=== PATIENT | female | born 1940 | race Caucasian/White ===

== ENCOUNTER → 2016-11-03 | Outpatient (CLI) | payer MEDICARE, OTHER ==
[~2016-11-03] VITALS: Ht 162.6 cm; Wt 98.4 kg
[~2016-11-03] MED LIST: CATHETER FLUSH 10 ML SYR IV PRN; LEVO500T69 PO; REGADENOSON 0.4 MG/5 ML SYR (LEXISCAN) IV ONE; SCR1T PO
[2016-11-03 13:20] VITALS: BP 216/90
--- NOTE | 2016-11-04 14:46 | STRESS TEST ---
DATE OF SERVICE: 11/03/2016 RESTING AND POST REGADENOSON TECHNETIUM 99M TETROFOSMIN SPECT CT IMAGING ORDERING PHYSICIAN: Lilly Rollins APRN PRIMARY PHYSICIAN: Dr. Casas. OTHER PHYSICIAN: Dr. Souza. CLINICAL DIAGNOSES: Coronary artery disease, shortness of breath, hypertension. Baseline images were carried out after injection of 10.03 mCi of technetium-99m tetrofosmin for this was followed by 0.4 mg of regadenoson and 29.8 mCi technetium-99m tetrofosmin for stress imaging. The electrocardiogram showed sinus rhythm with incomplete right bundle branch block and nonspecific ST and T-wave abnormality. The electrocardiogram did not change significantly with the regadenoson infusion. Review of images at rest and following stress does not indicate any significant perfusion defects consistent with significant myocardial ischemia or infarction. Gated images show normal global left ventricular systolic function and normal regional wall motion. Left ventricular ejection fraction is calculated to be 84%. Left ventricular end diastolic volume is 25 mL. CONCLUSIONS: 1. No evidence of significant myocardial ischemia or infarction on this study. 2. Normal regional wall motion. 3. Normal global left ventricular systolic function with a calculated ejection fraction of 84%. Job ID: [id number] DocumentID: [id number] Dictated Date: 11/04/2016 12:55:27 Computer Information Systems Instructor Date: 11/04/2016 14:32:36 Dictated By: ARMAND SOUZA MD, MA, FACP, FACC,
== END ==
LOC: CARD 11:44
PROVIDERS: ATTEND Nurse Practitioner Family
DX: I25.10 Atherosclerotic heart disease of native coronary artery without angina pectoris (principal); R06.09 Other forms of dyspnea; I10 Essential (primary) hypertension; R53.81 Other malaise
CPT/HCPCS: 78452; 93017

== ENCOUNTER → 2016-12-16 | Outpatient (CLI) | payer MEDICARE, OTHER ==
[~2016-12-16] MED LIST changes: -CATHETER FLUSH 10 ML SYR IV PRN; -REGADENOSON 0.4 MG/5 ML SYR (LEXISCAN) IV ONE
== END ==
LOC: CARD 12:50
PROVIDERS: ATTEND Nurse Practitioner Family
DX: I25.10 Atherosclerotic heart disease of native coronary artery without angina pectoris (principal); I10 Essential (primary) hypertension; R06.09 Other forms of dyspnea; R53.81 Other malaise
CPT/HCPCS: 93306

== ENCOUNTER 2017-12-13 05:51 | Outpatient (CLI) | payer MEDICARE, OTHER ==
[~2017-12-13] VITALS: Ht 162.6 cm; Wt 93.9 kg
[2017-12-13] MEDS ORDERED: LYSI500T3 PO (14:07)
[2017-12-13] MEDS ORDERED: OMEP40CA36 PO (14:07)
[2017-12-13] MEDS ORDERED: ASPI-808 PO (14:07)
[2017-12-13] MEDS ORDERED: FENO145T37 PO (14:07)
[2017-12-13] MEDS ORDERED: CLOP75TA69 PO (14:07)
[2017-12-13] MEDS ORDERED: LEVO50TA6 PO (14:07)
[2017-12-13] MEDS ORDERED: RED600CA2 PO (14:07)
[2017-12-13] MEDS ORDERED: AMLO10TA2 PO (14:07)
[2017-12-13] MEDS ORDERED: FURO80TA83 PO (14:07)
[2017-12-13] MEDS ORDERED: METO-352 PO (14:07)
[2017-12-13] MEDS ORDERED: POTA-51 PO (14:07)
== END 2017-12-13 14:13 | disposition home or self-care (01) ==
LOC: PREOP 05:51
PROVIDERS: ATTEND Surgery
DX: Z01.818 Encounter for other preprocedural examination (principal)

== ENCOUNTER 2017-12-20 09:19 | Day surgery (SDC) | payer MEDICARE, OTHER ==
[~2017-12-20] VITALS: Ht 162.6 cm; Wt 93.9 kg
[~2017-12-20 09:19] MED LIST changes: +AMLO10TA2 PO; +ASPI-808 PO; +CLOP75TA69 PO; +FENO145T37 PO; +FURO80TA83 PO; +LEVO50TA6 PO; +LYSI500T3 PO; +METO-352 PO; +OMEP40CA36 PO; +POTA-51 PO; +RED600CA2 PO
[2017-12-20] MEDS ORDERED: NS IV 500 ML 500 ML IV PRN (09:22)
[2017-12-20] MEDS ORDERED: NS IV 500 ML 500 ML ONE (09:23)
[2017-12-20 09:30] VITALS: BP 190/80
[2017-12-20] MEDS ORDERED: HURRICAINE EXT TUBE (BENZOCAINE) XX PRN (09:30)
[2017-12-20] MEDS ORDERED: MIDAZOLAM 2 MG/2 ML (VERSED) VIAL ONE ×3 (09:42→09:43)
[2017-12-20] MEDS ORDERED: HURRICAINE EXT TUBE (BENZOCAINE) ONE (09:43)
[2017-12-20] MEDS ORDERED: fentaNYL INJECTION 100 MCG/2 ML AMP ONE (09:43)
[2017-12-20] MEDS: fentaNYL INJECTION 100 MCG/2 ML AMP IVP PRN ×2 (09:55→10:10)
--- NOTE | 2017-12-20 09:55 | Conscious Sedation/ASA ---
Conscious Sedation Pre-Proced Time Reviewed: 09:55 ASA Class: 2 Airway Mallampati Classification: (sh[place] ira appropriate class) I. II. III, IV Lungs Heart ASA score ASA 1: a normal healthy patient ASA 2: a patient with a mild systemic disease (mid diabetes, controlled hypertension, obesity ASA 3: a patient with a severe systemic disease that limits activity (angina , COPD, prior Myocardial infarction) ASA 4: a patient with an incapacitating disease that is a constant threat to life (CHF, renal failure) ASA 5: a moribund patient not expected to survive 24 hrs. (ruptured aneurysm) ASA 6: a declared brain patient whose organs are being harvested. For emergent operations, add the letter E after the classification Grade 1 Sedation Plan: Discussed options with patient/fam Note The patient is an appropriate candidate to undergo the planned procedure, sedation, and anesthesia. The patient immediately re-assessed prior to indication. BALDEV AGUIRRE MD Dec 20, 2017 9:55 am
--- NOTE | 2017-12-20 09:55 | History & Physicial ---
History of Present Illness History of Present Illness Reason for visit/HPI to undergo an upper endoscopy with concomitant colonoscopy, to investigate iron deficiency anemia. She reports symptoms of gastroesophageal reflux as well. Date of Admission 12/20/17 Date Seen by Provider: Dec 20, 2017 Time Seen by Provider: 09:53 I consulted on this patient on 12/20/17 09:53 Attending Physician Baldev Aguirre MD Admitting Physician Frankie Casas DO Consult Allergies and Home Medications Allergies Coded Allergies: Sulfa (Sulfonamide Antibiotics) (Verified Allergy, Unknown, 12/13/17) penicillin G (Verified Allergy, Unknown, 12/13/17) Home Medications Amlodipine Besylate 10 Mg Tablet, 10 MG PO DAILY, (Reported) Aspirin 325 Mg Tablet, 325 MG PO DAILY, (Reported) Clopidogrel Bisulfate 75 Mg Tablet, 75 MG PO DAILY, (Reported) Fenofibrate Nanocrystallized 145 Mg Tablet, 145 MG PO DAILY, (Reported) Furosemide 80 Mg Tablet, 80 MG PO DAILY, (Reported) Levothyroxine Sodium 50 Mcg Tablet, 50 MCG PO DAILY, (Reported) Lysine 500 Mg Tablet, 500 MG PO DAILY, (Reported) Metoprolol Succinate 50 Mg Tab.er.24h, 50 MG PO DAILY, (Reported) Omeprazole 40 Mg Capsule.dr, 40 MG PO DAILY, (Reported) Potassium Chloride 20 Meq Tablet.er, 20 MEQ PO DAILY, (Reported) Red Yeast Rice 600 Mg Capsule, 600 MG PO DAILY, (Reported) Patient Home Medication List Home Medication List Reviewed: Yes Past Avaprnv-Vvktlo-Wqtajl Hx Patient Social History Marrital Status: Employed/Student: retired Alcohol Use: Denies Use Recreational Drug Use: No Smoking Status: Former Smoker Former Smoker, Quit: Dec 13, 1993 Recent Foreign Travel: No Contact w/other who traveled: No Recent Hopitalizations: No Recent Infectious Disease Expo: No Immunizations Up To Date Date of Pneumonia Vaccine: Mar 08, 2017 Date of Influenza Vaccine: Mar 08, 2017 Seasonal Allergies Seasonal Allergies: Yes (MILD) Surgeries Yes CABG, Gallbladder, Hysterectomy, Tonsillectomy Cardiovascular Yes Coronary Artery Disease, High Cholesterol, Hypertension Reproductive System : Yes Hx Reproductive Disorders: No Sexually Transmitted Disease: No 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 Genitourinary Neurogenic Bladder Gastrointestinal Yes Gastroesophageal Reflux, Chronic Constipation, Chronic Diarrhea Musculoskeletal Yes Arthritis HEENT Loss of Vision: Bilateral Hearing Impairment: Denies Blood Transfusions Adverse Reaction to a Blood Tr: No Constitutional: no symptoms reported EENTM: no symptoms reported Respiratory: no symptoms reported Cardiovascular: no symptoms reported Gastrointestinal: no symptoms reported Genitourinary: no symptoms reported Musculoskeletal: no symptoms reported Skin: no symptoms reported Psychiatric/Neurological: No Symptoms Reported Physical Exam Vital Signs Vital Signs - First Documented 12/20/17 09:30 Temp 98.0 Pulse 64 Resp 18 B/P (MAP) 190/80 (116) Pulse Ox 92 Capillary Refill : Height, Weight, BMI Height: 5'4.00" Weight: 207lbs. 0.0oz. 93.875548zm; 35.5 BMI Method:Stated General Appearance: No Apparent Distress Neck: Normal Inspection Respiratory: Lungs Clear Cardiovascular: Regular Rate, Rhythm Gastrointestinal: Non Tender, Soft Rectal: Deferred Neurologic/Psychiatric: Alert, Oriented x3 Skin: Warm/Dry Assessment/Plan Assessment and Plan lady with iron deficiency anemia and symptoms of reflux disease. 4 upper endoscopy with colonoscopy. Admission Diagnosis Admission Status: Other (Outpt Proc) BALDEV AGUIRRE MD Dec 20, 2017 9:55 am
[2017-12-20] MEDS: MIDAZOLAM 2 MG/2 ML (VERSED) VIAL IVP PRN ×3 (09:57→10:20)
--- NOTE | 2017-12-20 10:42 | Endo Procedure Record ---
Endo Procedure Report Date of Procedure Last Colonoscopy: Yes (1981) Dec 20, 2017 Surgeon (s) BALDEV AGUIRRE MD Post Procedure/Op Diagnosis EGD: Uncomplicated hiatal hernia Colonoscopy: Diffuse diverticulosis 2 mm polyp at the distal transverse colon Procedure Performed EGD Colonoscopy to cecum Hot biopsy polypectomy Description of Procedure Anesthesia Type: Conscious Sedation Specimen(s) collected/removed Transverse colon polyp Description of the Procedure Indication for the procedures: This lady came in for an upper endoscopy with concomitant colonoscopy, to evaluate iron deficiency anemia. In addition, she reported symptoms of gastroesophageal reflux as well. Informed consent was obtained after reviewing the procedures in detail. Description of procedures: EGD: She was placed in left lateral decubitus position and vital signs were monitored. Conscious sedation was achieved using Versed and fentanyl. The flexible gastroscope was introduced down the esophagus, past the stomach, into the proximal duodenum. Findings: Esophagus: An uncomplicated hiatal hernia. Stomach and duodenum were normal. She tolerated the procedure well and was turned around in preparation for colonoscopy. Impression: Iron deficiency anemia. No gastric ulcers. Colonoscopy/polypectomy: Digital rectal examination was unremarkable. The colonoscope was then introduced in the rectum and advanced with difficulty to the cecum. I have recorded bowel preparation was rather suboptimal. Diverticulosis and redundancy of the sigmoid colon made examination rather tedious. The scope was then withdrawn slowly and the mucosa examined in a systematic fashion. Findings: 1. Diffuse diverticulosis 2. 2 mm polyp at the distal transverse colon that was excised with hot biopsy forceps She tolerated the procedures well and was taken back to the nursing area in a stable condition. Impression: Iron deficiency anemia. Transverse colon polyp excised. Copy Copies To 1: SHARATH COLON XAVIER M MD Dec 20, 2017 10:42 am
--- NOTE | 2017-12-20 10:44 | Discharge Inst-Simple/Standard ---
Discharge Inst-Standard Discharge Medications New, Converted or Re-Newed RX: Other Patient Instructions/Follow Up Plan of Care/Instructions/FU: Withhold aspirin and Plavix for 48 more hours, in view of polypectomy Activity as Tolerated: Yes Discharge Diet: No Restrictions BALDEV AGUIRRE MD Dec 20, 2017 10:43 am
[2017-12-20 10:55] VITALS: BP 198/86
[2017-12-20 11:25] VITALS: BP 166/81
[2017-12-20 12:27] VITALS: BP 166/81
== END 2017-12-20 12:25 | disposition home or self-care (01) ==
LOC: ENDO 09:19
PROVIDERS: ATTEND Surgery
DX: D12.3 Benign neoplasm of transverse colon (principal); D50.9 Iron deficiency anemia, unspecified; K57.30 Diverticulosis of large intestine without perforation or abscess without bleeding; K44.9 Diaphragmatic hernia without obstruction or gangrene; K21.9 Gastro-esophageal reflux disease without esophagitis; Z88.2 Allergy status to sulfonamides; Z88.1 Allergy status to other antibiotic agents; Z87.891 Personal history of nicotine dependence; Z95.1 Presence of aortocoronary bypass graft; I25.10 Atherosclerotic heart disease of native coronary artery without angina pectoris; E78.00 Pure hypercholesterolemia, unspecified; I10 Essential (primary) hypertension; N31.9 Neuromuscular dysfunction of bladder, unspecified; K59.09 Other constipation; K52.9 Noninfective gastroenteritis and colitis, unspecified

== ENCOUNTER 2018-05-20 22:42 | Inpatient (IN) | payer MEDICARE, OTHER ==
[~2018-05-20] VITALS: Ht 162.6 cm; Wt 96.8 kg
[~2018-05-20 22:42] MED LIST changes: -AMLO10TA2 PO; +AMLO10TA6 PO
[2018-05-20] MEDS ORDERED: fentaNYL INJECTION 100 MCG/2 ML AMP ONE (22:54)
--- NOTE | 2018-05-20 22:54 | ED Fall/Injury ---
General Stated Complaint: FALL/R KNEE PAIN Source: patient, family, EMS Exam Limitations: no limitations History of Present Illness Date Seen by Provider: May 20, 2018 Time Seen by Provider: 22:39 Initial Comments The patient presents to ER by EMS with chief complaint that she was getting up to go to bed and went to let her dog out to go the bathroom but had already urinated on the floor and she slipped in the urine falling backwards onto her back. She is not really having any pain in her back at this time however her right knee and right ankle are hurting. She says she did strike her head and the back but she did not lose consciousness have any nausea vomiting. She denies loss of continence herself. She is on Plavix. She remembers the entire event. 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 Allergies and Home Medications Allergies Coded Allergies: Sulfa (Sulfonamide Antibiotics) (Verified Allergy, Unknown, 12/13/17) penicillin G (Verified Allergy, Unknown, 12/13/17) Home Medications Amlodipine Besylate 10 Mg Tablet, 10 MG PO DAILY, (Reported) Fenofibrate Nanocrystallized 145 Mg Tablet, 145 MG PO DAILY, (Reported) Furosemide 80 Mg Tablet, 80 MG PO DAILY, (Reported) Levothyroxine Sodium 50 Mcg Tablet, 50 MCG PO DAILY, (Reported) Lysine 500 Mg Tablet, 500 MG PO DAILY, (Reported) Metoprolol Succinate 50 Mg Tab.er.24h, 50 MG PO DAILY, (Reported) Omeprazole 40 Mg Capsule.dr, 40 MG PO DAILY, (Reported) Potassium Chloride 20 Meq Tablet.er, 20 MEQ PO DAILY, (Reported) Red Yeast Rice 600 Mg Capsule, 600 MG PO DAILY, (Reported) Patient Home Medication List Home Medication List Reviewed: Yes Review of Systems Review of Systems Constitutional: No chills, No fever, No malaise Eyes: Denies Blindness, Denies Blurred Vision Ears, Nose, Mouth, Throat: denies ear pain, denies ear discharge Respiratory: No cough, No short of breath Cardiovascular: No chest pain, No edema Gastrointestinal: No abdominal pain, No nausea Genitourinary: No discharge, No dysuria Musculoskeletal: see HPI Past Fltatyj-Snyvqp-Uduoih Hx Patient Social History Alcohol Use: Denies Use Recreational Drug Use: No Smoking Status: Never a Smoker Former Smoker, Quit: Dec 13, 1993 Recent Foreign Travel: No Contact w/Someone Who Travel: No Recent Hopitalizations: No Immunizations Up To Date Date of Pneumonia Vaccine: Mar 08, 2017 Date of Influenza Vaccine: Mar 08, 2017 Seasonal Allergies Seasonal Allergies: Yes (MILD) Past Medical History Surgeries: Yes CABG, Gallbladder, Hysterectomy, Tonsillectomy Cardiac: Yes Coronary Artery Disease, High Cholesterol, Hypertension 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 0.0oz. 93.320634ur; 35.5 BMI Method:Stated General Appearance: WD/WN, no apparent distress HEENT: PERRL/EOMI, normal ENT inspection, TMs normal, pharynx normal, other ( negative for raccoon eyes or Chowdhury sign. Atraumatic head without hematoma.) Neck: non-tender, full range of motion, supple, normal inspection Cardiovascular: normal peripheral pulses, regular rate, rhythm, no edema, no murmur Respiratory: chest non-tender, lungs clear, normal breath sounds, no respiratory distress, no accessory muscle use Peripheral Pulses: 2+ Dorsalis Pedis (R), 2+ Left Dors-Pedis (L), 2+ Radial Pulses (R), 2+ Radial Pulses (L) Gastrointestinal: non tender, soft Pelvic: normal external exam Extremities: normal inspection, no calf tenderness, normal capillary refill, swelling (right ankle mild nonpitting), other (right knee tender over the distal femur and right hip nontender except on movement. 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, no motor/sensory deficits, alert, normal mood/affect, oriented x 3 Skin: normal color, warm/dry Progress/Results/Core Measures Results/Orders Lab Results Laboratory Tests Test 05/20/18 22:30 05/20/18 23:50 Range/Units White Blood Count 5.4 4.3-11.0 10^3/uL Red Blood Count 4.02 L 4.35-5.85 10^6/uL Hemoglobin 10.9 L 11.5-16.0 G/DL Hematocrit 34 L 35-52 % Mean Corpuscular Volume 85 80-99 FL Mean Corpuscular Hemoglobin 27 25-34 PG Mean Corpuscular Hemoglobin Concent 32 32-36 G/DL Red Cell Distribution Width 12.9 10.0-14.5 % Platelet Count 240 130-400 10^3/uL Mean Platelet Volume 10.3 7.4-10.4 FL Neutrophils (%) (Auto) 51 42-75 % Lymphocytes (%) (Auto) 35 12-44 % Monocytes (%) (Auto) 12 0-12 % Eosinophils (%) (Auto) 0 0-10 % Basophils (%) (Auto) 1 0-10 % Neutrophils # (Auto) 2.8 1.8-7.8 X 10^3 Lymphocytes # (Auto) 1.9 1.0-4.0 X 10^3 Monocytes # (Auto) 0.7 0.0-1.0 X 10^3 Eosinophils # (Auto) 0.0 0.0-0.3 10^3/uL Basophils # (Auto) 0.1 0.0-0.1 10^3/uL Prothrombin Time 12.7 12.2-14.7 SEC INR Comment 1.0 0.8-1.4 Activated Partial Thromboplast Time 26 24-35 SEC Sodium Level 141 135-145 MMOL/L Potassium Level 3.2 L 3.6-5.0 MMOL/L Chloride Level 108 H 98-107 MMOL/L Carbon Dioxide Level 18 L 21-32 MMOL/L Anion Gap 15 H 5-14 MMOL/L Blood Urea Nitrogen 17 7-18 MG/DL Creatinine 1.20 0.60-1.30 MG/DL Estimat Glomerular Filtration Rate 44 BUN/Creatinine Ratio 14 Glucose Level 175 H 70-105 MG/DL Calcium Level 10.4 H 8.5-10.1 MG/DL Corrected Calcium 10.2 H 8.5-10.1 MG/DL Total Bilirubin 0.3 0.1-1.0 MG/DL Aspartate Amino Transf (AST/SGOT) 34 5-34 U/L Alanine Aminotransferase (ALT/SGPT) 29 0-55 U/L Alkaline Phosphatase 82 40-136 U/L Total Protein 7.4 6.4-8.2 GM/DL Albumin 4.3 3.2-4.5 GM/DL Urine Color YELLOW Urine Clarity CLEAR Urine pH 5 5-9 Urine Specific [place] 1.015 L 1.016-1.022 Urine Protein NEGATIVE NEGATIVE Urine Glucose (UA) NEGATIVE NEGATIVE Urine Ketones NEGATIVE NEGATIVE Urine Nitrite NEGATIVE NEGATIVE Urine Bilirubin NEGATIVE NEGATIVE Urine Urobilinogen NORMAL NORMAL MG/DL Urine Leukocyte Esterase NEGATIVE NEGATIVE Urine RBC (Auto) NEGATIVE NEGATIVE Urine RBC NONE /HPF Urine WBC NONE /HPF Urine Squamous Epithelial Cells RARE /HPF Urine Crystals NONE /LPF Urine Bacteria NEGATIVE /HPF Urine Casts NONE /LPF Urine Mucus SMALL H /LPF Urine Culture Indicated NO My Orders Orders - CAMELIA AMATO Knee, Right, 3 Views (05/20/18 22:48) Ankle, Right, 3 Views (05/20/18 22:48) Hip, Right, 2 Views (05/20/18 22:48) Ct Head/Cervical Spine Wo (05/20/18 22:48) Fentanyl Injection (Sublimaze Injection (05/20/18 23:00) Fentanyl Injection (Sublimaze Injection (05/20/18 22:54) Femur, Right, 2 Views (05/20/18 23:12) Chest 1 View, Ap/Pa Only (05/20/18 23:25) Fentanyl Injection (Sublimaze Injection (05/21/18 00:00) Cbc With Automated Diff (05/20/18 23:55) Comprehensive Metabolic Panel (05/20/18 23:55) Ua Culture If Indicated (05/20/18 23:55) Protime With Inr (05/20/18 23:55) Partial Thromboplastin Time (05/20/18 23:55) Ct Extremity Lower Right Wo (05/21/18 00:31) Ct Extremity Lower Right Wo (05/21/18 00:47) Medications Given in ED Current Medications Medications Dose Ordered Sig/Bety Route Start Time Stop Time Status Last Admin Dose Admin Fentanyl Citrate 50 mcg ONCE ONCE IVP 05/20/18 23:00 05/20/18 23:02 DC 05/20/18 22:57 50 MCG Fentanyl Citrate 75 mcg ONCE ONCE IVP 05/21/18 00:00 05/21/18 00:01 DC 05/21/18 00:19 75 MCG Vital Signs/I&O 05/20/18 22:43 Temp 97.8 Pulse 84 Resp 16 B/P (MAP) 192/85 (120) Pulse Ox 93 O2 Delivery Room Air Progress Progress Note : Time: 22:52 Progress Note She has declined pain medicine at this time. We'll get x-rays of her right hip, right knee and right ankle. CT of the head and neck without contrast. Initial ECG Impression: Sinus Bradycardia Diagnostic Imaging Diagonstic Imaging: Xray Plain Films/CT/US/NM/MRI: ankle (r) Comments Distal right fibula has an oblique, closed, minimally displaced, non-angulated fracture. Reviewed: Reviewed by Nh Diagonstic Imaging: Xray Plain Films/CT/US/NM/MRI: knee (r) Comments Oblique/longitudinal fracture noted in the distal femur with minimal comminution not involving the joint space, closed and minimally displaced. Reviewed: Reviewed by Me Diagonstic Imaging: Xray Plain Films/CT/US/NM/MRI: hip (r), other (right femur) Comments Right hip prostheses in good position with wires holding in place and evidence of old fracture at the distal end of the femur prostheses. No acute fracture or dislocation noted. Thin, osteoporotic bone noted. Distal half of the femur shaft has a minimally displaced comminuted longitudinal /oblique fracture that is closed. Reviewed: Reviewed by Nh Diagonstic Imaging: CT (noncontrast) Plain Films/CT/US/NM/MRI: c-spine, head Comments No evidence of intracardiac calvarial fracture, hemorrhage, midline shift, tumor or mass effect. C-spine without fracture or subluxation. Moderate to severe chronic degenerative changes noted. Reviewed: Reviewed by Nh Diagonstic Imaging: Xray Plain Films/CT/US/NM/MRI: chest (1v) Comments Elevated right hemidiaphragm but no infiltrate, or acute pulmonary process noted. Reviewed: Reviewed by Me Consults : Consulting Physician: DIDIER YOUNGBLOOD DO Consults Notes Discussed the case with Dr. Youngblood and then sent the images electronically and he reviewed the CTs of the distal femur fracture and distal fibular fracture. At this time he just wants the patient in a knee immobilizer and a boot. He would like to have the patient admitted to medicine and do surgery on Wednesday. Departure Communication (Admissions) Time/Spoke to Admitting Phy: 01:45 Discussed case lab imaging findings with Dr. Calle and she would like cardiology consult in the morning. Time/Spoke to Consulting Phy: 01:50 Discussed plan again with Dr. Youngblood and he would like to go ahead and admit the patient under medicine and plan to do surgery Wednesday. Impression Primary Impression: Fall Qualified Codes: W19.XXXA - Unspecified fall, initial encounter Additional Impressions: Femur fracture, right Qualified Codes: S72.334A - Nondisplaced oblique fracture of shaft of right femur, initial encounter for closed fracture Fibula fracture Qualified Codes: S89.301A - Unspecified physeal fracture of lower end of right fibula, initial encounter for closed fracture Disposition: 01 HOME, SELF-CARE Condition: Stable Admissions Decision to Admit Reason: Admit from ER (General) Decision to Admit/Date: May 21, 2018 Time/Decision to Admit Time: 01:51 Departure-Patient Inst. Referrals: SHARATH COLON DO (PCP/Family) Primary Care Physician DIDIER YOUNGBLOOD DO Copy Copies To 1: SHARATH COLON TITUS J May 20, 2018 22:54
[2018-05-20] MEDS ORDERED: fentaNYL INJECTION 100 MCG/2 ML AMP IVP ONE (23:00)
[2018-05-21] LABS: BASOPHILS # (AUTO) 0.1 10^3/uL (0.0-0.1); BASOPHILS % (AUTO) 1 % (0-10); EOSINOPHILS % (AUTO) 0 % (0-10); HEMATOCRIT 34 % (35-52); HEMOGLOBIN 10.9 G/DL (11.5-16.0); LYMPHOCYTES # (AUTO) 1.9 X 10^3 (1.0-4.0); LYMPHOCYTES % (AUTO) 35 % (12-44); MEAN CORPUSCULAR HEMOGLOBIN 27 PG (25-34); MEAN CORPUSCULAR HGB CONC 32 G/DL (32-36); MEAN CORPUSCULAR VOLUME 85 FL (80-99); MEAN PLATELET VOLUME 10.3 FL (7.4-10.4); MONOCYTES # (AUTO) 0.7 X 10^3 (0.0-1.0); MONOCYTES % (AUTO) 12 % (0-12); NEUTROPHILS # (AUTO) 2.8 X 10^3 (1.8-7.8); NEUTROPHILS % (AUTO) 51 % (42-75); PLATELET COUNT 240 10^3/uL (130-400); RED BLOOD COUNT 4.02 10^6/uL (4.35-5.85); RED CELL DISTRIBUTION WIDTH 12.9 % (10.0-14.5); WHITE BLOOD COUNT 5.4 10^3/uL (4.3-11.0)
[2018-05-21] MEDS ORDERED: fentaNYL INJECTION 100 MCG/2 ML AMP IVP ONE
[2018-05-21 00:02] LABS: BILIRUBIN,URINE NEGATIVE (NEGATIVE); CLARITY,URINE CLEAR; COLOR,URINE YELLOW; GLUCOSE, URINE (UA) NEGATIVE (NEGATIVE); KETONES,URINE NEGATIVE (NEGATIVE); LEUKOCYTE ESTERASE ,URINE NEGATIVE (NEGATIVE); NITRITE,URINE NEGATIVE (NEGATIVE); PH,URINE 5 (5-9); PROTEIN,URINE NEGATIVE (NEGATIVE); UROBILINOGEN,URINE NORMAL (NORMAL)
[2018-05-21 00:13] LABS: BACTERIA,URINE NEGATIVE /HPF; SQUAMOUS EPITHELIAL CELL,UR RARE /HPF
[2018-05-21 00:14] LABS: ALBUMIN 4.3 GM/DL (3.2-4.5); BILIRUBIN,TOTAL 0.3 MG/DL (0.1-1.0); CALCIUM 10.4 MG/DL (8.5-10.1); CREATININE SERUM 1.2 MG/DL (0.60-1.30); POTASSIUM 3.2 MMOL/L (3.6-5.0); TOTAL PROTEIN 7.4 GM/DL (6.4-8.2)
[2018-05-21 00:15] LABS: PROTHROMBIN TIME PATIENT 12.7 SEC (12.2-14.7)
--- OUTSIDE RECORDS SUMMARY | 2018-05-21 01:59 | XMS REPORT | Continuity of Care Document ---
Author Author [facility] Organization [facility] Address Unknown Phone Unavailable Allergies Active Description Code Type Severity Reaction Onset Reported/Identified Relationship to Patient Clinical Status Yes penicillin G [id number] Drug Allergy Unknown N/A 12/13/2017 Yes Sulfa (Sulfonamide Antibiotics) [id number] Drug Allergy Unknown N/A 2017 Medications There is no data. Problems Date Dx Coded Attending Type Code Diagnosis Diagnosed By 07/18/2013 BEST ENRIQUEZ, GEMMA Wilson Ot 535.50 UNSP GASTRITIS GASTRODUODENITIS W/O ME 07/18/2013 GEMMA JEWELL MD Ot 599.0 URIN TRACT INFECTION NOS 07/18/2013 GEMMA JEWELL MD Ot 786.50 CHEST PAIN NOS 07/18/2013 BEST ENRIQUEZ, GEMMA Wilson Ot 787.01 NAUSEA WITH VOMITING 10/16/2014 Ot V76.12 10/16/2014 Ot V76.12 10/16/2014 SHARATH COLON DO Ot V76.12 10/16/2014 SHARATH COLON DO Ot V76.12 10/16/2014 GOLDIE VILLAFANA NETEZZA ARCHITECT Ot 272.4 10/16/2014 GOLDIE VILLAFANA L NETEZZA ARCHITECT Ot 401.9 10/16/2014 BAIMATTHEW CASTELLONHER L NETEZZA ARCHITECT Ot 414.00 10/16/2014 BAIRAVINDER GOLDIE L NETEZZA ARCHITECT Ot 443.9 10/16/2014 BAIRAVINDER GOLDIE L NETEZZA ARCHITECT Ot 272.4 10/16/2014 BAIRAVINDER GOLDIE L NETEZZA ARCHITECT Ot 401.9 10/16/2014 MATTHEW VILLAFANAHER L NETEZZA ARCHITECT Ot 414.00 10/16/2014 GOLDIE VILLAFANA L NETEZZA ARCHITECT Ot 443.9 10/30/2014 Ot V76.12 10/30/2014 Ot V76.12 10/30/2014 SHARATH COLON DO Ot V76.12 10/30/2014 GELSHARATH COURTNEY DO Ot V76.12 10/30/2014 BAIMA, OGLDIE L NETEZZA ARCHITECT Ot 272.4 10/30/2014 BAIMA, GOLDIE L NETEZZA ARCHITECT Ot 401.9 10/30/2014 BAIMA, GOLDIE L NETEZZA ARCHITECT Ot 414.00 10/30/2014 BAIMA, GOLDIE L NETEZZA ARCHITECT Ot 443.9 10/30/2014 BAIMA, GOLDIE L NETEZZA ARCHITECT Ot 272.4 10/30/2014 BAIMA, GOLDIE L NETEZZA ARCHITECT Ot 401.9 10/30/2014 BAIMA, GOLDIE L NETEZZA ARCHITECT Ot 414.00 10/30/2014 BAIMA, GOLDIE L NETEZZA ARCHITECT Ot 443.9 10/30/2014 PEPE, BHUPENDRA M NETEZZA ARCHITECT Ot 272.2 10/30/2014 PEPE, BHUPENDRA M NETEZZA ARCHITECT Ot 401.9 10/30/2014 PEPE, BHUPENDRA M NETEZZA ARCHITECT Ot 433.10 10/30/2014 PEPE, BHUPENDRA M NETEZZA ARCHITECT Ot 440.1 10/30/2014 PEPE, BHUPENDRA M NETEZZA ARCHITECT Ot 593.2 11/15/2014 PEPE, BHUPENDRA M NETEZZA ARCHITECT Ot 272.2 11/15/2014 PEPE, BHUPENDRA M NETEZZA ARCHITECT Ot 401.9 11/15/2014 PEPE, BHUPENDRA M NETEZZA ARCHITECT Ot 433.10 11/15/2014 PEPE, BHUPENDRA M NETEZZA ARCHITECT Ot 440.1 11/15/2014 PEPE, BHUPENDRA M NETEZZA ARCHITECT Ot 593.2 11/19/2014 AJITH DO, ROSE H Ot 753.10 11/19/2014 AJITH DO, ROSE H Ot V81.5 12/06/2014 AJITH DO, ROSE H Ot 753.10 12/06/2014 AJITH DO, ROSE H Ot V81.5 02/12/2015 SHARATH COLON DO Ot V76.12 11/15/2015 UGO JEAN DO Ot R09.02 HYPOXEMIA 11/15/2015 UGO JEAN DO Ot E66.9 OBESITY, UNSPECIFIED 11/15/2015 UGO JEAN DO Ot I25.10 ATHSCL HEART DISEASE OF [place] CORONARY 11/15/2015 UGO JEAN DO Ot R09.02 HYPOXEMIA 11/21/2015 UGO JEAN DO Ot E66.9 OBESITY, UNSPECIFIED 11/21/2015 UGO JEAN DO Ot I25.10 ATHSCL HEART DISEASE OF [place] CORONARY 11/21/2015 UGO JEAN DO Ot R09.02 HYPOXEMIA 12/04/2015 UGO JEAN DO Ot E66.9 OBESITY, UNSPECIFIED 12/04/2015 UGO JEAN DO Ot I25.10 ATHSCL HEART DISEASE OF [place] CORONARY 12/04/2015 UGO JEAN DO Ot R09.02 HYPOXEMIA 12/12/2015 UGO JEAN DO Ot E66.9 OBESITY, UNSPECIFIED 12/12/2015 UGO JEAN DO Ot I25.10 ATHSCL HEART DISEASE OF [place] CORONARY 12/12/2015 UGO JEAN DO Ot R09.02 HYPOXEMIA 11/04/2016 MERTMA, GOLDIE L NETEZZA ARCHITECT Ot I10 ESSENTIAL (PRIMARY) HYPERTENSION 11/04/2016 BAIMA GOLDIE L NETEZZA ARCHITECT Ot I25.10 ATHSCL HEART DISEASE OF [place] CORONARY 11/04/2016 BAIMA GOLDIE L NETEZZA ARCHITECT Ot R06.09 OTHER FORMS OF DYSPNEA 11/04/2016 BAIMA, GOLDIE L NETEZZA ARCHITECT Ot R53.81 OTHER MALAISE 11/26/2016 BAIMA, GOLDIE L NETEZZA ARCHITECT Ot I10 ESSENTIAL (PRIMARY) HYPERTENSION 11/26/2016 BAIMA, GOLDIE L NETEZZA ARCHITECT Ot I25.10 ATHSCL HEART DISEASE OF [place] CORONARY 11/26/2016 BAIMA GOLDIE L NETEZZA ARCHITECT Ot R06.09 OTHER FORMS OF DYSPNEA 11/26/2016 BAIMA, GOLDIE L NETEZZA ARCHITECT Ot R53.81 OTHER MALAISE 12/16/2016 Ot V76.12 OTH SCREEN MAMMO-MALIGN NEOPLASM OF [place] 12/16/2016 GELLENDER DOSHARATH Ot V76.12 OTH SCREEN MAMMO-MALIGN NEOPLASM OF [place] 12/16/2016 GELLENDER DOSHARATH Ot V76.12 OTH SCREEN MAMMO-MALIGN NEOPLASM OF [place] 12/16/2016 BAIMA GOLDIE L NETEZZA ARCHITECT Ot 272.4 HYPERLIPIDEMIA NEC/NOS 12/16/2016 BAIMA, GOLDIE L NETEZZA ARCHITECT Ot 401.9 HYPERTENSION NOS 12/16/2016 BAIMA, GOLDIE L NETEZZA ARCHITECT Ot 414.00 CORON ATHEROSCLER NOS TYPE VESSEL, NATIV 12/16/2016 BAIMA, GOLDIE L NETEZZA ARCHITECT Ot 443.9 PERIPH VASCULAR DIS NOS 12/16/2016 BAIMA, GOLDIE L NETEZZA ARCHITECT Ot 272.4 HYPERLIPIDEMIA NEC/NOS 12/16/2016 BAIMA, GOLDIE L NETEZZA ARCHITECT Ot 401.9 HYPERTENSION NOS 12/16/2016 BAIMA, GOLDIE L NETEZZA ARCHITECT Ot 414.00 CORON ATHEROSCLER NOS TYPE VESSEL, NATIV 12/16/2016 BAIMA, GOLDIE L NETEZZA ARCHITECT Ot 443.9 PERIPH VASCULAR DIS NOS 12/16/2016 BHUPENDRA PEPE NETEZZA ARCHITECT Ot 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 12/16/2016 BHUPENDRA PEPE NETEZZA ARCHITECT Ot 401.9 HYPERTENSION NOS 12/16/2016 BHUPENDRA PEPE NETEZZA ARCHITECT Ot 433.10 CAROTID ARTERY OCCLUSION W O CEREBRAL IN 12/16/2016 BHUPENDRA PEPE NETEZZA ARCHITECT Ot 440.1 RENAL ARTERY ATHEROSCLER 12/16/2016 BHUPENDRA PEPE NETEZZA ARCHITECT Ot 593.2 CYST OF KIDNEY, ACQUIRED 12/16/2016 ROSE CANSECO DO Ot 753.10 CYSTIC KIDNEY DISEASE, UNSPECIFIED 12/16/2016 ROSE CANSECO DO Ot V81.5 SCREEN FOR NEPHROPATHY 12/16/2016 SHARATH COLON DO Ot V76.12 OTH SCREEN MAMMO-MALIGN NEOPLASM OF [place] 12/16/2016 UGO JEAN DO Ot E66.9 OBESITY, UNSPECIFIED 12/16/2016 UGO JEAN DO Ot I25.10 ATHSCL HEART DISEASE OF [place] CORONARY 12/16/2016 UGO JEAN DO Ot R09.02 HYPOXEMIA 12/16/2016 UGO JEAN DO Ot E66.9 OBESITY, UNSPECIFIED 12/16/2016 UGO JEAN DO Ot I25.10 ATHSCL HEART DISEASE OF [place] CORONARY 12/16/2016 UGO JEAN DO Ot R09.02 HYPOXEMIA 12/16/2016 GOLDIE VILLAFANA NETEZZA ARCHITECT Ot I10 ESSENTIAL (PRIMARY) HYPERTENSION 12/16/2016 BAIMA, GOLDIE L NETEZZA ARCHITECT Ot I25.10 ATHSCL HEART DISEASE OF [place] CORONARY 12/16/2016 BAIMA, GOLDIE L NETEZZA ARCHITECT Ot R06.09 OTHER FORMS OF DYSPNEA 12/16/2016 BAIMA, GOLDIE L NETEZZA ARCHITECT Ot R53.81 OTHER MALAISE 12/17/2016 BAIMA, GOLDIE L NETEZZA ARCHITECT Ot I10 ESSENTIAL (PRIMARY) HYPERTENSION 12/17/2016 BAIMA, GOLDIE L NETEZZA ARCHITECT Ot I25.10 ATHSCL HEART DISEASE OF [place] CORONARY 12/17/2016 BAIMA, GOLDIE L NETEZZA ARCHITECT Ot R06.09 OTHER FORMS OF DYSPNEA 12/17/2016 BAIMA, GOLDIE L NETEZZA ARCHITECT Ot R53.81 OTHER MALAISE 12/22/2016 BAIMA, GOLDIE L NETEZZA ARCHITECT Ot I10 ESSENTIAL (PRIMARY) HYPERTENSION 12/22/2016 BAIMA, GOLDIE L NETEZZA ARCHITECT Ot I25.10 ATHSCL HEART DISEASE OF [place] CORONARY 12/22/2016 BAIMA, GOLDIE L NETEZZA ARCHITECT Ot R06.09 OTHER FORMS OF DYSPNEA 12/22/2016 BAIMA, GOLDIE L NETEZZA ARCHITECT Ot R53.81 OTHER MALAISE 01/15/2017 BAIMA, GOLDIE L NETEZZA ARCHITECT Ot I10 ESSENTIAL (PRIMARY) HYPERTENSION 01/15/2017 BAIMA, GOLDIE L NETEZZA ARCHITECT Ot I25.10 ATHSCL HEART DISEASE OF [place] CORONARY 01/15/2017 BAIMA, GOLDIE L NETEZZA ARCHITECT Ot R06.09 OTHER FORMS OF DYSPNEA 01/15/2017 BAIMA, GOLDIE L NETEZZA ARCHITECT Ot R53.81 OTHER MALAISE 12/13/2017 TIMOTHY ENRIQUEZ, BALDEV Barker Ot Z01.818 ENCOUNTER FOR OTHER PREPROCEDURAL EXAMIN 12/14/2017 TIMOTHY ENRIQUEZ, BALDEV Barker Ot Z01.818 ENCOUNTER FOR OTHER PREPROCEDURAL EXAMIN 12/19/2017 TIMOTHY ENRIQUEZ, BALDEV Barker Ot Z01.818 ENCOUNTER FOR OTHER PREPROCEDURAL EXAMIN 12/20/2017 GELCLINTDER DOSHARATH Ot V76.12 OTH SCREEN MAMMO-MALIGN NEOPLASM OF [place] 12/20/2017 GELLENDER DOSHARATH Ot V76.12 OTH SCREEN MAMMO-MALIGN NEOPLASM OF [place] 12/20/2017 BAIMA, GOLDIE L NETEZZA ARCHITECT Ot 272.4 HYPERLIPIDEMIA NEC/NOS 12/20/2017 BAIMA, GOLDIE L NETEZZA ARCHITECT Ot 401.9 HYPERTENSION NOS 12/20/2017 BAIMA, GOLDIE L NETEZZA ARCHITECT Ot 414.00 CORON ATHEROSCLER NOS TYPE VESSEL, NATIV 12/20/2017 BAIMA, GOLDIE L NETEZZA ARCHITECT Ot 443.9 PERIPH VASCULAR DIS NOS 12/20/2017 BAIMA, GOLDIE L NETEZZA ARCHITECT Ot 272.4 HYPERLIPIDEMIA NEC/NOS 12/20/2017 BAIMA, GOLDIE L NETEZZA ARCHITECT Ot 401.9 HYPERTENSION NOS 12/20/2017 BAIMA, GOLDIE L NETEZZA ARCHITECT Ot 414.00 CORON ATHEROSCLER NOS TYPE VESSEL, NATIV 12/20/2017 BAIMA, GOLDIE L NETEZZA ARCHITECT Ot 443.9 PERIPH VASCULAR DIS NOS 12/20/2017 BHUPENDRA PEPE NETEZZA ARCHITECT Ot 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 12/20/2017 BHUPENDRA PEPE NETEZZA ARCHITECT Ot 401.9 HYPERTENSION NOS 12/20/2017 BHUPENDRA PEPE NETEZZA ARCHITECT Ot 433.10 CAROTID ARTERY OCCLUSION W O CEREBRAL IN 12/20/2017 BHUPENDRA PEPE NETEZZA ARCHITECT Ot 440.1 RENAL ARTERY ATHEROSCLER 12/20/2017 BHUPENDRA PEPE NETEZZA ARCHITECT Ot 593.2 CYST OF KIDNEY, ACQUIRED 12/20/2017 ROSE CANSECO DO Ot 753.10 CYSTIC KIDNEY DISEASE, UNSPECIFIED 12/20/2017 ROSE CANSECO DO Ot V81.5 SCREEN FOR NEPHROPATHY 12/20/2017 SHARATH COLON DO Ot V76.12 OTH SCREEN MAMMO-MALIGN NEOPLASM OF [place] 12/20/2017 UGO JEAN DO Ot E66.9 OBESITY, UNSPECIFIED 12/20/2017 UGO JEAN DO Ot I25.10 ATHSCL HEART DISEASE OF [place] CORONARY 12/20/2017 UGO JEAN DO Ot R09.02 HYPOXEMIA 12/20/2017 UGO JEAN DO Ot E66.9 OBESITY, UNSPECIFIED 12/20/2017 UGO JEAN DO Ot I25.10 ATHSCL HEART DISEASE OF [place] CORONARY 12/20/2017 UGO JEAN DO Ot R09.02 HYPOXEMIA 12/20/2017 GOLDIE VILLAFANA NETEZZA ARCHITECT Ot I10 ESSENTIAL (PRIMARY) HYPERTENSION 12/20/2017 GOLDIE VILLAFANA L NETEZZA ARCHITECT Ot I25.10 ATHSCL HEART DISEASE OF [place] CORONARY 12/20/2017 GOLDIE VILLAFANA NETEZZA ARCHITECT Ot R06.09 OTHER FORMS OF DYSPNEA 12/20/2017 BAIMATTHEW CASTELLONHER L NETEZZA ARCHITECT Ot R53.81 OTHER MALAISE 12/20/2017 MERTMAMATTHEWGOLDIE L NETEZZA ARCHITECT Ot I10 ESSENTIAL (PRIMARY) HYPERTENSION 12/20/2017 BAIMA, GOLDIE L NETEZZA ARCHITECT Ot I25.10 ATHSCL HEART DISEASE OF [place] CORONARY 12/20/2017 BAIGOLDIE CASTELLON L NETEZZA ARCHITECT Ot R06.09 OTHER FORMS OF DYSPNEA 12/20/2017 GOLDIE VILLAFANA L NETEZZA ARCHITECT Ot R53.81 OTHER MALAISE 12/20/2017 TIMOTHY ENRIQUEZ, BALDEV Barker Ot D12.3 BENIGN NEOPLASM OF [place] COLON 12/20/2017 BALDEV AGUIRRE MD Ot D50.9 IRON DEFICIENCY ANEMIA, UNSPECIFIED 12/20/2017 BALDEV AGUIRRE MD Ot E78.00 PURE HYPERCHOLESTEROLEMIA, UNSPECIFIED 12/20/2017 BALDEV AGUIRRE MD Ot I10 ESSENTIAL (PRIMARY) HYPERTENSION 12/20/2017 BALDEV AGUIRRE MD Ot I25.10 ATHSCL HEART DISEASE OF [place] CORONARY 12/20/2017 BALDEV AGUIRRE MD Ot K21.9 GASTRO-ESOPHAGEAL REFLUX DISEASE WITHOUT 12/20/2017 BALDEV AGUIRRE MD Ot K44.9 DIAPHRAGMATIC HERNIA WITHOUT OBSTRUCTION 12/20/2017 BALDEV AGUIRRE MD Ot K52.9 NONINFECTIVE GASTROENTERITIS AND COLITIS 12/20/2017 BALDEV AGUIRRE MD Ot K57.30 DVRTCLOS OF LG INT W/O PERFORATION OR AB 12/20/2017 BALDEV AGUIRRE MD Ot K59.09 OTHER CONSTIPATION 12/20/2017 BALDEV AGUIRRE MD Ot N31.9 NEUROMUSCULAR DYSFUNCTION OF [place], UN 12/20/2017 BALDEV AGUIRRE MD Ot Z87.891 PERSONAL HISTORY OF NICOTINE DEPENDENCE 12/20/2017 BALDEV AGUIRRE MD Ot Z88.1 ALLERGY STATUS TO OTHER ANTIBIOTIC AGENT 12/20/2017 BALDEV AGURIRE MD Ot Z88.2 ALLERGY STATUS TO SULFONAMIDES STATUS 12/20/2017 BALDEV AGUIRRE MD Ot Z95.1 PRESENCE OF AORTOCORONARY BYPASS GRAFT Procedures There is no data. Results There is no data. Encounters ACCT No. Visit Date/Time Discharge Status Pt. Type Provider Facility Loc./Unit Complaint [id number] 12/20/2017 09:19:00 12/20/2017 12:25:00 DIS Outpatient BALDEV AGUIRRE MD [facility] ENDO IRON DEF ANEMIA/ GERD [id number] 12/13/2017 05:51:00 12/13/2017 14:13:00 DIS Outpatient BALDEV AGUIRRE MD [facility] PREOP COLONOSCOPY/EGD [id number] 12/16/2016 12:50:00 12/16/2016 23:59:59 CLS Outpatient GOLDIE VILLAFANAP [facility] CARD CAD I25.10 [id number] 11/03/2016 11:44:00 11/03/2016 23:59:59 CLS Outpatient GOLDIE VILLAFANAP [facility] CARD I25.10 CAD [id number] 11/20/2015 15:53:00 11/20/2015 23:59:59 CLS Outpatient UGO JEAN DO [facility] RT HYPOXEMIA,CAD,OBESITY [id number] 11/14/2015 11:03:00 11/14/2015 23:59:59 CLS Outpatient UGO JEAN DO [facility] RAD HYPOXEMIA,CAD,OBESITY [id number] 01/21/2015 14:35:00 01/21/2015 23:59:59 CLS Outpatient SHARATH COLON DO [facility] RAD SCREENING [id number] 10/30/2014 12:14:00 10/30/2014 23:59:59 CLS Outpatient ROSE CANSECO DO [facility] RAD RENAL CYST [id number] 10/16/2014 10:51:00 10/16/2014 23:59:59 CLS Outpatient BHUPENDRA PEPE [facility] RAD KIDNEY CYSTS [id number] 03/05/2014 11:30:00 03/05/2014 23:59:59 CLS Outpatient GOLDIE VILLAFANAP [facility] CARD CAD,HLP,PAD,HTN [id number] 02/07/2014 09:05:00 02/07/2014 23:59:59 CLS Outpatient GOLDIE VILLAFANA [facility] CARD CAD,HLP,PAD,HTN [id number] 12/14/2013 10:49:00 12/14/2013 23:59:59 CLS Outpatient SHARATH COLON DO [facility] RAD ROUTINE [id number] 07/18/2013 11:23:00 07/18/2013 14:15:00 DIS Emergency BEST ENRIQUEZ, GEMMA Wilson [facility] ER CHEST PAIN [id number] 09/27/2012 11:29:00 09/27/2012 23:59:59 CLS Outpatient SHARATH COLON DO [facility] RAD SCREENING [id number] 07/30/2011 10:03:00 Document Registration [id number] 04/22/2010 10:46:00 Document Registration [id number] 01/21/2015 23:41:19 ACT Document Registration
[2018-05-21 02:20] VITALS: BP 168/71
--- NOTE | 2018-05-21 02:20 | NUR ---
JESSICA OVIEDO admitted to room 423-1, with an admitting diagnosis of Tibia and Femur Fx, on 05/21/18 from ED via stretcher, accompanied by ED staff.JESSICA OVIEDO introduced to surroundings, call light, bed controls, phone, TV, temperature control, lights, meal times, smoking policy, visitor policy, side rail policy, bathrooms and showers. Patient Rights given to patient in the handbook. JESSICA OVIEDO verbalizes understanding that [facility] is not responsible for the loss or damage to any personal effects or valuables that are kept in the patients possession during their hospitalization. JESSICA OVIEDO verbalizes understanding of Interdisciplinary Patient Education. Patient and/or family were informed about the Rapid Response Team and its purpose.
[2018-05-21] MEDS ORDERED: POTASSIUM CHLORIDE INJ 40 MEQ in 1/2 NS IV SOLUTION 1,000 ML IV SCH (02:45)
[2018-05-21] MEDS: 1/2 NS W/KCL 20 MEQ/L 1,000 ML IV SCH ×3 (03:21→20:46)
[2018-05-21] MEDS: fentaNYL INJECTION 100 MCG/2 ML AMP IV PRN ×6 (03:22→22:15)
[2018-05-21 04:19] VITALS: BP 184/79
[2018-05-21 05:59] LABS: BASOPHILS % (AUTO) 0 % (0-10); EOSINOPHILS % (AUTO) 0 % (0-10); HEMATOCRIT 29 % (35-52); HEMOGLOBIN 9.5 G/DL (11.5-16.0); LYMPHOCYTES # (AUTO) 1.4 X 10^3 (1.0-4.0); LYMPHOCYTES % (AUTO) 16 % (12-44); MEAN CORPUSCULAR HEMOGLOBIN 27 PG (25-34); MEAN CORPUSCULAR HGB CONC 32 G/DL (32-36); MEAN CORPUSCULAR VOLUME 85 FL (80-99); MEAN PLATELET VOLUME 9.8 FL (7.4-10.4); MONOCYTES % (AUTO) 12 % (0-12); NEUTROPHILS # (AUTO) 6.4 X 10^3 (1.8-7.8); NEUTROPHILS % (AUTO) 72 % (42-75); PLATELET COUNT 213 10^3/uL (130-400); RED BLOOD COUNT 3.47 10^6/uL (4.35-5.85); RED CELL DISTRIBUTION WIDTH 13.1 % (10.0-14.5)
[2018-05-21 06:19] LABS: ALBUMIN 3.8 GM/DL (3.2-4.5); BILIRUBIN,TOTAL 0.3 MG/DL (0.1-1.0); CALCIUM 10.2 MG/DL (8.5-10.1); CREATININE SERUM 1.02 MG/DL (0.60-1.30); POTASSIUM 3.6 MMOL/L (3.6-5.0); TOTAL PROTEIN 6.5 GM/DL (6.4-8.2)
[2018-05-21] MEDS: LEVOTHYROXINE 50 MCG (LEVOTHROID) TAB PO SCH ×2 (06:25→06:33)
[2018-05-21] MEDS: FUROSEMIDE 40 MG/4 ML INJ (LASIX) IV SCH (06:25)
--- NOTE | 2018-05-21 07:18 | Diagnostic Imaging Report ---
PROCEDURE: CT right lower extremity without contrast. TECHNIQUE: Axially acquired CT was obtained through the right lower extremity without intravenous contrast. Coronal and sagittal reformations were also performed. INDICATION: Ankle pain after fall. COMPARISON: Ankle radiograph performed earlier same day. FINDINGS: There is an acute simple oblique fracture of the distal fibula at the most inferior aspect located at the tibiotalar joint. Fracture has approximately 2 mm of diastases but no angulation or other displacement. No avulsion fracture of the medial malleolus. No posterior malleolar fracture. No fracture within the hindfoot. Diffuse osseous demineralization is present. No osteochondral lesion of talar dome. Normal variant ossicles within the distal posterior tibialis at the level of the navicular. Soft tissue swelling and/or edema about the lateral ankle. IMPRESSION: 1. Acute transsyndesmotic fracture of the distal fibula is not displaced or angulated. 2. No fracture of the medial malleolus or posterior malleolus. 3. Findings are in agreement with the preliminary report. Dictated by: Dictated on workstation # [id number]
--- NOTE | 2018-05-21 07:23 | Diagnostic Imaging Report ---
PROCEDURE: CT right lower extremity without contrast. TECHNIQUE: Axially acquired CT was obtained through the right lower extremity without intravenous contrast. Coronal and sagittal reformations were also performed. INDICATION: Thigh pain after fall. COMPARISON: Femur radiographs performed earlier same day. FINDINGS: There is acute segmental fracture in the distal femoral diaphysis extending in a sagittal orientation through the anterior and posterior cortices. Its most inferior extension extends to level of the anterior cortex of the medial femoral condyle. There is no extension of the fracture into the articular surface of the medial femoral condyle. The proximal aspect of the fracture involves the medial cortex of the femoral shaft. The fracture is predominantly hairline in nature with the diastases of no more than 2 mm. No angulation of the fracture fragment. Approximately 2 mm of cortical step-off is present at the midshaft. No knee joint effusion or lipohemarthrosis. IMPRESSION: Acute segmental fracture of the distal femoral diaphysis and metaphysis. No intra-articular extension into the knee and no significant displacement. Dictated by: Dictated on workstation # [id number]
[2018-05-21 08:00] VITALS: BP 167/73
--- NOTE | 2018-05-21 08:01 | Diagnostic Imaging Report ---
Indication: Right leg pain after fall. Comparison: Right knee radiographs performed concurrently. Technique: AP and lateral views of right femur were obtained. Findings: There is an acute, minimally displaced segmental fracture involving the medial aspect of the distal femoral diaphysis. The fracture extends to level of the medial femoral condyle but has no intraarticular extension on this exam. Right total hip arthroplasty is noted. No proximal femoral fractures appreciated. Impression: Acute segmental fracture of the distal femoral diaphysis is minimally displaced and has no intra-articular extension into the knee. Dictated by: Dictated on workstation # [id number]
--- NOTE | 2018-05-21 08:02 | Diagnostic Imaging Report ---
Indication: Right hip pain status post fall. Comparison: Right femur radiographs performed concurrently. Technique: AP and frog-leg lateral views of the right hip. Findings: Right total hip arthroplasty has components in good alignment. No acute periprosthetic fracture. No geographic osteolysis. No features of prosthesis loosening. Cerclage wires in place. Impression: No acute periprosthetic fracture of right total hip arthroplasty. Dictated by: Dictated on workstation # [id number]
--- NOTE | 2018-05-21 08:25 | Diagnostic Imaging Report ---
INDICATION: Right ankle pain status post fall. COMPARISON: None available. TECHNIQUE: 3 views of the right ankle were obtained. FINDINGS: Acute simple fracture of the distal fibula has minimal displacement and has its inferior margin located at the level of the tibiotalar joint. No osteochondral lesion talar dome. No fracture of the medial or posterior malleoli. Joint spaces are preserved. Mild soft tissue swelling. IMPRESSION: Acute transsyndesmotic fracture of the distal fibula. Dictated by: Dictated on workstation # [id number]
--- NOTE | 2018-05-21 08:25 | Diagnostic Imaging Report ---
INDICATION: Right knee pain after fall. COMPARISON: Right femur radiographs performed concurrently. TECHNIQUE: 3 views of right knee were obtained. FINDINGS: The distal femoral diaphyseal fracture extends to level of the medial femoral condyle. No intra-articular extension of fracture into the knee. Chondrocalcinosis is present. No fracture of the proximal tibia or fibula. No knee joint effusion or lipohemarthrosis. IMPRESSION: No intra-articular extension of the distal femoral diaphyseal fracture. Dictated by: Dictated on workstation # [id number]
--- NOTE | 2018-05-21 08:27 | Diagnostic Imaging Report ---
INDICATION: Preoperative screening. COMPARISON: 07/18/2013. FINDINGS: Stable asymmetric elevation of the right hemidiaphragm. Visualized lungs are clear. Posterior lower lobes are poorly evaluated by portable radiography. No pleural effusion or pneumothorax. Stable enlargement of the cardiac silhouette status post CABG. IMPRESSION: No acute process by portable radiography. Dictated by: Dictated on workstation # [id number]
--- NOTE | 2018-05-21 08:32 | Diagnostic Imaging Report ---
PROCEDURE: CT head and CT cervical spine without contrast. TECHNIQUE: Multiple contiguous axial images were obtained through the brain and cervical spine without the use of intravenous contrast. Sagittal and coronal reformations through the cervical spine were then performed. INDICATION: Trauma, fall. COMPARISON: None available. FINDINGS: CT head: No hyperdense hemorrhage or space-occupying mass. No hydrocephalus or midline shift. No features of acute territorial infarct. Old lacunar infarcts are present within the bilateral basal ganglia. Periventricular white matter hypoattenuation is most compatible with chronic microvascular ischemic disease. Basilar cisterns remain patent. No acute skull fracture. Mastoid air cells are clear. Paranasal sinuses are clear. CT cervical spine: Degenerative straightening of cervical spine is present. No traumatic subluxation. No acute fracture. Multilevel degenerative disc disease is greatest at C5-C6 and C6-C7. No high-grade spinal stenosis. Varying degrees of neuroforaminal narrowing are present secondary to facet and uncovertebral joint hypertrophy. The lung apices are clear. No cervical lymphadenopathy. Normal thyroid. IMPRESSION: 1. No acute intracranial hemorrhage or skull fracture. 2. No acute fracture or traumatic malalignment in the cervical spine. Dictated by: Dictated on workstation # [id number]
[2018-05-21] MEDS: meTOproloL SUCCINATE 50 MG (TOPROL XL) TAB PO SCH (10:21)
[2018-05-21] MEDS: amLODIPine 10 MG (NORVASC) TAB PO SCH (10:21)
--- NOTE | 2018-05-21 10:47 | Consultation-Cardiology ---
HPI-Cardiology Cardiology Consultation Date of Consultation 05/21/18 Date of Admission Time Seen by Provider: 10:41 Indication: coronary artery disease HPI 78-year-old lady with history of coronary artery disease, hypertension, sustained a fall resulting in injury to her hip. She came in to the hospital, denied any chest pain, denied any shortness of breath. No syncope or near syncopal episodes. No claudications. Home Medications & Allergies Allergies: Coded Allergies: Sulfa (Sulfonamide Antibiotics) (Verified Allergy, Unknown, 12/13/17) penicillin G (Verified Allergy, Unknown, 12/13/17) Home Medication List Reviewed: Yes BVI-Czxdfc-Wqipcx Hx Patient Social History Alcohol Use: Denies Use Recreational Drug Use: No Smoking Status: Never a Smoker Recent Foreign Travel: No Recent Infectious Disease Expo: No Recent Hopitalizations: No Physical Abuse Screen: No Sexual Abuse: No Immunizations Up To Date Date of Pneumonia Vaccine: May 21, 2016 Date of Influenza Vaccine: Mar 08, 2018 Past Medical History past medical history as described below Family Medical History Family Medical Hx noncontributory to her current condition Review of Systems Constitutional: see HPI, malaise, weakness EENTM: see HPI, no symptoms reported Respiratory: see HPI; No cough; dyspnea on exertion; No hemoptysis, No orthopnea, No phlegm, No short of breath, No stridor, No wheezing, No other Cardiovascular: see HPI; No chest pain; edema; No Hx of Intervention, No palpitations, No syncope, No vascular heart diseas, No other Gastrointestinal: no symptoms reported, see HPI Genitourinary: no symptoms reported, see HPI Musculoskeletal: see HPI, joint pain, other (femur fracture) Skin: see HPI Psychiatric/Neurological: No Symptoms Reported, See HPI Reviewed Test Results Reviewed Test Results Lab Laboratory Tests Test 05/20/18 22:30 05/20/18 23:50 05/21/18 05:26 Range/Units White Blood Count 5.4 9.0 4.3-11.0 10^3/uL Red Blood Count 4.02 L 3.47 L 4.35-5.85 10^6/uL Hemoglobin 10.9 L 9.5 L 11.5-16.0 G/DL Hematocrit 34 L 29 L 35-52 % Mean Corpuscular Volume 85 85 80-99 FL Mean Corpuscular Hemoglobin 27 27 25-34 PG Mean Corpuscular Hemoglobin Concent 32 32 32-36 G/DL Red Cell Distribution Width 12.9 13.1 10.0-14.5 % Platelet Count 240 213 130-400 10^3/uL Mean Platelet Volume 10.3 9.8 7.4-10.4 FL Neutrophils (%) (Auto) 51 72 42-75 % Lymphocytes (%) (Auto) 35 16 12-44 % Monocytes (%) (Auto) 12 12 0-12 % Eosinophils (%) (Auto) 0 0 0-10 % Basophils (%) (Auto) 1 0 0-10 % Neutrophils # (Auto) 2.8 6.4 1.8-7.8 X 10^3 Lymphocytes # (Auto) 1.9 1.4 1.0-4.0 X 10^3 Monocytes # (Auto) 0.7 1.0 0.0-1.0 X 10^3 Eosinophils # (Auto) 0.0 0.0 0.0-0.3 10^3/uL Basophils # (Auto) 0.1 0.0 0.0-0.1 10^3/uL Prothrombin Time 12.7 12.2-14.7 SEC INR Comment 1.0 0.8-1.4 Activated Partial Thromboplast Time 26 24-35 SEC Sodium Level 141 142 135-145 MMOL/L Potassium Level 3.2 L 3.6 3.6-5.0 MMOL/L Chloride Level 108 H 110 H 98-107 MMOL/L Carbon Dioxide Level 18 L 19 L 21-32 MMOL/L Anion Gap 15 H 13 5-14 MMOL/L Blood Urea Nitrogen 17 18 7-18 MG/DL Creatinine 1.20 1.02 0.60-1.30 MG/DL Estimat Glomerular Filtration Rate 44 53 BUN/Creatinine Ratio 14 18 Glucose Level 175 H 102 70-105 MG/DL Calcium Level 10.4 H 10.2 H 8.5-10.1 MG/DL Corrected Calcium 10.2 H 10.4 H 8.5-10.1 MG/DL Total Bilirubin 0.3 0.3 0.1-1.0 MG/DL Aspartate Amino Transf (AST/SGOT) 34 28 5-34 U/L Alanine Aminotransferase (ALT/SGPT) 29 24 0-55 U/L Alkaline Phosphatase 82 73 40-136 U/L Total Protein 7.4 6.5 6.4-8.2 GM/DL Albumin 4.3 3.8 3.2-4.5 GM/DL Urine Color YELLOW Urine Clarity CLEAR Urine pH 5 5-9 Urine Specific [place] 1.015 L 1.016-1.022 Urine Protein NEGATIVE NEGATIVE Urine Glucose (UA) NEGATIVE NEGATIVE Urine Ketones NEGATIVE NEGATIVE Urine Nitrite NEGATIVE NEGATIVE Urine Bilirubin NEGATIVE NEGATIVE Urine Urobilinogen NORMAL NORMAL MG/DL Urine Leukocyte Esterase NEGATIVE NEGATIVE Urine RBC (Auto) NEGATIVE NEGATIVE Urine RBC NONE /HPF Urine WBC NONE /HPF Urine Squamous Epithelial Cells RARE /HPF Urine Crystals NONE /LPF Urine Bacteria NEGATIVE /HPF Urine Casts NONE /LPF Urine Mucus SMALL H /LPF Urine Culture Indicated NO Physical Exam Vital Signs Vital Signs - First Documented 05/20/18 22:43 Temp 97.8 Pulse 84 Resp 16 B/P (MAP) 192/85 (120) Pulse Ox 93 O2 Delivery Room Air Capillary Refill : Less Than 3 SecondsLess Than 3 Seconds Height, Weight, BMI Height: 5'4.00" Weight: 213lbs. 6.2oz. 96.635540vd; 36.8 BMI Method:Stated General Appearance: No Apparent Distress, WD/WN Eyes: Bilateral Eye Normal Inspection, Bilateral Eye PERRL, Bilateral Eye EOMI HEENT: PERRL/EOMI, TMs Normal, Normal ENT Inspection, Pharynx Normal Neck: Full Range of Motion, Normal Inspection, Non Tender, Supple, Carotid Bruit Respiratory: Chest Non Tender, Lungs Clear, Normal Breath Sounds, No Accessory Muscle Use, No Respiratory Distress Cardiovascular: Regular Rate, Rhythm, No Edema, No Gallop, No JVD, No Murmur, Normal Peripheral Pulses Gastrointestinal: Normal Bowel Sounds, No Organomegaly, No Pulsatile Mass, Non Tender, Soft Back: Normal Inspection, No CVA Tenderness, No Vertebral Tenderness Extremity: Normal Capillary Refill, Normal Inspection, Normal Range of Motion, Non Tender, No Calf Tenderness, No Pedal Edema, Other (right femur fracture) Neurologic/Psychiatric: Alert, Oriented x3, Normal Mood/Affect Skin: Normal Color, Warm/Dry Lymphatic: No Adenopathy A/P-Cardiology Admission Diagnosis Femur fracture Coronary artery disease Hypertension Hyperlipidemia Assessment/Plan status post fall and femur fracture, managed by primary care physician, also were consulted. Coronary artery disease, history of bypass surgery using JALLOH to LAD in January 2005, had a stress test in October 2016 showing no ischemia or infarction with ejection fraction 84 percent, echocardiogram in January 2014 reporting as normal LV function with mild MR. Continue to monitor Hyperlipidemia, intolerant to statin with muscle ache and generalized weakness History of intermittent liver enzyme elevation of undetermined etiology. This is currently well controlled. H/o hypoxemia, likely related to hypoventilation syndrome and/or pulmonary disease History of peripheral arterial disease and a small abdominal aortic aneurysm, being followed at Dr Patterson's office Carotid arterial disease being followed at Dr Patterson's office Rheumatoid arthritis. History of laparoscopic cholecystectomy. Hypertension with hypertensive cardiovascular disease. restart home medication monitor blood pressure Hypothyroidism being treated with thyroid replacement therapy. Degenerative joint disease. Elevated body mass index of 36 Bilateral leg swelling likely related to venous insufficiency and/or amlodipine therapy, stable and unchanged. 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 Intolerant to niacin therapy CKD stage 2 Impaired fasting glucose Preoperative chronic evaluation, patient is considered at low to intermediate risk for perioperative cardiac vascular complications, decision regarding the surgery, risks versus benefit is deferred to the surgeon, may hold aspirin and Plavix. Patient has been on it as an outpatient Clinical Quality Measures DVT/VTE Risk/Contraindication: Risk Factor Score Per Nursin RFS Level Per Nursing on Admit: 4+=Very High DARIN VELARDE MD May 21, 2018 10:47
[2018-05-21] MEDS ORDERED: OMG1KC PO (11:10)
--- NOTE | 2018-05-21 11:11 | NUR ---
SPOKE TO PATIENT SHE STATED SHE HAD A LIST BUT LEFT IT AT HOME. WENT OVER MEDICATION LIST AND SHE STATED WHAT SHE TOOK AND HOW SHE TOOK THEM. MEDICATION ORDERED MAIL ORDER.
[2018-05-21 12:00] VITALS: BP 169/77
--- NOTE | 2018-05-21 12:09 | History & Physical-Hospitalist ---
History of Present Illness HPI/Chief Complaint CC: Right distal femur and distal fibula fracture sustained in fall HPI: This is a 78-year-old white female clinic patient of Dr. Casas was a history of a bypass maintained on Plavix for CAD who presents after a fall via ambulance when she was taking her dog out to the bathroom and slipped on urine on the floor and sustained a right distal fibula and right distal femur fracture in need of surgery tomorrow. Dr. Marquez's been consulted for CAD history and risk stratification. Patient will likely be able to eat a meal today and nothing by mouth after midnight in preparation for surgery. Pain is controlled with IV pain medication. Source: patient, RN/MD Exam Limitations: no limitations Date Seen 05/21/18 Time Seen by a Provider: 11:15 Attending Physician Shae Giordano DO PCP Frankie Casas DO Referring Physician DIDIER MARQUEZ DO Date of Admission May 21, 2018 at 01:55 Home Medications & Allergies Home Medications Reviewed patient Home Medication Reconciliation performed by pharmacy medication reconciliations emissions repair technician and/or nursing. Patients Allergies have been reviewed. Allergies Allergies Coded Allergies Sulfa (Sulfonamide Antibiotics) (Verified Allergy, Unknown, 12/13/17) penicillin G (Verified Allergy, Unknown, 12/13/17) Past Vseoxws-Dwpwrq-Rokrtp Hx Past Med/Social Hx: Reviewed Nursing Past Med/Soc Hx, Reviewed and Corrections made Patient Social History Marrital Status: single Employed/Student: retired Alcohol Use: Denies Use Recreational Drug Use: No Smoking Status: Never a Smoker Former Smoker, Quit: Dec 13, 1993 Physical Abuse Screen: No Sexual Abuse: No Recent Foreign Travel: No Contact w/other who traveled: No Recent Hopitalizations: No Recent Infectious Disease Expo: No Immunizations Up To Date Date of Pneumonia Vaccine: May 21, 2016 Date of Influenza Vaccine: Mar 08, 2018 Seasonal Allergies Seasonal Allergies: Yes (MILD) Past Medical History Surgeries: CABG, Gallbladder, Hysterectomy, Tonsillectomy Cardiac: Coronary Artery Disease, High Cholesterol, Hypertension : No Reproductive: No Sexually Transmitted Disease: No HIV/AIDS: No Hysterectomy, Menopausal Genitourinary: Neurogenic Bladder Gastrointestinal: Gastroesophageal Reflux, Chronic Constipation, Chronic Diarrhea Musculoskeletal: Arthritis, Rheumatoid Arthritis Loss of Vision: Bilateral Hearing Impairment: Denies History of Blood Disorders: Yes (IRON DEF ANEMIA) Adverse Reaction to Blood Dobson: No Review of Systems Constitutional: see HPI EENTM: no symptoms reported Respiratory: no symptoms reported Cardiovascular: no symptoms reported Gastrointestinal: no symptoms reported Genitourinary: no symptoms reported Musculoskeletal: joint pain Skin: no symptoms reported Psychiatric/Neurological: No Symptoms Reported All Other Systems Reviewed Negative Unless Noted: Yes Physical Exam Physical Exam Vital Signs Vital Signs - First Documented 05/20/18 22:43 Temp 97.8 Pulse 84 Resp 16 B/P (MAP) 192/85 (120) Pulse Ox 93 O2 Delivery Room Air Capillary Refill : Less Than 3 SecondsLess Than 3 Seconds Height, Weight, BMI Height: 5'4.00" Weight: 213lbs. 6.2oz. 96.022283sq; 36.8 BMI Method:Stated General Appearance: No Apparent Distress, WD/WN, Chronically ill, Obese Eyes: Bilateral Eye Normal Inspection, Bilateral Eye PERRL HEENT: PERRL/EOMI, Normal ENT Inspection, Pharynx Normal Neck: Full Range of Motion, Normal Inspection, Non Tender, Supple, Carotid Bruit Respiratory: Chest Non Tender, Lungs Clear, Normal Breath Sounds, No Accessory Muscle Use, No Respiratory Distress Cardiovascular: Regular Rate, Rhythm, No Edema, No Gallop, No JVD, No Murmur, Normal Peripheral Pulses Gastrointestinal: Normal Bowel Sounds, No Organomegaly, No Pulsatile Mass, Non Tender, Soft Back: Normal Inspection, No CVA Tenderness, No Vertebral Tenderness Extremity: Normal Capillary Refill, Normal Inspection, Normal Range of Motion ( except right leg), Non Tender, No Calf Tenderness, No Pedal Edema Neurologic/Psychiatric: Alert, Oriented x3, No Motor/Sensory Deficits, Normal Mood/Affect Skin: Normal Color, Warm/Dry Lymphatic: No Adenopathy Results Results/Procedures Labs Laboratory Tests 05/20/18 22:30 05/21/18 05:26 Patient resulted labs reviewed. Assessment/Plan Admission Diagnosis Assessment: Acute right fibula and right distal femur fracture in need of surgery tomorrow CAD previous bypass Hypertension Chronic lower extremity edema Anemia Plan: Home meds Hold antiplatelet and anticoagulation but I did not see any on her list Appreciate cardiology risk stratification Admission Status: Inpatient Order (span 2 midnights) Reason for Inpatient Admission: Right leg fractures will require surgical consultation and evaluation for 3 days likely rehabilitation Diagnosis/Problems Diagnosis/Problems (1) Fibula fracture Status: Acute Qualifiers: Encounter type: initial encounter Fibula location: distal physis (incl. [place]) Fracture alignment: nondisplaced Laterality: right Qualified Codes: S89.301A - Unspecified physeal fracture of lower end of right fibula, initial encounter for closed fracture (2) Femur fracture, right Status: Acute Qualifiers: Encounter type: initial encounter Femur location: shaft Fracture type: closed Fracture morphology: oblique Fracture alignment: nondisplaced Qualified Codes: S72.334A - Nondisplaced oblique fracture of shaft of right femur, initial encounter for closed fracture (3) CAD (coronary artery disease) Status: Chronic Qualifiers: Coronary Disease-Associated Artery/Lesion type: [place] artery [place] vs. transplanted heart: [place] heart Associated angina: without angina Qualified Codes: I25.10 - Atherosclerotic heart disease of [place] coronary artery without angina pectoris (4) Hx of CABG Status: Chronic (5) Hypertension Status: Chronic Qualifiers: Hypertension type: essential hypertension Qualified Codes: I10 - Essential (primary) hypertension (6) Obesity Status: Chronic Qualifiers: Obesity type: due to excess calories Obesity classification: adult class 2 (BMI 35 - 39.9) Serious obesity comorbidity presence: with serious comorbidity (7) Arthritis, rheumatoid Status: Chronic Qualifiers: Rheumatoid arthritis location: unspecified site Rheumatoid factor presence : unspecified presence Qualified Codes: M06.9 - Rheumatoid arthritis, unspecified (8) Anemia Status: Chronic Qualifiers: Anemia type: unspecified type Qualified Codes: D64.9 - Anemia, unspecified (9) GERD (gastroesophageal reflux disease) Status: Chronic Qualifiers: Esophagitis presence: without esophagitis Qualified Codes: K21.9 - Gastro- esophageal reflux disease without esophagitis (10) Fall Status: Acute Qualifiers: Encounter type: initial encounter Qualified Codes: W19.XXXA - Unspecified fall, initial encounter Clinical Quality Measures DVT/VTE Risk/Contraindication: Risk Factor Score Per Nursin RFS Level Per Nursing on Admit: 4+=Very High SHAE GIORDANO DO May 21, 2018 12:09
[2018-05-21] MEDS ORDERED: diphenhydrAMINE 25 MG TAB (BENADRYL) PO PRN (14:00)
[2018-05-21] MEDS ORDERED: CALCIUM CARBONATE 500 MG (TUMS) TAB.CHEW PO PRN (14:00)
[2018-05-21] MEDS ORDERED: ONDANSETRON 4 MG/2 ML (SDV) Z0FRAN IVP PRN (14:00)
[2018-05-21] MEDS: DOCUSATE SODIUM 100 MG (COLACE) CAP PO SCH ×2 (14:03→20:47)
[2018-05-21] MEDS: LACTULOSE SYRUP 10GM/15ML (ENULOSE) 30ML UDC PO SCH ×2 (14:04→20:48)
[2018-05-21] MEDS: POLYETHYLENE GLYCOL 17 GM (MIRALAX) PACK PO SCH ×2 (14:04→20:48)
[2018-05-21] MEDS: HYDROcodone/APAP 5 MG/325 MG (LORTAB) TAB PO PRN ×2 (14:56→20:45)
[2018-05-21 16:40] VITALS: BP 149/65
[2018-05-21 20:50] VITALS: BP 174/74
[2018-05-21] MEDS: ACETAMINOPHEN 325 MG TABLET PO PRN (22:44)
[2018-05-22] VITALS (8 sets, daily range): BP systolic 131–196; BP diastolic 62–79
[2018-05-22] MEDS: fentaNYL INJECTION 100 MCG/2 ML AMP IV PRN ×5 (02:47→22:52)
[2018-05-22] MEDS: KETOROLAC 15 MG/ML VIAL IVP PRN (04:08)
[2018-05-22] MEDS ORDERED: cloNIDine 0.1 MG (CATAPRES) TAB PO ONE (04:30)
[2018-05-22] MEDS: amLODIPine 10 MG (NORVASC) TAB PO SCH (04:40)
[2018-05-22] MEDS: 1/2 NS W/KCL 20 MEQ/L 1,000 ML IV SCH (04:41)
[2018-05-22 05:14] LABS: BASOPHILS # (AUTO) 0.1 10^3/uL (0.0-0.1); BASOPHILS % (AUTO) 1 % (0-10); EOSINOPHILS # (AUTO) 0.1 10^3/uL (0.0-0.3); EOSINOPHILS % (AUTO) 1 % (0-10); HEMATOCRIT 30 % (35-52); HEMOGLOBIN 9.5 G/DL (11.5-16.0); LYMPHOCYTES # (AUTO) 1.8 X 10^3 (1.0-4.0); LYMPHOCYTES % (AUTO) 26 % (12-44); MEAN CORPUSCULAR HEMOGLOBIN 27 PG (25-34); MEAN CORPUSCULAR HGB CONC 31 G/DL (32-36); MEAN CORPUSCULAR VOLUME 85 FL (80-99); MEAN PLATELET VOLUME 10.4 FL (7.4-10.4); MONOCYTES # (AUTO) 0.9 X 10^3 (0.0-1.0); MONOCYTES % (AUTO) 14 % (0-12); NEUTROPHILS % (AUTO) 59 % (42-75); PLATELET COUNT 205 10^3/uL (130-400); RED BLOOD COUNT 3.55 10^6/uL (4.35-5.85); RED CELL DISTRIBUTION WIDTH 13.1 % (10.0-14.5); WHITE BLOOD COUNT 6.8 10^3/uL (4.3-11.0)
[2018-05-22 05:34] LABS: ALBUMIN 3.6 GM/DL (3.2-4.5); BILIRUBIN,TOTAL 0.4 MG/DL (0.1-1.0); CALCIUM 9.9 MG/DL (8.5-10.1); CREATININE SERUM 1.01 MG/DL (0.60-1.30); TOTAL PROTEIN 6.1 GM/DL (6.4-8.2)
[2018-05-22] MEDS: FUROSEMIDE 40 MG/4 ML INJ (LASIX) IV SCH (06:57)
[2018-05-22] MEDS: LEVOTHYROXINE 50 MCG (LEVOTHROID) TAB PO SCH (06:57)
[2018-05-22] MEDS: meTOproloL SUCCINATE 50 MG (TOPROL XL) TAB PO SCH (08:28)
[2018-05-22] MEDS ORDERED: LEVOTHYROXINE 50 MCG (LEVOTHROID) TAB PO SCH (09:00)
[2018-05-22] MEDS ORDERED: NON-FORMULARY MEDICATION 1 EA EA (Amlodipine Besylate 10 MG) PO SCH (09:00)
[2018-05-22] MEDS ORDERED: VANCOMYCIN INJECTION 1,000 MG in NS (IVPB) 250 ML IV ONE (09:00)
[2018-05-22] MEDS ORDERED: NON-FORMULARY MEDICATION 1 EA EA (Metoprolol Succinate (Toprol Xl) 50 MG) PO SCH (09:00)
[2018-05-22] MEDS ORDERED: fentaNYL INJECTION 100 MCG/2 ML AMP ONE ×2 (09:44→11:53)
[2018-05-22] MEDS ORDERED: ROCURONIUM 10 MG/ML 5 ML SYRINGE IV ONE (09:44)
[2018-05-22] MEDS ORDERED: SUCCINYLCHOLINE INJ 100 MG/5 ML SYR ONE (09:44)
[2018-05-22] MEDS ORDERED: proPOfol 200 MG/20 ML (DIPRIVAN) VIAL IV ONE (09:44)
[2018-05-22] MEDS ORDERED: ONDANSETRON 4 MG/2 ML (SDV) Z0FRAN ONE (09:44)
[2018-05-22] MEDS ORDERED: LIDOCAINE PF 2% 5 ML (XYLOCAINE) VIAL ONE (09:44)
[2018-05-22] MEDS ORDERED: LACTATED RINGERS 0 ML IV ONE (09:44)
[2018-05-22] MEDS ORDERED: MIDAZOLAM 2 MG/2 ML (VERSED) VIAL ONE (09:45)
[2018-05-22] MEDS ORDERED: GENTAMICIN 40 MG/ML 2 ML INJ SDV ONE (10:09)
[2018-05-22] MEDS: LACTATED RINGERS 1,000 ML IV PRN ×2 (10:10→11:10)
[2018-05-22] MEDS ORDERED: DEXAMETHASONE 10 MG/ML (DECADRON) 1 ML VIAL ONE (10:16)
--- NOTE | 2018-05-22 10:27 | Consultation ---
History of Present Illness History of Present Illness Patient Consulted On(sofie/time) 05/22/18 10:23 Date Seen by Provider: May 22, 2018 Time Seen by Provider: 10:23 Reason for Visit: coronary artery disease History of Present Illness 78 yr old WF s/p fall two days ago. unable to WB and XR and CT show nondisplaced right femur fracture. she understands risks/benefits and need for surgery. also understands the added risk of her refusal for blood products (AYAH) should the need arise. Allergies and Home Medications Allergies Coded Allergies: Sulfa (Sulfonamide Antibiotics) (Verified Allergy, Unknown, 12/13/17) penicillin G (Verified Allergy, Unknown, 12/13/17) Home Medications Amlodipine Besylate 10 Mg Tablet, 10 MG PO DAILY, (Reported) Fenofibrate Nanocrystallized 145 Mg Tablet, 145 MG PO DAILY, (Reported) Furosemide 80 Mg Tablet, 80 MG PO DAILY, (Reported) Levothyroxine Sodium 50 Mcg Tablet, 50 MCG PO DAILY, (Reported) Lysine 500 Mg Tablet, 500 MG PO DAILY, (Reported) Metoprolol Succinate 50 Mg Tab.er.24h, 50 MG PO DAILY, (Reported) [place] 3 Polyunsat Fatty Acids 1,000 Mg Cap, 1,000 MG PO BID, (Reported) Omeprazole 40 Mg Capsule.dr, 40 MG PO DAILY, (Reported) Potassium Chloride 20 Meq Tablet.er, 20 MEQ PO DAILY, (Reported) Patient Home Medication List Home Medication List Reviewed: Yes Past Viqvzgf-Wvkhoj-Mgmhzo Hx Past Med/Social Hx: Reviewed Nursing Past Med/Soc Hx, Reviewed and Corrections made Patient Social History Alcohol Use: Denies Use Recreational Drug Use: No Smoking Status: Never a Smoker Former Smoker, Quit: Dec 13, 1993 Recent Foreign Travel: No Contact w/Someone Who Travel: No Recent Infectious Disease Expo: No Recent Hopitalizations: No Immunizations Up To Date Date of Pneumonia Vaccine: May 21, 2016 Date of Influenza Vaccine: Mar 08, 2018 Seasonal Allergies Seasonal Allergies: Yes (MILD) Past Medical History Surgeries: Yes (CABG) CABG, Gallbladder, Hysterectomy, Tonsillectomy Respiratory: No Cardiac: Yes Coronary Artery Disease, High Cholesterol, Hypertension Neurological: No : No Reproductive Disorders: No 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 History: Hysterectomy, Menopausal Sexually Transmitted Disease: No HIV/AIDS: No Genitourinary: Yes Neurogenic Bladder Gastrointestinal: Yes Gastroesophageal Reflux, Chronic Constipation, Chronic Diarrhea Musculoskeletal: Yes Arthritis, Rheumatoid Arthritis Endocrine: Yes HEENT: No Loss of Vision: Bilateral Hearing Impairment: Denies Cancer: No Psychosocial: No Integumentary: No Blood Disorders: Yes (IRON DEF ANEMIA) Adverse Reaction/Blood Tranf: No Review of Systems-General Constitutional: no symptoms reported Musculoskeletal: other Physical Exam-General Problems Physical Exam Vital Signs Vital Signs - First Documented 05/20/18 05/21/18 22:43 20:43 Temp 97.8 Pulse 84 Resp 16 B/P (MAP) 192/85 (120) Pulse Ox 93 O2 Delivery Room Air O2 Flow Rate 2.00 Capillary Refill : Less Than 3 SecondsLess Than 3 Seconds General Appearance: no apparent distress Extremities: other (painful palpation over distal fibula and distal femur, 2/4 DP, PT bilatrally, SILT all dermatomes) Assessment/Plan Assessment/Plan Admission Diagnosis/Plan ASSESSMENT: \ nondisplaced R femur fracture, extraarticular PLAN: ORIF today protected WB in boot, RLE s/p repair may resume blood thinners per medicine after surgery Clinical Quality Measures DVT/VTE Risk/Contraindication: Risk Factor Score Per Nursin RFS Level Per Nursing on Admit: 4+=Very High DIDIER MARQUEZ DO May 22, 2018 10:27
[2018-05-22] MEDS ORDERED: SEVOFLURANE (ULTANE) 15 ML INHAL SOLN ONE ×3 (12:06→12:34)
[2018-05-22] MEDS ORDERED: NEOSTIGMINE 1 MG/ML 5 ML SYRINGE ONE (12:33)
[2018-05-22] MEDS ORDERED: GLYCOPYRROLATE 0.2 MG/ML (ROBINUL) 2 ML VIAL ONE (12:33)
[2018-05-22] MEDS ORDERED: morphine INJ 10 MG/ML 1ML (SYR OR VIAL) ONE (12:34)
--- NOTE | 2018-05-22 12:43 | Diagnostic Imaging Report ---
EXAMINATION: Right femur, fluoroscopic images. COMPARISON: May 20, 2018. HISTORY: 78-year-old female, open reduction and internal fixation of femur fracture. FINDINGS: 84.4 seconds of fluoroscopic time was utilized for assistance with procedure. There is sideplate and screw fixation hardware spanning the previously noted distal femoral fracture. There does appear to be improved fracture alignment. There is limited bone and trabecular detail on fluoroscopic imaging. IMPRESSION: 1. Fluoroscopy for assistance with open reduction and internal fixation of previously noted distal right femur fracture. Dictated by: Dictated on workstation # [id number]
[2018-05-22] MEDS ORDERED: MEPERIDINE (DEMEROL) INJ 50 MG/ML IVP ONE (13:15)
[2018-05-22] MEDS ORDERED: morphine INJ 10 MG/ML 1ML (SYR OR VIAL) IVP ONE (13:15)
[2018-05-22] MEDS ORDERED: ONDANSETRON 4 MG/2 ML (SDV) Z0FRAN IVP PRN (13:15)
[2018-05-22] MEDS ORDERED: PROMETHAZINE INJ 25 MG/ML (PHENERGAN) AMP IVP ONE (13:15)
[2018-05-22] MEDS: DOCUSATE SODIUM 100 MG (COLACE) CAP PO SCH ×2 (16:39→21:05)
[2018-05-22] MEDS: POLYETHYLENE GLYCOL 17 GM (MIRALAX) PACK PO SCH ×2 (16:40→21:05)
[2018-05-22] MEDS: PANTOPRAZOLE 40 MG (PROTONIX) TAB PO SCH (16:40)
[2018-05-22] MEDS: LACTULOSE SYRUP 10GM/15ML (ENULOSE) 30ML UDC PO SCH ×2 (16:40→21:05)
[2018-05-22] MEDS: LYSINE 500 MG PO SCH (17:44)
[2018-05-22] MEDS: NS IV 1000 ML 1,000 ML IV SCH ×2 (17:45→20:55)
--- NOTE | 2018-05-22 19:11 | Diagnostic Imaging Report ---
INDICATION: Fracture, post fixation. TECHNIQUE: AP and lateral views right femur, 6:31 p.m.. CORRELATION STUDY: 05/20/2018. FINDINGS: Since prior imaging, there has been placement of a long lateral cortical plate and multiple screws transfixing the comminuted obliquely oriented femoral shaft fracture. Alignment is improved and near-anatomic post fixation. Additional right hip prosthesis with bipolar hardware and cerclage wire remains in place. Multiple skin richie along the lateral skin. Soft tissue edema and gas collections. IMPRESSION: Interval internal fixation placed transfixing the comminuted femoral shaft fracture. Dictated by: Dictated on workstation # [id number]
[2018-05-22] MEDS ORDERED: DOCUSATE SODIUM 100 MG (COLACE) CAP PO SCH (21:00)
[2018-05-23] VITALS (7 sets, daily range): BP systolic 145–169; BP diastolic 67–85
[2018-05-23] MEDS: fentaNYL INJECTION 100 MCG/2 ML AMP IV PRN ×3 (01:07→08:56)
[2018-05-23] MEDS: morphine INJ 4 MG/ML 1 ML (VIAL/SYRINGE) IV PRN ×2 (02:06→05:33)
[2018-05-23] MEDS: NS IV 1000 ML 1,000 ML IV SCH ×2 (02:07→08:56)
[2018-05-23] MEDS: HYDROcodone/APAP 5 MG/325 MG (LORTAB) TAB PO PRN ×5 (02:38→23:16)
[2018-05-23 04:55] LABS: RED BLOOD COUNT 2.52 10^6/uL (4.35-5.85); RED CELL DISTRIBUTION WIDTH 12.8 % (10.0-14.5); WHITE BLOOD COUNT 8.8 10^3/uL (4.3-11.0)
[2018-05-23 05:16] LABS: ALBUMIN 3.2 GM/DL (3.2-4.5); BILIRUBIN,TOTAL 0.3 MG/DL (0.1-1.0); CALCIUM 9.8 MG/DL (8.5-10.1); CREATININE SERUM 0.99 MG/DL (0.60-1.30); POTASSIUM 4.7 MMOL/L (3.6-5.0); TOTAL PROTEIN 5.5 GM/DL (6.4-8.2)
[2018-05-23] MEDS: FUROSEMIDE 40 MG/4 ML INJ (LASIX) IV SCH (06:05)
[2018-05-23] MEDS: LEVOTHYROXINE 50 MCG (LEVOTHROID) TAB PO SCH (06:05)
[2018-05-23] MEDS ORDERED: ENOXAPARIN 40 MG/0.4 ML (LOVENOX) SYR SC SCH (08:00)
--- NOTE | 2018-05-23 08:02 | Progress Note (SOAP) ---
Subjective Time Seen by a Provider: 08:00 Subjective/Events-last exam Fibula and femur fracture. Patient had surgery. Hemoglobin 7 today. Patient's Jain. Patient does not accept blood products. CAD. Hypertension. Hyperlipidemia. Anemia Objective Exam Vital Signs Date Time Temp Pulse Resp B/P (MAP) Pulse Ox O2 Delivery O2 Flow Rate FiO2 05/23/18 04:01 99.1 95 18 145/70 (95) 96 Nasal Cannula 2.00 05/23/18 00:02 98.9 79 20 160/71 (100) 94 Nasal Cannula 2.00 05/22/18 20:20 99.2 74 24 171/72 (105) 96 Nasal Cannula 2.00 05/22/18 20:00 Nasal Cannula 3.00 05/22/18 16:20 97.9 65 24 169/71 (103) 93 Nasal Cannula 2.00 05/22/18 14:28 Nasal Cannula 2.00 05/22/18 14:15 96.8 54 20 175/70 (105) 92 Nasal Cannula 2.00 I & O 05/23/18 07:00 Intake Total 3050 ml Output Total 1060 ml Balance 1990 ml Capillary Refill : Less Than 3 SecondsLess Than 3 Seconds General Appearance: No Apparent Distress, WD/WN HEENT: Normal ENT Inspection Neck: Full Range of Motion, Normal Inspection Respiratory: No Accessory Muscle Use, No Respiratory Distress Cardiovascular: Regular Rate, Rhythm Gastrointestinal: non tender, soft Results Lab Laboratory Tests 05/23/18 04:20 Laboratory Tests 05/23/18 04:20: White Blood Count 8.8, Red Blood Count 2.52L, Hemoglobin 7.0L, Hematocrit 22L, Mean Corpuscular Volume 86, Mean Corpuscular Hemoglobin 28, Mean Corpuscular Hemoglobin Concent 32, Red Cell Distribution Width 12.8, Platelet Count 201, Mean Platelet Volume 10.0, Sodium Level 137, Potassium Level 4.7, Chloride Level 109H, Carbon Dioxide Level 18L, Anion Gap 10, Blood Urea Nitrogen 14, Creatinine 0.99, Estimat Glomerular Filtration Rate 55, BUN/Creatinine Ratio 14 , Glucose Level 124H, Calcium Level 9.8, Corrected Calcium 10.4H, Total Bilirubin 0.3, Aspartate Amino Transf (AST/SGOT) 19, Alanine Aminotransferase ( ALT/SGPT) 15, Alkaline Phosphatase 63, Total Protein 5.5L, Albumin 3.2 Assessment/Plan Assessment/Plan Assess & Plan/Chief Complaint Fractured fibula and femur. Anemia. Patient Jehovah witness. CAD. Hypertension. Anemia. Hyperlipidemia Clinical Quality Measures DVT/VTE Risk/Contraindication: Risk Factor Score Per Nursin RFS Level Per Nursing on Admit: 4+=Very High SHARATH COLON DO May 23, 2018 08:02
[2018-05-23] MEDS ORDERED: HYDROCORTISONE 100 MG/2 ML (Solu-CORTEF) VIAL IV PRN (08:15)
[2018-05-23] MEDS ORDERED: diphenhydrAMINE 50 MG/ML INJ (BENADRYL) IV PRN (08:15)
[2018-05-23] MEDS ORDERED: IRON DEXTRAN INJECTION 25 MG in NS (IVPB) 5.75 ML IV ONE (08:15)
[2018-05-23] MEDS ORDERED: IRON DEXTRAN INJECTION 1,000 MG in NS (IVPB) 250 ML IV ONE (08:15)
[2018-05-23] MEDS ORDERED: RT-ALBUTEROL SULF 2.5 MG/3 ML PRE-MIX VIAL IH PRN (08:15)
[2018-05-23] MEDS ORDERED: EPINEPHrine INJECTION 1 MG/ML AMP IM PRN (08:15)
[2018-05-23] MEDS: 1/2 NS W/KCL 20 MEQ/L 1,000 ML IV SCH ×2 (08:34→15:41)
[2018-05-23] MEDS: DOCUSATE SODIUM 100 MG (COLACE) CAP PO SCH ×2 (08:47→19:45)
[2018-05-23] MEDS: amLODIPine 10 MG (NORVASC) TAB PO SCH (08:47)
[2018-05-23] MEDS: POLYETHYLENE GLYCOL 17 GM (MIRALAX) PACK PO SCH ×2 (08:47→19:45)
[2018-05-23] MEDS: LACTULOSE SYRUP 10GM/15ML (ENULOSE) 30ML UDC PO SCH ×2 (08:47→19:45)
[2018-05-23] MEDS: PANTOPRAZOLE 40 MG (PROTONIX) TAB PO SCH (08:47)
[2018-05-23] MEDS: meTOproloL SUCCINATE 50 MG (TOPROL XL) TAB PO SCH (08:47)
[2018-05-23] MEDS: LYSINE 500 MG PO SCH (08:50)
--- NOTE | 2018-05-23 09:22 | OPERATIVE REPORT ---
DATE OF SERVICE: 05/22/2018 SURGEON: Didier Youngblood DO. JEWELRY MODEL MAKER: ADELA Conte. This is a medically necessary procedure. Assistance was necessary for retraction of vital neurovascular structures. Without an obstetric assistant, the procedure would not be possible. PREOPERATIVE DIAGNOSIS: Right femoral shaft fracture. POSTOPERATIVE DIAGNOSIS: Right femoral shaft fracture. PROCEDURE PERFORMED: Open reduction and internal fixation of right femur. COMPLICATIONS: None. SPECIMEN SENT: None. DRAINS PLACED: None. ANESTHESIA: General endotracheal tube anesthesia. ESTIMATED BLOOD LOSS: Minimal. HISTORY OF PRESENT ILLNESS: The patient is a very pleasant 78-year-old female, who tripped and fell on her dog. She was unable to bear weight and presented to the [facility] where x-rays demonstrated a nondisplaced right femoral shaft fracture as well as a nondisplaced right lateral malleolus fracture. Treatment options were discussed with the patient. It was determined that she needed to have stabilization of her femur so that she could weightbear and get mobilized. She understood the risks and benefits. DESCRIPTION OF PROCEDURE: The patient was identified by name on wrist band in the preoperative holding area. Her operative site was signed and consent was signed. SCDs were placed. Antibiotics were started. She was taken to the operating room theater and placed under general endotracheal tube anesthesia and then transferred to the flattop operating room table. She was secured to the table. She was prepped and draped in the usual sterile fashion. A formal timeout was conducted. At this point, an incision was made along the long axis of the femur. Sharp dissection took place down to bone where I subperiosteally dissected the fracture site. I then sized and chose the appropriate length locked periarticular variable angle Synthes plate. I then affixed this to the surface of the femur and compressed it utilizing a clamp. I reduced the fracture fragment to the plate. I placed three locking cortical screws through the plate and into the femur, which reduced the plate nicely onto the femur. At this point, I drilled and placed all of the locking screw options from proximal to distal. Final AP and lateral x-ray demonstrated anatomic alignment of the femur with hardware in good position. At this point, I final tightened all screws, irrigated the wound and I closed the wound utilizing 0 Vicryl followed by 2-0 Vicryl followed by richie for skin. We applied dressings, took the patient in the supine position to the PACU where she awoke without incident. She tolerated the procedure well. The plan at this time is to have the patient on partial weightbearing right lower extremity. I will have her in a hard boot for her ankle fracture, which is nondisplaced. I will place her on Lovenox for DVT prophylaxis for three weeks to prevent blood clots as well as I will have her resume her Plavix per her lead based paint technician's recommendation. I will see the patient back in 2 weeks. Job ID: [id number] DocumentID: [id number] Dictated Date: 05/23/2018 07:15:56 Media Planner / Buyer Date: 05/23/2018 09:21:22 Dictated By: DIDIER YOUNGBLOOD DO
--- NOTE | 2018-05-23 09:27 | Cardiology Progress Note ---
Subjective Date Seen by Provider: May 23, 2018 Time Seen by Provider: 09:25 Subjective/Events-last exam patient is sitting in a chair, feeling better today. Still having some pain. Review of Systems General: No Chills, No Night Sweats, No Fatigue, No Malaise, No Appetite, No Other HEENT: No Head Aches, No Visual Changes, No Eye Pain, No Ear Pain, No Dysphasia , No Sinus Congestion, No Post Nasal Drip, No Sore Throat, No Other Pulmonary: No Dyspnea, No Cough, No Pleuritic Chest Pain, No Other Cardiovascular: No: Chest Pain, Palpitations, Orthopnea, Paroxysmal Noc. Dyspnea, Edema, Lt Headedness, Other Objective-Cardiology Exam Last Set of Vital Signs Vital Signs 05/23/18 04:01 Temp 99.1 Pulse 95 Resp 18 B/P (MAP) 145/70 (95) Pulse Ox 96 O2 Delivery Nasal Cannula O2 Flow Rate 2.00 Capillary Refill : Less Than 3 SecondsLess Than 3 Seconds I&O Intake and Output 05/23/18 00:00 Intake Total 2850 ml Output Total 1035 ml Balance 1815 ml Intake Oral 200 ml IV Total 2650 ml Output Urine Total 1035 ml General: Alert, Oriented X3, Cooperative HEENT: Atraumatic, PERRLA Neck: Supple, No JVD, No Thyromegaly Lungs: Clear to Auscultation, Normal Air Movement Heart: Regular Rate, Normal S1, Normal S2, No Murmurs Abdomen: Normal Bowel Sounds, Soft, No Tenderness, No Hepatosplenomegaly, No Masses Extremities: No Clubbing, No Cyanosis, No Edema, Normal Pulses, No Tenderness/ Swelling Skin: No Rashes, No Breakdown, No Significant Lesion Neuro: Normal Gait, Normal Speech, Strength at 5/5 X4 Ext, Normal Tone, Sensation Intact Psych/Mental Status: Mental Status NL, Mood NL Results Lab Laboratory Tests 05/23/18 04:20 A/P-Cardiology Admission Diagnosis Femur fracture Coronary artery disease Hypertension Hyperlipidemia Assessment/Plan Status post fall and femur fracture, surgery was done yesterday and she is recovering well. Anemia, worse today postoperatively. Patient is Jehovah witness. Managed by primary care physician Constipation. Maintained on stool softener. Coronary artery disease, history of bypass surgery using JALLOH to LAD in January 2005, had a stress test in October 2016 showing no ischemia or infarction with ejection fraction 84 percent, echocardiogram in January 2014 reporting as normal LV function with mild MR. Continue to monitor Hyperlipidemia, intolerant to statin with muscle ache and generalized weakness History of intermittent liver enzyme elevation of undetermined etiology. followed and managed by primary care physician H/o hypoxemia, likely related to hypoventilation syndrome and/or pulmonary disease, continue to monitor History of peripheral arterial disease and a small abdominal aortic aneurysm, being followed at Dr Patterson's office Carotid arterial disease being followed at Dr Patterson's office Rheumatoid arthritis. History of laparoscopic cholecystectomy. Hypertension with hypertensive cardiovascular disease. restart home medication monitor blood pressure Hypothyroidism being treated with thyroid replacement therapy. Degenerative joint disease. Elevated body mass index of 36 Bilateral leg swelling likely related to venous insufficiency and/or amlodipine therapy, stable and unchanged. 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 Intolerant to niacin therapy CKD stage 2, continue to monitor renal function Clinical Quality Measures DVT/VTE Risk/Contraindication: Risk Factor Score Per Nursin RFS Level Per Nursing on Admit: 4+=Very High DARIN VELARDE MD May 23, 2018 09:27
--- NOTE | 2018-05-23 09:44 | Physical Therapy Evaluation ---
PT Evaluation-General Medical Diagnosis Admission Date May 21, 2018 at 01:55 Medical Diagnosis: right femur/fibular fracture Onset Date: May 21, 2018 Therapy Diagnosis Therapy Diagnosis: generalized weakness/debility Height/Weight Height (Feet): 5 Height (Inches): 4.00 Weight (Pounds): 213 Weight (Ounces): 6.2 Precautions Precautions/Isolations: Fall Prevention, Standard Precautions Weight Bear Status Right Lower Extremity: Right Partial Weight Bearing Left Lower Extremity: Left Full Weight Bearing Patient unable to maintain PWB right LE due to weakness/pain/obesity Referral Physician: Lacey Reason for Referral: Evaluation/Treatment Medical History Pertinent Medical History: CAD, GERD, HTN, Rheumatoid Arthritis Additional Medical History bilateral THR Current History slipped in dog urine landing on right side Reviewed History: Yes Social History Home: Single Level Current Living Status: Alone Prior/Core FIM Prior Level of Function Therapy Code Descriptions/Definitions Functional [place] Measure: 0=Not Assessed/NA 4=Minimal Assistance 1=Total Assistance 5=Supervision or Setup 2=Maximal Assistance 6=Modified [place] 3=Moderate Assistance 7=Complete [place] Therapy Quality Codes: 6 Independent with activity with or without an assistive device 5 Patient requires set up or clean up by helper. Patient completes activity by themselves 4 Supervision or touching assist (CGA). [place] provide cues , steadying assist 3 The helper provides less than half the effort to complete the activity 2 The helper provides more than half the effort to complete the activity 1 Dependent. The helper does all the effort to complete an activity 7 Patient refused to complete or attempt activity 9 The patient did not perform the activity before the current illness or injury 88 Not attempted due to Medical conditions or safety concerns Functional Abilities and Goals: Independent: Patient completed the activities by him/herself, with or without an assistive device, with no assistance from a helper. Needed Some Help: Patient needed partial assistance from another person to complete activities. Dependent: A helper completed the activities for the patient. Unknown: Not Applicable: Bed Mobility: 6 Transfers (B,C,W/C) (FIM): 6 Gait: 6 Indoor Mobility (Ambulation): Independent Stairs: Needed Some Help Prior Devices Use: Walker PT Evaluation-Current Subjective Patient reluctantly agrees to PT. Rates right LE pain 10/10 with meds issued. Pain Numeric Pain Scale: 10-Worst Possible Pain Location: Right Location Body Site: Thigh Pain Description: Acute Objective Patient Orientation: Normal For Age Problem Solving: Poor Attachments: Oxygen, Tovar Catheter, IV ROM/Strength ROM Lower Extremities right limited due to pain/left LE WFL Strength Lower Extremities right LE 2/5 grossly/left LE 3+/5 grossly Integumentary/Posture Integumentary refer to nursing notes Bowel Incontinence: No Bladder Incontinence: Tovar Cath Posture WFL Neuromuscular (Tone, Coordination, Reflexes) grossly intact Sensory Vision: Wears Glasses Hearing: Functional Sensation Right Lower Extremit: Intact Sensation Left Lower Extremity: Intact Transfers Therapy Code Descriptions/Definitions Functional [place] Measure: 0=Not Assessed/NA 4=Minimal Assistance 1=Total Assistance 5=Supervision or Setup 2=Maximal Assistance 6=Modified [place] 3=Moderate Assistance 7=Complete [place] Transfers (B, C, W/C) (FIM): 1 Scootin Rollin Supine to/from Sit: 1 Sit to/from Stand: 1 bed t/f WC(FIM only if WC use): 1 dependent assist with all mobility/unable to maintain PWB right LE due to morbid obesity and weakness Gait Mode of Locomotion: Walk Anticipated Mode of Locomotion: Both Balance Sitting Static: Fair Sitting Dynamic: Fair Standing Dynamic: Poor Assessment/Needs 78 y.o. female, will benefit from skilled PT to address functional strength and mobility to improve current LOF. From a PT standpoint, patient will require extended care facility due to PWB Right LE, morbid obesity and patient inability to maintain status. Rehab Potential: Fair PT Rolling Mill Operator Helper Goals Rolling Mill Operator Helper Goals PT Fpc Goals Time Frame: Jun 01, 2018 Transfers (B,C,W/C) (FIM): 4 Gait (FIM): 1 Gait distance (FIM): 1=up to 49 ft Distance: 5' Gait Level of Assist: 3 PT Plan Problem List Problem List: Activity Tolerance, Functional Strength, Safety, Balance, Gait, Transfer, Bed Mobility Treatment/Plan Treatment Plan: Continue Plan of Care Treatment Plan: Bed Mobility, Education, Functional Activity Demarcus, Functional Strength, Gait, Safety, Therapeutic Exercise, Transfers Treatment Duration: Jun 01, 2018 Frequency: 11 times per week Estimated Hrs Per Day: .5 hour per day Patient and/or Family Agrees t: Yes Safety Risks/Education Patient Education: Reviewed Precautions, Safety Issues Teaching Recipient: Patient Teaching Methods: Demonstration, Discussion Response to Teaching: Verbalize Understanding, Reinforcement Needed Discharge Recommendations Therapy D/C Recommendations: Long Term Placement, Jail (TCU/NH) Time/GCodes Time In: 830 Time Out: 850 Total Billed Treatment Time: 20 [facility] FLOWER PT May 23, 2018 09:44
[2018-05-23] MEDS: KETOROLAC 15 MG/ML VIAL IVP PRN (13:47)
--- NOTE | 2018-05-23 13:50 | Anesthesia-General Post-Op ---
General Patient Condition Mental Status/LOC: Same as Preop Cardiovascular: Satisfactory Nausea/Vomiting: Absent Respiratory: Satisfactory Pain: Controlled Complications: Absent Post Op Complications Complications None Follow Up Care/Instructions Patient Instructions None needed. Anesthesia/Patient Condition Patient Condition Patient is doing well, no complaints, stable vital signs, no apparent adverse anesthesia problems. No complications reported per nursing. MERNA NEAL CRNA May 23, 2018 13:50
--- NOTE | 2018-05-23 14:06 | Physical Therapy Daily Note ---
PT Daily Note-Current Subjective Patient agrees to exercises in bed only due to pain. Pain medication issued IV and oral. Pain Numeric Pain Scale: 10-Worst Possible Pain Location: Right Location Body Site: Thigh Pain Description: Acute Mental Status Patient Orientation: Normal For Age Attachments: Oxygen, Tovar Catheter, IV Transfers Therapy Code Descriptions/Definitions Functional [place] Measure: 0=Not Assessed/NA 4=Minimal Assistance 1=Total Assistance 5=Supervision or Setup 2=Maximal Assistance 6=Modified [place] 3=Moderate Assistance 7=Complete [place] Therapy Quality Codes: 6 Independent with activity with or without an assistive device 5 Patient requires set up or clean up by helper. Patient completes activity by themselves 4 Supervision or touching assist (CGA). [place] provide cues , steadying assist 3 The helper provides less than half the effort to complete the activity 2 The helper provides more than half the effort to complete the activity 1 Dependent. The helper does all the effort to complete an activity 7 Patient refused to complete or attempt activity 9 The patient did not perform the activity before the current illness or injury 88 Not attempted due to Medical conditions or safety concerns Weight Bearing Right Lower Extremity: Right Partial Weight Bearing Left Lower Extremity: Left Full Weight Bearing Patient unable to maintain PWB right LE due to weakness/pain/obesity Exercises Supine Ex: Quad Set, Heel Slides, Straight leg raise, Hip abd/add Supine Reps: 10 (2 sets (AAROM right LE; left LE AROM)) Assessment Patient tolerates minimal activity due to pain and weakness. PT to increase activity as tolerated by patient. PT Research Center Director Goals Longterm Goals PT Research Center Director Goals Time Frame: Jun 01, 2018 Transfers (B,C,W/C) (FIM): 4 Gait (FIM): 1 Gait distance (FIM): 1=up to 49 ft Distance: 5' Gait Level of Assist: 3 PT Plan Treatment/Plan Treatment Plan: Continue Plan of Care Treatment Plan: Bed Mobility, Education, Functional Activity Demarcus, Functional Strength, Gait, Safety, Therapeutic Exercise, Transfers Treatment Duration: Jun 01, 2018 Frequency: 11 times per week Estimated Hrs Per Day: .5 hour per day Patient and/or Family Agrees t: Yes Time/GCodes Time In: 1345 Time Out: 1355 Total Billed Treatment Time: 10 Total Billed Treatment 1 visit EX 10 min RASHID FLOWER PT May 23, 2018 14:06
--- NOTE | 2018-05-23 15:03 | Occupational Therapy Eval ---
OT Evaluation-General/PLF Medical Diagnosis Admission Date May 21, 2018 at 01:55 Medical Diagnosis: right femur/fibular fracture Onset Date: May 21, 2018 Therapy Diagnosis Therapy Diagnosis: decr self care, decr funct mob, weakness, decr act jacy Height/Weight Height (Feet): 5 Height (Inches): 4.00 Weight (Pounds): 213 Weight (Ounces): 6.2 Precautions Precautions/Isolations: Fall Prevention, Standard Precautions Safety Interventions: None Weight Bear Status Weight Bearing Restriction: Partial Weight Bearing Location Restriction: R LE Boot for weight bearing Referral Physician: Lacey Medical History Pertinent Medical History: Arthritis, CABG, CAD, GERD, HTN, Rheumatoid Arthritis Additional Medical History Bilateral total hip replacements. Neurogenic ulcer. Chronic constipation, chronic diarrhea. Chronic LE edema. Current History Got up to let dog out and slipped on urine. R distal femur fx, repaired on 05-22, R ankle fx with boot for protected BB Reviewed History: Yes Social History Home: Single Level Current Living Status: Alone Pt reported front steps are steep. Does not need to go to basement ADL-Prior Level of Function Therapy Code Descriptions/Definitions Functional [place] Measure: 0=Not Assessed/NA 4=Minimal Assistance 1=Total Assistance 5=Supervision or Setup 2=Maximal Assistance 6=Modified [place] 3=Moderate Assistance 7=Complete [place] Therapy Quality Codes: 6 Independent with activity with or without an assistive device 5 Patient requires set up or clean up by helper. Patient completes activity by themselves 4 Supervision or touching assist (CGA). [place] provide cues , steadying assist 3 The helper provides less than half the effort to complete the activity 2 The helper provides more than half the effort to complete the activity 1 Dependent. The helper does all the effort to complete an activity 7 Patient refused to complete or attempt activity 9 The patient did not perform the activity before the current illness or injury 88 Not attempted due to Medical conditions or safety concerns Functional Abilities and Goals: Independent: Patient completed the activities by him/herself, with or without an assistive device, with no assistance from a helper. Needed Some Help: Patient needed partial assistance from another person to complete activities. Dependent: A helper completed the activities for the patient. Unknown: Not Applicable: ADL PLOF Comments Pt reported that she was previously able to manage her basic self care needs. She did a little cooking and cleaning and did her own laundry. She still drives but it is difficult to get in/out of house due to steep steps. She reported no difficulties managing her medications or bills. 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 Her daughter lives with her but is not there all the time Self Care: Independent Functional Cognition: Independent DME/Equipment: Shower, Tall Toilet OT Current Status Subjective Pt seen in room, up in bed, agreeable to OT. Pain rated 8/10 in R leg. Appearance Alert, cooperative Mental Status/Objective Patient Orientation: Person, Place, Time, Situation Attachments: Central Line, IV, Telemetry Current Glasses/Contacts: Yes Hand Dominance: Right Upper Extremity ROM Grossly WFL bilat Upper Extremity Strength Grossly 4/5 bilat ADL-Treatment ADL-Current Pt was unable to maintain her weightbearing status with PT earlier today and was dependant with transfers. Therapy Code Descriptions/Definitions Functional [place] Measure: 0=Not Assessed/NA 4=Minimal Assistance 1=Total Assistance 5=Supervision or Setup 2=Maximal Assistance 6=Modified [place] 3=Moderate Assistance 7=Complete [place] Therapy Quality Codes: 6 Independent with activity with or without an assistive device 5 Patient requires set up or clean up by helper. Patient completes activity by themselves 4 Supervision or touching assist (CGA). [place] provide cues , steadying assist 3 The helper provides less than half the effort to complete the activity 2 The helper provides more than half the effort to complete the activity 1 Dependent. The helper does all the effort to complete an activity 7 Patient refused to complete or attempt activity 9 The patient did not perform the activity before the current illness or injury 88 Not attempted due to Medical conditions or safety concerns Education OT Patient Education: Purpose of tx/functional activities, Rehab process Teaching Recipient: Patient, Family Teaching Methods: Discussion Response to Teaching: Verbalize Understanding OT Prison Goals Prison Goals Time Frame: Jun 06, 2018 Eating (FIM): 6 Grooming(FIM): 5 Bathing(FIM): 5 Upper Body Dressing(FIM): 5 Lower Body Dressing(FIM): 5 Toileting(FIM): 5 Toilet/Commode Transfer(FIM): 5 Shower Transfer(FIM): 5 Additional Goals: 1-Demonstrate ADL Tasks, 2-Verbalize Understanding, 3- ImproveStrength/[place]arc[place] 1=Demonstrate adherence to instructed precautions during ADL tasks. 2=Patient will verbalize/demonstrate understanding of assistive devices/ modifications for ADL. 3=Patient will improve strength/tolerance for activity to enable patient to perform ADL's. OT Education/Plan Problem List/Assessment Assessment: Decreased Activ Tolerance, Decreased UE Strength, Dependent Transfers, Impaired Funct Balance, Impaired Self-Care Skills Pt would benefit from skilled OT to increase her independence in basic self care to allow her to safely return home Discharge Recommendations Plan/Recommendations: Continue POC Treatment Plan/Plan of Care Treatment,Training & Education: Yes Patient would benefit from OT for education, treatment and training to promote independence in ADL's, mobility, safety and/or upper extremity function for ADL' s. Plan of Care: ADL Retraining, Functional Mobility, UE Funct Exercise/Act, UE Neuromus Re-Ed/Coord Treatment Duration: Jun 06, 2018 Frequency: 5 times per week Estimated Hrs Per Day: .25 hour per day Agreement: Yes Rehab Potential: Fair Time/GCodes Start Time: 14:32 Stop Time: 14:47 Total Time Billed (hr/min): 15 Billed Treatment Time visit, 15 minutes evaluation moderate intensity DEWEY BRUCE OT May 23, 2018 15:03
[2018-05-24] MEDS: ALPRAZolam 0.25 MG (XANAX) TAB PO PRN (00:06)
[2018-05-24] MEDS: KETOROLAC 15 MG/ML VIAL IVP PRN ×2 (00:07→13:48)
[2018-05-24] MEDS: cloNIDine 0.1 MG (CATAPRES) TAB PO PRN (00:45)
[2018-05-24 00:46] VITALS: BP 177/71
[2018-05-24] MEDS: 1/2 NS W/KCL 20 MEQ/L 1,000 ML IV SCH (02:51)
[2018-05-24 04:00] VITALS: BP 128/71
[2018-05-24] MEDS: NS IV 1000 ML 1,000 ML IV SCH (04:09)
[2018-05-24] MEDS: LEVOTHYROXINE 50 MCG (LEVOTHROID) TAB PO SCH (06:02)
[2018-05-24] MEDS: FUROSEMIDE 40 MG/4 ML INJ (LASIX) IV SCH (06:02)
[2018-05-24 06:04] LABS: MEAN PLATELET VOLUME 10.3 FL (7.4-10.4); RED BLOOD COUNT 2.11 10^6/uL (4.35-5.85); RED CELL DISTRIBUTION WIDTH 12.9 % (10.0-14.5); WHITE BLOOD COUNT 6.1 10^3/uL (4.3-11.0)
[2018-05-24 06:28] LABS: HEMOGLOBIN 5.7 G/DL (11.5-16.0)
[2018-05-24 08:00] VITALS: BP 128/73
--- NOTE | 2018-05-24 08:59 | Physical Therapy Daily Note ---
PT Daily Note-Current Subjective Patient agrees to PT. Pain Numeric Pain Scale: 8 Location: Right Location Body Site: Thigh Pain Description: Acute Mental Status Patient Orientation: Normal For Age Attachments: Oxygen, Tovar Catheter, IV Transfers Therapy Code Descriptions/Definitions Functional [place] Measure: 0=Not Assessed/NA 4=Minimal Assistance 1=Total Assistance 5=Supervision or Setup 2=Maximal Assistance 6=Modified [place] 3=Moderate Assistance 7=Complete [place] Therapy Quality Codes: 6 Independent with activity with or without an assistive device 5 Patient requires set up or clean up by helper. Patient completes activity by themselves 4 Supervision or touching assist (CGA). [place] provide cues , steadying assist 3 The helper provides less than half the effort to complete the activity 2 The helper provides more than half the effort to complete the activity 1 Dependent. The helper does all the effort to complete an activity 7 Patient refused to complete or attempt activity 9 The patient did not perform the activity before the current illness or injury 88 Not attempted due to Medical conditions or safety concerns Transfers (B, C, W/C) (FIM): 2 Scootin Rollin Supine to/from Sit: 2 Sit to/from Stand: 2 Bed to/from Chair: 2 Patient requires maximum assist with all mobility due to right LE pain and patient inability to maintain PWB right LE with sit to stand and SPT. Weight Bearing Right Lower Extremity: Right Partial Weight Bearing Left Lower Extremity: Left Full Weight Bearing Patient unable to maintain PWB right LE due to weakness/pain/obesity Exercises Supine Ex: Ankle pumps, Heel Slides, Straight leg raise, Hip abd/add Supine Reps: 15 (AAROM right LE/AROM left LE) Seated Therapy Exercises: Long arc quads, Hip flexion Seated Reps: 15 (AAROM right LE/AROM left LE) Assessment Patient continues to tolerate minimal therapy intervention and is not able to demonstrate the ability to maintain PWB right LE. From a PT standpoint, patient will benefit from extended care facility to ensure proper healing of right femur fracture repair. PT Fpc Goals Fpc Goals PT Search Engine Optimization Consultant Goals Time Frame: Jun 01, 2018 Transfers (B,C,W/C) (FIM): 4 Gait (FIM): 1 Gait distance (FIM): 1=up to 49 ft Distance: 5' Gait Level of Assist: 3 PT Plan Treatment/Plan Treatment Plan: Continue Plan of Care Treatment Plan: Bed Mobility, Education, Functional Activity Demarcus, Functional Strength, Gait, Safety, Therapeutic Exercise, Transfers Treatment Duration: Jun 01, 2018 Frequency: 11 times per week Estimated Hrs Per Day: .5 hour per day Patient and/or Family Agrees t: Yes Time/GCodes Time In: 825 Time Out: 837 Total Billed Treatment Time: 12 Total Billed Treatment 1 visit FA 12 min RASHID FLOWER PT May 24, 2018 08:59
--- NOTE | 2018-05-24 09:41 | Cardiology Progress Note ---
Subjective Date Seen by Provider: May 24, 2018 Time Seen by Provider: 09:38 Subjective/Events-last exam patient is sitting in a chair, pale, complaining of fatigue and loss of energy. No chest pain Review of Systems General: No Chills, No Night Sweats; Fatigue, Malaise; No Appetite, No Other HEENT: No Head Aches, No Visual Changes, No Eye Pain, No Ear Pain, No Dysphasia , No Sinus Congestion, No Post Nasal Drip, No Sore Throat, No Other Pulmonary: No Dyspnea, No Cough, No Pleuritic Chest Pain, No Other Cardiovascular: No: Chest Pain, Palpitations, Orthopnea, Paroxysmal Noc. Dyspnea, Edema, Lt Headedness, Other Objective-Cardiology Exam Last Set of Vital Signs Vital Signs 05/24/18 05/24/18 08:00 08:43 Temp 98.1 Pulse 67 Resp 20 B/P (MAP) 128/73 (91) Pulse Ox 95 O2 Delivery Nasal Cannula O2 Flow Rate 3.00 Capillary Refill : Less Than 3 SecondsLess Than 3 Seconds I&O Intake and Output 05/24/18 00:00 Intake Total 3726.25 ml Output Total 2725 ml Balance 1001.25 ml Intake Oral 1450 ml IV Total 2276.25 ml Output Urine Total 2725 ml # Bowel Movements 2 General: Alert, Oriented X3, Cooperative HEENT: Atraumatic Neck: No Thyromegaly Skin: No Rashes, No Breakdown, No Significant Lesion Neuro: Normal Speech, Normal Tone, Sensation Intact Psych/Mental Status: Mental Status NL, Mood NL Results Lab Laboratory Tests 05/24/18 05:22 A/P-Cardiology Admission Diagnosis Femur fracture Coronary artery disease Hypertension Hyperlipidemia Assessment/Plan Status post fall and femur fracture, status post surgical repair. Followed by orthopedic surgeon Anemia, severe, significant drop in H&H, patient is Mu-ism and refusing transfusion, managed by primary care physician, I recommend hematology consultation Constipation. Maintained on stool softener. Coronary artery disease, history of bypass surgery using JALLOH to LAD in January 2005, had a stress test in October 2016 showing no ischemia or infarction with ejection fraction 84 percent, echocardiogram in January 2014 reporting as normal LV function with mild MR. Continue to monitor Hyperlipidemia, intolerant to statin with muscle ache and generalized weakness History of intermittent liver enzyme elevation of undetermined etiology. followed and managed by primary care physician H/o hypoxemia, likely related to hypoventilation syndrome and/or pulmonary disease, continue to monitor History of peripheral arterial disease and a small abdominal aortic aneurysm, being followed at Dr Patterson's office Carotid arterial disease being followed at Dr Patterson's office Rheumatoid arthritis. History of laparoscopic cholecystectomy. Hypertension with hypertensive cardiovascular disease. restart home medication monitor blood pressure Hypothyroidism being treated with thyroid replacement therapy. Degenerative joint disease. Elevated body mass index of 36 Bilateral leg swelling likely related to venous insufficiency and/or amlodipine therapy, stable and unchanged. 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 Intolerant to niacin therapy CKD stage 2, continue to monitor renal function Clinical Quality Measures DVT/VTE Risk/Contraindication: Risk Factor Score Per Nursin RFS Level Per Nursing on Admit: 4+=Very High DARIN VELARDE MD May 24, 2018 09:41
[2018-05-24] MEDS: amLODIPine 10 MG (NORVASC) TAB PO SCH (10:20)
[2018-05-24] MEDS: meTOproloL SUCCINATE 50 MG (TOPROL XL) TAB PO SCH (10:20)
[2018-05-24] MEDS: PANTOPRAZOLE 40 MG (PROTONIX) TAB PO SCH (10:20)
[2018-05-24] MEDS: DOCUSATE SODIUM 100 MG (COLACE) CAP PO SCH ×2 (10:20→20:37)
[2018-05-24] MEDS: morphine INJ 4 MG/ML 1 ML (VIAL/SYRINGE) IV PRN (10:21)
[2018-05-24] MEDS: POLYETHYLENE GLYCOL 17 GM (MIRALAX) PACK PO SCH ×2 (10:21→20:38)
[2018-05-24] MEDS: LACTULOSE SYRUP 10GM/15ML (ENULOSE) 30ML UDC PO SCH ×2 (10:21→20:37)
--- NOTE | 2018-05-24 11:50 | Physical Therapy Daily Note ---
PT Daily Note-Current Subjective Patient agrees to PT. Pain Numeric Pain Scale: 8 Location: Right Location Body Site: Thigh Pain Description: Acute Mental Status Patient Orientation: Normal For Age Attachments: Oxygen, Tovar Catheter, IV Transfers Therapy Code Descriptions/Definitions Functional [place] Measure: 0=Not Assessed/NA 4=Minimal Assistance 1=Total Assistance 5=Supervision or Setup 2=Maximal Assistance 6=Modified [place] 3=Moderate Assistance 7=Complete [place] Therapy Quality Codes: 6 Independent with activity with or without an assistive device 5 Patient requires set up or clean up by helper. Patient completes activity by themselves 4 Supervision or touching assist (CGA). [place] provide cues , steadying assist 3 The helper provides less than half the effort to complete the activity 2 The helper provides more than half the effort to complete the activity 1 Dependent. The helper does all the effort to complete an activity 7 Patient refused to complete or attempt activity 9 The patient did not perform the activity before the current illness or injury 88 Not attempted due to Medical conditions or safety concerns Transfers (B, C, W/C) (FIM): 1 Scootin Rollin Supine to/from Sit: 2 Sit to/from Stand: 2 Bed to/from Chair: 1 Patient continues to have difficulty with utilizing left LE to assist with PWB right LE with sit to stand and SPT bed to recliner. Weight Bearing Right Lower Extremity: Right Partial Weight Bearing Left Lower Extremity: Left Full Weight Bearing Patient unable to maintain PWB right LE due to weakness/pain/obesity Exercises Supine Ex: Ankle pumps (left LE), Quad Set, Heel Slides, Straight leg raise, Hip abd/add Supine Reps: 15 (AAROM right LE/AROM left LE) Assessment Patient is up in recliner with needs met. Continues to tolerate minimal activity and voiced she desires to transfer to [facility] for continued care. PT will notify SW. PT [facility] Goals Teacher [employer] Goals PT [facility] Goals Time Frame: Jun 01, 2018 Transfers (B,C,W/C) (FIM): 4 Gait (FIM): 1 Gait distance (FIM): 1=up to 49 ft Distance: 5' Gait Level of Assist: 3 PT Plan Treatment/Plan Treatment Plan: Continue Plan of Care Treatment Plan: Bed Mobility, Education, Functional Activity Demarcus, Functional Strength, Gait, Safety, Therapeutic Exercise, Transfers Treatment Duration: Jun 01, 2018 Frequency: 11 times per week Estimated Hrs Per Day: .5 hour per day Patient and/or Family Agrees t: Yes Time/GCodes Time In: 1130 Time Out: 1143 Total Billed Treatment Time: 13 Total Billed Treatment 1 visit FA 13 min RASHID FLOWER PT May 24, 2018 11:50
[2018-05-24 12:00] VITALS: BP 103/56
--- NOTE | 2018-05-24 12:30 | Occupational Ther Daily Note ---
OT Current Status-Daily Note Subjective Pt sitting on BSC, requesting to return to bed. Mental Status/Objective Therapy Code Descriptions/Definitions Functional [place] Measure: 0=Not Assessed/NA 4=Minimal Assistance 1=Total Assistance 5=Supervision or Setup 2=Maximal Assistance 6=Modified [place] 3=Moderate Assistance 7=Complete [place] ADL-Treatment Pt states her daughter assisted with toileting hygiene and she is ready to transfer. Transfer BSC to EOB with assist x2 for safety. Pt has minimal participation in transfer and requires cues for safety. Attempted to have pt scoot toward HOB while seated, but pt states she can't and then just lays down. Pt required assist to bring bilateral LE onto the bed. Total assist to scoot to HOB as pt does not attempt to assist with task. Pt positioned in bed for comfort. Resting in bed with needs met and daughter present after session. Toilet/Commode Transfer (FIM): 1 OT Short Term Goals Short Term Goals 1=Demonstrate adherence to instructed precautions during ADL tasks. 2=Patient will verbalize/demonstrate understanding of assistive devices/ modifications for ADL. 3=Patient will improve strength/tolerance for activity to enable patient to perform ADL's. OT Chemical Plant Operator Goals Group Home Goals Time Frame: Jun 06, 2018 Eating (FIM): 6 Grooming(FIM): 5 Bathing(FIM): 5 Upper Body Dressing(FIM): 5 Lower Body Dressing(FIM): 5 Toileting(FIM): 5 Toilet/Commode Transfer(FIM): 5 Shower Transfer(FIM): 5 Additional Goals: 1-Demonstrate ADL Tasks, 2-Verbalize Understanding, 3- ImproveStrength/[place] 1=Demonstrate adherence to instructed precautions during ADL tasks. 2=Patient will verbalize/demonstrate understanding of assistive devices/ modifications for ADL. 3=Patient will improve strength/tolerance for activity to enable patient to perform ADL's. OT Education/Plan Problem List/Assessment Pt would benefit from skilled OT to increase her independence in basic self care to allow her to safely return home Discharge Recommendations Plan/Recommendations: Continue POC Treatment Plan/Plan of Care Patient would benefit from OT for education, treatment and training to promote independence in ADL's, mobility, safety and/or upper extremity function for ADL' s. Plan of Care: ADL Retraining, Functional Mobility, UE Funct Exercise/Act, UE Neuromus Re-Ed/Coord Treatment Duration: Jun 06, 2018 Frequency: 5 times per week Estimated Hrs Per Day: .25 hour per day Agreement: Yes Rehab Potential: Fair Time/GCodes Start Time: 10:07 Stop Time: 10:17 Total Time Billed (hr/min): 10 Billed Treatment Time 1 visit, ADL(10minutes) VICTORINO BAILEY OT May 24, 2018 12:30
--- NOTE | 2018-05-24 12:31 | Progress Note-Hospitalist ---
Subjective HPI/CC On Admission Date Seen by Provider: May 24, 2018 Time Seen by Provider: 10:30 CC: Right distal femur and distal fibula fracture sustained in fall HPI: This is a 78-year-old white female clinic patient of Dr. Casas was a history of a bypass maintained on Plavix for CAD who presents after a fall via ambulance when she was taking her dog out to the bathroom and slipped on urine on the floor and sustained a right distal fibula and right distal femur fracture in need of surgery tomorrow. Dr. Marquez's been consulted for CAD history and risk stratification. Patient will likely be able to eat a meal today and nothing by mouth after midnight in preparation for surgery. Pain is controlled with IV pain medication. Subjective/Events-last exam Patient pretty weak with hemoglobin at 5.7 Is a Nondenominational and refuses blood products We'll Hep-Lock IV fluids since it appears that she might get volume overloaded Pain is not well controlled so will discontinue hydrocodone and start Percocet Bowel movement 2 today Oxygen maintained Will order nebulizer treatments Received iron infusion yesterday Review of Systems General: Fatigue Pulmonary: Dyspnea Musculoskeletal: leg pain Objective Exam Vital Signs Vital Signs Date Time Temp Pulse Resp B/P (MAP) Pulse Ox O2 Delivery O2 Flow Rate FiO2 05/24/18 12:00 96.1 84 18 103/56 (72) 91 Nasal Cannula 4.00 Capillary Refill : Less Than 3 SecondsLess Than 3 Seconds General Appearance: No Apparent Distress, WD/WN, Chronically ill, Obese, Other (pale) Respiratory: Chest Non Tender, Lungs Clear, Normal Breath Sounds, No Accessory Muscle Use, No Respiratory Distress Cardiovascular: Regular Rate, Rhythm, No Edema, No Gallop, No JVD, No Murmur, Normal Peripheral Pulses Neurologic/Psychiatric: Alert, Oriented x3, No Motor/Sensory Deficits, Normal Mood/Affect Results/Procedures Lab Laboratory Tests 05/24/18 05:22 Patient resulted labs reviewed. Assessment/Plan Assessment and Plan Assess & Plan/Chief Complaint Assessment: Acute right fibula and right distal femur fracture s/p uncomplicated repair per Dr Youngblood POD # 2 Acute blood loss anemia severe JW refuses blood transfusions CAD previous bypass Hypertension Chronic lower extremity edema Dyspnea at risk for overload will HLIVF Plan: Hep-locked IV fluid to prevent overload Await iron infusion to help replenish hemoglobin Patient very pale and dyspneic due to severe anemia Nondenominational will refuse blood products DC hydrocodone and begin Percocet for adequate pain control Add nebulizer treatments Diagnosis/Problems Diagnosis/Problems (1) Fibula fracture Status: Resolved Qualifiers: Encounter type: initial encounter Fibula location: distal physis (incl. Salter-Vaughn) Fracture alignment: nondisplaced Laterality: right Qualified Codes: S89.301A - Unspecified physeal fracture of lower end of right fibula, initial encounter for closed fracture Resolution Date/Time: 05/24/18 @ 13:14 (2) Femur fracture, right Status: Resolved Qualifiers: Encounter type: initial encounter Femur location: shaft Fracture type: closed Fracture morphology: oblique Fracture alignment: nondisplaced Qualified Codes: S72.334A - Nondisplaced oblique fracture of shaft of right femur, initial encounter for closed fracture Resolution Date/Time: 05/24/18 @ 13:14 (3) CAD (coronary artery disease) Status: Chronic Qualifiers: Coronary Disease-Associated Artery/Lesion type: [place] artery [place] vs. transplanted heart: mc[place]ath heart Associated angina: without angina Qualified Codes: I25.10 - Atherosclerotic heart disease of mc[place]ath coronary artery without angina pectoris (4) Hx of CABG Status: Chronic (5) Hypertension Status: Chronic Qualifiers: Hypertension type: essential hypertension Qualified Codes: I10 - Essential (primary) hypertension (6) Obesity Status: Chronic Qualifiers: Obesity type: due to excess calories Obesity classification: adult class 2 (BMI 35 - 39.9) Serious obesity comorbidity presence: with serious comorbidity (7) Arthritis, rheumatoid Status: Chronic Qualifiers: Rheumatoid arthritis location: unspecified site Rheumatoid factor presence : unspecified presence Qualified Codes: M06.9 - Rheumatoid arthritis, unspecified (8) Anemia Status: Acute Qualifiers: Anemia type: other cause Other causes of anemia: acute posthemorrhagic Qualified Codes: D62 - Acute posthemorrhagic anemia (9) GERD (gastroesophageal reflux disease) Status: Chronic Qualifiers: Esophagitis presence: without esophagitis Qualified Codes: K21.9 - Gastro- esophageal reflux disease without esophagitis (10) Fall Status: Acute Qualifiers: Encounter type: initial encounter Qualified Codes: W19.XXXA - Unspecified fall, initial encounter (11) Refusal of blood transfusions as patient is Nondenominational Status: Chronic (12) Dyspnea Status: Acute Qualifiers: Dyspnea type: dyspnea on exertion Qualified Codes: R06.09 - Other forms of dyspnea Clinical Quality Measures DVT/VTE Risk/Contraindication: Risk Factor Score Per Nursin RFS Level Per Nursing on Admit: 4+=Very High BRIAN GIORDANO DO May 24, 2018 12:31
[2018-05-24] MEDS: oxyCODONE/APAP 5/325MG (PERCOCET 5) TABLET PO PRN (13:48)
[2018-05-24] MEDS: RT-ALBUTEROL SULF 2.5 MG/3 ML PRE-MIX VIAL INH SCH ×2 (15:00→19:50)
[2018-05-24 15:37] VITALS: BP 133/65
[2018-05-24 19:28] VITALS: BP 126/69
[2018-05-25] VITALS (20 sets, daily range): BP systolic 111–168; BP diastolic 47–71
[2018-05-25] MEDS: oxyCODONE/APAP 5/325MG (PERCOCET 5) TABLET PO PRN ×3 (00:16→18:40)
[2018-05-25] MEDS: KETOROLAC 15 MG/ML VIAL IVP PRN (00:46)
[2018-05-25] MEDS: RT-ALBUTEROL SULF 2.5 MG/3 ML PRE-MIX VIAL INH SCH ×4 (02:25→20:06)
[2018-05-25] MEDS: FUROSEMIDE 40 MG/4 ML INJ (LASIX) IV SCH (06:07)
[2018-05-25] MEDS: LEVOTHYROXINE 50 MCG (LEVOTHROID) TAB PO SCH (06:07)
--- NOTE | 2018-05-25 08:15 | Progress Note (SOAP) ---
Subjective Time Seen by a Provider: 08:07 Subjective/Events-last exam Patient is a Zoroastrian. Patient more anemic. Spoke to patient again about receiving blood. Patient refuses. . Patient feeling good this morning. Patient resting comfortably. Blood tests not done yet this morning Objective Exam Vital Signs Date Time Temp Pulse Resp B/P (MAP) Pulse Ox O2 Delivery O2 Flow Rate FiO2 05/25/18 07:59 98.6 83 20 133/63 (86) 93 Nasal Cannula 4.00 05/25/18 02:26 91 Nasal Cannula 4.00 05/25/18 01:20 99.8 87 14 128/71 (90) 99 Nasal Cannula 4.00 05/25/18 00:01 97.4 88 18 117/70 (86) 99 Nasal Cannula 2.00 05/24/18 20:00 Nasal Cannula 4.00 05/24/18 19:50 93 Nasal Cannula 3.00 05/24/18 19:28 97.3 80 14 126/69 (88) 99 Nasal Cannula 2.00 05/24/18 15:37 97.7 73 16 133/65 (87) 93 Nasal Cannula 2.00 05/24/18 15:00 93 Nasal Cannula 4.00 05/24/18 12:00 96.1 84 18 103/56 (72) 91 Nasal Cannula 4.00 05/24/18 08:43 Nasal Cannula 3.00 I & O 05/25/18 07:00 Intake Total 1950 ml Output Total 1900 ml Balance 50 ml Capillary Refill : Less Than 3 SecondsLess Than 3 Seconds General Appearance: No Apparent Distress, WD/WN HEENT: Normal ENT Inspection Neck: Full Range of Motion, Normal Inspection Respiratory: Lungs Clear, No Accessory Muscle Use, No Respiratory Distress Cardiovascular: Regular Rate, Rhythm Gastrointestinal: non tender Results Lab Microbiology 05/22/18 MRSA Screen - Final, Complete Assessment/Plan Assessment/Plan Assess & Plan/Chief Complaint Fractured fibula and femur. Anemia. Patient Jehovah witness. CAD. Hypertension. Anemia. Hyperlipidemia. . 05/25/18. Fractured fibula and femur. Anemia worse yesterday. Patient Jehovah witness. Patient refuses blood test again. CAD. Hypertension. Hyperlipidemia. Heparin stopped Clinical Quality Measures DVT/VTE Risk/Contraindication: Risk Factor Score Per Nursin RFS Level Per Nursing on Admit: 4+=Very High GELLENDER,SHARATH A DO May 25, 2018 08:15
[2018-05-25 08:53] LABS: BASOPHILS # (AUTO) 0.1 10^3/uL (0.0-0.1); BASOPHILS % (AUTO) 1 % (0-10); EOSINOPHILS % (AUTO) 1 % (0-10); LYMPHOCYTES # (AUTO) 1.3 X 10^3 (1.0-4.0); LYMPHOCYTES % (AUTO) 22 % (12-44); MEAN CORPUSCULAR HEMOGLOBIN 27 PG (25-34); MEAN CORPUSCULAR HGB CONC 31 G/DL (32-36); MEAN CORPUSCULAR VOLUME 89 FL (80-99); MONOCYTES # (AUTO) 0.8 X 10^3 (0.0-1.0); MONOCYTES % (AUTO) 13 % (0-12); NEUTROPHILS # (AUTO) 3.8 X 10^3 (1.8-7.8); NEUTROPHILS % (AUTO) 64 % (42-75); PLATELET COUNT 207 10^3/uL (130-400); RED BLOOD COUNT 2.25 10^6/uL (4.35-5.85); RED CELL DISTRIBUTION WIDTH 13.5 % (10.0-14.5); WHITE BLOOD COUNT 5.9 10^3/uL (4.3-11.0)
[2018-05-25 08:55] LABS: HEMATOCRIT 20 % (35-52); HEMOGLOBIN 6.1 G/DL (11.5-16.0)
[2018-05-25] MEDS: PANTOPRAZOLE 40 MG (PROTONIX) TAB PO SCH (09:00)
[2018-05-25] MEDS: meTOproloL SUCCINATE 50 MG (TOPROL XL) TAB PO SCH (09:00)
[2018-05-25] MEDS: amLODIPine 10 MG (NORVASC) TAB PO SCH (09:00)
[2018-05-25] MEDS: POLYETHYLENE GLYCOL 17 GM (MIRALAX) PACK PO SCH ×2 (09:01→21:00)
[2018-05-25] MEDS: LACTULOSE SYRUP 10GM/15ML (ENULOSE) 30ML UDC PO SCH ×2 (09:01→21:00)
[2018-05-25] MEDS: DOCUSATE SODIUM 100 MG (COLACE) CAP PO SCH ×2 (09:01→21:00)
[2018-05-25 09:21] LABS: ALBUMIN 3.3 GM/DL (3.2-4.5); BILIRUBIN,TOTAL 0.4 MG/DL (0.1-1.0); CALCIUM 10.6 MG/DL (8.5-10.1); CREATININE SERUM 0.97 MG/DL (0.60-1.30); POTASSIUM 3.8 MMOL/L (3.6-5.0)
[2018-05-25] MEDS: ONDANSETRON 4 MG/2 ML (SDV) Z0FRAN IV PRN (09:48)
--- NOTE | 2018-05-25 09:54 | NUR ---
NOTE THAT PT VERBALIZED INDIGESTION TO NA WHEN THIS RN WENT IN ROOM CARDIAC STAFF IN ROOM --C/O MIDsternal pain
--- NOTE | 2018-05-25 09:54 | Cardiology Progress Note ---
Subjective Date Seen by Provider: May 25, 2018 Time Seen by Provider: 09:48 Subjective/Events-last exam Patient is in bed, complaining of chest pain, onset around 10pm last night. Rates pain 8/10. Also complaining of right leg pain. Objective-Cardiology Exam Last Set of Vital Signs Vital Signs 05/25/18 05/25/18 07:59 08:35 Temp 98.6 Pulse 83 Resp 20 B/P (MAP) 133/63 (86) Pulse Ox 93 O2 Delivery Nasal Cannula O2 Flow Rate 4.00 Capillary Refill : Less Than 3 SecondsLess Than 3 Seconds I&O Intake and Output 05/25/18 00:00 Intake Total 2850 ml Output Total 1825 ml Balance 1025 ml Intake Oral 1850 ml IV Total 1000 ml Output Urine Total 1825 ml # Bowel Movements 1 General: Alert, Oriented X3, Cooperative HEENT: Atraumatic Neck: No Thyromegaly Lungs: Clear to Auscultation Heart: Regular Rate, Normal S1, Normal S2 Abdomen: Normal Bowel Sounds, Soft, No Tenderness Extremities: Other (right leg pain) Skin: No Rashes, No Breakdown, No Significant Lesion Neuro: Normal Speech, Normal Tone, Sensation Intact Psych/Mental Status: Mental Status NL, Mood NL Results Lab Laboratory Tests 05/25/18 08:31 A/P-Cardiology Admission Diagnosis Femur fracture Coronary artery disease Hypertension Hyperlipidemia Assessment/Plan Status post fall and femur fracture, status post surgical repair. Followed by orthopedic surgeon Anemia, severe, significant drop in H&H, patient is Amish and refusing transfusion, managed by primary care physician, I recommend hematology consultation Chest pain, I will evaluate stat EKG. Constipation. Maintained on stool softener. Coronary artery disease, history of bypass surgery using JALLOH to LAD in January 2005, had a stress test in October 2016 showing no ischemia or infarction with ejection fraction 84 percent, echocardiogram in January 2014 reporting as normal LV function with mild MR. Continue to monitor Hyperlipidemia, intolerant to statin with muscle ache and generalized weakness History of intermittent liver enzyme elevation of undetermined etiology. followed and managed by primary care physician H/o hypoxemia, likely related to hypoventilation syndrome and/or pulmonary disease, continue to monitor History of peripheral arterial disease and a small abdominal aortic aneurysm, being followed at Dr Patterson's office Carotid arterial disease being followed at Dr Patterson's office Rheumatoid arthritis. History of laparoscopic cholecystectomy. Hypertension with hypertensive cardiovascular disease. restart home medication monitor blood pressure Hypothyroidism being treated with thyroid replacement therapy. Degenerative joint disease. Elevated body mass index of 36 Bilateral leg swelling likely related to venous insufficiency and/or amlodipine therapy, stable and unchanged. 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 Intolerant to niacin therapy CKD stage 2, continue to monitor renal function Clinical Quality Measures DVT/VTE Risk/Contraindication: Risk Factor Score Per Nursin RFS Level Per Nursing on Admit: 4+=Very High FAVIOLA WALKER May 25, 2018 09:54
[2018-05-25] MEDS ORDERED: NITROGLYCERIN 0.4 MG SL TABS BTL 25'S SL ONE (10:00)
--- NOTE | 2018-05-25 10:08 | NUR ---
NOTE THAT DR VELARDE ON FLOOR STAT EKG AND VOICED HE WOULD PUT IN ORDER FOR NITRO TAB -- THIS RN CALLED PHARMACY AND NITRO TAB BOTTLE WAS TUBED TO THE FLOOR GOT 1ST BY THIS RN AT 1006 -- DR VELARDE WAS IN ROOM AND REQUESTED THAT THIS TOOLROOM HELPER PT UP TO ICU -- AT 1008 DR VELARDE GAVE 2ND NITRL TAB -- PT TO GO TO ICU RM 6 -- PT TAKEN UP TO ICU BED 6 --
--- NOTE | 2018-05-25 10:26 | Physical Therapy Progress Note ---
Therapy Progress Note Patient transferred to ICU. PT will await new orders due to decrease in medical status. ALECIA HAMILTON PT May 25, 2018 10:26
--- NOTE | 2018-05-25 10:29 | Occ Therapy Progress Note ---
Therapy Progress Note 1028 Pt transferred to ICU. Will await new OT orders due to change in medical status to higher level of care. DEWEY BRUCE OT May 25, 2018 10:29
[2018-05-25] MEDS ORDERED: NITROGLYCERIN 0.4 MG SL TABS BTL 25'S SL PRN (10:30)
--- NOTE | 2018-05-25 10:39 | NUR ---
REPORT WAS GIVEN TO LABOR DELIVERY SPECIALIST -- AND WHEN THIS RN RETURNED TO FLOOR PT'S DAUGHTER WAS CALLED AND ADVISED AND DR VELARDE WAS ON HIS WAY UP TO ICU6
--- NOTE | 2018-05-25 10:40 | NUR ---
DR COLON CALLED AND ADVISED OF THE TRANSFER --
--- NOTE | 2018-05-25 10:43 | Cardiology Progress Note ---
Subjective Date Seen by Provider: May 25, 2018 Time Seen by Provider: 10:40 Subjective/Events-last exam patient started to have severe chest pain, described it as dull in nature in the retrosternal area all over her chest. Having mild abdominal pain. Pale and uncomfortable, no dyspnea. Having leg pain. Review of Systems General: No Chills, No Night Sweats; Fatigue, Malaise; No Appetite, No Other HEENT: No Head Aches, No Visual Changes, No Eye Pain, No Ear Pain, No Dysphasia , No Sinus Congestion, No Post Nasal Drip, No Sore Throat, No Other Pulmonary: Dyspnea; No Cough, No Pleuritic Chest Pain, No Other Cardiovascular: Chest Pain; No: Palpitations, Orthopnea, Paroxysmal Noc. Dyspnea, Edema, Lt Headedness, Other Gastrointestinal: Abdominal Pain Focused Exam Respiratory: No Chest Non Tender, No Lungs Clear, No Normal Breath Sounds, No No Accessory Muscle Use, No No Respiratory Distress, No Accessory Muscle Use, No Crackles, No Decreased Breath Sounds, No Expiration, No Inspiration, No Pleural Rub, No Rales, No Respiratory Distress, No Rhonci, No Stridor, No Wheezing, No Other Cardiovascular: Regular Rate, Rhythm, No Edema, No Gallop, No JVD Capillary Refill: Less Than 3 Seconds Skin: warm/dry, pallor Objective-Cardiology Exam Last Set of Vital Signs Vital Signs 05/25/18 05/25/18 05/25/18 07:59 08:35 09:50 Temp 98.6 Pulse 83 Resp 20 B/P (MAP) 168/71 (103) Pulse Ox 93 O2 Delivery Nasal Cannula O2 Flow Rate 4.00 Capillary Refill : Less Than 3 SecondsLess Than 3 Seconds I&O Intake and Output 05/25/18 00:00 Intake Total 2850 ml Output Total 1825 ml Balance 1025 ml Intake Oral 1850 ml IV Total 1000 ml Output Urine Total 1825 ml # Bowel Movements 1 General: Alert, Oriented X3, Cooperative HEENT: Atraumatic Neck: Supple, No JVD, No Thyromegaly Lungs: Clear to Auscultation Heart: Regular Rate, Normal S1, Normal S2 Abdomen: Normal Bowel Sounds, Soft, Other (epigastric tenderness) Extremities: No Clubbing, Other (pale conjunctiva) Skin: No Rashes, No Breakdown, No Significant Lesion Neuro: Normal Speech, Normal Tone, Sensation Intact Psych/Mental Status: Mental Status NL, Mood NL Results Lab Laboratory Tests 05/25/18 08:31 A/P-Cardiology Admission Diagnosis Femur fracture Coronary artery disease Hypertension Hyperlipidemia Assessment/Plan Acute chest pain, unstable angina, ST depression in the anterolateral leads. Given sublingual nitroglycerin with some relief, patient is severely anemic, cannot tolerate a cardiac catheterization or aggressive anticoagulation at this time. I will start her on aspirin and monitor, discussed with Dr. Pisano, we'll require intervention for her anemia. Status post fall and femur fracture, status post surgical repair. Followed by orthopedic surgeon Anemia, severe, significant drop in H&H, patient is Latter-day and refusing transfusion, I consulted Dr. Pisano due to the severe anemia and active chest pain Mild abdominal pain. Continue to monitor, managed by primary care physician Constipation. Maintained on stool softener. Coronary artery disease, history of bypass surgery using JALLOH to LAD in January 2005, had a stress test in October 2016 showing no ischemia or infarction with ejection fraction 84 percent, echocardiogram in January 2014 reporting as normal LV function with mild MR. Continue to monitor Hyperlipidemia, intolerant to statin with muscle ache and generalized weakness History of intermittent liver enzyme elevation of undetermined etiology. followed and managed by primary care physician H/o hypoxemia, likely related to hypoventilation syndrome and/or pulmonary disease, continue to monitor History of peripheral arterial disease and a small abdominal aortic aneurysm, being followed at Dr Patterson's office Carotid arterial disease being followed at Dr Patterson's office Rheumatoid arthritis. History of laparoscopic cholecystectomy. Hypertension with hypertensive cardiovascular disease. restart home medication monitor blood pressure Hypothyroidism being treated with thyroid replacement therapy. Degenerative joint disease. Elevated body mass index of 36 Bilateral leg swelling likely related to venous insufficiency and/or amlodipine therapy, stable and unchanged. 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 Intolerant to niacin therapy CKD stage 2, continue to monitor renal function Clinical Quality Measures DVT/VTE Risk/Contraindication: Risk Factor Score Per Nursin RFS Level Per Nursing on Admit: 4+=Very High DARIN VELARDE MD May 25, 2018 10:43
[2018-05-25] MEDS ORDERED: ASPIRIN E.C. 325 MG (ECOTRIN) TABLET PO ONE (10:45)
[2018-05-25 10:53] LABS: MYOGLOBIN SERUM 191.5 NG/ML (10.0-92.0)
[2018-05-25] MEDS ORDERED: FOLIC ACID IV NR (10:54)
[2018-05-25] MEDS ORDERED: NS IV NR (10:54)
[2018-05-25] MEDS ORDERED: ARANESP SQ NR (10:55)
[2018-05-25] MEDS ORDERED: DARBEPOETIN 60 MCG/ML SQ NR (10:55)
[2018-05-25] MEDS ORDERED: DARBEPOETIN 40 MCG/ML (ARANESP) 1 ML VIAL SC NR (11:15)
--- NOTE | 2018-05-25 12:34 | NUR ---
Initial visit: pt is Religion and a member of [employer] in [place]. States her daughters are in contact with [employer] on her behalf, and provide strong emotional support. Offered compassionate and calming presence.
--- NOTE | 2018-05-25 13:07 | Consultation ---
History of Present Illness History of Present Illness Patient Consulted On(sofie/time) 05/25/18 13:02 Date Seen by Provider: May 25, 2018 Time Seen by Provider: 11:00 Reason for Visit: coronary artery disease, acute anemia History of Present Illness Ms. Boudreaux is a 78 yo female Tenriism with CAD s/p CABG, hypothyroidism who was admitted to the hospital on 05/21/18 with fractures of her right femur and fibula after a fall. On 05/22, she underwent open reduction and internal fixation of her right femoral shaft. Since the procedure, her hgb dropped rapidly from 9.5 on the day admission to 5.7 on 05/24/18. She was given iron dextran 1g IV on 05/23/18. Last night, around midnight, patient began to experience intermittent central chest pressure, each episode lasting 10-15 minutes to hours. The pain was severe enough to wake her from sleep several times throughout the night. This morning around 10:00, patient had acute worsening chest pain and was found to have ST segment changes on EKG. She was transferred to the ICU. Sublingual nitroglycerin helps with the pain significantly. Allergies and Home Medications Allergies Coded Allergies: Sulfa (Sulfonamide Antibiotics) (Verified Allergy, Unknown, 12/13/17) penicillin G (Verified Allergy, Unknown, 12/13/17) Home Medications Amlodipine Besylate 10 Mg Tablet, 10 MG PO DAILY, (Reported) Fenofibrate Nanocrystallized 145 Mg Tablet, 145 MG PO DAILY, (Reported) Furosemide 80 Mg Tablet, 80 MG PO DAILY, (Reported) Levothyroxine Sodium 50 Mcg Tablet, 50 MCG PO DAILY, (Reported) Lysine 500 Mg Tablet, 500 MG PO DAILY, (Reported) Metoprolol Succinate 50 Mg Tab.er.24h, 50 MG PO DAILY, (Reported) [place] 3 Polyunsat Fatty Acids 1,000 Mg Cap, 1,000 MG PO BID, (Reported) Omeprazole 40 Mg Capsule.dr, 40 MG PO DAILY, (Reported) Potassium Chloride 20 Meq Tablet.er, 20 MEQ PO DAILY, (Reported) Patient Home Medication List Home Medication List Reviewed: Yes Past Rwlccuh-Qrqiey-Wnymzr Hx Past Med/Social Hx: Reviewed Nursing Past Med/Soc Hx, Reviewed and Corrections made Patient Social History Alcohol Use: Denies Use Recreational Drug Use: No Smoking Status: Never a Smoker Former Smoker, Quit: Dec 13, 1993 Recent Foreign Travel: No Contact w/Someone Who Travel: No Recent Infectious Disease Expo: No Recent Hopitalizations: No Immunizations Up To Date Date of Pneumonia Vaccine: May 21, 2016 Date of Influenza Vaccine: Mar 08, 2018 Seasonal Allergies Seasonal Allergies: Yes (MILD) Past Medical History Surgeries: Yes (CABG) CABG, Gallbladder, Hysterectomy, Tonsillectomy Respiratory: No Cardiac: Yes Coronary Artery Disease, High Cholesterol, Hypertension Neurological: No : No 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, 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 Sexually Transmitted Disease: No HIV/AIDS: No Genitourinary: Yes Neurogenic Bladder Gastrointestinal: Yes Gastroesophageal Reflux, Chronic Constipation, Chronic Diarrhea Musculoskeletal: Yes Arthritis, Rheumatoid Arthritis Endocrine: Yes HEENT: No Loss of Vision: Bilateral Hearing Impairment: Denies Cancer: No Psychosocial: No Integumentary: No Blood Disorders: Yes (IRON DEF ANEMIA) Adverse Reaction/Blood Tranf: No Review of Systems-General Constitutional: weakness EENTM: no symptoms reported Respiratory: short of breath Cardiovascular: chest pain Gastrointestinal: no symptoms reported Genitourinary: no symptoms reported Musculoskeletal: joint pain (right knee and ankle), muscle pain Skin: no symptoms reported Psychiatric/Neurological: No Symptoms Reported Physical Exam-General Problems Physical Exam Vital Signs Vital Signs - First Documented 05/20/18 05/21/18 22:43 20:43 Temp 97.8 Pulse 84 Resp 16 B/P (MAP) 192/85 (120) Pulse Ox 93 O2 Delivery Room Air O2 Flow Rate 2.00 Capillary Refill : Less Than 3 SecondsLess Than 3 Seconds General Appearance: WD/WN, mild distress Eyes: Bilateral Eye Normal Inspection, Bilateral Eye EOMI HEENT: PERRL/EOMI, normal ENT inspection, pharynx normal Neck: non-tender, full range of motion, normal inspection Respiratory: chest non-tender, normal breath sounds, no respiratory distress, no accessory muscle use, decreased breath sounds Cardiovascular: regular rate, rhythm, no edema, no murmur Gastrointestinal: normal bowel sounds, non tender, soft Extremities: No normal range of motion, No non-tender, No normal inspection; pedal edema, other (right posterolateral thigh with surgical wound and dressings , limited right hip and knee movement) 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 She suffered from post surgical blood loss anemia and is now presenting like ACS. Since she is a Tenriism, she cannot receive blood products. We do not have any artificial blood products available that will increase oxygen delivery to her tissues, so our best compromise is optimization of nutritional needs and bone marrow stimulating agents. None of these agents will act sufficiently fast enough in an emergent setting, however. - Primary acute recommendation is cessation of bleeding, preferentially through surgery. Hgb appears to have stabilized this morning, however, so we will monitor. If there is continued evidence of bleeding, use of pro-hemostatic agents is going to be high risk given her potential ACS. We would have an extensive conversation with the patient prior to use. Consider recombinant factor VIIa in acute bleed situations in which surgery is not feasible. - I agree with use of iron dextran 1g x1, and we will give additional iron sucrose as well. - Give high dose folic acid 10mg and vitamin B12 1000mcg - Give darbepoetin paramjit 0.75mcg/kg. Optimal dosing not established. Thank you for allowing me to participate in the care of Ms. Boudreaux. Clinical Quality Measures DVT/VTE Risk/Contraindication: Risk Factor Score Per Nursin RFS Level Per Nursing on Admit: 4+=Very High BELÉN RUFFIN MD May 25, 2018 13:07
[2018-05-25] MEDS ORDERED: CYANOCOBALAMIN INJ 1000 MCG/ML IM NR (16:45)
[2018-05-25] MEDS: ALPRAZolam 0.25 MG (XANAX) TAB PO PRN (23:40)
[2018-05-26] VITALS (17 sets, daily range): BP systolic 110–165; BP diastolic 50–72
[2018-05-26] MEDS: oxyCODONE/APAP 5/325MG (PERCOCET 5) TABLET PO PRN ×4 (00:24→21:58)
[2018-05-26] MEDS: RT-ALBUTEROL SULF 2.5 MG/3 ML PRE-MIX VIAL INH SCH ×4 (01:43→20:38)
[2018-05-26 04:29] LABS: MEAN PLATELET VOLUME 10.6 FL (7.4-10.4); RED BLOOD COUNT 2.08 10^6/uL (4.35-5.85); WHITE BLOOD COUNT 5.7 10^3/uL (4.3-11.0)
[2018-05-26 04:32] LABS: HEMOGLOBIN 5.7 G/DL (11.5-16.0)
[2018-05-26 04:38] LABS: MAGNESIUM 2.1 MG/DL (1.8-2.4)
[2018-05-26 04:48] LABS: ALANINE AMINOTRANSFERASE 13 U/L (0-55); ALKALINE PHOSPHATASE 68 U/L (40-136); BILIRUBIN,TOTAL 0.4 MG/DL (0.1-1.0); BUN/CREATININE RATIO 14; CALCIUM 10.6 MG/DL (8.5-10.1); CARBON DIOXIDE 24 MMOL/L (21-32); CHLORIDE 108 MMOL/L (98-107); CREATININE SERUM 0.93 MG/DL (0.60-1.30); GFR ESTIMATED 59; GLUCOSE 107 MG/DL (70-105); POTASSIUM 3.7 MMOL/L (3.6-5.0); SODIUM 141 MMOL/L (135-145); TOTAL PROTEIN 5.5 GM/DL (6.4-8.2)
[2018-05-26] MEDS: FUROSEMIDE 40 MG/4 ML INJ (LASIX) IV SCH (06:06)
[2018-05-26] MEDS: LEVOTHYROXINE 50 MCG (LEVOTHROID) TAB PO SCH (06:06)
--- NOTE | 2018-05-26 06:30 | Progress Note (SOAP) ---
Subjective Time Seen by a Provider: 06:28 Subjective/Events-last exam Patient feeling better today. Patient having no chest pain. Patient's hemoglobin 5.7 and hematocrit 19 stabilizing. Patient voices no complaints Objective Exam Vital Signs Date Time Temp Pulse Resp B/P (MAP) Pulse Ox O2 Delivery O2 Flow Rate FiO2 05/26/18 06:00 82 13 156/70 (98) 94 Nasal Cannula 5.00 05/26/18 05:00 68 13 146/61 (89) 98 Nasal Cannula 5.00 05/26/18 04:00 69 13 144/56 (85) 94 Nasal Cannula 5.00 05/26/18 04:00 97.9 05/26/18 04:00 97 Nasal Cannula 4.00 05/26/18 03:00 73 20 144/51 (82) 92 Nasal Cannula 5.00 05/26/18 02:00 72 14 130/50 (76) 94 Nasal Cannula 5.00 05/26/18 01:44 95 Nasal Cannula 4.00 05/26/18 01:00 74 05/26/18 01:00 74 16 136/54 (81) 91 Nasal Cannula 5.00 05/26/18 00:00 98.3 05/26/18 00:00 97 Nasal Cannula 4.00 05/26/18 00:00 81 14 146/61 (89) 92 Nasal Cannula 5.00 05/25/18 23:00 77 16 137/63 (87) 94 Nasal Cannula 5.00 05/25/18 22:00 77 14 126/50 (75) 93 Nasal Cannula 5.00 05/25/18 21:00 82 18 127/54 (78) 91 Nasal Cannula 5.00 05/25/18 20:06 96 Nasal Cannula 4.00 05/25/18 20:00 98.0 86 16 143/50 (81) 94 Nasal Cannula 5.00 05/25/18 20:00 97 Nasal Cannula 4.00 05/25/18 19:00 85 21 138/57 (84) 94 Nasal Cannula 5.00 05/25/18 19:00 85 05/25/18 18:00 87 14 144/55 (84) 94 Nasal Cannula 4.00 05/25/18 17:00 84 22 134/50 (78) 91 Nasal Cannula 4.00 05/25/18 16:00 89 19 147/52 (83) 91 Nasal Cannula 4.00 05/25/18 15:25 96 Nasal Cannula 4.00 05/25/18 15:00 76 19 127/53 (77) 92 Nasal Cannula 4.00 05/25/18 14:00 73 16 111/47 (68) 92 Nasal Cannula 4.00 05/25/18 13:00 75 05/25/18 13:00 75 18 111/47 (68) 92 Nasal Cannula 4.00 05/25/18 12:00 84 10 133/53 (79) 95 Nasal Cannula 4.00 05/25/18 11:30 94 21 129/57 (81) 95 Nasal Cannula 4.00 05/25/18 11:15 89 17 118/47 (70) 94 Nasal Cannula 4.00 05/25/18 11:00 85 14 127/53 (77) 93 Nasal Cannula 4.00 05/25/18 10:45 97 13 91 Nasal Cannula 4.00 05/25/18 10:30 98 17 141/60 (87) 93 Nasal Cannula 4.00 05/25/18 10:29 100 05/25/18 09:50 168/71 (103) 93 05/25/18 08:35 93 Nasal Cannula 4.00 05/25/18 08:00 Nasal Cannula 4.00 05/25/18 07:59 98.6 83 20 133/63 (86) 93 Nasal Cannula 4.00 I & O 05/26/18 07:00 Intake Total 150 ml Output Total 2275 ml Balance -2125 ml Capillary Refill : Less Than 3 SecondsLess Than 3 Seconds General Appearance: No Apparent Distress, WD/WN HEENT: Normal ENT Inspection Neck: Normal Inspection Respiratory: Lungs Clear, No Accessory Muscle Use, No Respiratory Distress Cardiovascular: Regular Rate, Rhythm Gastrointestinal: non tender, soft Results Lab Laboratory Tests 05/25/18 08:31 05/26/18 03:40 Laboratory Tests 05/25/18 08:31: White Blood Count 5.9, Red Blood Count 2.25L, Hemoglobin 6.1*L, Hematocrit 20*L , Mean Corpuscular Volume 89, Mean Corpuscular Hemoglobin 27, Mean Corpuscular Hemoglobin Concent 31L, Red Cell Distribution Width 13.5, Platelet Count 207, Mean Platelet Volume 10.0, Neutrophils (%) (Auto) 64, Lymphocytes (%) (Auto) 22 , Monocytes (%) (Auto) 13H, Eosinophils (%) (Auto) 1, Basophils (%) (Auto) 1, Neutrophils # (Auto) 3.8, Lymphocytes # (Auto) 1.3, Monocytes # (Auto) 0.8, Eosinophils # (Auto) 0.0, Basophils # (Auto) 0.1, Sodium Level 141, Potassium Level 3.8, Chloride Level 108H, Carbon Dioxide Level 23, Anion Gap 10, Blood Urea Nitrogen 12, Creatinine 0.97, Estimat Glomerular Filtration Rate 56, BUN/ Creatinine Ratio 12, Glucose Level 104, Calcium Level 10.6H, Corrected Calcium 11.2H, Total Bilirubin 0.4, Aspartate Amino Transf (AST/SGOT) 24, Alanine Aminotransferase (ALT/SGPT) 14, Alkaline Phosphatase 64, Myoglobin 191.5H, Troponin I < 0.028, Total Protein 6.0L, Albumin 3.3 05/26/18 03:40: White Blood Count 5.7, Red Blood Count 2.08L, Hemoglobin 5.7*L, Hematocrit 19*L , Mean Corpuscular Volume 91, Mean Corpuscular Hemoglobin 27, Mean Corpuscular Hemoglobin Concent 30L, Red Cell Distribution Width 14.0, Platelet Count 201, Mean Platelet Volume 10.6H, Sodium Level 141, Potassium Level 3.7, Chloride Level 108H, Carbon Dioxide Level 24, Anion Gap 9, Blood Urea Nitrogen 13, Creatinine 0.93, Estimat Glomerular Filtration Rate 59, BUN/Creatinine Ratio 14 , Glucose Level 107H, Calcium Level 10.6H, Corrected Calcium 11.4H, Total Bilirubin 0.4, Aspartate Amino Transf (AST/SGOT) 23, Alanine Aminotransferase ( ALT/SGPT) 13, Alkaline Phosphatase 68, Troponin I < 0.028, Total Protein 5.5L, Albumin 3.0L, Phosphorus Level 3.0, Magnesium Level 2.1 Microbiology 05/22/18 MRSA Screen - Final, Complete Assessment/Plan Assessment/Plan Assess & Plan/Chief Complaint Fractured fibula and femur. Anemia. Patient Jehovah witness. CAD. Hypertension. Anemia. Hyperlipidemia. . 05/25/18. Fractured fibula and femur. Anemia worse yesterday. Patient Jehovah witness. Patient refuses blood test again. CAD. Hypertension. Hyperlipidemia. Heparin stopped. . 05/26/18. Fractured fibula and femur. Anemia stabilized. Hemoglobin 5.7 hematocrit 19. No chest pain today. Hypertension. Hyperlipidemia Clinical Quality Measures DVT/VTE Risk/Contraindication: Risk Factor Score Per Nursin RFS Level Per Nursing on Admit: 4+=Very High SHARATH COLON DO May 26, 2018 06:30
--- NOTE | 2018-05-26 06:33 | Pulmonary Consultation ---
History of Present Illness History of Present Illness Date of Consultation 05/26/18 06:28 Date of Admission Reason for Visit: coronary artery disease, acute anemia Allergies and Home Medications Allergies Coded Allergies: Sulfa (Sulfonamide Antibiotics) (Verified Allergy, Unknown, 12/13/17) penicillin G (Verified Allergy, Unknown, 12/13/17) Home Medications Amlodipine Besylate 10 Mg Tablet, 10 MG PO DAILY, (Reported) Fenofibrate Nanocrystallized 145 Mg Tablet, 145 MG PO DAILY, (Reported) Furosemide 80 Mg Tablet, 80 MG PO DAILY, (Reported) Levothyroxine Sodium 50 Mcg Tablet, 50 MCG PO DAILY, (Reported) Lysine 500 Mg Tablet, 500 MG PO DAILY, (Reported) Metoprolol Succinate 50 Mg Tab.er.24h, 50 MG PO DAILY, (Reported) [place] 3 Polyunsat Fatty Acids 1,000 Mg Cap, 1,000 MG PO BID, (Reported) Omeprazole 40 Mg Capsule.dr, 40 MG PO DAILY, (Reported) Potassium Chloride 20 Meq Tablet.er, 20 MEQ PO DAILY, (Reported) Past Pizloss-Lbnifs-Jrxyzo Hx Past Med/Social Hx: Reviewed Nursing Past Med/Soc Hx, Reviewed and Corrections made Patient Social History Alcohol Use: Denies Use Recreational Drug Use: No Smoking Status: Never a Smoker Former Smoker, Quit: Dec 13, 1993 Recent Foreign Travel: No Contact w/Someone Who Travel: No Recent Infectious Disease Expo: No Recent Hopitalizations: No Immunizations Up To Date Date of Pneumonia Vaccine: May 21, 2016 Date of Influenza Vaccine: Mar 08, 2018 Seasonal Allergies Seasonal Allergies: Yes (MILD) Past Medical History Surgeries: Yes (CABG) CABG, Gallbladder, Hysterectomy, Tonsillectomy Respiratory: No Cardiac: Yes Coronary Artery Disease, High Cholesterol, Hypertension Neurological: No : No 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 6.2oz. 96.775230ig; 36.8 BMI Method:Stated Exam Exam Vital Signs Date Time Temp Pulse Resp B/P (MAP) Pulse Ox O2 Delivery O2 Flow Rate FiO2 05/26/18 06:00 82 13 156/70 (98) 94 Nasal Cannula 5.00 05/26/18 05:00 68 13 146/61 (89) 98 Nasal Cannula 5.00 05/26/18 04:00 69 13 144/56 (85) 94 Nasal Cannula 5.00 05/26/18 04:00 97.9 05/26/18 04:00 97 Nasal Cannula 4.00 05/26/18 03:00 73 20 144/51 (82) 92 Nasal Cannula 5.00 05/26/18 02:00 72 14 130/50 (76) 94 Nasal Cannula 5.00 05/26/18 01:44 95 Nasal Cannula 4.00 05/26/18 01:00 74 05/26/18 01:00 74 16 136/54 (81) 91 Nasal Cannula 5.00 05/26/18 00:00 98.3 05/26/18 00:00 97 Nasal Cannula 4.00 05/26/18 00:00 81 14 146/61 (89) 92 Nasal Cannula 5.00 05/25/18 23:00 77 16 137/63 (87) 94 Nasal Cannula 5.00 05/25/18 22:00 77 14 126/50 (75) 93 Nasal Cannula 5.00 05/25/18 21:00 82 18 127/54 (78) 91 Nasal Cannula 5.00 05/25/18 20:06 96 Nasal Cannula 4.00 05/25/18 20:00 98.0 86 16 143/50 (81) 94 Nasal Cannula 5.00 05/25/18 20:00 97 Nasal Cannula 4.00 05/25/18 19:00 85 21 138/57 (84) 94 Nasal Cannula 5.00 05/25/18 19:00 85 05/25/18 18:00 87 14 144/55 (84) 94 Nasal Cannula 4.00 05/25/18 17:00 84 22 134/50 (78) 91 Nasal Cannula 4.00 05/25/18 16:00 89 19 147/52 (83) 91 Nasal Cannula 4.00 05/25/18 15:25 96 Nasal Cannula 4.00 05/25/18 15:00 76 19 127/53 (77) 92 Nasal Cannula 4.00 05/25/18 14:00 73 16 111/47 (68) 92 Nasal Cannula 4.00 05/25/18 13:00 75 05/25/18 13:00 75 18 111/47 (68) 92 Nasal Cannula 4.00 05/25/18 12:00 84 10 133/53 (79) 95 Nasal Cannula 4.00 05/25/18 11:30 94 21 129/57 (81) 95 Nasal Cannula 4.00 05/25/18 11:15 89 17 118/47 (70) 94 Nasal Cannula 4.00 05/25/18 11:00 85 14 127/53 (77) 93 Nasal Cannula 4.00 05/25/18 10:45 97 13 91 Nasal Cannula 4.00 05/25/18 10:30 98 17 141/60 (87) 93 Nasal Cannula 4.00 05/25/18 10:29 100 05/25/18 09:50 168/71 (103) 93 05/25/18 08:35 93 Nasal Cannula 4.00 05/25/18 08:00 Nasal Cannula 4.00 05/25/18 07:59 98.6 83 20 133/63 (86) 93 Nasal Cannula 4.00 I & O 05/26/18 07:00 Intake Total 150 ml Output Total 2275 ml Balance -2125 ml Height & Weight Height: 5'4.00" Weight: 213lbs. 6.2oz. 96.969876gd; 36.8 BMI Method:Stated General Appearance: No Apparent Distress, WD/WN HEENT: Normal ENT Inspection Neck: Full Range of Motion, Normal Inspection Respiratory: No Chest Non Tender, No Lungs Clear, No Normal Breath Sounds, No No Accessory Muscle Use, No No Respiratory Distress, No Accessory Muscle Use, No Crackles, No Decreased Breath Sounds, No Expiration, No Inspiration, No Pleural Rub, No Rales, No Respiratory Distress, No Rhonci, No Stridor, No Wheezing, No Other Cardiovascular: Regular Rate, Rhythm, No Edema, No Gallop, No JVD Capillary Refill: Less Than 3 Seconds Peripheral Pulses: 2+ Dorsalis Pedis (R), 2+ Left Dors-Pedis (L), 2+ Radial Pulses (R), 2+ Radial Pulses (L) Gastrointestinal: normal bowel sounds, non tender, soft Extremity: Normal Capillary Refill, Normal Inspection, Normal Range of Motion ( except right leg), Non Tender, No Calf Tenderness, No Pedal Edema Neurologic/Psychiatric: Alert, Oriented x3, No Motor/Sensory Deficits, Normal Mood/Affect Skin: Normal Color, Warm/Dry Lymphatic: No Adenopathy Results Lab Laboratory Tests 05/25/18 08:31 05/26/18 03:40 Assessment/Plan Assessment/Plan S/p fall with Femur fracture s/p surgical repair Unstable angina with St depression in anterolateral leads -Cardiology following -SL PRN severe anemia - not currently hypotensive -Hematology following -Cheondoism and refusing transfusion -Aranesp, folate, and iron supplementation CKD II CAD with hx of CABG PAD HTN UGO JEAN DO May 26, 2018 06:33
[2018-05-26] MEDS: PANTOPRAZOLE 40 MG (PROTONIX) TAB PO SCH (08:19)
[2018-05-26] MEDS: ASPIRIN E.C. 81 MG (ECOTRIN) TAB PO SCH (08:19)
[2018-05-26] MEDS: amLODIPine 10 MG (NORVASC) TAB PO SCH (08:19)
[2018-05-26] MEDS: LACTULOSE SYRUP 10GM/15ML (ENULOSE) 30ML UDC PO SCH ×2 (08:19→19:26)
[2018-05-26] MEDS: meTOproloL SUCCINATE 50 MG (TOPROL XL) TAB PO SCH (08:19)
--- NOTE | 2018-05-26 09:29 | Physical Therapy Progress Note ---
Therapy Progress Note Currently no orders to continue with therapy with patient transferring to ICU. Staff is aware. RASHID FLOWER PT May 26, 2018 09:29
[2018-05-26] MEDS: DOCUSATE SODIUM 100 MG (COLACE) CAP PO SCH ×2 (10:13→19:26)
[2018-05-26] MEDS: POLYETHYLENE GLYCOL 17 GM (MIRALAX) PACK PO SCH ×2 (10:13→19:26)
[2018-05-26] MEDS: ACETAMINOPHEN 325 MG TABLET PO PRN (10:59)
--- NOTE | 2018-05-26 12:51 | Cardiology Progress Note ---
Subjective Date Seen by Provider: May 26, 2018 Time Seen by Provider: 07:30 Subjective/Events-last exam patient was seen at bedside, laying down comfortably, denied any active chest pain. EKG returned to baseline. Review of Systems General: No Chills, No Night Sweats; Fatigue, Malaise; No Appetite, No Other HEENT: No Head Aches, No Visual Changes, No Eye Pain, No Ear Pain, No Dysphasia , No Sinus Congestion, No Post Nasal Drip, No Sore Throat, No Other Pulmonary: No Dyspnea, No Cough, No Pleuritic Chest Pain, No Other Cardiovascular: No: Chest Pain, Palpitations, Orthopnea, Paroxysmal Noc. Dyspnea, Edema, Lt Headedness, Other Objective-Cardiology Exam Last Set of Vital Signs Vital Signs 05/26/18 05/26/18 09:00 12:00 Pulse 78 Resp 18 B/P (MAP) 128/58 (81) Pulse Ox 92 O2 Delivery Nasal Cannula O2 Flow Rate 5.00 Capillary Refill : Less Than 3 SecondsLess Than 3 Seconds I&O Intake and Output 05/26/18 00:00 Intake Total 250 ml Output Total 2275 ml Balance -2025 ml Intake Oral 200 ml IV Total 50 ml Output Urine Total 2275 ml General: Alert, Oriented X3, Cooperative HEENT: Atraumatic Neck: Supple, No JVD, No Thyromegaly Lungs: Clear to Auscultation Heart: Regular Rate, Normal S1, Normal S2 Abdomen: Normal Bowel Sounds, Soft, Other (epigastric tenderness) Extremities: No Clubbing, Other (pale conjunctiva) Skin: No Rashes, No Breakdown, No Significant Lesion Neuro: Normal Speech, Normal Tone, Sensation Intact Psych/Mental Status: Mental Status NL, Mood NL Results Lab Laboratory Tests 05/26/18 03:40 A/P-Cardiology Admission Diagnosis Femur fracture Coronary artery disease Hypertension Hyperlipidemia Assessment/Plan Acute chest pain, unstable angina with dynamic ST changes, had ST depression during chest pain, improved today, cardiac enzymes are still negative, probably she had worsening of her symptoms due to the severe anemia. Responded to sublingual nitroglycerin. Continue to monitor closely. Status post fall and femur fracture, status post surgical repair. Followed by orthopedic surgeon Anemia, severe, significant drop in H&H, patient is Catholic and refusing transfusion, appreciate Dr. Pisano's recommendation. Continue to monitor H&H Mild abdominal pain. Continue to monitor, managed by primary care physician Constipation. Maintained on stool softener. Coronary artery disease, history of bypass surgery using JALLOH to LAD in January 2005, had a stress test in October 2016 showing no ischemia or infarction with ejection fraction 84 percent, echocardiogram in January 2014 reporting as normal LV function with mild MR. Continue to monitor Hyperlipidemia, intolerant to statin with muscle ache and generalized weakness History of intermittent liver enzyme elevation of undetermined etiology. followed and managed by primary care physician H/o hypoxemia, likely related to hypoventilation syndrome and/or pulmonary disease, continue to monitor History of peripheral arterial disease and a small abdominal aortic aneurysm, being followed at Dr Patterson's office Carotid arterial disease being followed at Dr Patterson's office Rheumatoid arthritis. History of laparoscopic cholecystectomy. Hypertension with hypertensive cardiovascular disease. restart home medication monitor blood pressure Hypothyroidism being treated with thyroid replacement therapy. Degenerative joint disease. Elevated body mass index of 36 Bilateral leg swelling likely related to venous insufficiency and/or amlodipine therapy, stable and unchanged. 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 Intolerant to niacin therapy CKD stage 2, continue to monitor renal function Clinical Quality Measures DVT/VTE Risk/Contraindication: Risk Factor Score Per Nursin RFS Level Per Nursing on Admit: 4+=Very High DARIN VELARDE MD May 26, 2018 12:50
--- NOTE | 2018-05-26 14:00 | NUR ---
REPORT TAKEN AT THIS TIME FROM MARJAN MELO FROM ICU, THIS RN WILL ASSUME CARE OF THIS PATIENT WHEN SHE ARRIVES BACK TO THIS FLOOR .
--- NOTE | 2018-05-26 14:34 | Oncology Progress Note ---
Subjective Date Seen by a Provider: May 26, 2018 Time Seen by a Provider: 14:27 Subjective/Events-last exam Patient seen this afternoon while eating lunch. She has been doing better since yesterday. Her pain in her right leg is better controlled, and she has not had recurrence of chest pain since yesterday morning. Denies shortness of breath or pre-syncopal symptoms. Data Review Labs Laboratory Tests 05/26/18 03:40 Laboratory Tests 05/24/18 05:22: Red Blood Count 2.11L, Hemoglobin 5.7*L, Hematocrit 19*L, Mean Corpuscular Hemoglobin Concent 31L 05/25/18 08:31: Red Blood Count 2.25L, Hemoglobin 6.1*L, Hematocrit 20*L, Mean Corpuscular Hemoglobin Concent 31L, Monocytes (%) (Auto) 13H, Chloride Level 108H, Calcium Level 10.6H, Corrected Calcium 11.2H, Myoglobin 191.5H, Total Protein 6.0L 05/26/18 03:40: Red Blood Count 2.08L, Hemoglobin 5.7*L, Hematocrit 19*L, Mean Corpuscular Hemoglobin Concent 30L, Chloride Level 108H, Calcium Level 10.6H, Corrected Calcium 11.4H, Total Protein 5.5L, Mean Platelet Volume 10.6H, Glucose Level 107H, Albumin 3.0L Physical Exam Vital Signs Vital Signs - First Documented 05/20/18 05/21/18 22:43 20:43 Temp 97.8 Pulse 84 Resp 16 B/P (MAP) 192/85 (120) Pulse Ox 93 O2 Delivery Room Air O2 Flow Rate 2.00 Capillary Refill : Less Than 3 SecondsLess Than 3 Seconds Height, Weight, BMI Height: 5'4.00" Weight: 213lbs. 6.2oz. 96.819065wp; 36.8 BMI Method:Stated General Appearance: No Apparent Distress, WD/WN Eyes: Bilateral Eye Normal Inspection HEENT: Normal ENT Inspection Neck: Full Range of Motion Respiratory: Chest Non Tender, Lungs Clear, Normal Breath Sounds, No Accessory Muscle Use, No Respiratory Distress Cardiovascular: Regular Rate, Rhythm, No Murmur Gastrointestinal: Normal Bowel Sounds, Non Tender, Soft Extremity: Normal Inspection; No Normal Range of Motion Neurologic/Psychiatric: Alert, Oriented x3, No Motor/Sensory Deficits, Normal Mood/Affect Skin: Warm/Dry, Pallor Impression & Plan Impression & Plan 78 yo female with severe CAD s/p CABG was admitted for right femur and fibula fracture and underwent ORIF of the distal femur on 05/23/18. She suffered from post surgical blood loss anemia and developed unstable angina. Since she is a Jehovah's witness, she cannot receive blood products. We do not have any artificial blood products available that will increase oxygen delivery to her tissues, so our best compromise is optimization of nutritional needs and bone marrow stimulating agents. None of these agents will act sufficiently fast enough in an emergent setting, however. - Bleeding appears to have spontaneously tamponaded. If there is evidence of rebleeding, recommend surgical exploration and cautery/suturing of hemorrhage source. Use of pro-hemostatic agents is going to be high risk given her potential ACS. We would have to have an extensive conversation with the patient prior to use. Consider recombinant factor VIIa in acute bleed situations in which surgery is not feasible. - Given iron dextran 1g x1 on 05/23/18. Giving iron sucrose 200mg QOD. - Given high dose folic acid 10mg and vitamin B12 1000mcg on 05/25/18. Will start on daily replacement. - Given darbepoetin paramjit 0.75mcg/kg yesterday (05/25/18). Optimal dosing not established but review of literature has generally shown daily or QOD schedule of high dose ESAs in the setting of acute anemia associated with hypovolemia and hypotension. In our situation, however, with the patient in danger of ACS, thrombosis is also a concern. We will have to weigh the benefits of RBC stimulation vs the increased risk of thrombosis with ESAs. Consider giving another dose of darbepoetin paramjit tomorrow. Clinical Quality Measures DVT/VTE Risk/Contraindication: Risk Factor Score Per Nursin RFS Level Per Nursing on Admit: 4+=Very High BELÉN RUFFIN MD May 26, 2018 14:34
[2018-05-27] VITALS (7 sets, daily range): BP systolic 144–172; BP diastolic 62–72
[2018-05-27] MEDS: RT-ALBUTEROL SULF 2.5 MG/3 ML PRE-MIX VIAL INH SCH ×4 (02:55→21:47)
[2018-05-27] MEDS: cloNIDine 0.1 MG (CATAPRES) TAB PO PRN (04:06)
[2018-05-27] MEDS: FUROSEMIDE 40 MG/4 ML INJ (LASIX) IV SCH (05:51)
[2018-05-27] MEDS: LEVOTHYROXINE 50 MCG (LEVOTHROID) TAB PO SCH (05:51)
[2018-05-27 06:03] LABS: BASOPHILS # (AUTO) 0.1 10^3/uL (0.0-0.1); BASOPHILS % (AUTO) 1 % (0-10); EOSINOPHILS # (AUTO) 0.1 10^3/uL (0.0-0.3); EOSINOPHILS % (AUTO) 1 % (0-10); HEMATOCRIT 21 % (35-52); LYMPHOCYTES # (AUTO) 1.4 X 10^3 (1.0-4.0); LYMPHOCYTES % (AUTO) 20 % (12-44); MEAN CORPUSCULAR HEMOGLOBIN 28 PG (25-34); MEAN CORPUSCULAR HGB CONC 30 G/DL (32-36); MEAN CORPUSCULAR VOLUME 93 FL (80-99); MEAN PLATELET VOLUME 10.2 FL (7.4-10.4); MONOCYTES # (AUTO) 0.9 X 10^3 (0.0-1.0); MONOCYTES % (AUTO) 12 % (0-12); NEUTROPHILS # (AUTO) 4.6 X 10^3 (1.8-7.8); NEUTROPHILS % (AUTO) 66 % (42-75); PLATELET COUNT 224 10^3/uL (130-400); RED BLOOD COUNT 2.27 10^6/uL (4.35-5.85); RED CELL DISTRIBUTION WIDTH 15.4 % (10.0-14.5); WHITE BLOOD COUNT 7.1 10^3/uL (4.3-11.0)
[2018-05-27 06:08] LABS: HEMOGLOBIN 6.4 G/DL (11.5-16.0)
[2018-05-27 06:38] LABS: CALCIUM 11.1 MG/DL (8.5-10.1); PHOSPHORUS 3.3 MG/DL (2.3-4.7)
--- NOTE | 2018-05-27 08:01 | Pulmonary Progress Note ---
Subjective Time Seen by a Provider: 08:00 Subjective/Events-last exam SOB is stable. No pulmonary complications noted. Sepsis Event Evaluation Height, Weight, BMI Height: 5'4.00" Weight: 213lbs. 6.2oz. 96.009620tt; 36.8 BMI Method:Stated Exam Exam Vital Signs Date Time Temp Pulse Resp B/P (MAP) Pulse Ox O2 Delivery O2 Flow Rate FiO2 05/27/18 03:50 97.9 79 20 172/72 (105) 91 Nasal Cannula 5.00 05/27/18 02:56 90 Nasal Cannula 4.00 05/27/18 01:00 74 05/27/18 00:00 99.4 87 20 169/70 (103) 94 Nasal Cannula 5.00 05/26/18 20:38 88 Nasal Cannula 3.00 05/26/18 20:00 98.2 82 18 155/70 (98) 91 Nasal Cannula 5.00 05/26/18 19:23 Nasal Cannula 3.00 05/26/18 19:00 77 05/26/18 16:00 97.6 81 20 165/72 (103) 94 Nasal Cannula 5.00 05/26/18 14:26 93 Nasal Cannula 3.00 05/26/18 14:00 76 8 144/58 (86) 94 Nasal Cannula 5.00 05/26/18 13:00 75 05/26/18 13:00 76 16 136/55 (82) 91 Nasal Cannula 5.00 05/26/18 12:00 78 18 128/58 (81) Nasal Cannula 5.00 05/26/18 11:00 75 12 110/58 (75) Nasal Cannula 5.00 05/26/18 10:00 78 12 130/68 (88) Nasal Cannula 5.00 05/26/18 09:00 86 10 155/69 (97) 92 Nasal Cannula 5.00 05/26/18 08:04 96 Nasal Cannula 4.00 I & O 05/27/18 07:00 Intake Total 990 ml Output Total 2450 ml Balance -1460 ml Height & Weight Height: 5'4.00" Weight: 213lbs. 6.2oz. 96.028380dc; 36.8 BMI Method:Stated General Appearance: No Apparent Distress, WD/WN HEENT: Normal ENT Inspection Neck: Full Range of Motion Respiratory: Chest Non Tender, Lungs Clear, Normal Breath Sounds, No Accessory Muscle Use, No Respiratory Distress Cardiovascular: Regular Rate, Rhythm, No Murmur Capillary Refill: Less Than 3 Seconds Peripheral Pulses: 2+ Dorsalis Pedis (R), 2+ Left Dors-Pedis (L), 2+ Radial Pulses (R), 2+ Radial Pulses (L) Gastrointestinal: normal bowel sounds, non tender, soft Extremity: Normal Inspection; No Normal Range of Motion Neurologic/Psychiatric: Alert, Oriented x3, No Motor/Sensory Deficits, Normal Mood/Affect Skin: Warm/Dry, Pallor Lymphatic: No Adenopathy Results Lab Laboratory Tests 05/25/18 08:31 05/26/18 03:40 05/27/18 05:35 Assessment/Plan Assessment/Plan S/p fall with Femur fracture s/p surgical repair Unstable angina with St depression in anterolateral leads -Cardiology following -SL PRN severe anemia - not currently hypotensive -Hematology following -Confucianist and refusing transfusion -Aranesp, folate, and iron supplementation Atelectasis with Hypoxia -Monitor -IS -Increase activity CKD II CAD with hx of CABG PAD HTN UGO JEAN DO May 27, 2018 08:00
--- NOTE | 2018-05-27 08:15 | Progress Note (SOAP) ---
Subjective Time Seen by a Provider: 08:13 Subjective/Events-last exam Patient feeling better and doing better today. Hemoglobin and hematocrit improved now 6.4 and 21. Patient is Jehovah witness. Patient has no chest pain. Patient breathing good. Objective Exam Vital Signs Date Time Temp Pulse Resp B/P (MAP) Pulse Ox O2 Delivery O2 Flow Rate FiO2 05/27/18 03:50 97.9 79 20 172/72 (105) 91 Nasal Cannula 5.00 05/27/18 02:56 90 Nasal Cannula 4.00 05/27/18 01:00 74 05/27/18 00:00 99.4 87 20 169/70 (103) 94 Nasal Cannula 5.00 05/26/18 20:38 88 Nasal Cannula 3.00 05/26/18 20:00 98.2 82 18 155/70 (98) 91 Nasal Cannula 5.00 05/26/18 19:23 Nasal Cannula 3.00 05/26/18 19:00 77 05/26/18 16:00 97.6 81 20 165/72 (103) 94 Nasal Cannula 5.00 05/26/18 14:26 93 Nasal Cannula 3.00 05/26/18 14:00 76 8 144/58 (86) 94 Nasal Cannula 5.00 05/26/18 13:00 75 05/26/18 13:00 76 16 136/55 (82) 91 Nasal Cannula 5.00 05/26/18 12:00 78 18 128/58 (81) Nasal Cannula 5.00 05/26/18 11:00 75 12 110/58 (75) Nasal Cannula 5.00 05/26/18 10:00 78 12 130/68 (88) Nasal Cannula 5.00 05/26/18 09:00 86 10 155/69 (97) 92 Nasal Cannula 5.00 I & O 05/27/18 07:00 Intake Total 990 ml Output Total 2450 ml Balance -1460 ml Capillary Refill : Less Than 3 SecondsLess Than 3 Seconds General Appearance: No Apparent Distress, WD/WN HEENT: Normal ENT Inspection Neck: Full Range of Motion, Normal Inspection Respiratory: Lungs Clear, Normal Breath Sounds, No Accessory Muscle Use, No Respiratory Distress Cardiovascular: Regular Rate, Rhythm, No Murmur Gastrointestinal: non tender, soft Results Lab Laboratory Tests 05/27/18 05:35 Laboratory Tests 05/27/18 05:35: White Blood Count 7.1, Red Blood Count 2.27L, Hemoglobin 6.4*L, Hematocrit 21L, Mean Corpuscular Volume 93, Mean Corpuscular Hemoglobin 28, Mean Corpuscular Hemoglobin Concent 30L, Red Cell Distribution Width 15.4H, Platelet Count 224, Mean Platelet Volume 10.2, Neutrophils (%) (Auto) 66, Lymphocytes (%) (Auto) 20 , Monocytes (%) (Auto) 12, Eosinophils (%) (Auto) 1, Basophils (%) (Auto) 1, Neutrophils # (Auto) 4.6, Lymphocytes # (Auto) 1.4, Monocytes # (Auto) 0.9, Eosinophils # (Auto) 0.1, Basophils # (Auto) 0.1, Sodium Level 140, Potassium Level 4.0, Chloride Level 106, Carbon Dioxide Level 24, Anion Gap 10, Blood Urea Nitrogen 18, Creatinine 1.00, Estimat Glomerular Filtration Rate 54, BUN/ Creatinine Ratio 18, Glucose Level 116H, Calcium Level 11.1H, Phosphorus Level 3.3, Magnesium Level 2.0 Microbiology 05/22/18 MRSA Screen - Final, Complete Assessment/Plan Assessment/Plan Assess & Plan/Chief Complaint Fractured fibula and femur. Anemia. Patient Jehovah witness. CAD. Hypertension. Anemia. Hyperlipidemia. . 05/25/18. Fractured fibula and femur. Anemia worse yesterday. Patient Jehovah witness. Patient refuses blood test again. CAD. Hypertension. Hyperlipidemia. Heparin stopped. . 05/26/18. Fractured fibula and femur. Anemia stabilized. Hemoglobin 5.7 hematocrit 19. No chest pain today. Hypertension. Hyperlipidemia. . 05/27/18. Fractured fibula and femur. Anemia improving slightly. No chest pain today. Patient feeling better. Hypertension. Hyperlipidemia. Clinical Quality Measures DVT/VTE Risk/Contraindication: Risk Factor Score Per Nursin RFS Level Per Nursing on Admit: 4+=Very High SHARATH COLON DO May 27, 2018 08:15
[2018-05-27] MEDS: POLYETHYLENE GLYCOL 17 GM (MIRALAX) PACK PO SCH ×2 (08:20→20:51)
[2018-05-27] MEDS: IRON SUCROSE 200 MG/10 ML (VENOFER) VIAL IV SCH (08:20)
[2018-05-27] MEDS: LACTULOSE SYRUP 10GM/15ML (ENULOSE) 30ML UDC PO SCH ×2 (08:20→21:37)
[2018-05-27] MEDS: ASPIRIN E.C. 81 MG (ECOTRIN) TAB PO SCH (08:21)
[2018-05-27] MEDS: amLODIPine 10 MG (NORVASC) TAB PO SCH (08:21)
[2018-05-27] MEDS: FOLIC ACID 1 MG TAB PO SCH (08:21)
[2018-05-27] MEDS: meTOproloL SUCCINATE 50 MG (TOPROL XL) TAB PO SCH (08:21)
[2018-05-27] MEDS: CYANOCOBALAMIN 1,000 MCG (VITAMIN B-12) TABLET PO SCH (08:21)
[2018-05-27] MEDS: PANTOPRAZOLE 40 MG (PROTONIX) TAB PO SCH (08:21)
[2018-05-27] MEDS: DOCUSATE SODIUM 100 MG (COLACE) CAP PO SCH ×2 (08:22→20:50)
--- NOTE | 2018-05-27 08:39 | Diagnostic Imaging Report ---
EXAMINATION: Portable erect AP chest obtained at 402h. INDICATION: Chest pain The heart size is within normal limits and stable when compared to 05/20/2018. The sternotomy wires seen on the prior study are also again visualized and no different. The elevated right hemidiaphragm seen previously is also again evident and no different. The lungs are generally clear. There is still a thin band of increased density in the left apex. The mediastinum is not widened. The osseous structures are intact. IMPRESSION: Stable chest. There has been no adverse change since the prior exam. Dictated by: Dictated on workstation # [id number]
[2018-05-27] MEDS: ONDANSETRON 4 MG/2 ML (SDV) Z0FRAN IV PRN (09:15)
[2018-05-27] MEDS: oxyCODONE/APAP 5/325MG (PERCOCET 5) TABLET PO PRN ×3 (09:15→21:37)
--- NOTE | 2018-05-27 11:22 | Physical Therapy Evaluation ---
PT Evaluation-General Medical Diagnosis Admission Date May 21, 2018 at 01:55 Medical Diagnosis: right femur/fibular fracture Onset Date: May 21, 2018 Therapy Diagnosis Therapy Diagnosis: impaired mobility, strength, endurance Height/Weight Height (Feet): 5 Height (Inches): 4.00 Weight (Pounds): 213 Weight (Ounces): 6.2 Precautions Precautions/Isolations: Fall Prevention, Standard Precautions Weight Bear Status Right Lower Extremity: Right Partial Weight Bearing Left Lower Extremity: Left Full Weight Bearing Referral Physician: Lacey Reason for Referral: Evaluation/Treatment Medical History Pertinent Medical History: Arthritis, CABG, CAD, GERD, HTN, Rheumatoid Arthritis Reviewed History: Yes Social History Home: Single Level Current Living Status: Children Entry Into Home: Stairs With Railing PT Steps Into Home: 3 Patient states she lives with her daughter but she will not be assisting her much at home. Prior/Core FIM Prior Level of Function Therapy Code Descriptions/Definitions Functional [place] Measure: 0=Not Assessed/NA 4=Minimal Assistance 1=Total Assistance 5=Supervision or Setup 2=Maximal Assistance 6=Modified [place] 3=Moderate Assistance 7=Complete [place] Therapy Quality Codes: 6 Independent with activity with or without an assistive device 5 Patient requires set up or clean up by helper. Patient completes activity by themselves 4 Supervision or touching assist (CGA). [place] provide cues , steadying assist 3 The helper provides less than half the effort to complete the activity 2 The helper provides more than half the effort to complete the activity 1 Dependent. The helper does all the effort to complete an activity 7 Patient refused to complete or attempt activity 9 The patient did not perform the activity before the current illness or injury 88 Not attempted due to Medical conditions or safety concerns Functional Abilities and Goals: Independent: Patient completed the activities by him/herself, with or without an assistive device, with no assistance from a helper. Needed Some Help: Patient needed partial assistance from another person to complete activities. Dependent: A helper completed the activities for the patient. Unknown: Not Applicable: Bed Mobility: 7 Transfers (B,C,W/C) (FIM): 7 Gait: 7 Stairs: 7 Indoor Mobility (Ambulation): Independent Stairs: Needed Some Help Prior Devices Use: Walker Patient states she did not use an assistive device previously. PT Evaluation-Current Subjective Patient in bed pre tx, agrees to PT, has pain of 4/10 in right knee. Patient has an ambulation boot on the right foot. Pt/Family Goals to be independent at home Objective Patient Orientation: Person, Place, Situation Attachments: Oxygen 4L of O2 nasal canula ROM/Strength ROM Lower Extremities WNL on left side, right not tested Strength Lower Extremities right LE not tested, LLE 3+/5 gross Integumentary/Posture Bowel Incontinence: No Bladder Incontinence: Tovar Cath Neuromuscular (Tone, Coordination, Reflexes) NT Sensory Vision: Wears Glasses Hearing: Functional Hand Dominance: Right Sensation Right Lower Extremit: Intact Sensation Left Lower Extremity: Intact Transfers Therapy Code Descriptions/Definitions Functional [place] Measure: 0=Not Assessed/NA 4=Minimal Assistance 1=Total Assistance 5=Supervision or Setup 2=Maximal Assistance 6=Modified [place] 3=Moderate Assistance 7=Complete [place] Transfers (B, C, W/C) (FIM): 2 Scootin Rollin Supine to/from Sit: 3 Sit to/from Stand: 2 bed t/f WC(FIM only if WC use): 2 Patient needs mod assist for supine <-> sit, max assist for sit to stand and stand pivot transfer. She does bear too much weight on her right leg. She is not able to use a rolling walker to perform the transfer at this time. Balance Sitting Static: Good Sitting Dynamic: Good Standing Static: Poor Standing Dynamic: Poor Treatment Patient in recliner post tx, OT to continue working with patient for eval and grooming Assessment/Needs Patient has impaired mobility, strength, endurance. She has trouble maintaining her weight bearing status. Rehab Potential: Fair PT Short Term Goals Short Term Goals Time Frame: Jun 03, 2018 Transfers (B,C,W/C) (FIM): 4 Gait (FIM): 1 Gait Distance Comment: 10' Gait Level of Assist: 4 Gait Assistive Device: FWW PT Alf Goals Alf Goals PT French Drawer Goals Time Frame: Jun 01, 2018 Transfers (B,C,W/C) (FIM): 4 Gait (FIM): 1 Gait distance (FIM): 1=up to 49 ft Distance: 5' Gait Level of Assist: 3 PT Plan Problem List Problem List: Activity Tolerance, Functional Strength, Safety, Balance, Gait, Transfer, Bed Mobility, ROM Treatment/Plan Treatment Plan: Continue Plan of Care Treatment Plan: Bed Mobility, Concurrent Therapy, Education, Functional Activity [place], Functional Strength, Gait, Safety, Therapeutic Exercise, Transfers Treatment Duration: Jun 03, 2018 Frequency: 11 times per week Estimated Hrs Per Day: .25 hour per day (15-30') Patient and/or Family Agrees t: Yes Safety Risks/Education Patient Education: Transfer Techniques, Reviewed Precautions, Correct Positioning, Safety Issues Teaching Recipient: Patient Teaching Methods: Demonstration, Discussion Response to Teaching: Reinforcement Needed Discharge Recommendations Plan Patient will perform bed mobility and transfer training, balance and endurance training, functional strengthening, stair training, gait training, and education , to improve functional mobility and independence at home. Therapy D/C Recommendations: Home w/ Family Support, Mcfp (TCU/NH) Time/GCodes Time In: 1055 Time Out: 1110 Total Billed Treatment Time: 15 Total Billed Treatment 1 visit EV 15' ALECIA HAMILTON PT May 27, 2018 11:22
--- NOTE | 2018-05-27 13:00 | Occupational Therapy Eval ---
OT Evaluation-General/PLF Medical Diagnosis Admission Date May 21, 2018 at 01:55 Medical Diagnosis: right femur/fibular fracture Onset Date: May 21, 2018 Therapy Diagnosis Therapy Diagnosis: impaired self care skills Height/Weight Height (Feet): 5 Height (Inches): 4.00 Weight (Pounds): 213 Weight (Ounces): 6.2 Precautions Precautions/Isolations: Fall Prevention, Standard Precautions Safety Interventions: Bed Exit Alarm Weight Bear Status Weight Bearing Restriction: Partial Weight Bearing Location Restriction: R LE Referral Physician: Lacey Medical History Pertinent Medical History: Arthritis, CABG, CAD, GERD, HTN, Rheumatoid Arthritis Social History Home: Single Level Current Living Status: Children Entry Into Home: Stairs With Railing Steps Into Home: 3 ADL-Prior Level of Function Therapy Code Descriptions/Definitions Functional [place] Measure: 0=Not Assessed/NA 4=Minimal Assistance 1=Total Assistance 5=Supervision or Setup 2=Maximal Assistance 6=Modified [place] 3=Moderate Assistance 7=Complete [place] Therapy Quality Codes: 6 Independent with activity with or without an assistive device 5 Patient requires set up or clean up by helper. Patient completes activity by themselves 4 Supervision or touching assist (CGA). [place] provide cues , steadying assist 3 The helper provides less than half the effort to complete the activity 2 The helper provides more than half the effort to complete the activity 1 Dependent. The helper does all the effort to complete an activity 7 Patient refused to complete or attempt activity 9 The patient did not perform the activity before the current illness or injury 88 Not attempted due to Medical conditions or safety concerns Functional Abilities and Goals: Independent: Patient completed the activities by him/herself, with or without an assistive device, with no assistance from a helper. Needed Some Help: Patient needed partial assistance from another person to complete activities. Dependent: A helper completed the activities for the patient. Unknown: Not Applicable: ADL PLOF Comments Pt reports being independent prior to hospitalization Self Care: Independent Functional Cognition: Independent DME/Equipment: Shower, Tall Toilet OT Current Status Subjective Pt agreeable to therapy reports 4/10 pain in right LE Mental Status/Objective Patient Orientation: Person, Place Attachments: Tovar Catheter, Oxygen Current Glasses/Contacts: Yes Hand Dominance: Right Upper Extremity ROM grossly WFL Upper Extremity Coordination intact ADL-Treatment ADL-Current Pt transferred to chair with assist from PT, max assist. Pt participated in ADLs while seated in chair. Pt combed hair, washed face, and brushed teeth with set up and increased time. Pt requires assist to reposition in chair for comfort. Pt sitting in chair with needs met after session. Therapy Code Descriptions/Definitions Functional [place] Measure: 0=Not Assessed/NA 4=Minimal Assistance 1=Total Assistance 5=Supervision or Setup 2=Maximal Assistance 6=Modified [place] 3=Moderate Assistance 7=Complete [place] Therapy Quality Codes: 6 Independent with activity with or without an assistive device 5 Patient requires set up or clean up by helper. Patient completes activity by themselves 4 Supervision or touching assist (CGA). [place] provide cues , steadying assist 3 The helper provides less than half the effort to complete the activity 2 The helper provides more than half the effort to complete the activity 1 Dependent. The helper does all the effort to complete an activity 7 Patient refused to complete or attempt activity 9 The patient did not perform the activity before the current illness or injury 88 Not attempted due to Medical conditions or safety concerns Eating (FIM): 5 (Pt reports feeding self after set up.) Grooming (FIM): 5 Lower Body Dressing (FIM): 1 Education OT Patient Education: Rehab process Teaching Recipient: Patient Teaching Methods: Discussion Response to Teaching: Verbalize Understanding OT Short Term Goals Short Term Goals Transfers (B,C,W/C) (FIM): 4 1=Demonstrate adherence to instructed precautions during ADL tasks. 2=Patient will verbalize/demonstrate understanding of assistive devices/ modifications for ADL. 3=Patient will improve strength/tolerance for activity to enable patient to perform ADL's. OT Mcc Goals Mcc Goals Time Frame: Jun 10, 2018 Grooming(FIM): 6 Upper Body Dressing(FIM): 5 Lower Body Dressing(FIM): 4 Toileting(FIM): 5 Toilet/Commode Transfer(FIM): 4 Additional Goals: 1-Demonstrate ADL Tasks, 2-Verbalize Understanding, 3- ImproveStrength/Demarcus 1=Demonstrate adherence to instructed precautions during ADL tasks. 2=Patient will verbalize/demonstrate understanding of assistive devices/ modifications for ADL. 3=Patient will improve strength/tolerance for activity to enable patient to perform ADL's. OT Education/Plan Problem List/Assessment Assessment: Decreased Activ Tolerance, Decreased UE Strength, Dependent Transfers, Impaired Self-Care Skills Pt to benefit from skilled OT intervention for ADL training, transfers, strengthening, and home safety education to increase independence and allow safe discharge plan. Discharge Recommendations Plan/Recommendations: Continue POC Treatment Plan/Plan of Care Treatment,Training & Education: Yes Patient would benefit from OT for education, treatment and training to promote independence in ADL's, mobility, safety and/or upper extremity function for ADL' s. Plan of Care: ADL Retraining, Functional Mobility, UE Funct Exercise/Act, UE Neuromus Re-Ed/Coord Treatment Duration: Jun 06, 2018 Frequency: 5 times per week Estimated Hrs Per Day: .25 hour per day Agreement: Yes Rehab Potential: Fair Time/GCodes Start Time: 11:10 Stop Time: 11:23 Total Time Billed (hr/min): 13 Billed Treatment Time 1 visit, TOSHIA(13minutes) VICTORINO BAILEY OT May 27, 2018 13:00
--- NOTE | 2018-05-27 13:30 | Cardiology Progress Note ---
Subjective Date Seen by Provider: May 27, 2018 Time Seen by Provider: 13:28 Subjective/Events-last exam patient is sitting in a chair, feeling better. No new complaint. No chest pain Review of Systems General: No Chills, No Night Sweats, No Fatigue, No Malaise, No Appetite, No Other HEENT: No Head Aches, No Visual Changes, No Eye Pain, No Ear Pain, No Dysphasia , No Sinus Congestion, No Post Nasal Drip, No Sore Throat, No Other Pulmonary: No Dyspnea, No Cough, No Pleuritic Chest Pain, No Other Cardiovascular: No: Chest Pain, Palpitations, Orthopnea, Paroxysmal Noc. Dyspnea, Edema, Lt Headedness, Other Objective-Cardiology Exam Last Set of Vital Signs Vital Signs 05/27/18 11:26 Temp 98.0 Pulse 80 Resp 20 B/P (MAP) 160/62 (94) Pulse Ox 92 O2 Delivery Nasal Cannula O2 Flow Rate 5.00 Capillary Refill : Less Than 3 SecondsLess Than 3 Seconds I&O Intake and Output 05/27/18 00:00 Intake Total 600 ml Output Total 2350 ml Balance -1750 ml Intake Oral 600 ml Output Urine Total 2350 ml General: Alert, Oriented X3, Cooperative HEENT: Atraumatic Neck: Supple, No JVD, No Thyromegaly Lungs: Clear to Auscultation Heart: Regular Rate, Normal S1, Normal S2 Abdomen: Normal Bowel Sounds, Soft, Other (epigastric tenderness) Extremities: No Clubbing, Other (pale conjunctiva) Skin: No Rashes, No Breakdown, No Significant Lesion Neuro: Normal Speech, Normal Tone, Sensation Intact Psych/Mental Status: Mental Status NL, Mood NL Results Lab Laboratory Tests 05/27/18 05:35 A/P-Cardiology Admission Diagnosis Femur fracture Coronary artery disease Hypertension Hyperlipidemia Assessment/Plan Chest pain, unstable angina with dynamic ST changes, had ST depression during chest pain, better at this time, no chest pain, EKG is back to baseline. Continue to monitor Status post fall and femur fracture, status post surgical repair. Followed by orthopedic surgeon Anemia, severe, significant drop in H&H, patient is Taoism and refusing transfusion, appreciate Dr. Pisano's recommendation. Continue to monitor H&H Mild abdominal pain. Continue to monitor, managed by primary care physician Constipation. Maintained on stool softener. Coronary artery disease, history of bypass surgery using JALLOH to LAD in January 2005, had a stress test in October 2016 showing no ischemia or infarction with ejection fraction 84 percent, echocardiogram in January 2014 reporting as normal LV function with mild MR. Continue to monitor Hyperlipidemia, intolerant to statin with muscle ache and generalized weakness History of intermittent liver enzyme elevation of undetermined etiology. followed and managed by primary care physician H/o hypoxemia, likely related to hypoventilation syndrome and/or pulmonary disease, continue to monitor History of peripheral arterial disease and a small abdominal aortic aneurysm, being followed at Dr Patterson's office Carotid arterial disease being followed at Dr Patterson's office Rheumatoid arthritis. History of laparoscopic cholecystectomy. Hypertension with hypertensive cardiovascular disease. restart home medication monitor blood pressure Hypothyroidism being treated with thyroid replacement therapy. Degenerative joint disease. Elevated body mass index of 36 Bilateral leg swelling likely related to venous insufficiency and/or amlodipine therapy, stable and unchanged. 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 Intolerant to niacin therapy CKD stage 2, continue to monitor renal function Clinical Quality Measures DVT/VTE Risk/Contraindication: Risk Factor Score Per Nursin RFS Level Per Nursing on Admit: 4+=Very High DARIN VELARDE MD May 27, 2018 13:29
--- NOTE | 2018-05-27 13:43 | Physical Therapy Daily Note ---
PT Daily Note-Current Subjective Pt. up in chair, states she is ready to go back to bed. States she has used a FWW before after having a THR. Pain Location: No Pain Reported Mental Status Patient Orientation: Normal For Age Attachments: Tovar Catheter Transfers Therapy Code Descriptions/Definitions Functional [place] Measure: 0=Not Assessed/NA 4=Minimal Assistance 1=Total Assistance 5=Supervision or Setup 2=Maximal Assistance 6=Modified [place] 3=Moderate Assistance 7=Complete [place] Therapy Quality Codes: 6 Independent with activity with or without an assistive device 5 Patient requires set up or clean up by helper. Patient completes activity by themselves 4 Supervision or touching assist (CGA). [place] provide cues , steadying assist 3 The helper provides less than half the effort to complete the activity 2 The helper provides more than half the effort to complete the activity 1 Dependent. The helper does all the effort to complete an activity 7 Patient refused to complete or attempt activity 9 The patient did not perform the activity before the current illness or injury 88 Not attempted due to Medical conditions or safety concerns Transfers (B, C, W/C) (FIM): 3 Scootin Supine to/from Sit: 3 Sit to/from Stand: 4 Bed to/from Chair: 3 sit to stand from recliner min to CGA pushing from arms of chair. Pt. was educated in use of FWW and weight bearing onto FWW to relieve pressure on RLE. Pt. TRFd scooting on LLE and weight bearing on FWW with good control following instruction well. sit to supine required mod assist for RLE in to bed. Weight Bearing Right Lower Extremity: Right Partial Weight Bearing Left Lower Extremity: Left Full Weight Bearing Patient unable to maintain PWB right LE due to weakness/pain/obesity Gait Training Distance (FIM): 1=up to 49 ft (6-7 side scoot steps) Gait Level of Assist: 4 Gait Persons Needed: 1 Gait Assistive Device: FWW side scoot steps with main weight bearing on LLE, PWBing RLE Exercises Supine Ex: Quad Set, Rolling, Glut sets, Heel Slides, Hip abd/add Supine Reps: 8 Assessment Current Status: Good Progress gaining strength and mobility as hgb increases. PT Short Term Goals Short Term Goals Time Frame: Jun 03, 2018 Transfers (B,C,W/C) (FIM): 4 Gait (FIM): 1 Gait Distance Comment: 10' Gait Level of Assist: 4 Gait Assistive Device: FWW PT Microsoft Access Developer Goals Assisted Goals PT Microsoft Access Developer Goals Time Frame: Jun 01, 2018 Transfers (B,C,W/C) (FIM): 4 Gait (FIM): 1 Gait distance (FIM): 1=up to 49 ft Distance: 5' Gait Level of Assist: 3 PT Plan Treatment/Plan Treatment Plan: Continue Plan of Care Treatment Plan: Bed Mobility, Concurrent Therapy, Education, Functional Activity Demarcus, Functional Strength, Gait, Safety, Therapeutic Exercise, Transfers Treatment Duration: Jun 03, 2018 Frequency: 11 times per week Estimated Hrs Per Day: .25 hour per day (15-30') Patient and/or Family Agrees t: Yes Safety Risks/Education Patient Education: Gait Training, Transfer Techniques Teaching Recipient: Patient Teaching Methods: Demonstration, Discussion Response to Teaching: Return Demonstration, Reinforcement Needed instructed and demonstrated use of FWW to take weight off affected LE and utilize FWW for SPT chair to bed Time/GCodes Time In: 1310 Time Out: 1330 Total Billed Treatment Time: 20 Total Billed Treatment 1,FA20m G Codes Necessary: ALFONSO Lorenz SHARED SERVICES AND OUTSOURCING MANAGER May 27, 2018 13:43
--- NOTE | 2018-05-27 16:48 | Oncology Progress Note ---
Subjective Date Seen by a Provider: May 27, 2018 Time Seen by a Provider: 16:43 Subjective/Events-last exam Met patient this afternoon after being mobilized in bed by nursing staff. She has increased pain in her right leg. She denies any recurrence of chest pain, shortness of breath or palpitations. Data Review Labs Laboratory Tests 05/27/18 05:35 Laboratory Tests 05/25/18 08:31: Red Blood Count 2.25L, Hemoglobin 6.1*L, Hematocrit 20*L, Mean Corpuscular Hemoglobin Concent 31L, Monocytes (%) (Auto) 13H, Chloride Level 108H, Calcium Level 10.6H, Corrected Calcium 11.2H, Myoglobin 191.5H, Total Protein 6.0L 05/26/18 03:40: Red Blood Count 2.08L, Hemoglobin 5.7*L, Hematocrit 19*L, Mean Corpuscular Hemoglobin Concent 30L, Chloride Level 108H, Calcium Level 10.6H, Corrected Calcium 11.4H, Total Protein 5.5L, Mean Platelet Volume 10.6H, Glucose Level 107H, Albumin 3.0L 05/27/18 05:35: Red Blood Count 2.27L, Hemoglobin 6.4*L, Hematocrit 21L, Mean Corpuscular Hemoglobin Concent 30L, Calcium Level 11.1H, Glucose Level 116H, Red Cell Distribution Width 15.4H Physical Exam Vital Signs Vital Signs - First Documented 05/21/18 05/21/18 02:02 20:43 Temp 98.0 Pulse 76 Resp 16 B/P (MAP) 164/79 (107) Pulse Ox 95 O2 Delivery Room Air O2 Flow Rate 2.00 Capillary Refill : Less Than 3 SecondsLess Than 3 Seconds Height, Weight, BMI Height: 5'4.00" Weight: 213lbs. 6.2oz. 96.019163ov; 36.8 BMI Method:Stated General Appearance: No Apparent Distress, WD/WN Eyes: Bilateral Eye Normal Inspection HEENT: PERRL/EOMI, Normal ENT Inspection Neck: Normal Inspection, Non Tender Respiratory: Chest Non Tender, Lungs Clear, Normal Breath Sounds, No Accessory Muscle Use Cardiovascular: Regular Rate, Rhythm, No Murmur Gastrointestinal: Normal Bowel Sounds, Non Tender, Soft Neurologic/Psychiatric: Alert, Oriented x3, No Motor/Sensory Deficits, Normal Mood/Affect Skin: Normal Color, Warm/Dry Impression & Plan Impression & Plan 78 yo female with severe CAD s/p CABG was admitted for right femur and fibula fracture and underwent ORIF of the distal femur on 05/23/18. She suffered from post surgical blood loss anemia and developed unstable angina. Since she is a Syn[employer], she cannot receive blood products. We do not have any artificial blood products available that will increase oxygen delivery to her tissues, so our best compromise is optimization of nutritional needs and bone marrow stimulating agents. None of these agents will act sufficiently fast enough in an emergent setting, however. - Hgb is stable to improved. If there is evidence of rebleeding, recommend surgical exploration and cautery/suturing of hemorrhage source. Use of pro- hemostatic agents is going to be high risk given her potential ACS. We would have to have an extensive conversation with the patient prior to use. Consider recombinant factor VIIa in acute bleed situations in which surgery is not feasible. - Given iron dextran 1g x1 on 05/23/18. Giving iron sucrose 200mg QOD. To be stopped after 4-5 doses. - Given high dose folic acid 10mg and vitamin B12 1000mcg on 05/25/18. On daily PO replacement and should be continued until seen by primary care after discharge. - Given darbepoetin paramjit 0.75mcg/kg on 05/25/18. Optimal dosing not established but review of literature has generally shown daily or QOD schedule of high dose ESAs in the setting of acute anemia associated with hypovolemia and hypotension. In our situation, however, with the patient in danger of ACS, thrombosis is also a concern. We will have to weigh the benefits of RBC stimulation vs the increased risk of thrombosis with ESAs. - Since patient appears to be improving, we will not treat with darbepoetin today. I would continue to give darbepoetin on a weekly basis until the hgb 9- 10 recommended by cardiology for cardiac catheterization, which will eventually need to be done after sufficient healing from patient's fracture surgery. Clinical Quality Measures DVT/VTE Risk/Contraindication: Risk Factor Score Per Nursin RFS Level Per Nursing on Admit: 4+=Very High BELÉN RUFFIN MD May 27, 2018 16:47
[2018-05-28] MEDS: oxyCODONE/APAP 5/325MG (PERCOCET 5) TABLET PO PRN ×4 (01:41→22:18)
[2018-05-28] MEDS: RT-ALBUTEROL SULF 2.5 MG/3 ML PRE-MIX VIAL INH SCH ×4 (03:30→20:36)
[2018-05-28 04:00] VITALS: BP 158/73
[2018-05-28 05:32] LABS: BASOPHILS # (AUTO) 0.1 10^3/uL (0.0-0.1); BASOPHILS % (AUTO) 1 % (0-10); EOSINOPHILS # (AUTO) 0.1 10^3/uL (0.0-0.3); EOSINOPHILS % (AUTO) 1 % (0-10); HEMATOCRIT 22 % (35-52); LYMPHOCYTES # (AUTO) 1.6 X 10^3 (1.0-4.0); LYMPHOCYTES % (AUTO) 20 % (12-44); MEAN CORPUSCULAR HEMOGLOBIN 29 PG (25-34); MEAN CORPUSCULAR HGB CONC 30 G/DL (32-36); MEAN CORPUSCULAR VOLUME 94 FL (80-99); MEAN PLATELET VOLUME 10.1 FL (7.4-10.4); MONOCYTES # (AUTO) 0.8 X 10^3 (0.0-1.0); MONOCYTES % (AUTO) 10 % (0-12); NEUTROPHILS # (AUTO) 5.5 X 10^3 (1.8-7.8); NEUTROPHILS % (AUTO) 68 % (42-75); PLATELET COUNT 241 10^3/uL (130-400); RED BLOOD COUNT 2.34 10^6/uL (4.35-5.85); RED CELL DISTRIBUTION WIDTH 17.7 % (10.0-14.5)
[2018-05-28 05:38] LABS: HEMOGLOBIN 6.7 G/DL (11.5-16.0)
[2018-05-28 05:52] LABS: CREATININE SERUM 1.25 MG/DL (0.60-1.30); PHOSPHORUS 2.9 MG/DL (2.3-4.7); POTASSIUM 3.5 MMOL/L (3.6-5.0)
[2018-05-28] MEDS: FUROSEMIDE 40 MG/4 ML INJ (LASIX) IV SCH (06:05)
[2018-05-28] MEDS: LEVOTHYROXINE 50 MCG (LEVOTHROID) TAB PO SCH (06:06)
[2018-05-28 08:30] VITALS: BP 140/61
[2018-05-28] MEDS: DOCUSATE SODIUM 100 MG (COLACE) CAP PO SCH ×2 (09:21→22:23)
[2018-05-28] MEDS: CYANOCOBALAMIN 1,000 MCG (VITAMIN B-12) TABLET PO SCH (09:21)
[2018-05-28] MEDS: amLODIPine 10 MG (NORVASC) TAB PO SCH (09:21)
[2018-05-28] MEDS: meTOproloL SUCCINATE 50 MG (TOPROL XL) TAB PO SCH (09:21)
[2018-05-28] MEDS: FOLIC ACID 1 MG TAB PO SCH (09:21)
[2018-05-28] MEDS: ASPIRIN E.C. 81 MG (ECOTRIN) TAB PO SCH (09:21)
[2018-05-28] MEDS: LACTULOSE SYRUP 10GM/15ML (ENULOSE) 30ML UDC PO SCH ×2 (09:21→22:23)
[2018-05-28] MEDS: PANTOPRAZOLE 40 MG (PROTONIX) TAB PO SCH (09:21)
[2018-05-28] MEDS: POLYETHYLENE GLYCOL 17 GM (MIRALAX) PACK PO SCH ×2 (09:22→22:23)
[2018-05-28] MEDS: fentaNYL INJECTION 100 MCG/2 ML AMP IV PRN (09:23)
--- NOTE | 2018-05-28 09:27 | NUR ---
prior to a.m medications b/p was 140/61 pulse was 81
--- NOTE | 2018-05-28 09:38 | Physical Therapy Daily Note ---
PT Daily Note-Current Subjective Agreeable to PT. Reports her daughter lives with her but she "doesn't do much" . Reports she has steps to get into her home, describing them as "big steps." Unsure if she would be able to get a ramp built. Reports she doesn't think her daughter would give her much assist at home. Mental Status Patient Orientation: Person, Place, Time, Situation Transfers Therapy Code Descriptions/Definitions Functional [place] Measure: 0=Not Assessed/NA 4=Minimal Assistance 1=Total Assistance 5=Supervision or Setup 2=Maximal Assistance 6=Modified [place] 3=Moderate Assistance 7=Complete [place] Therapy Quality Codes: 6 Independent with activity with or without an assistive device 5 Patient requires set up or clean up by helper. Patient completes activity by themselves 4 Supervision or touching assist (CGA). [place] provide cues , steadying assist 3 The helper provides less than half the effort to complete the activity 2 The helper provides more than half the effort to complete the activity 1 Dependent. The helper does all the effort to complete an activity 7 Patient refused to complete or attempt activity 9 The patient did not perform the activity before the current illness or injury 88 Not attempted due to Medical conditions or safety concerns Weight Bearing Right Lower Extremity: Right Partial Weight Bearing Left Lower Extremity: Left Full Weight Bearing Patient unable to maintain PWB right LE due to weakness/pain/obesity Treatments Pt up in chair when PT entered. Sit to stand x 2 reps with min assist to come to a stand. Pt stood a few minutes each rep and worked on deep breathing, upright posture. Also worked on pressing through her arms to unweight her LE for gait. In standing, pt with too much WB through her right LE, able to unweight with verbal and tactile cues with frequent reminders to remain PWB. Pt up in chair post treatment with needs met and legs elevated. Assessment Unable to maintain PWB to attempt gait. Nursing reports pt does well with a SPT with FWW to get up to the chair. PT Short Term Goals Short Term Goals Time Frame: Jun 03, 2018 Transfers (B,C,W/C) (FIM): 4 Gait (FIM): 1 Gait Distance Comment: 10' Gait Level of Assist: 4 Gait Assistive Device: FWW PT Claims Administrator Goals Usp Goals PT Claims Administrator Goals Time Frame: Jun 01, 2018 Transfers (B,C,W/C) (FIM): 4 Gait (FIM): 1 Gait distance (FIM): 1=up to 49 ft Distance: 5' Gait Level of Assist: 3 PT Plan Problem List Problem List: Activity Tolerance, Functional Strength, Safety, Balance, Gait, Transfer, Bed Mobility Treatment/Plan Treatment Plan: Continue Plan of Care Treatment Plan: Bed Mobility, Concurrent Therapy, Education, Functional Activity Demarcus, Functional Strength, Gait, Safety, Therapeutic Exercise, Transfers Treatment Duration: Jun 03, 2018 Frequency: 11 times per week Estimated Hrs Per Day: .25 hour per day (15-30') Patient and/or Family Agrees t: Yes Safety Risks/Education Patient Education: Transfer Techniques, Safety Issues Teaching Recipient: Patient Teaching Methods: Demonstration, Discussion Response to Teaching: Reinforcement Needed Discharge Recommendations Therapy D/C Recommendations: Other, See Comments (Pt may need skilled placement due to PWB restrictions and difficulty maintaining) Time/GCodes Time In: 905 Time Out: 930 Total Billed Treatment Time: 25 Total Billed Treatment visit FA 25 KARIS ACOSTA PT May 28, 2018 09:38
--- NOTE | 2018-05-28 10:52 | Cardiology Progress Note ---
Subjective Date Seen by Provider: May 28, 2018 Time Seen by Provider: 10:51 Subjective/Events-last exam patient is sitting in a chair, feeling better. No new complaint Review of Systems General: No Chills, No Night Sweats, No Fatigue, No Malaise, No Appetite, No Other HEENT: No Head Aches, No Visual Changes, No Eye Pain, No Ear Pain, No Dysphasia , No Sinus Congestion, No Post Nasal Drip, No Sore Throat, No Other Pulmonary: No Dyspnea, No Cough, No Pleuritic Chest Pain, No Other Cardiovascular: No: Chest Pain, Palpitations, Orthopnea, Paroxysmal Noc. Dyspnea, Edema, Lt Headedness, Other Objective-Cardiology Exam Last Set of Vital Signs Vital Signs 05/28/18 05/28/18 08:30 08:47 Temp 97.0 Pulse 81 Resp 18 B/P (MAP) 140/61 (87) Pulse Ox 90 O2 Delivery Nasal Cannula O2 Flow Rate 3.00 Capillary Refill : Less Than 3 SecondsLess Than 3 Seconds I&O Intake and Output 05/28/18 00:00 Intake Total 1805 ml Output Total 1300 ml Balance 505 ml Intake Oral 1805 ml Output Urine Total 1300 ml # Voids 1 # Bowel Movements 2 General: Alert, Oriented X3, Cooperative HEENT: Atraumatic Neck: Supple, No JVD, No Thyromegaly Lungs: Clear to Auscultation Heart: Regular Rate, Normal S1, Normal S2 Abdomen: Normal Bowel Sounds, Soft, Other (epigastric tenderness) Extremities: No Clubbing, Other (pale conjunctiva) Skin: No Rashes, No Breakdown, No Significant Lesion Neuro: Normal Speech, Normal Tone, Sensation Intact Psych/Mental Status: Mental Status NL, Mood NL Results Lab Laboratory Tests 05/28/18 05:01 05/28/18 05:02 A/P-Cardiology Admission Diagnosis Femur fracture Coronary artery disease Hypertension Hyperlipidemia Assessment/Plan Chest pain, unstable angina with dynamic ST changes, had ST depression during chest pain, resolved and EKG returned to baseline. Continue to monitor at this time Status post fall and femur fracture, status post surgical repair. Followed by orthopedic surgeon Anemia, severe, significant drop in H&H, patient is Tenriism and refusing transfusion, appreciate Dr. Pisano's recommendation. Continue to monitor H&H Mild abdominal pain. Continue to monitor, managed by primary care physician Constipation. Maintained on stool softener. Coronary artery disease, history of bypass surgery using JALLOH to LAD in January 2005, had a stress test in October 2016 showing no ischemia or infarction with ejection fraction 84 percent, echocardiogram in January 2014 reporting as normal LV function with mild MR. Continue to monitor Hyperlipidemia, intolerant to statin with muscle ache and generalized weakness History of intermittent liver enzyme elevation of undetermined etiology. followed and managed by primary care physician H/o hypoxemia, likely related to hypoventilation syndrome and/or pulmonary disease, continue to monitor History of peripheral arterial disease and a small abdominal aortic aneurysm, being followed at Dr Patterson's office Carotid arterial disease being followed at Dr Patterson's office Rheumatoid arthritis. History of laparoscopic cholecystectomy. Hypertension with hypertensive cardiovascular disease. restart home medication monitor blood pressure Hypothyroidism being treated with thyroid replacement therapy. Degenerative joint disease. Elevated body mass index of 36 Bilateral leg swelling likely related to venous insufficiency and/or amlodipine therapy, stable and unchanged. 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 Intolerant to niacin therapy CKD stage 2, continue to monitor renal function Clinical Quality Measures DVT/VTE Risk/Contraindication: Risk Factor Score Per Nursin RFS Level Per Nursing on Admit: 4+=Very High Other: see interventions DARIN VELARDE MD May 28, 2018 10:52
--- NOTE | 2018-05-28 11:39 | Progress Note-Hospitalist ---
Subjective HPI/CC On Admission Date Seen by Provider: May 28, 2018 Time Seen by Provider: 11:00 CC: Right distal femur and distal fibula fracture sustained in fall HPI: This is a 78-year-old white female clinic patient of Dr. Casas was a history of a bypass maintained on Plavix for CAD who presents after a fall via ambulance when she was taking her dog out to the bathroom and slipped on urine on the floor and sustained a right distal fibula and right distal femur fracture in need of surgery tomorrow. Dr. Marquez's been consulted for CAD history and risk stratification. Patient will likely be able to eat a meal today and nothing by mouth after midnight in preparation for surgery. Pain is controlled with IV pain medication. Subjective/Events-last exam Patient doing better but limited due to severe pain Still requiring IV pain medication Hemoglobin is increasing a bit but Scientology and cannot transfuse Bowels are moving Likely will need placement in a nursing facility or IRF so placed referral Review of Systems General: Fatigue Pulmonary: Dyspnea Musculoskeletal: leg pain Objective Exam Vital Signs Vital Signs Date Time Temp Pulse Resp B/P (MAP) Pulse Ox O2 Delivery O2 Flow Rate FiO2 05/28/18 08:47 90 Nasal Cannula 3.00 05/28/18 08:30 97.0 81 18 140/61 (87) Capillary Refill : Less Than 3 SecondsLess Than 3 Seconds General Appearance: No Apparent Distress, WD/WN, Chronically ill, Obese, Other (pale) Respiratory: Chest Non Tender, Lungs Clear, Normal Breath Sounds, No Accessory Muscle Use, No Respiratory Distress Cardiovascular: Regular Rate, Rhythm, No Edema, No Gallop, No JVD, No Murmur, Normal Peripheral Pulses Neurologic/Psychiatric: Alert, Oriented x3, No Motor/Sensory Deficits, Normal Mood/Affect Results/Procedures Lab Laboratory Tests 05/28/18 05:01 05/28/18 05:02 Patient resulted labs reviewed. Assessment/Plan Assessment and Plan Assess & Plan/Chief Complaint Assessment: Acute right fibula and right distal femur fracture s/p uncomplicated repair per Dr Youngblood Acute blood loss anemia severe JW refuses blood transfusions CAD previous bypass Hypertension Chronic lower extremity edema Dyspnea at risk for overload Plan: Patient very pale and dyspneic due to severe anemia Scientology will refuse blood products Maintain Percocet for adequate pain control Maintain nebulizer treatments IRF versus AZP Diagnosis/Problems Diagnosis/Problems (1) Fibula fracture Status: Resolved Qualifiers: Encounter type: initial encounter Fibula location: distal physis (incl. Salter-Vaughn) Fracture alignment: nondisplaced Laterality: right Qualified Codes: S89.301A - Unspecified physeal fracture of lower end of right fibula, initial encounter for closed fracture Resolution Date/Time: 05/24/18 @ 13:14 (2) Femur fracture, right Status: Resolved Qualifiers: Encounter type: initial encounter Femur location: shaft Fracture type: closed Fracture morphology: oblique Fracture alignment: nondisplaced Qualified Codes: S72.334A - Nondisplaced oblique fracture of shaft of right femur, initial encounter for closed fracture Resolution Date/Time: 05/24/18 @ 13:14 (3) CAD (coronary artery disease) Status: Chronic Qualifiers: Coronary Disease-Associated Artery/Lesion type: [place] artery [place] vs. transplanted heart: [place] heart Associated angina: without angina Qualified Codes: I25.10 - Atherosclerotic heart disease of [place] coronary artery without angina pectoris (4) Hx of CABG Status: Chronic (5) Hypertension Status: Chronic Qualifiers: Hypertension type: essential hypertension Qualified Codes: I10 - Essential (primary) hypertension (6) Obesity Status: Chronic Qualifiers: Obesity type: due to excess calories Obesity classification: adult class 2 (BMI 35 - 39.9) Serious obesity comorbidity presence: with serious comorbidity (7) Arthritis, rheumatoid Status: Chronic Qualifiers: Rheumatoid arthritis location: unspecified site Rheumatoid factor presence : unspecified presence Qualified Codes: M06.9 - Rheumatoid arthritis, unspecified (8) Anemia Status: Acute Qualifiers: Anemia type: other cause Other causes of anemia: acute posthemorrhagic Qualified Codes: D62 - Acute posthemorrhagic anemia (9) GERD (gastroesophageal reflux disease) Status: Chronic Qualifiers: Esophagitis presence: without esophagitis Qualified Codes: K21.9 - Gastro- esophageal reflux disease without esophagitis (10) Fall Status: Acute Qualifiers: Encounter type: initial encounter Qualified Codes: W19.XXXA - Unspecified fall, initial encounter (11) Refusal of blood transfusions as patient is Scientology Status: Chronic (12) Dyspnea Status: Acute Qualifiers: Dyspnea type: dyspnea on exertion Qualified Codes: R06.09 - Other forms of dyspnea Clinical Quality Measures DVT/VTE Risk/Contraindication: Risk Factor Score Per Nursin RFS Level Per Nursing on Admit: 4+=Very High Other: see interventions BRIAN GIORDANO DO May 28, 2018 11:39
--- NOTE | 2018-05-28 15:27 | Pulmonary Progress Note ---
Subjective Time Seen by a Provider: 15:26 Subjective/Events-last exam No complications noted. Sepsis Event Evaluation Height, Weight, BMI Height: 5'4.00" Weight: 213lbs. 6.2oz. 96.232017gk; 36.8 BMI Method:Stated Exam Exam Vital Signs Date Time Temp Pulse Resp B/P (MAP) Pulse Ox O2 Delivery O2 Flow Rate FiO2 05/28/18 14:59 92 Nasal Cannula 3.00 05/28/18 13:00 69 05/28/18 08:47 90 Nasal Cannula 3.00 05/28/18 08:30 97.0 81 18 140/61 (87) 93 Nasal Cannula 5.00 05/28/18 08:00 90 Nasal Cannula 3.00 05/28/18 07:00 69 05/28/18 04:00 97.3 78 20 158/73 (101) 91 Nasal Cannula 3.00 05/28/18 03:30 92 Nasal Cannula 3.00 05/28/18 01:00 70 05/27/18 23:41 99.3 79 18 148/67 (94) 90 Nasal Cannula 5.00 05/27/18 21:47 89 Nasal Cannula 4.00 05/27/18 20:00 Nasal Cannula 3.00 05/27/18 20:00 99.2 81 18 144/65 (91) 90 Nasal Cannula 5.00 05/27/18 19:00 80 05/27/18 16:00 98.3 89 20 149/65 (93) 95 Nasal Cannula 5.00 05/27/18 15:37 94 Nasal Cannula 4.00 I & O 05/28/18 07:00 Intake Total 1565 ml Output Total 800 ml Balance 765 ml Height & Weight Height: 5'4.00" Weight: 213lbs. 6.2oz. 96.444963pr; 36.8 BMI Method:Stated General Appearance: No Apparent Distress, WD/WN, Chronically ill, Obese, Other (pale) HEENT: PERRL/EOMI, Normal ENT Inspection Neck: Normal Inspection, Non Tender Respiratory: Chest Non Tender, Lungs Clear, Normal Breath Sounds, No Accessory Muscle Use, No Respiratory Distress Cardiovascular: Regular Rate, Rhythm, No Edema, No Gallop, No JVD, No Murmur, Normal Peripheral Pulses Capillary Refill: Less Than 3 Seconds Peripheral Pulses: 2+ Dorsalis Pedis (R), 2+ Left Dors-Pedis (L), 2+ Radial Pulses (R), 2+ Radial Pulses (L) Gastrointestinal: non tender, soft Extremity: Normal Inspection; No Normal Range of Motion Neurologic/Psychiatric: Alert, Oriented x3, No Motor/Sensory Deficits, Normal Mood/Affect Skin: Normal Color, Warm/Dry Lymphatic: No Adenopathy Results Lab Laboratory Tests 05/27/18 05:35 05/28/18 05:01 05/28/18 05:02 Assessment/Plan Assessment/Plan S/p fall with Femur fracture s/p surgical repair Unstable angina with St depression in anterolateral leads -Cardiology following -SL PRN severe anemia - not currently hypotensive -Hematology following -Hoahaoism and refusing transfusion -Aranesp, folate, and iron supplementation Atelectasis with Hypoxia -Monitor -IS -Increase activity CKD II CAD with hx of CABG PAD HTN UGO JEAN DO May 28, 2018 15:27
[2018-05-28 16:05] VITALS: BP 140/65
[2018-05-28 19:15] VITALS: BP 148/63
[2018-05-28] MEDS: ALPRAZolam 0.25 MG (XANAX) TAB PO PRN (23:59)
[2018-05-29] VITALS: BP 166/61
[2018-05-29] MEDS: RT-ALBUTEROL SULF 2.5 MG/3 ML PRE-MIX VIAL INH SCH ×4 (02:54→20:10)
[2018-05-29 04:00] VITALS: BP 151/69
[2018-05-29 05:52] LABS: BASOPHILS # (AUTO) 0.1 10^3/uL (0.0-0.1); BASOPHILS % (AUTO) 1 % (0-10); EOSINOPHILS # (AUTO) 0.1 10^3/uL (0.0-0.3); EOSINOPHILS % (AUTO) 1 % (0-10); HEMATOCRIT 23 % (35-52); LYMPHOCYTES # (AUTO) 1.1 X 10^3 (1.0-4.0); LYMPHOCYTES % (AUTO) 16 % (12-44); MEAN CORPUSCULAR HEMOGLOBIN 28 PG (25-34); MEAN CORPUSCULAR HGB CONC 29 G/DL (32-36); MEAN CORPUSCULAR VOLUME 97 FL (80-99); MEAN PLATELET VOLUME 10.1 FL (7.4-10.4); MONOCYTES # (AUTO) 0.8 X 10^3 (0.0-1.0); MONOCYTES % (AUTO) 12 % (0-12); NEUTROPHILS # (AUTO) 4.6 X 10^3 (1.8-7.8); NEUTROPHILS % (AUTO) 70 % (42-75); PLATELET COUNT 232 10^3/uL (130-400); RED BLOOD COUNT 2.35 10^6/uL (4.35-5.85); RED CELL DISTRIBUTION WIDTH 19.7 % (10.0-14.5); WHITE BLOOD COUNT 6.6 10^3/uL (4.3-11.0)
[2018-05-29 06:08] LABS: HEMOGLOBIN 6.6 G/DL (11.5-16.0)
[2018-05-29] MEDS: LEVOTHYROXINE 50 MCG (LEVOTHROID) TAB PO SCH (06:12)
[2018-05-29] MEDS: FUROSEMIDE 40 MG/4 ML INJ (LASIX) IV SCH (06:12)
[2018-05-29 06:15] LABS: ALBUMIN 3.3 GM/DL (3.2-4.5); BILIRUBIN,TOTAL 0.7 MG/DL (0.1-1.0); CALCIUM 10.7 MG/DL (8.5-10.1); CREATININE SERUM 1.11 MG/DL (0.60-1.30); POTASSIUM 3.9 MMOL/L (3.6-5.0); TOTAL PROTEIN 5.7 GM/DL (6.4-8.2)
--- NOTE | 2018-05-29 06:51 | Pulmonary Progress Note ---
Standard Progress Note Progress Notes Time Seen by Provider: 06:51 Up to bedside commode. No complications noted. Assessment & Plan S/p fall with Femur fracture s/p surgical repair Unstable angina with St depression in anterolateral leads -Cardiology following -SL PRN severe anemia - not currently hypotensive -Hematology following -Muslim and refusing transfusion -Aranesp, folate, and iron supplementation Atelectasis with Hypoxia -Monitor -IS -Increase activity CKD II CAD with hx of CABG PAD HTN UGO JEAN DO May 29, 2018 06:51
[2018-05-29] MEDS: IRON SUCROSE 200 MG/10 ML (VENOFER) VIAL IV SCH (07:46)
[2018-05-29] MEDS: amLODIPine 10 MG (NORVASC) TAB PO SCH (07:47)
[2018-05-29] MEDS: FOLIC ACID 1 MG TAB PO SCH (07:47)
[2018-05-29] MEDS: POLYETHYLENE GLYCOL 17 GM (MIRALAX) PACK PO SCH ×2 (07:47→21:45)
[2018-05-29] MEDS: PANTOPRAZOLE 40 MG (PROTONIX) TAB PO SCH (07:47)
[2018-05-29] MEDS: oxyCODONE/APAP 5/325MG (PERCOCET 5) TABLET PO PRN ×3 (07:47→22:18)
[2018-05-29] MEDS: ASPIRIN E.C. 81 MG (ECOTRIN) TAB PO SCH (07:47)
[2018-05-29] MEDS: DOCUSATE SODIUM 100 MG (COLACE) CAP PO SCH (07:47)
[2018-05-29] MEDS: meTOproloL SUCCINATE 50 MG (TOPROL XL) TAB PO SCH (07:47)
[2018-05-29] MEDS: CYANOCOBALAMIN 1,000 MCG (VITAMIN B-12) TABLET PO SCH (07:47)
[2018-05-29] MEDS: LACTULOSE SYRUP 10GM/15ML (ENULOSE) 30ML UDC PO SCH (07:48)
[2018-05-29 08:00] VITALS: BP 149/68
--- NOTE | 2018-05-29 09:43 | Cardiology Progress Note ---
Subjective Date Seen by Provider: May 29, 2018 Time Seen by Provider: 09:42 Subjective/Events-last exam patient is complaint of fatigue and loss of energy, having diarrhea. Review of Systems General: No Chills, No Night Sweats, No Fatigue, No Malaise, No Appetite, No Other HEENT: No Head Aches, No Visual Changes, No Eye Pain, No Ear Pain, No Dysphasia , No Sinus Congestion, No Post Nasal Drip, No Sore Throat, No Other Pulmonary: Dyspnea; No Cough, No Pleuritic Chest Pain, No Other Cardiovascular: No: Chest Pain, Palpitations, Orthopnea, Paroxysmal Noc. Dyspnea, Edema, Lt Headedness, Other Gastrointestinal: Diarrhea Objective-Cardiology Exam Last Set of Vital Signs Vital Signs 05/29/18 09:37 Pulse Ox 92 O2 Delivery Nasal Cannula O2 Flow Rate 3.00 Capillary Refill : Less Than 3 SecondsLess Than 3 Seconds I&O Intake and Output 05/29/18 00:00 Intake Total 1110 ml Balance 1110 ml Intake Oral 1110 ml # Voids 4 # Bowel Movements 1 General: Alert, Oriented X3, Cooperative HEENT: Atraumatic Neck: Supple, No JVD, No Thyromegaly Lungs: Clear to Auscultation Heart: Regular Rate, Normal S1, Normal S2 Abdomen: Normal Bowel Sounds, Soft, Other (epigastric tenderness) Extremities: No Clubbing, Other (pale conjunctiva) Skin: No Rashes, No Breakdown, No Significant Lesion Neuro: Normal Speech, Normal Tone, Sensation Intact Psych/Mental Status: Mental Status NL, Mood NL Results Lab Laboratory Tests 05/29/18 05:11 A/P-Cardiology Admission Diagnosis Femur fracture Coronary artery disease Hypertension Hyperlipidemia Assessment/Plan Chest pain, unstable angina with dynamic ST changes, had ST depression during chest pain, resolved and EKG returned to baseline. Continue to monitor at this time, unable to tolerate a cardiac catheterization due to the severe anemia Status post fall and femur fracture, status post surgical repair. Followed by orthopedic surgeon Anemia, severe, significant drop in H&H, patient is Hinduism and refusing transfusion, appreciate Dr. Pisano's recommendation. Continue to monitor H&H Mild abdominal pain, diarrhea, discontinue Ultram, discontinue stool softener and monitor. Constipation, currently having diarrhea, stop the stool softener and monitor Coronary artery disease, history of bypass surgery using JALLOH to LAD in January 2005, had a stress test in October 2016 showing no ischemia or infarction with ejection fraction 84 percent, echocardiogram in January 2014 reporting as normal LV function with mild MR. Continue to monitor Hyperlipidemia, intolerant to statin with muscle ache and generalized weakness History of intermittent liver enzyme elevation of undetermined etiology. followed and managed by primary care physician H/o hypoxemia, likely related to hypoventilation syndrome and/or pulmonary disease, continue to monitor History of peripheral arterial disease and a small abdominal aortic aneurysm, being followed at Dr Patterson's office Carotid arterial disease being followed at Dr Patterson's office Rheumatoid arthritis. History of laparoscopic cholecystectomy. Hypertension with hypertensive cardiovascular disease. restart home medication monitor blood pressure Hypothyroidism being treated with thyroid replacement therapy. Degenerative joint disease. Elevated body mass index of 36 Bilateral leg swelling likely related to venous insufficiency and/or amlodipine therapy, stable and unchanged. 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 Intolerant to niacin therapy CKD stage 2, continue to monitor renal function Clinical Quality Measures DVT/VTE Risk/Contraindication: Risk Factor Score Per Nursin RFS Level Per Nursing on Admit: 4+=Very High Other: see interventions DARIN VELARDE MD May 29, 2018 09:43
[2018-05-29 12:00] VITALS: BP 143/66
--- NOTE | 2018-05-29 12:39 | Progress Note-Hospitalist ---
Subjective HPI/CC On Admission Date Seen by Provider: May 29, 2018 Time Seen by Provider: 11:30 CC: Right distal femur and distal fibula fracture sustained in fall HPI: This is a 78-year-old white female clinic patient of Dr. Casas was a history of a bypass maintained on Plavix for CAD who presents after a fall via ambulance when she was taking her dog out to the bathroom and slipped on urine on the floor and sustained a right distal fibula and right distal femur fracture in need of surgery tomorrow. Dr. Marquez's been consulted for CAD history and risk stratification. Patient will likely be able to eat a meal today and nothing by mouth after midnight in preparation for surgery. Pain is controlled with IV pain medication. Subjective/Events-last exam Patient doing well Was able to get up and around today Bowels are moving Pain is much better controlled Resting today IRF? Review of Systems General: Fatigue Musculoskeletal: leg pain Objective Exam Vital Signs Vital Signs Date Time Temp Pulse Resp B/P (MAP) Pulse Ox O2 Delivery O2 Flow Rate FiO2 05/29/18 13:01 79 05/29/18 12:00 98.4 20 143/66 (91) 93 Nasal Cannula 3.00 Capillary Refill : Less Than 3 SecondsLess Than 3 Seconds General Appearance: No Apparent Distress, WD/WN, Chronically ill, Other (pale) Respiratory: Chest Non Tender, Lungs Clear, Normal Breath Sounds, No Accessory Muscle Use, No Respiratory Distress Cardiovascular: Regular Rate, Rhythm, No Edema, No Gallop, No JVD, No Murmur, Normal Peripheral Pulses Neurologic/Psychiatric: Alert, Oriented x3, No Motor/Sensory Deficits, Normal Mood/Affect Results/Procedures Lab Laboratory Tests 05/29/18 05:11 Patient resulted labs reviewed. Assessment/Plan Assessment and Plan Assess & Plan/Chief Complaint Assessment: Acute right fibula and right distal femur fracture s/p uncomplicated repair per Dr Youngblood Acute blood loss anemia severe JW refuses blood transfusions CAD previous bypass Hypertension Chronic lower extremity edema Dyspnea at risk for overload Anticoagulation contraindicated due to severe anemia and refuses blood products but DVT risk is high Plan: Patient very pale and dyspneic due to severe anemia but improved [place]din will refuse blood products Maintain Percocet for adequate pain control Maintain nebulizer treatments IRF versus NHP Diagnosis/Problems Diagnosis/Problems (1) Fibula fracture Status: Resolved Qualifiers: Encounter type: initial encounter Fibula location: distal physis (incl. Salter-Vaughn) Fracture alignment: nondisplaced Laterality: right Qualified Codes: S89.301A - Unspecified physeal fracture of lower end of right fibula, initial encounter for closed fracture Resolution Date/Time: 05/24/18 @ 13:14 (2) Femur fracture, right Status: Resolved Qualifiers: Encounter type: initial encounter Femur location: shaft Fracture type: closed Fracture morphology: oblique Fracture alignment: nondisplaced Qualified Codes: S72.334A - Nondisplaced oblique fracture of shaft of right femur, initial encounter for closed fracture Resolution Date/Time: 05/24/18 @ 13:14 (3) CAD (coronary artery disease) Status: Chronic Qualifiers: Coronary Disease-Associated Artery/Lesion type: [place] artery [place] vs. transplanted heart: [place] heart Associated angina: without angina Qualified Codes: I25.10 - Atherosclerotic heart disease of [place] coronary artery without angina pectoris (4) Hx of CABG Status: Chronic (5) Hypertension Status: Chronic Qualifiers: Hypertension type: essential hypertension Qualified Codes: I10 - Essential (primary) hypertension (6) Obesity Status: Chronic Qualifiers: Obesity type: due to excess calories Obesity classification: adult class 2 (BMI 35 - 39.9) Serious obesity comorbidity presence: with serious comorbidity (7) Arthritis, rheumatoid Status: Chronic Qualifiers: Rheumatoid arthritis location: unspecified site Rheumatoid factor presence : unspecified presence Qualified Codes: M06.9 - Rheumatoid arthritis, unspecified (8) Anemia Status: Acute Qualifiers: Anemia type: other cause Other causes of anemia: acute posthemorrhagic Qualified Codes: D62 - Acute posthemorrhagic anemia (9) GERD (gastroesophageal reflux disease) Status: Chronic Qualifiers: Esophagitis presence: without esophagitis Qualified Codes: K21.9 - Gastro- esophageal reflux disease without esophagitis (10) Fall Status: Acute Qualifiers: Encounter type: initial encounter Qualified Codes: W19.XXXA - Unspecified fall, initial encounter (11) Refusal of blood transfusions as patient is [place] Status: Chronic (12) Dyspnea Status: Acute Qualifiers: Dyspnea type: dyspnea on exertion Qualified Codes: R06.09 - Other forms of dyspnea Clinical Quality Measures DVT/VTE Risk/Contraindication: Risk Factor Score Per Nursin RFS Level Per Nursing on Admit: 4+=Very High Other: see interventions BRIAN GIORDANO DO May 29, 2018 12:38
[2018-05-29 16:10] VITALS: BP 144/63
[2018-05-29 20:10] VITALS: BP 142/63
[2018-05-29] MEDS: ALPRAZolam 0.25 MG (XANAX) TAB PO PRN (21:14)
[2018-05-30 00:42] VITALS: BP 160/67
[2018-05-30] MEDS: RT-ALBUTEROL SULF 2.5 MG/3 ML PRE-MIX VIAL INH SCH ×4 (03:40→19:03)
[2018-05-30] MEDS: LEVOTHYROXINE 50 MCG (LEVOTHROID) TAB PO SCH (05:30)
[2018-05-30] MEDS: oxyCODONE/APAP 5/325MG (PERCOCET 5) TABLET PO PRN ×4 (05:30→22:18)
[2018-05-30 06:40] LABS: BASOPHILS # (AUTO) 0.1 10^3/uL (0.0-0.1); BASOPHILS % (AUTO) 1 % (0-10); EOSINOPHILS % (AUTO) 1 % (0-10); HEMATOCRIT 25 % (35-52); HEMOGLOBIN 7.4 G/DL (11.5-16.0); LYMPHOCYTES # (AUTO) 1.4 X 10^3 (1.0-4.0); LYMPHOCYTES % (AUTO) 22 % (12-44); MEAN CORPUSCULAR HEMOGLOBIN 29 PG (25-34); MEAN CORPUSCULAR HGB CONC 30 G/DL (32-36); MEAN CORPUSCULAR VOLUME 99 FL (80-99); MEAN PLATELET VOLUME 10.4 FL (7.4-10.4); MONOCYTES # (AUTO) 0.8 X 10^3 (0.0-1.0); MONOCYTES % (AUTO) 12 % (0-12); NEUTROPHILS # (AUTO) 4.2 X 10^3 (1.8-7.8); NEUTROPHILS % (AUTO) 65 % (42-75); PLATELET COUNT 236 10^3/uL (130-400); RED BLOOD COUNT 2.54 10^6/uL (4.35-5.85); RED CELL DISTRIBUTION WIDTH 21.9 % (10.0-14.5); WHITE BLOOD COUNT 6.5 10^3/uL (4.3-11.0)
[2018-05-30] MEDS: FUROSEMIDE 40 MG/4 ML INJ (LASIX) IV SCH (06:46)
[2018-05-30 06:56] LABS: ALBUMIN 3.5 GM/DL (3.2-4.5); BILIRUBIN,TOTAL 0.7 MG/DL (0.1-1.0); CALCIUM 10.8 MG/DL (8.5-10.1); CREATININE SERUM 1.11 MG/DL (0.60-1.30); POTASSIUM 3.6 MMOL/L (3.6-5.0); TOTAL PROTEIN 6.7 GM/DL (6.4-8.2)
[2018-05-30 08:00] VITALS: BP 186/74
--- NOTE | 2018-05-30 08:16 | Pulmonary Progress Note ---
Subjective Time Seen by a Provider: 07:08 Subjective/Events-last exam No complications noted. Sepsis Event Evaluation Height, Weight, BMI Height: 5'4.00" Weight: 213lbs. 6.2oz. 96.514598em; 36.8 BMI Method:Stated Exam Exam Vital Signs Date Time Temp Pulse Resp B/P (MAP) Pulse Ox O2 Delivery O2 Flow Rate FiO2 05/30/18 03:41 91 Nasal Cannula 3.00 05/30/18 01:00 71 05/30/18 00:42 97.4 76 17 160/67 (98) 92 Nasal Cannula 3.00 05/29/18 20:11 92 Nasal Cannula 3.00 05/29/18 20:10 98.6 90 24 142/63 (89) 90 Nasal Cannula 3.00 05/29/18 20:00 92 Nasal Cannula 3.00 05/29/18 19:00 87 05/29/18 16:10 98.0 84 20 144/63 (90) 90 Nasal Cannula 3.00 05/29/18 14:54 93 Nasal Cannula 3.00 05/29/18 13:01 79 05/29/18 12:00 98.4 75 20 143/66 (91) 93 Nasal Cannula 3.00 05/29/18 09:37 92 Nasal Cannula 3.00 I & O 05/30/18 07:00 Intake Total 1220 ml Output Total 800 ml Balance 420 ml Height & Weight Height: 5'4.00" Weight: 213lbs. 6.2oz. 96.186753ig; 36.8 BMI Method:Stated General Appearance: No Apparent Distress, WD/WN, Chronically ill, Other (pale) HEENT: PERRL/EOMI, Normal ENT Inspection Neck: Normal Inspection, Non Tender Respiratory: Chest Non Tender, Lungs Clear, Normal Breath Sounds, No Accessory Muscle Use, No Respiratory Distress Cardiovascular: Regular Rate, Rhythm, No Edema, No Gallop, No JVD, No Murmur, Normal Peripheral Pulses Capillary Refill: Less Than 3 Seconds Peripheral Pulses: 2+ Dorsalis Pedis (R), 2+ Left Dors-Pedis (L), 2+ Radial Pulses (R), 2+ Radial Pulses (L) Gastrointestinal: non tender, soft Extremity: Normal Inspection; No Normal Range of Motion Neurologic/Psychiatric: Alert, Oriented x3, No Motor/Sensory Deficits, Normal Mood/Affect Skin: Normal Color, Warm/Dry Lymphatic: No Adenopathy Results Lab Laboratory Tests 05/29/18 05:11 05/30/18 05:45 Assessment/Plan Assessment/Plan S/p fall with Femur fracture s/p surgical repair Unstable angina with St depression in anterolateral leads -Cardiology following -SL PRN severe anemia - improving -Hematology following -Taoist and refusing transfusion -Aranesp, folate, and iron supplementation Atelectasis with Hypoxia -Monitor -IS -Increase activity CKD II CAD with hx of CABG PAD HTN UGO JEAN DO May 30, 2018 08:16
--- NOTE | 2018-05-30 08:17 | Progress Note (SOAP) ---
Subjective Time Seen by a Provider: 08:15 Subjective/Events-last exam Patient voicing no complaints today. Hemoglobin and hematocrit stabilized. Patient on oxygen. Patient slowly improving Objective Exam Vital Signs Date Time Temp Pulse Resp B/P (MAP) Pulse Ox O2 Delivery O2 Flow Rate FiO2 05/30/18 03:41 91 Nasal Cannula 3.00 05/30/18 01:00 71 05/30/18 00:42 97.4 76 17 160/67 (98) 92 Nasal Cannula 3.00 05/29/18 20:11 92 Nasal Cannula 3.00 05/29/18 20:10 98.6 90 24 142/63 (89) 90 Nasal Cannula 3.00 05/29/18 20:00 92 Nasal Cannula 3.00 05/29/18 19:00 87 05/29/18 16:10 98.0 84 20 144/63 (90) 90 Nasal Cannula 3.00 05/29/18 14:54 93 Nasal Cannula 3.00 05/29/18 13:01 79 05/29/18 12:00 98.4 75 20 143/66 (91) 93 Nasal Cannula 3.00 05/29/18 09:37 92 Nasal Cannula 3.00 I & O 05/30/18 07:00 Intake Total 1220 ml Output Total 800 ml Balance 420 ml Capillary Refill : Less Than 3 SecondsLess Than 3 Seconds General Appearance: No Apparent Distress, WD/WN HEENT: Normal ENT Inspection Neck: Full Range of Motion, Normal Inspection Respiratory: No Accessory Muscle Use, No Respiratory Distress Cardiovascular: Regular Rate, Rhythm Gastrointestinal: soft Results Lab Laboratory Tests 05/30/18 05:45 Laboratory Tests 05/30/18 05:45: White Blood Count 6.5, Red Blood Count 2.54L, Hemoglobin 7.4L, Hematocrit 25L, Mean Corpuscular Volume 99, Mean Corpuscular Hemoglobin 29, Mean Corpuscular Hemoglobin Concent 30L, Red Cell Distribution Width 21.9H, Platelet Count 236, Mean Platelet Volume 10.4, Neutrophils (%) (Auto) 65, Lymphocytes (%) (Auto) 22 , Monocytes (%) (Auto) 12, Eosinophils (%) (Auto) 1, Basophils (%) (Auto) 1, Neutrophils # (Auto) 4.2, Lymphocytes # (Auto) 1.4, Monocytes # (Auto) 0.8, Eosinophils # (Auto) 0.0, Basophils # (Auto) 0.1, Sodium Level 139, Potassium Level 3.6, Chloride Level 104, Carbon Dioxide Level 22, Anion Gap 13, Blood Urea Nitrogen 18, Creatinine 1.11, Estimat Glomerular Filtration Rate 48, BUN/ Creatinine Ratio 16, Glucose Level 104, Calcium Level 10.8H, Corrected Calcium 11.2H, Total Bilirubin 0.7, Aspartate Amino Transf (AST/SGOT) 41H, Alanine Aminotransferase (ALT/SGPT) 18, Alkaline Phosphatase 94, Total Protein 6.7, Albumin 3.5 Microbiology 05/22/18 MRSA Screen - Final, Complete Assessment/Plan Assessment/Plan Assess & Plan/Chief Complaint Fractured fibula and femur. Anemia. Patient Jehovah witness. CAD. Hypertension. Anemia. Hyperlipidemia. . 05/25/18. Fractured fibula and femur. Anemia worse yesterday. Patient Jehovah witness. Patient refuses blood test again. CAD. Hypertension. Hyperlipidemia. Heparin stopped. . 05/26/18. Fractured fibula and femur. Anemia stabilized. Hemoglobin 5.7 hematocrit 19. No chest pain today. Hypertension. Hyperlipidemia. . 05/27/18. Fractured fibula and femur. Anemia improving slightly. No chest pain today. Patient feeling better. Hypertension. Hyperlipidemia.. . Lungs clear 12/09. Back his fibula and femur. Anemia improving. Chest pain history. Hypertension. Hyperlipidemia. Patient a work in progress Clinical Quality Measures DVT/VTE Risk/Contraindication: Risk Factor Score Per Nursin RFS Level Per Nursing on Admit: 4+=Very High Other: see interventions SHARATH COLON DO May 30, 2018 08:17
[2018-05-30] MEDS: CYANOCOBALAMIN 1,000 MCG (VITAMIN B-12) TABLET PO SCH (09:12)
[2018-05-30] MEDS: amLODIPine 10 MG (NORVASC) TAB PO SCH (09:13)
[2018-05-30] MEDS: meTOproloL SUCCINATE 50 MG (TOPROL XL) TAB PO SCH (09:13)
[2018-05-30] MEDS: POLYETHYLENE GLYCOL 17 GM (MIRALAX) PACK PO SCH ×2 (09:13→21:01)
[2018-05-30] MEDS: FOLIC ACID 1 MG TAB PO SCH (09:13)
[2018-05-30] MEDS: PANTOPRAZOLE 40 MG (PROTONIX) TAB PO SCH (09:13)
[2018-05-30] MEDS: ASPIRIN E.C. 81 MG (ECOTRIN) TAB PO SCH (09:13)
--- NOTE | 2018-05-30 09:17 | Progress Note-Cardiology ---
Cardiology SOAP Progress Note Subjective: Sitting up in a chair at the bedside. C/O right leg pain after participating in PT. No c/o CP, palpitations, syncope or near syncope. C/O mild dyspnea with exertion. Objective: I&O/Vital Signs 05/30/18 05/30/18 05/30/18 05/30/18 03:41 07:00 08:00 08:50 Temp 97.5 Pulse 68 72 Resp 18 B/P (MAP) 186/74 (111) Pulse Ox 91 96 96 O2 Delivery Nasal Cannula Nasal Cannula Nasal Cannula O2 Flow Rate 3.00 3.00 3.00 05/30/18 00:00 Intake Total 1220 ml Output Total 500 ml Balance 720 ml Weight (Pounds): 213 Weight (Ounces): 6.2 Weight (Calculated Kilograms): 96.869800 Constitutional: AAO x 3 Respiratory: No accessory muscle use, No respiratory distress; chest expansion is symmetric, chest is bilaterally symmetric Cardiovascular: regular rate-rhythm; No JVD Gastrointestional: No tender; soft, round Extremities: no lower extremity edema bilateral Neurologic/Psychiatric: grossly intact Skin: warm/dry, pallor; No ulcerations; other (Drsg to right hip D&I; Orthopedic boot in place to right LE) Results/Procedures: Labs Laboratory Tests 05/30/18 05:45: White Blood Count 6.5, Red Blood Count 2.54L, Hemoglobin 7.4L, Hematocrit 25L, Mean Corpuscular Volume 99, Mean Corpuscular Hemoglobin 29, Mean Corpuscular Hemoglobin Concent 30L, Red Cell Distribution Width 21.9H, Platelet Count 236, Mean Platelet Volume 10.4, Neutrophils (%) (Auto) 65, Lymphocytes (%) (Auto) 22 , Monocytes (%) (Auto) 12, Eosinophils (%) (Auto) 1, Basophils (%) (Auto) 1, Neutrophils # (Auto) 4.2, Lymphocytes # (Auto) 1.4, Monocytes # (Auto) 0.8, Eosinophils # (Auto) 0.0, Basophils # (Auto) 0.1, Sodium Level 139, Potassium Level 3.6, Chloride Level 104, Carbon Dioxide Level 22, Anion Gap 13, Blood Urea Nitrogen 18, Creatinine 1.11, Estimat Glomerular Filtration Rate 48, BUN/ Creatinine Ratio 16, Glucose Level 104, Calcium Level 10.8H, Corrected Calcium 11.2H, Total Bilirubin 0.7, Aspartate Amino Transf (AST/SGOT) 41H, Alanine Aminotransferase (ALT/SGPT) 18, Alkaline Phosphatase 94, Total Protein 6.7, Albumin 3.5 Microbiology 05/22/18 MRSA Screen - Final, Complete A/P: Assessment: Chest pain, unstable angina, likely due to anemia exacerbating underlying coronary insufficiency. Angina currently stable Status post fall and femur fracture, status post surgical repair Anemia, severe, significant drop in H&H, patient is Episcopal and refusing transfusion, appreciate Dr. Pisano's recommendation HTN - not well controlled Coronary artery disease, history of bypass surgery using JALLOH to LAD in January 2005, had a stress test in October 2016 showing no ischemia or infarction with ejection fraction 84 percent, echocardiogram in January 2014 reporting as normal LV function with mild MR Hyperlipidemia, intolerant to statin with muscle ache and generalized weakness History of intermittent liver enzyme elevation of undetermined etiology. followed and managed by primary care physician H/o hypoxemia, likely related to hypoventilation syndrome and/or pulmonary disease History of peripheral arterial disease and a small abdominal aortic aneurysm, being followed at Dr Patterson's office Carotid arterial disease being followed at Dr Patterson's office Rheumatoid arthritis. History of laparoscopic cholecystectomy. Hypothyroidism being treated with thyroid replacement therapy. Degenerative joint disease. Elevated body mass index of 36 Bilateral leg swelling likely related to venous insufficiency and/or amlodipine therapy, stable and unchanged. 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 Intolerant to niacin therapy CKD stage 2, continue to monitor renal function Plan: Sitting up in a chair at the bedside C/O right leg discomfort after participating in PT Anemia - management per medical services - refuses transfusion d/t "church choice" per pt HTN - not well controlled - increase BB dose Monitor lab closely No further c/o CP Physician Assessment Physician Assessment No cp or palp or syncope. Leg/R knee swelling unchanged Cor: reg Lungs: diminished air entry at bases Ext: Swollen and bruised R knee A&R * As documented in our note above that I updated in italics and as noted below * Complex management issue due to multiple comorbidities * Continue current regimen and observation GOLDIE VILLAFANA MICROBIOLOGY QUALITY CONTROL TECHNICIAN May 30, 2018 09:17 ARMAND MELCHOR MD FACP FAC CCDS May 30, 2018 13:34
--- NOTE | 2018-05-30 09:20 | Physical Therapy Daily Note ---
PT Daily Note-Current Subjective Patient in recliner pre tx, agrees to PT, has pain of 7/10 in right knee, patient states nursing is aware of her pain. Appearance Patient in recliner post tx with nurse call, phone, tray, all needs met. Patient did not want to transfer back to bed at this time. Mental Status Patient Orientation: Person, Place, Situation Attachments: Oxygen Transfers Therapy Code Descriptions/Definitions Functional [place] Measure: 0=Not Assessed/NA 4=Minimal Assistance 1=Total Assistance 5=Supervision or Setup 2=Maximal Assistance 6=Modified [place] 3=Moderate Assistance 7=Complete [place] Therapy Quality Codes: 6 Independent with activity with or without an assistive device 5 Patient requires set up or clean up by helper. Patient completes activity by themselves 4 Supervision or touching assist (CGA). [place] provide cues , steadying assist 3 The helper provides less than half the effort to complete the activity 2 The helper provides more than half the effort to complete the activity 1 Dependent. The helper does all the effort to complete an activity 7 Patient refused to complete or attempt activity 9 The patient did not perform the activity before the current illness or injury 88 Not attempted due to Medical conditions or safety concerns Sit to/from Stand: 4 CGA for sit to stand, needs cues for hand placement, she is initially retropulsive with standing but is able to adjust with some effort. She did a good job maintaining PWB on right leg during standing. She could only stand twice for about 30 seconds each time. Weight Bearing Right Lower Extremity: Right Partial Weight Bearing Left Lower Extremity: Left Full Weight Bearing Patient unable to maintain PWB right LE due to weakness/pain/obesity Exercises Seated Therapy Exercises: Ankle pumps, Long arc quads, Hip flexion Seated Reps: 10 Treatments sit to stand, LE AROM Assessment Current Status: Fair Progress improvement with maintaining WB status, improved sit to stand PT Short Term Goals Short Term Goals Time Frame: Jun 03, 2018 Transfers (B,C,W/C) (FIM): 4 Gait (FIM): 1 Gait Distance Comment: 10' Gait Level of Assist: 4 Gait Assistive Device: FWW PT Detention Goals Detention Goals PT Boiler Welder Goals Time Frame: Jun 01, 2018 Transfers (B,C,W/C) (FIM): 4 Gait (FIM): 1 Gait distance (FIM): 1=up to 49 ft Distance: 5' Gait Level of Assist: 3 PT Plan Problem List Problem List: Activity Tolerance, Functional Strength, Safety, Balance, Gait, Transfer, Bed Mobility, ROM Treatment/Plan Treatment Plan: Continue Plan of Care Treatment Plan: Bed Mobility, Concurrent Therapy, Education, Functional Activity Demarcus, Functional Strength, Gait, Safety, Therapeutic Exercise, Transfers Treatment Duration: Jun 03, 2018 Frequency: 11 times per week Estimated Hrs Per Day: .25 hour per day (15-30') Patient and/or Family Agrees t: Yes Safety Risks/Education Patient Education: Transfer Techniques, Reviewed Precautions, Correct Positioning, Safety Issues Teaching Recipient: Patient Teaching Methods: Demonstration, Discussion Response to Teaching: Reinforcement Needed Time/GCodes Time In: 0855 Time Out: 0908 Total Billed Treatment Time: 13 Total Billed Treatment 1 visit EX 13' ALECIA HAMILTON PT May 30, 2018 09:20
[2018-05-30] MEDS ORDERED: meTOproloL SUCCINATE 50 MG (TOPROL XL) TAB PO NR (09:33)
--- NOTE | 2018-05-30 10:33 | Occ Therapy Progress Note ---
Therapy Progress Note Pt stated that she was hurting a lot. Pain meds have been given, per nrsg. Pt refused to complete therapy at this time due to pain and fear of vomiting with movement. Will check on pt later today. 1,ref KARIS ANN May 30, 2018 10:33
--- NOTE | 2018-05-30 12:34 | Progress Note (SOAP) ---
Subjective Time Seen by a Provider: 07:00 Subjective/Events-last exam Patient is s/p right femur fracture ORIF No complaints at this time Review of Systems Musculoskeletal: leg pain Neurological: Weakness; No: Numbness, Confusion Objective Exam Vital Signs Date Time Temp Pulse Resp B/P (MAP) Pulse Ox O2 Delivery O2 Flow Rate FiO2 05/30/18 08:50 96 Nasal Cannula 3.00 05/30/18 08:00 97.5 72 18 186/74 (111) 96 Nasal Cannula 3.00 05/30/18 07:00 68 05/30/18 03:41 91 Nasal Cannula 3.00 05/30/18 01:00 71 05/30/18 00:42 97.4 76 17 160/67 (98) 92 Nasal Cannula 3.00 05/29/18 20:11 92 Nasal Cannula 3.00 05/29/18 20:10 98.6 90 24 142/63 (89) 90 Nasal Cannula 3.00 05/29/18 20:00 92 Nasal Cannula 3.00 05/29/18 19:00 87 05/29/18 16:10 98.0 84 20 144/63 (90) 90 Nasal Cannula 3.00 05/29/18 14:54 93 Nasal Cannula 3.00 05/29/18 13:01 79 I & O 05/30/18 06:59 Intake Total 1220 ml Output Total 800 ml Balance 420 ml Capillary Refill : Less Than 3 SecondsLess Than 3 Seconds General Appearance: No Apparent Distress Gastrointestinal: soft Extremity: Non Tender Neurologic/Psychiatric: Alert, Oriented x3, No Motor/Sensory Deficits, Normal Mood/Affect, 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-XII Norm as Tested Skin: Other (Wound is CDI) Results Lab Laboratory Tests 05/30/18 05:45: White Blood Count 6.5, Red Blood Count 2.54L, Hemoglobin 7.4L, Hematocrit 25L, Mean Corpuscular Volume 99, Mean Corpuscular Hemoglobin 29, Mean Corpuscular Hemoglobin Concent 30L, Red Cell Distribution Width 21.9H, Platelet Count 236, Mean Platelet Volume 10.4, Neutrophils (%) (Auto) 65, Lymphocytes (%) (Auto) 22 , Monocytes (%) (Auto) 12, Eosinophils (%) (Auto) 1, Basophils (%) (Auto) 1, Neutrophils # (Auto) 4.2, Lymphocytes # (Auto) 1.4, Monocytes # (Auto) 0.8, Eosinophils # (Auto) 0.0, Basophils # (Auto) 0.1, Sodium Level 139, Potassium Level 3.6, Chloride Level 104, Carbon Dioxide Level 22, Anion Gap 13, Blood Urea Nitrogen 18, Creatinine 1.11, Estimat Glomerular Filtration Rate 48, BUN/ Creatinine Ratio 16, Glucose Level 104, Calcium Level 10.8H, Corrected Calcium 11.2H, Total Bilirubin 0.7, Aspartate Amino Transf (AST/SGOT) 41H, Alanine Aminotransferase (ALT/SGPT) 18, Alkaline Phosphatase 94, Total Protein 6.7, Albumin 3.5 Microbiology 05/22/18 MRSA Screen - Final, Complete Assessment/Plan Assessment/Plan Assess & Plan/Chief Complaint right femur fracture Acute blood loss anemia, post-surgical Anemia is slowly improving Patient is progressing well from an orthopaedic stance Patient to follow up with Dr. Youngblood, once discharged Clinical Quality Measures DVT/VTE Risk/Contraindication: Risk Factor Score Per Nursin RFS Level Per Nursing on Admit: 4+=Very High Other: see interventions HAZEL ESPINO May 30, 2018 12:34
--- NOTE | 2018-05-30 13:33 | Physical Therapy Daily Note ---
PT Daily Note-Current Subjective Pt. in bed. Agrees to Rx. Feels she is slowly making progress. States she will likely go to a nursing facility for skilled care at [place] Pain Location: No Pain Reported Mental Status Patient Orientation: Normal For Age Attachments: Oxygen Transfers Therapy Code Descriptions/Definitions Functional [place] Measure: 0=Not Assessed/NA 4=Minimal Assistance 1=Total Assistance 5=Supervision or Setup 2=Maximal Assistance 6=Modified [place] 3=Moderate Assistance 7=Complete [place] Therapy Quality Codes: 6 Independent with activity with or without an assistive device 5 Patient requires set up or clean up by helper. Patient completes activity by themselves 4 Supervision or touching assist (CGA). [place] provide cues , steadying assist 3 The helper provides less than half the effort to complete the activity 2 The helper provides more than half the effort to complete the activity 1 Dependent. The helper does all the effort to complete an activity 7 Patient refused to complete or attempt activity 9 The patient did not perform the activity before the current illness or injury 88 Not attempted due to Medical conditions or safety concerns Transfers (B, C, W/C) (FIM): 4 Scootin Rollin Supine to/from Sit: 5 Sit to/from Stand: 4 Bed to/from Chair: 4 instructed in rolling, using rail and sup to side to sit TRF which she did SBA with instruction, sit to stand CGA Weight Bearing Right Lower Extremity: Right Partial Weight Bearing Left Lower Extremity: Left Full Weight Bearing Patient unable to maintain PWB right LE due to weakness/pain/obesity Gait Training Gait (FIM): 1 Distance (FIM): 1=up to 49 ft (10ft x 2) Gait Level of Assist: 4 Gait Persons Needed: 1 Gait Assistive Device: FWW pt. adequately maintained PWBing RLE with heavy weight bearing on UEs onto FWW, slow and careful each step Exercises Supine Ex: Ankle pumps (left), Quad Set, Rolling, Glut sets, Heel Slides ( assist right), Short Arc Quads (bilat), Scooting, Straight leg raise (assist right), Hip abd/add (assist right) Supine Reps: 12 Seated Therapy Exercises: Sit to stand, Long arc quads Seated Reps: 10 Treatments up in recliner with [place] and phone at hand Assessment Current Status: Good Progress slow progress PT Short Term Goals Short Term Goals Time Frame: Jun 03, 2018 Transfers (B,C,W/C) (FIM): 4 Gait (FIM): 1 Gait Distance Comment: 10' Gait Level of Assist: 4 Gait Assistive Device: FWW PT Fpc Goals Manager Portable Goals PT Manager Portable Goals Time Frame: Jun 01, 2018 Transfers (B,C,W/C) (FIM): 4 Gait (FIM): 1 Gait distance (FIM): 1=up to 49 ft Distance: 5' Gait Level of Assist: 3 PT Plan Treatment/Plan Treatment Plan: Continue Plan of Care Treatment Plan: Bed Mobility, Concurrent Therapy, Education, Functional Activity Demarcus, Functional Strength, Gait, Safety, Therapeutic Exercise, Transfers Treatment Duration: Jun 03, 2018 Frequency: 11 times per week Estimated Hrs Per Day: .25 hour per day (15-30') Patient and/or Family Agrees t: Yes Safety Risks/Education Patient Education: Gait Training, Transfer Techniques, Correct Positioning, Disease Process, Safety Issues Teaching Recipient: Patient Teaching Methods: Demonstration, Discussion Response to Teaching: Verbalize Understanding, Return Demonstration, Reinforcement Needed Time/GCodes Time In: 1307 Time Out: 1330 Total Billed Treatment Time: 23 Total Billed Treatment 1,FA10m,EX13m G Codes Necessary: ALFONSO Lorenz GREASE WORKER May 30, 2018 13:33
--- NOTE | 2018-05-30 14:18 | Occupational Ther Daily Note ---
OT Current Status-Daily Note Subjective Pt alert, lying in bed. Pt agrees to therapy. C/o pain, rated 5/10, nrsg gave meds. Mental Status/Objective Patient Orientation: Person, Place, Time, Situation Therapy Code Descriptions/Definitions Functional [place] Measure: 0=Not Assessed/NA 4=Minimal Assistance 1=Total Assistance 5=Supervision or Setup 2=Maximal Assistance 6=Modified [place] 3=Moderate Assistance 7=Complete [place] Attachments: IV, Oxygen (2L) ADL-Treatment Nrsg given pt shower this date. Assist for bed mobility. Pt stated that she was unable to reach lower legs, nrsg completed. Discussed/educated pt on lower body AE for dressing. Other Treatment UE exercises completed to increase strength and activity tolerance. Skilled care for correct technique with exercises with resistance, 2 sets 10 reps with recovery breaks. Pt SOA during exercises. After therapy, pt lying in bed with call light/phone in reach. All needs met in room. Education OT Patient Education: Exercise program, Use of adapted equipment Teaching Recipient: Patient Teaching Methods: Demonstration, Discussion Response to Teaching: Verbalize Understanding, Reinforcement Needed OT Short Term Goals Short Term Goals Transfers (B,C,W/C) (FIM): 4 1=Demonstrate adherence to instructed precautions during ADL tasks. 2=Patient will verbalize/demonstrate understanding of assistive devices/ modifications for ADL. 3=Patient will improve strength/tolerance for activity to enable patient to perform ADL's. OT Sap Pi Architect Goals Sap Pi Architect Goals Time Frame: Jun 10, 2018 Grooming(FIM): 6 Upper Body Dressing(FIM): 5 Lower Body Dressing(FIM): 4 Toileting(FIM): 5 Toilet/Commode Transfer(FIM): 4 Additional Goals: 1-Demonstrate ADL Tasks, 2-Verbalize Understanding, 3- ImproveStrength/Demarcus 1=Demonstrate adherence to instructed precautions during ADL tasks. 2=Patient will verbalize/demonstrate understanding of assistive devices/ modifications for ADL. 3=Patient will improve strength/tolerance for activity to enable patient to perform ADL's. OT Education/Plan Problem List/Assessment Pt to benefit from skilled OT intervention for ADL training, transfers, strengthening, and home safety education to increase independence and allow safe discharge plan. Discharge Recommendations Plan/Recommendations: Continue POC Treatment Plan/Plan of Care Patient would benefit from OT for education, treatment and training to promote independence in ADL's, mobility, safety and/or upper extremity function for ADL' s. Plan of Care: ADL Retraining, Functional Mobility, UE Funct Exercise/Act, UE Neuromus Re-Ed/Coord Treatment Duration: Jun 06, 2018 Frequency: 5 times per week Estimated Hrs Per Day: .25 hour per day Agreement: Yes Rehab Potential: Fair Time/GCodes Start Time: 14:40 Stop Time: 15:00 Total Time Billed (hr/min): 20 Billed Treatment Time 1 visit-FA 1 (20 min) KARIS ANN May 30, 2018 14:17
[2018-05-30 15:30] VITALS: BP 127/73
[2018-05-30] MEDS: ALPRAZolam 0.25 MG (XANAX) TAB PO PRN (21:02)
[2018-05-31] VITALS: BP 149/68
[2018-05-31] MEDS: oxyCODONE/APAP 5/325MG (PERCOCET 5) TABLET PO PRN ×4 (02:26→20:25)
[2018-05-31] MEDS: RT-ALBUTEROL SULF 2.5 MG/3 ML PRE-MIX VIAL INH SCH ×4 (02:33→19:34)
[2018-05-31 06:26] LABS: CREATININE SERUM 1.05 MG/DL (0.60-1.30); POTASSIUM 3.8 MMOL/L (3.6-5.0)
[2018-05-31] MEDS: LEVOTHYROXINE 50 MCG (LEVOTHROID) TAB PO SCH (06:27)
--- NOTE | 2018-05-31 07:09 | Pulmonary Progress Note ---
Subjective Time Seen by a Provider: 07:09 Subjective/Events-last exam No complications noted. Sepsis Event Evaluation Height, Weight, BMI Height: 5'4.00" Weight: 213lbs. 6.2oz. 96.871285ih; 36.8 BMI Method:Stated Exam Exam Vital Signs Date Time Temp Pulse Resp B/P (MAP) Pulse Ox O2 Delivery O2 Flow Rate FiO2 05/31/18 02:33 93 Nasal Cannula 3.00 05/31/18 01:00 63 05/31/18 00:00 97.8 65 14 149/68 (95) 95 Nasal Cannula 3.00 05/30/18 20:00 97 Nasal Cannula 3.00 05/30/18 19:03 90 Nasal Cannula 3.00 05/30/18 19:00 70 05/30/18 15:36 91 Nasal Cannula 3.00 05/30/18 15:30 98.4 63 18 127/73 (91) 92 Nasal Cannula 3.00 05/30/18 13:31 75 05/30/18 08:50 96 Nasal Cannula 3.00 05/30/18 08:00 97.5 72 18 186/74 (111) 96 Nasal Cannula 3.00 I & O 05/31/18 07:00 Intake Total 1580 ml Output Total 1075 ml Balance 505 ml Height & Weight Height: 5'4.00" Weight: 213lbs. 6.2oz. 96.052468wg; 36.8 BMI Method:Stated General Appearance: No Apparent Distress, WD/WN, Chronically ill, Other (pale) HEENT: PERRL/EOMI, Normal ENT Inspection Neck: Normal Inspection, Non Tender Respiratory: Chest Non Tender, Lungs Clear, Normal Breath Sounds, No Accessory Muscle Use, No Respiratory Distress Cardiovascular: Regular Rate, Rhythm, No Edema, No Gallop, No JVD, No Murmur, Normal Peripheral Pulses Capillary Refill: Less Than 3 Seconds Peripheral Pulses: 2+ Dorsalis Pedis (R), 2+ Left Dors-Pedis (L), 2+ Radial Pulses (R), 2+ Radial Pulses (L) Gastrointestinal: non tender, soft Extremity: Normal Inspection; No Normal Range of Motion Neurologic/Psychiatric: Alert, Oriented x3, No Motor/Sensory Deficits, Normal Mood/Affect Skin: Normal Color, Warm/Dry Lymphatic: No Adenopathy Results Lab Laboratory Tests 05/30/18 05:45 05/31/18 05:20 Assessment/Plan Assessment/Plan S/p fall with Femur fracture s/p surgical repair Unstable angina with St depression in anterolateral leads -Cardiology following -SL PRN severe anemia - not currently hypotensive -Hematology following -Mu-ism and refusing transfusion -Aranesp, folate, and iron supplementation Atelectasis with Hypoxia -Monitor -IS -Increase activity CKD II CAD with hx of CABG PAD HTN UGO JEAN DO May 31, 2018 07:09
[2018-05-31 08:00] VITALS: BP 152/76
--- NOTE | 2018-05-31 08:18 | Progress Note (SOAP) ---
Subjective Time Seen by a Provider: 08:16 Subjective/Events-last exam Patient have restless leg syndrome. Patient feeling better. Patient getting PT and OT. Objective Exam Vital Signs Date Time Temp Pulse Resp B/P (MAP) Pulse Ox O2 Delivery O2 Flow Rate FiO2 05/31/18 02:33 93 Nasal Cannula 3.00 05/31/18 01:00 63 05/31/18 00:00 97.8 65 14 149/68 (95) 95 Nasal Cannula 3.00 05/30/18 20:00 97 Nasal Cannula 3.00 05/30/18 19:03 90 Nasal Cannula 3.00 05/30/18 19:00 70 05/30/18 15:36 91 Nasal Cannula 3.00 05/30/18 15:30 98.4 63 18 127/73 (91) 92 Nasal Cannula 3.00 05/30/18 13:31 75 05/30/18 08:50 96 Nasal Cannula 3.00 I & O 05/31/18 07:00 Intake Total 1580 ml Output Total 1075 ml Balance 505 ml Capillary Refill : Less Than 3 SecondsLess Than 3 Seconds General Appearance: No Apparent Distress, WD/WN HEENT: Normal ENT Inspection Neck: Full Range of Motion Results Lab Laboratory Tests 05/31/18 05:20 Laboratory Tests 05/31/18 05:20: Sodium Level 141, Potassium Level 3.8, Chloride Level 107, Carbon Dioxide Level 23, Anion Gap 11, Blood Urea Nitrogen 18, Creatinine 1.05, Estimat Glomerular Filtration Rate 51, BUN/Creatinine Ratio 17, Glucose Level 101, Calcium Level 10.0 Microbiology 05/22/18 MRSA Screen - Final, Complete Assessment/Plan Assessment/Plan Assess & Plan/Chief Complaint Fractured fibula and femur. Anemia. Patient Jehovah witness. CAD. Hypertension. Anemia. Hyperlipidemia. . 05/25/18. Fractured fibula and femur. Anemia worse yesterday. Patient Jehovah witness. Patient refuses blood test again. CAD. Hypertension. Hyperlipidemia. Heparin stopped. . 05/26/18. Fractured fibula and femur. Anemia stabilized. Hemoglobin 5.7 hematocrit 19. No chest pain today. Hypertension. Hyperlipidemia. . 05/27/18. Fractured fibula and femur. Anemia improving slightly. No chest pain today. Patient feeling better. Hypertension. Hyperlipidemia.. . Lungs clear 12/09. Back his fibula and femur. Anemia improving. Chest pain history. Hypertension. Hyperlipidemia. Patient a work in progress. . 05/31/18. Fractured fibula and femur. Anemia. Anglican. CAD. Hypertension. Hyperlipidemia Clinical Quality Measures DVT/VTE Risk/Contraindication: Risk Factor Score Per Nursin RFS Level Per Nursing on Admit: 4+=Very High Other: see interventions SHARATH COLON DO May 31, 2018 08:18
[2018-05-31 08:28] LABS: MEAN PLATELET VOLUME 10.2 FL (7.4-10.4); RED BLOOD COUNT 2.39 10^6/uL (4.35-5.85); RED CELL DISTRIBUTION WIDTH 23.3 % (10.0-14.5); WHITE BLOOD COUNT 5.3 10^3/uL (4.3-11.0)
--- NOTE | 2018-05-31 08:53 | Occupational Ther Daily Note ---
OT Current Status-Daily Note Subjective On asking patient, How are you doing [place] this morning, patient says " I am doing well " Patient was sitting in bed and was very happy . Pain Numeric Pain Scale: 5-Moderate Pain Location: Right, Lower Location Body Site: Foot Pain Description: Squeezing Appearance Patient was sitting upright in bed , was happy in mood. Mental Status/Objective Patient Orientation: Person, Place, Time, Eyes Open, Normal For Age Therapy Code Descriptions/Definitions Functional Levels Measure: 0=Not Assessed/NA 4=Minimal Assistance 1=Total Assistance 5=Supervision or Setup 2=Maximal Assistance 6=Modified Levels 3=Moderate Assistance 7=Complete Levels Comprehension(FIM): 7 Expression(FIM): 7 Social Interaction(FIM): 7 Problem Solving(FIM): 6 Memory(FIM): 6 Attachments: IV, Oxygen Patient O2 dependent at this time only in hospital. SpO2 93% , Patient fatigue soon, Needs frequent rest periods, Endurance fair + ADL-Treatment Eating (FIM): 7 Grooming (FIM): 5 Bathing (FIM): 3 Upper Body (FIM): 4 Lower Body Dressing (FIM): 2 Toileting (FIM): 3 Transfers (B, C, W/C) (FIM): 3 Other Treatment Patient performed strengthening ex x10 reps with red theraband with UE in stretching out of both arms, elbow & shoulder flexion/extention, sqeezing of pillow with both hands , supine to sit in bed with min A, washing face, hands, arms with warm & soaked wash rag, combing hair with setup. Provided Red theraband & written exercise program to perform 3x/day in her room . Education OT Patient Education: Correct positioning, Exercise program, Modified ADL techniques, Purpose of tx/functional activities, Reviewed precautions, Safety issues Teaching Recipient: Patient Teaching Methods: Demonstration, Handout, Discussion Response to Teaching: Return Demonstration Patient very cooperative & participated in all bed activities. OT Short Term Goals Short Term Goals Transfers (B,C,W/C) (FIM): 4 1=Demonstrate adherence to instructed precautions during ADL tasks. 2=Patient will verbalize/demonstrate understanding of assistive devices/ modifications for ADL. 3=Patient will improve strength/tolerance for activity to enable patient to perform ADL's. OT Superintendent Sanitation Goals Shelter Goals Time Frame: Jun 10, 2018 Grooming(FIM): 6 Upper Body Dressing(FIM): 5 Lower Body Dressing(FIM): 4 Toileting(FIM): 5 Toilet/Commode Transfer(FIM): 4 Additional Goals: 1-Demonstrate ADL Tasks, 2-Verbalize Understanding, 3- ImproveStrength/[place] 1=Demonstrate adherence to instructed precautions during ADL tasks. 2=Patient will verbalize/demonstrate understanding of assistive devices/ modifications for ADL. 3=Patient will improve strength/tolerance for activity to enable patient to perform ADL's. OT Education/Plan Problem List/Assessment Assessment: Decreased Activ Tolerance, Decreased Safety Aware, Decreased UE Strength, Dependent Transfers, Impaired Bed Mobility, Impaired Funct Balance, Impaired Self-Care Skills Pt to benefit from skilled OT intervention for ADL training, transfers, strengthening, and home safety education to increase independence and allow safe discharge plan. Discharge Recommendations Plan/Recommendations: Continue POC Therapy D/C Recommendations: Home w/ Family Support, Home Independently, Occupational Therapy Home Care Equpiment Recommendations-D/C: Extended Bath Bench, Rails on Tub/Shower, Toilet Riser with Rails, Extended Shower Sprayer, Sponge Buffer, Sock Aide, Long Shoe [place] Comment Pt very cooperative , fatigue soon & requires frequent rest periods. Barriers to Progress obesity, fatigue soon, O2 dependent here in hospital, Fracture Rt ankle , partial weight bearing , Target Placement Patient planning going home. Patient/Family Goals To return home Independently in all self care tasks & mobility with safety precautions. Treatment Plan/Plan of Care Treatment,Training & Education: Yes Patient would benefit from OT for education, treatment and training to promote independence in ADL's, mobility, safety and/or upper extremity function for ADL' s. Plan of Care: ADL Retraining, Functional Mobility, UE Funct Exercise/Act Treatment Duration: Jun 06, 2018 Frequency: 5 times per week Estimated Hrs Per Day: .25 hour per day Agreement: Yes Rehab Potential: Good Time/GCodes Start Time: 08:10 (35 minutes) Stop Time: 08:45 Total Time Billed (hr/min): 35 (35 minutes) Billed Treatment Time 1 visit ADL1, 20 min, Ex 1, 15 min BRYANT SANTOS OT May 31, 2018 08:53
[2018-05-31] MEDS: amLODIPine 10 MG (NORVASC) TAB PO SCH (09:01)
[2018-05-31] MEDS: meTOprolol SUCCINATE 100 MG (TOPROL XL) TAB PO SCH (09:01)
[2018-05-31] MEDS: CYANOCOBALAMIN 1,000 MCG (VITAMIN B-12) TABLET PO SCH (09:01)
[2018-05-31] MEDS: POLYETHYLENE GLYCOL 17 GM (MIRALAX) PACK PO SCH ×2 (09:01→20:25)
[2018-05-31] MEDS: FOLIC ACID 1 MG TAB PO SCH (09:01)
[2018-05-31] MEDS: ASPIRIN E.C. 81 MG (ECOTRIN) TAB PO SCH (09:01)
[2018-05-31] MEDS: IRON SUCROSE 200 MG/10 ML (VENOFER) VIAL IV SCH (09:01)
[2018-05-31] MEDS: PANTOPRAZOLE 40 MG (PROTONIX) TAB PO SCH (09:01)
[2018-05-31] MEDS: FUROSEMIDE 40 MG (LASIX) TAB PO SCH (09:01)
--- NOTE | 2018-05-31 09:06 | NUR ---
0800 DR COLON ON FLOOR PER INDIVIDUALIZED EDUCATION PLAN AIDE RN PT HAD SOME RESTLESS LEGS ALL NIGHT, DR COLON NOTIFIED AND NEW ORDERS RECEIVED. SEE ORDER HX
--- NOTE | 2018-05-31 09:17 | Physical Therapy Daily Note ---
PT Daily Note-Current Subjective Patient in recliner pre tx, agrees to PT, has 4/10 pain in right knee, nurse in the room to hear her pain level. Appearance Patient in recliner post tx with nurse call, phone, tray, nurse in the room. Mental Status Patient Orientation: Person, Place, Situation Attachments: Oxygen Transfers Therapy Code Descriptions/Definitions Functional [place] Measure: 0=Not Assessed/NA 4=Minimal Assistance 1=Total Assistance 5=Supervision or Setup 2=Maximal Assistance 6=Modified [place] 3=Moderate Assistance 7=Complete [place] Therapy Quality Codes: 6 Independent with activity with or without an assistive device 5 Patient requires set up or clean up by helper. Patient completes activity by themselves 4 Supervision or touching assist (CGA). [place] provide cues , steadying assist 3 The helper provides less than half the effort to complete the activity 2 The helper provides more than half the effort to complete the activity 1 Dependent. The helper does all the effort to complete an activity 7 Patient refused to complete or attempt activity 9 The patient did not perform the activity before the current illness or injury 88 Not attempted due to Medical conditions or safety concerns Transfers (B, C, W/C) (FIM): 4 Sit to/from Stand: 4 Bed to/from Chair: 4 cues for hand placement and safety Weight Bearing Right Lower Extremity: Right Partial Weight Bearing Left Lower Extremity: Left Full Weight Bearing Patient unable to maintain PWB right LE due to weakness/pain/obesity Gait Training Gait (FIM): 1 Distance: 10' Gait Level of Assist: 4 Gait Persons Needed: 1 Gait Assistive Device: FWW Patient ambulated 5' forward and then 5' back. Gait was antalgic and she stated that she didn't think she could walk as far this morning as she did yesterday afternoon. Patient moaned with pain and fatigue during ambulation. Exercises Seated Therapy Exercises: Ankle pumps (left side only), Long arc quads, Hip flexion Seated Reps: 15 Treatments transfers, ambulation, functional strengthening Assessment Current Status: Fair Progress Decreased gait distance but overall improvement in mobility. Patient seemed to maintain her weight bearing status. PT Short Term Goals Short Term Goals Time Frame: Jun 03, 2018 Transfers (B,C,W/C) (FIM): 4 Gait (FIM): 1 Gait Distance Comment: 10' Gait Level of Assist: 4 Gait Assistive Device: FWW PT Ditto Machine Operator Goals Assisted Goals PT Assisted Goals Time Frame: Jun 01, 2018 Transfers (B,C,W/C) (FIM): 4 Gait (FIM): 1 Gait distance (FIM): 1=up to 49 ft Distance: 5' Gait Level of Assist: 3 PT Plan Problem List Problem List: Activity Tolerance, Functional Strength, Safety, Balance, Gait, Transfer, Bed Mobility, ROM Treatment/Plan Treatment Plan: Continue Plan of Care Treatment Plan: Bed Mobility, Concurrent Therapy, Education, Functional Activity [place]arcus, Functional Strength, Gait, Safety, Therapeutic Exercise, Transfers Treatment Duration: Jun 03, 2018 Frequency: 11 times per week Estimated Hrs Per Day: .25 hour per day (15-30') Patient and/or Family Agrees t: Yes Safety Risks/Education Patient Education: Gait Training, Transfer Techniques, Correct Positioning, Safety Issues Teaching Recipient: Patient Teaching Methods: Demonstration, Discussion Response to Teaching: Reinforcement Needed Time/GCodes Time In: 0855 Time Out: 0908 Total Billed Treatment Time: 13 Total Billed Treatment 1 visit GT 13' ALECIA HAMILTON PT May 31, 2018 09:17
--- NOTE | 2018-05-31 09:21 | Progress Note-Cardiology ---
Cardiology SOAP Progress Note Subjective: Sitting up in a chair at the bedside. SOB after moving from the commode to the chair. No c/o CP. No c/o palpitations, syncope or near syncope. C/O weakness. Objective: I&O/Vital Signs 05/31/18 05/31/18 05/31/18 05/31/18 00:00 01:00 02:33 07:00 Temp 97.8 Pulse 65 63 66 Resp 14 B/P (MAP) 149/68 (95) Pulse Ox 95 93 O2 Delivery Nasal Cannula Nasal Cannula O2 Flow Rate 3.00 3.00 05/31/18 05/31/18 05/31/18 08:00 08:28 09:31 Temp 98.7 Pulse 72 Resp 18 B/P (MAP) 152/76 (101) Pulse Ox 96 97 96 O2 Delivery Nasal Cannula Nasal Cannula Nasal Cannula O2 Flow Rate 3.00 3.00 3.00 05/31/18 00:00 Intake Total 1180 ml Output Total 775 ml Balance 405 ml Weight (Pounds): 213 Weight (Ounces): 6.2 Weight (Calculated Kilograms): 96.435168 Constitutional: AAO x 3 Respiratory: No accessory muscle use, No respiratory distress; chest expansion is symmetric, chest is bilaterally symmetric, lungs clear to auscultation Cardiovascular: regular rate-rhythm; No JVD Gastrointestional: No tender; soft, round, audible bowel sounds Extremities: other (mild to mod swelling of right leg) Neurologic/Psychiatric: grossly intact Skin: warm/dry, pallor; No ulcerations; other (Drsg to right hip D&I; Orthopedic boot in place to right LE) Results/Procedures: Labs Laboratory Tests 05/31/18 05:20: White Blood Count 5.3, Red Blood Count 2.39L, Hemoglobin 7.0L, Hematocrit 24L, Mean Corpuscular Volume 99, Mean Corpuscular Hemoglobin 29, Mean Corpuscular Hemoglobin Concent 30L, Red Cell Distribution Width 23.3H, Platelet Count 210, Mean Platelet Volume 10.2, Sodium Level 141, Potassium Level 3.8, Chloride Level 107, Carbon Dioxide Level 23, Anion Gap 11, Blood Urea Nitrogen 18, Creatinine 1.05, Estimat Glomerular Filtration Rate 51, BUN/Creatinine Ratio 17 , Glucose Level 101, Calcium Level 10.0 Microbiology 12/30/18 MRSA Screen - Final, Complete A/P: Assessment: Chest pain, unstable angina, likely due to anemia exacerbating underlying coronary insufficiency. Angina currently stable Status post fall and femur fracture, status post surgical repair Anemia, severe, significant drop in H&H, patient is [place] and refusing transfusion, appreciate Dr. Pisano's recommendation HTN - not well controlled Coronary artery disease, history of bypass surgery using JALLHO to LAD in January 2005, had a stress test in October 2016 showing no ischemia or infarction with ejection fraction 84 percent, echocardiogram in January 2014 reporting as normal LV function with mild MR Hyperlipidemia, intolerant to statin with muscle ache and generalized weakness History of intermittent liver enzyme elevation of undetermined etiology. followed and managed by primary care physician H/o hypoxemia, likely related to hypoventilation syndrome and/or pulmonary disease History of peripheral arterial disease and a small abdominal aortic aneurysm, being followed at Dr Patterson's office Carotid arterial disease being followed at Dr Patterson's office Rheumatoid arthritis. History of laparoscopic cholecystectomy. Hypothyroidism being treated with thyroid replacement therapy. Degenerative joint disease. Elevated body mass index of 36 Bilateral leg swelling likely related to venous insufficiency and/or amlodipine therapy, stable and unchanged. 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 Intolerant to niacin therapy CKD stage 2, continue to monitor renal function Plan: Sitting up in a chair at the bedside Anemia - management per medical/hematology services - refuses transfusion d/t "catholic choice" per pt HTN improved Monitor lab closely No further c/o CP Physician Assessment Physician Assessment Feels weak and tired No focal weakness No cp or palp or syncope or shortness of breath at rest Cor: reg Lungs: good bilat air entry Ext: swelling around R knee A&R * As documented in our note above that I updated * Monitor labs * I answered her CV-related questions GOLDIE VILLAFANA MAINTENANCE PAINTER APPRENTICE May 31, 2018 09:21 ARMAND MELCHOR MD FACP FAC CCDS May 31, 2018 11:40
--- NOTE | 2018-05-31 14:28 | Physical Therapy Daily Note ---
PT Daily Note-Current Subjective Patient reports she is going to the [place] tomorrow for continued care. Agrees to PT. Pain Numeric Pain Scale: 5-Moderate Pain Location: Right Location Body Site: Thigh Pain Description: Acute Mental Status Patient Orientation: Normal For Age Attachments: Oxygen Transfers Therapy Code Descriptions/Definitions Functional [place] Measure: 0=Not Assessed/NA 4=Minimal Assistance 1=Total Assistance 5=Supervision or Setup 2=Maximal Assistance 6=Modified [place] 3=Moderate Assistance 7=Complete [place] Therapy Quality Codes: 6 Independent with activity with or without an assistive device 5 Patient requires set up or clean up by helper. Patient completes activity by themselves 4 Supervision or touching assist (CGA). [place] provide cues , steadying assist 3 The helper provides less than half the effort to complete the activity 2 The helper provides more than half the effort to complete the activity 1 Dependent. The helper does all the effort to complete an activity 7 Patient refused to complete or attempt activity 9 The patient did not perform the activity before the current illness or injury 88 Not attempted due to Medical conditions or safety concerns Transfers (B, C, W/C) (FIM): 3 Scootin Sit to/from Stand: 3 Weight Bearing Right Lower Extremity: Right Partial Weight Bearing Left Lower Extremity: Left Full Weight Bearing Patient unable to maintain PWB right LE due to weakness/pain/obesity Gait Training Gait (FIM): 1 Distance (FIM): 1=up to 49 ft Distance: 5' Gait Level of Assist: 3 Gait Persons Needed: 1 Gait Assistive Device: FWW difficulty maintaining PWB right LE to perform distance Exercises Seated Therapy Exercises: Long arc quads Seated Reps: 15 Assessment Patient tolerates minimal activity due to fatigue. Plan dismissal tomorrow/ this week to [place] for continued care. Patient reports she is in "no hurry" to return to home secondary to not being able to care for self appropriately. PT Short Term Goals Short Term Goals Time Frame: Jun 03, 2018 Transfers (B,C,W/C) (FIM): 4 Gait (FIM): 1 Gait Distance Comment: 10' Gait Level of Assist: 4 Gait Assistive Device: FWW PT Body Piercer Goals Body Piercer Goals PT Body Piercer Goals Time Frame: Jun 01, 2018 Transfers (B,C,W/C) (FIM): 4 Gait (FIM): 1 Gait distance (FIM): 1=up to 49 ft Distance: 5' Gait Level of Assist: 3 PT Plan Treatment/Plan Treatment Plan: Continue Plan of Care Treatment Plan: Bed Mobility, Concurrent Therapy, Education, Functional Activity [place], Functional Strength, Gait, Safety, Therapeutic Exercise, Transfers Treatment Duration: Jun 03, 2018 Frequency: 11 times per week Estimated Hrs Per Day: .25 hour per day (15-30') Patient and/or Family Agrees t: Yes Time/GCodes Time In: 1315 Time Out: 1332 Total Billed Treatment Time: 17 Total Billed Treatment 1 visit FA 17 min RASHID FLOWER PT May 31, 2018 14:28
[2018-05-31 16:00] VITALS: BP 139/71
[2018-05-31] MEDS: rOPINIRole 0.25 MG (REQUIP) TAB PO SCH (20:25)
[2018-06-01] VITALS: BP 149/71
[2018-06-01] MEDS: RT-ALBUTEROL SULF 2.5 MG/3 ML PRE-MIX VIAL INH SCH ×4 (02:05→19:41)
[2018-06-01] MEDS: LEVOTHYROXINE 50 MCG (LEVOTHROID) TAB PO SCH (05:43)
[2018-06-01 06:47] LABS: HEMOGLOBIN 7.6 G/DL (11.5-16.0); MEAN PLATELET VOLUME 10.4 FL (7.4-10.4); RED BLOOD COUNT 2.59 10^6/uL (4.35-5.85); WHITE BLOOD COUNT 5.4 10^3/uL (4.3-11.0)
[2018-06-01 08:00] VITALS: BP 158/72
[2018-06-01] MEDS: FUROSEMIDE 40 MG (LASIX) TAB PO SCH (08:13)
[2018-06-01] MEDS: FOLIC ACID 1 MG TAB PO SCH (08:13)
[2018-06-01] MEDS: ASPIRIN E.C. 81 MG (ECOTRIN) TAB PO SCH (08:13)
[2018-06-01] MEDS: CYANOCOBALAMIN 1,000 MCG (VITAMIN B-12) TABLET PO SCH (08:13)
[2018-06-01] MEDS: amLODIPine 10 MG (NORVASC) TAB PO SCH (08:13)
[2018-06-01] MEDS: PANTOPRAZOLE 40 MG (PROTONIX) TAB PO SCH (08:13)
[2018-06-01] MEDS: meTOprolol SUCCINATE 100 MG (TOPROL XL) TAB PO SCH (08:13)
[2018-06-01] MEDS: POLYETHYLENE GLYCOL 17 GM (MIRALAX) PACK PO SCH ×2 (08:14→21:01)
--- NOTE | 2018-06-01 08:15 | Progress Note (SOAP) ---
Subjective Time Seen by a Provider: 08:13 Subjective/Events-last exam Patient just feels tired. Urine strong odor. UA ordered. Patient continues to improve. Objective Exam Vital Signs Date Time Temp Pulse Resp B/P (MAP) Pulse Ox O2 Delivery O2 Flow Rate FiO2 06/01/18 07:06 96 Nasal Cannula 2.00 06/01/18 02:05 92 Nasal Cannula 2.00 06/01/18 01:00 71 06/01/18 00:00 98.6 69 16 149/71 (97) 95 Room Air 05/31/18 20:00 Nasal Cannula 3.00 05/31/18 19:34 94 Nasal Cannula 3.00 05/31/18 19:00 68 05/31/18 16:00 98.8 70 20 139/71 (93) 96 Nasal Cannula 3.00 05/31/18 14:44 93 Nasal Cannula 3.00 05/31/18 13:00 68 05/31/18 09:31 96 Nasal Cannula 3.00 05/31/18 08:28 97 Nasal Cannula 3.00 I & O 06/01/18 07:00 Intake Total 1580 ml Output Total 750 ml Balance 830 ml Capillary Refill : Less Than 3 SecondsLess Than 3 Seconds General Appearance: No Apparent Distress, WD/WN HEENT: Normal ENT Inspection Neck: Full Range of Motion Respiratory: No Accessory Muscle Use, No Respiratory Distress Cardiovascular: Regular Rate, Rhythm, No Murmur Results Lab Laboratory Tests 06/01/18 05:55 Laboratory Tests 06/01/18 05:55: White Blood Count 5.4, Red Blood Count 2.59L, Hemoglobin 7.6L, Hematocrit 26L, Mean Corpuscular Volume 100H, Mean Corpuscular Hemoglobin 29, Mean Corpuscular Hemoglobin Concent 30L, Red Cell Distribution Width 24.0H, Platelet Count 220, Mean Platelet Volume 10.4 Microbiology 05/22/18 MRSA Screen - Final, Complete Assessment/Plan Assessment/Plan Assess & Plan/Chief Complaint Fractured fibula and femur. Anemia. Patient Jehovah witness. CAD. Hypertension. Anemia. Hyperlipidemia. . 05/25/18. Fractured fibula and femur. Anemia worse yesterday. Patient Jehovah witness. Patient refuses blood test again. CAD. Hypertension. Hyperlipidemia. Heparin stopped. . 05/26/18. Fractured fibula and femur. Anemia stabilized. Hemoglobin 5.7 hematocrit 19. No chest pain today. Hypertension. Hyperlipidemia. . 05/27/18. Fractured fibula and femur. Anemia improving slightly. No chest pain today. Patient feeling better. Hypertension. Hyperlipidemia.. . Lungs clear 12/09. Back his fibula and femur. Anemia improving. Chest pain history. Hypertension. Hyperlipidemia. Patient a work in progress. . 05/31/18. Fractured fibula and femur. Anemia. Catholic. CAD. Hypertension. Hyperlipidemia. . 06/01/18. Fractured fibula and femur. Anemia improving 7.6 today. Patient Jehovah witness. CAD. Hypertension. Hyperlipidemia. Clinical Quality Measures DVT/VTE Risk/Contraindication: Risk Factor Score Per Nursin RFS Level Per Nursing on Admit: 4+=Very High Other: see interventions SHARATH COLON DO Jun 01, 2018 08:15
--- NOTE | 2018-06-01 09:02 | Occupational Ther Daily Note ---
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 Patent just had finished her breakfast ." Pain Numeric Pain Scale: 4 Location: Right, Lower Location Body Site: Ankle Pain Description: Acute Appearance Patient was sitting in bedside chair for breakfast & were little uncomfortable due to pain in Rt ankle & Knee. Mental Status/Objective Patient Orientation: Person, Place, Time, Normal For Age Therapy Code Descriptions/Definitions Functional [place] Measure: 0=Not Assessed/NA 4=Minimal Assistance 1=Total Assistance 5=Supervision or Setup 2=Maximal Assistance 6=Modified [place] 3=Moderate Assistance 7=Complete [place] Attachments: Oxygen ADL-Treatment Eating (FIM): 6 (Independent in self feeding with setup.) Grooming (FIM): 5 (Independent in washing face ,forearm, upper arm, neck front & back on providing warmed soaked washrag with setup . Independent in combing hairs with setup.) Transfers (B, C, W/C) (FIM): 5 (Patient func transfers from chair to stand with w/ walker following all safety precautions Independently under supervision to prevent fall .) Toilet/Commode Transfer (FIM): 5 Other Treatment Patient performed strengthening Ex 15 reps x 1 sets x 1 Lb wts with both elbow & shoulder flexion / extention in all plane of motion and 15 reps with Red Theraband flexion / extention of elbow & shoulders in all plane of motion to improve strength & endurance. Patient O2 dependent in Hospital only. At home she never had O2.. Pt fatigue soon & thus needs frequent rest periods in between activity . Endurance Fair. Education OT Patient Education: Correct positioning, Energy conservation, Exercise program, Reviewed precautions, Safety issues, Transfer techniques Teaching Recipient: Patient Teaching Methods: Demonstration, Discussion Response to Teaching: Verbalize Understanding, Return Demonstration OT Short Term Goals Short Term Goals Transfers (B,C,W/C) (FIM): 4 1=Demonstrate adherence to instructed precautions during ADL tasks. 2=Patient will verbalize/demonstrate understanding of assistive devices/ modifications for ADL. 3=Patient will improve strength/tolerance for activity to enable patient to perform ADL's. OT National Expansion Recruiter Goals National Expansion Recruiter Goals Time Frame: Jun 10, 2018 Grooming(FIM): 6 Upper Body Dressing(FIM): 5 Lower Body Dressing(FIM): 4 Toileting(FIM): 5 Toilet/Commode Transfer(FIM): 4 Additional Goals: 1-Demonstrate ADL Tasks, 2-Verbalize Understanding, 3- ImproveStrength/[place]arc[place] 1=Demonstrate adherence to instructed precautions during ADL tasks. 2=Patient will verbalize/demonstrate understanding of assistive devices/ modifications for ADL. 3=Patient will improve strength/tolerance for activity to enable patient to perform ADL's. OT Education/Plan Problem List/Assessment Assessment: Decreased Activ Tolerance, Decreased Safety Aware, Decreased UE Strength, Dependent Transfers, Impaired Bed Mobility, Impaired Funct Balance, Impaired Self-Care Skills Pt to benefit from skilled OT intervention for ADL training, transfers, strengthening, and home safety education to increase independence and allow safe discharge plan. Discharge Recommendations Plan/Recommendations: Continue POC Therapy D/C Recommendations: Assisted Living, Occupational Therapy Home Care Equpiment Recommendations-D/C: Toilet Riser with Rails, Extended Shower Sprayer , Social Work Nurse, Sock Aide, Dressing Stick, Long Shoe Horn Barriers to Progress Fracture Rt Ankle with POP cast , fair endurance, fatigue soon, Obesity. Patient/Family Goals To get Independent in all self care activities, IADL's,, func transfers & mobility with w/walker & to return home with safety awareness. Treatment Plan/Plan of Care Treatment,Training & Education: Yes Patient would benefit from OT for education, treatment and training to promote independence in ADL's, mobility, safety and/or upper extremity function for ADL' s. Plan of Care: ADL Retraining, Functional Mobility, UE Funct Exercise/Act Treatment Duration: Jun 06, 2018 Frequency: 5 times per week Estimated Hrs Per Day: .25 hour per day Agreement: Yes Rehab Potential: Good Time/GCodes Start Time: 08:15 Stop Time: 08:55 Total Time Billed (hr/min): 40 Billed Treatment Time 1 Visit ADL 1 , Ex 1 Total 40 Min. BRYANT SANTOS OT Jun 01, 2018 09:02
--- NOTE | 2018-06-01 09:08 | NUR ---
DISCHARGE PLANNING: Called and spoke to Dr. Caass this morning to inform him that skilled placement is secured at [facility]. He said he looked for a note but didn't see one. He was told that Pulmonology signed off and he is okay with discharge if Dr. Souza agrees to this. I also spoke to Dr. Casas about his note indicating he was ordering a UA. None entered so this RN got order and entered it.
--- NOTE | 2018-06-01 09:11 | Progress Note-Cardiology ---
Cardiology SOAP Progress Note Subjective: Notes gen weakness and malaise and poor stamina No cp or palp or syncope Tires easily Objective: I&O/Vital Signs 06/01/18 06/01/18 06/01/18 06/01/18 00:00 01:00 02:05 07:06 Temp 98.6 Pulse 69 71 Resp 16 B/P (MAP) 149/71 (97) Pulse Ox 95 92 96 O2 Delivery Room Air Nasal Cannula Nasal Cannula O2 Flow Rate 2.00 2.00 06/01/18 00:00 Intake Total 1180 ml Output Total 750 ml Balance 430 ml Weight (Pounds): 213 Weight (Ounces): 6.2 Weight (Calculated Kilograms): 96.513066 Constitutional: AAO x 3 Respiratory: No accessory muscle use, No respiratory distress; chest expansion is symmetric, chest is bilaterally symmetric, lungs clear to auscultation Cardiovascular: regular rate-rhythm; No JVD Gastrointestional: No tender; soft, round, audible bowel sounds Extremities: other (mild to mod swelling of right leg) Neurologic/Psychiatric: grossly intact Skin: warm/dry, pallor; No ulcerations; other (Drsg to right hip D&I; Orthopedic boot in place to right LE) Results/Procedures: Labs Laboratory Tests 06/01/18 05:55: White Blood Count 5.4, Red Blood Count 2.59L, Hemoglobin 7.6L, Hematocrit 26L, Mean Corpuscular Volume 100H, Mean Corpuscular Hemoglobin 29, Mean Corpuscular Hemoglobin Concent 30L, Red Cell Distribution Width 24.0H, Platelet Count 220, Mean Platelet Volume 10.4 Microbiology 05/22/18 MRSA Screen - Final, Complete Laboratory Tests 05/31/18 05:20 06/01/18 05:55 A/P: Assessment: Chest pain, unstable angina, likely due to anemia exacerbating underlying coronary insufficiency. Angina currently stable Status post fall and femur fracture, status post surgical repair Anemia, severe, significant drop in H&H, patient is Oriental orthodox and refuses transfusion HTN Coronary artery disease, history of bypass surgery using JALLOH to LAD in January 2005, had a stress test in October 2016 showing no ischemia or infarction with ejection fraction 84 percent, echocardiogram in January 2014 reporting as normal LV function with mild MR Hyperlipidemia, intolerant to statin with muscle ache and generalized weakness History of intermittent liver enzyme elevation of undetermined etiology. followed and managed by primary care physician H/o hypoxemia, likely related to hypoventilation syndrome and/or pulmonary disease History of peripheral arterial disease and a small abdominal aortic aneurysm, being followed at Dr Patterson's office Carotid arterial disease being followed at Dr Patterson's office Rheumatoid arthritis. History of laparoscopic cholecystectomy. Hypothyroidism being treated with thyroid replacement therapy. Degenerative joint disease. Elevated body mass index of 37 Bilateral leg swelling likely related to venous insufficiency and/or amlodipine therapy, stable and unchanged. 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 Intolerant to niacin therapy CKD stage 2, continue to monitor renal function Plan: I discussed her CV issues with her Monitor labs ARMAND MELCHOR MD FACP FAC CCDS Jun 01, 2018 09:11
--- NOTE | 2018-06-01 09:31 | Physical Therapy Daily Note ---
PT Daily Note-Current Subjective Pt. up in chair for breakfast. Agrees to Rx Mental Status Patient Orientation: Person, Place, Time, Situation, Normal For Age Attachments: Other-See Comments (boot R foot) Transfers Therapy Code Descriptions/Definitions Functional [place] Measure: 0=Not Assessed/NA 4=Minimal Assistance 1=Total Assistance 5=Supervision or Setup 2=Maximal Assistance 6=Modified [place] 3=Moderate Assistance 7=Complete [place] Therapy Quality Codes: 6 Independent with activity with or without an assistive device 5 Patient requires set up or clean up by helper. Patient completes activity by themselves 4 Supervision or touching assist (CGA). [place] provide cues , steadying assist 3 The helper provides less than half the effort to complete the activity 2 The helper provides more than half the effort to complete the activity 1 Dependent. The helper does all the effort to complete an activity 7 Patient refused to complete or attempt activity 9 The patient did not perform the activity before the current illness or injury 88 Not attempted due to Medical conditions or safety concerns sit to stand x 4 CGA, instruction repeated for use of hands etc, safety Weight Bearing Right Lower Extremity: Right Partial Weight Bearing Left Lower Extremity: Left Full Weight Bearing Patient unable to maintain PWB right LE due to weakness/pain/obesity Gait Training Gait Assistive Device: FWW pt. did perform PWBing right consistently. pt. fatigues putting much weight on UEs but managed 25ft and 5 ft FWW CGA Exercises Seated Therapy Exercises: Ankle pumps, Sit to stand, Long arc quads, Hip flexion, Hip abd/add Seated Reps: 10 Treatments toileted for lg BM mod to max assist clean up Assessment Current Status: Good Progress gaining strength and gait skills slowly PT Short Term Goals Short Term Goals Time Frame: Jun 03, 2018 Transfers (B,C,W/C) (FIM): 4 Gait (FIM): 1 Gait Distance Comment: 10' Gait Level of Assist: 4 Gait Assistive Device: FWW PT Receptionist Nurse Goals Alf Goals PT Receptionist Nurse Goals Time Frame: Jun 01, 2018 Transfers (B,C,W/C) (FIM): 4 Gait (FIM): 1 Gait distance (FIM): 1=up to 49 ft Distance: 5' Gait Level of Assist: 3 PT Plan Treatment/Plan Treatment Plan: Continue Plan of Care Treatment Plan: Bed Mobility, Concurrent Therapy, Education, Functional Activity Demarcus, Functional Strength, Gait, Safety, Therapeutic Exercise, Transfers Treatment Duration: Jun 03, 2018 Frequency: 11 times per week Estimated Hrs Per Day: .25 hour per day (15-30') Patient and/or Family Agrees t: Yes Safety Risks/Education Patient Education: Gait Training, Transfer Techniques, Correct Positioning, Disease Process, Safety Issues Teaching Recipient: Patient Teaching Methods: Demonstration, Discussion Response to Teaching: Verbalize Understanding, Return Demonstration, Reinforcement Needed Time/GCodes Time In: 900 Time Out: 925 Total Billed Treatment Time: 25 Total Billed Treatment 1,FA13m,GT12m G Codes Necessary: ALFONSO Lorenz PIGMENT GRINDER Jun 01, 2018 09:31
[2018-06-01] MEDS: oxyCODONE/APAP 5/325MG (PERCOCET 5) TABLET PO PRN ×3 (09:47→22:36)
--- NOTE | 2018-06-01 13:29 | Physical Therapy Daily Note ---
PT Daily Note-Current Subjective Pts. son brought a shoe for her left foot as this RECREATION ATTENDANT SUPERVISOR had suggested in AM making it slightly more even with her RLE length making PWBing right a little easier. Pt. states she will DC to [facility] tomorrow. Agrees to walking and exercise Pain Location: No Pain Reported Mental Status Patient Orientation: Normal For Age Attachments: Oxygen, Other-See Comments (boot right foot) Transfers Therapy Code Descriptions/Definitions Functional [place] Measure: 0=Not Assessed/NA 4=Minimal Assistance 1=Total Assistance 5=Supervision or Setup 2=Maximal Assistance 6=Modified [place] 3=Moderate Assistance 7=Complete [place] Therapy Quality Codes: 6 Independent with activity with or without an assistive device 5 Patient requires set up or clean up by helper. Patient completes activity by themselves 4 Supervision or touching assist (CGA). [place] provide cues , steadying assist 3 The helper provides less than half the effort to complete the activity 2 The helper provides more than half the effort to complete the activity 1 Dependent. The helper does all the effort to complete an activity 7 Patient refused to complete or attempt activity 9 The patient did not perform the activity before the current illness or injury 88 Not attempted due to Medical conditions or safety concerns on off toilet SBA, in bed CGA RLE. Weight Bearing Right Lower Extremity: Right Partial Weight Bearing Left Lower Extremity: Left Full Weight Bearing Patient unable to maintain PWB right LE due to weakness/pain/obesity Gait Training Gait Assistive Device: FWW 35 ft FWW slow, O2 at 2L CGA, maintaining PWBing RLE well, shoe on left foot improves this a bit Exercises Supine Ex: Ankle pumps, Quad Set, Heel Slides, Scooting, Straight leg raise ( assist right), Hip abd/add Supine Reps: 12 Treatments toileted/voided for specimen on BSC, SBA for stance, needed assist for cleaning Assessment Current Status: Good Progress up on feet ambulates a little further each day PT Short Term Goals Short Term Goals Time Frame: Jun 03, 2018 Transfers (B,C,W/C) (FIM): 4 Gait (FIM): 1 Gait Distance Comment: 10' Gait Level of Assist: 4 Gait Assistive Device: FWW PT Assisted Goals Interventional Radiology Tech Goals PT Interventional Radiology Tech Goals Time Frame: Jun 01, 2018 Transfers (B,C,W/C) (FIM): 4 Gait (FIM): 1 Gait distance (FIM): 1=up to 49 ft Distance: 5' Gait Level of Assist: 3 PT Plan Treatment/Plan Treatment Plan: Continue Plan of Care Treatment Plan: Bed Mobility, Concurrent Therapy, Education, Functional Activity Demarcus, Functional Strength, Gait, Safety, Therapeutic Exercise, Transfers Treatment Duration: Jun 03, 2018 Frequency: 11 times per week Estimated Hrs Per Day: .25 hour per day (15-30') Patient and/or Family Agrees t: Yes Safety Risks/Education Patient Education: Gait Training, Transfer Techniques, Correct Positioning, Disease Process, Safety Issues Teaching Recipient: Patient Teaching Methods: Demonstration, Discussion Response to Teaching: Return Demonstration, Reinforcement Needed Time/GCodes Time In: 1300 Time Out: 1325 Total Billed Treatment Time: 25 Total Billed Treatment 1,GT13m,EX12m G Codes Necessary: ALFONSO Lorenz RECREATION ATTENDANT SUPERVISOR Jun 01, 2018 13:29
[2018-06-01 13:30] LABS: BILIRUBIN,URINE NEGATIVE (NEGATIVE); CLARITY,URINE CLEAR; COLOR,URINE YELLOW; GLUCOSE, URINE (UA) NEGATIVE (NEGATIVE); KETONES,URINE NEGATIVE (NEGATIVE); LEUKOCYTE ESTERASE ,URINE 2+ (NEGATIVE); NITRITE,URINE NEGATIVE (NEGATIVE); PH,URINE 6.5 (5-9); PROTEIN,URINE NEGATIVE (NEGATIVE); UROBILINOGEN,URINE NORMAL (NORMAL)
[2018-06-01 13:37] LABS: BACTERIA,URINE FEW /HPF; WBC,URINE 25-50 /HPF
--- NOTE | 2018-06-01 15:56 | NUR ---
CM/SS. Patient has been accepted for Medicare skilled placement with [facility], discharge planned for tomorrow if patient remains medically stable. CARE Assessment is pending.
[2018-06-01 16:15] VITALS: BP 165/72
--- NOTE | 2018-06-01 18:16 | NUR ---
IRF Evaluation: Order received to evaluate patient for the ARU. Chart reviewed and patient denied admission to ARU. The denial is attributed to patient's inability to maintain PWB status, as well as inability to tolerate intensity of therapy provided. CM/SS aware of denial. Thank you for this referral.
[2018-06-01] MEDS: rOPINIRole 0.25 MG (REQUIP) TAB PO SCH (21:01)
[2018-06-02 00:01] VITALS: BP 146/75
[2018-06-02] MEDS: RT-ALBUTEROL SULF 2.5 MG/3 ML PRE-MIX VIAL INH SCH ×2 (02:50→11:41)
[2018-06-02] MEDS: oxyCODONE/APAP 5/325MG (PERCOCET 5) TABLET PO PRN ×2 (03:43→08:56)
[2018-06-02 04:28] LABS: HEMOGLOBIN 7.5 G/DL (11.5-16.0); MEAN PLATELET VOLUME 9.8 FL (7.4-10.4); RED BLOOD COUNT 2.53 10^6/uL (4.35-5.85); RED CELL DISTRIBUTION WIDTH 24.5 % (10.0-14.5); WHITE BLOOD COUNT 4.4 10^3/uL (4.3-11.0)
[2018-06-02 04:43] LABS: CALCIUM 9.8 MG/DL (8.5-10.1); CREATININE SERUM 0.96 MG/DL (0.60-1.30); POTASSIUM 3.3 MMOL/L (3.6-5.0)
[2018-06-02] MEDS: LEVOTHYROXINE 50 MCG (LEVOTHROID) TAB PO SCH (06:14)
[2018-06-02 07:40] VITALS: BP 163/71
--- NOTE | 2018-06-02 07:56 | Progress Note (SOAP) ---
Subjective Time Seen by a Provider: 07:54 Subjective/Events-last exam Patient feeling good today. Patient be discharged today to [facility]. Patient to be seen in the office in one week. Patient has no complaints Objective Exam Vital Signs Date Time Temp Pulse Resp B/P (MAP) Pulse Ox O2 Delivery O2 Flow Rate FiO2 06/02/18 07:03 60 06/02/18 02:50 97 Nasal Cannula 3.00 06/02/18 01:00 64 06/02/18 00:01 98.2 69 18 146/75 (98) 95 Room Air 06/01/18 20:00 Nasal Cannula 3.00 06/01/18 19:43 96 Nasal Cannula 3.00 06/01/18 19:00 69 06/01/18 16:15 98.0 73 20 165/72 (103) 95 Nasal Cannula 3.00 06/01/18 14:30 95 Nasal Cannula 2.00 06/01/18 08:10 Nasal Cannula 3.00 06/01/18 08:00 98.6 74 18 158/72 (100) 96 Room Air I & O 06/02/18 07:00 Intake Total 1910 ml Output Total 700 ml Balance 1210 ml Capillary Refill : Less Than 3 SecondsLess Than 3 Seconds General Appearance: No Apparent Distress, WD/WN HEENT: Normal ENT Inspection Neck: Full Range of Motion, Normal Inspection Respiratory: Lungs Clear, No Accessory Muscle Use, No Respiratory Distress Cardiovascular: Regular Rate, Rhythm, No Murmur Gastrointestinal: non tender, soft Results Lab Laboratory Tests 06/02/18 04:05 Laboratory Tests 06/01/18 13:15: Urine Color YELLOW, Urine Clarity CLEAR, Urine pH 6.5, Urine Specific [place] 1.015L, Urine Protein NEGATIVE, Urine Glucose (UA) NEGATIVE, Urine Ketones NEGATIVE, Urine Nitrite NEGATIVE, Urine Bilirubin NEGATIVE, Urine Urobilinogen NORMAL, Urine Leukocyte Esterase 2+H, Urine RBC (Auto) 1+H, Urine RBC NONE, Urine WBC 25-50H, Urine Squamous Epithelial Cells 2-5, Urine Crystals NONE, Urine Bacteria FEWH, Urine Casts PRESENT, Urine Hyaline Casts 10-25H, Urine Mucus NEGATIVE, Urine Culture Indicated YES 06/02/18 04:05: White Blood Count 4.4, Red Blood Count 2.53L, Hemoglobin 7.5L, Hematocrit 25L, Mean Corpuscular Volume 99, Mean Corpuscular Hemoglobin 30, Mean Corpuscular Hemoglobin Concent 30L, Red Cell Distribution Width 24.5H, Platelet Count 222, Mean Platelet Volume 9.8, Sodium Level 139, Potassium Level 3.3L, Chloride Level 107, Carbon Dioxide Level 21, Anion Gap 11, Blood Urea Nitrogen 13, Creatinine 0.96, Estimat Glomerular Filtration Rate 57, BUN/Creatinine Ratio 14 , Glucose Level 108H, Calcium Level 9.8 Microbiology 05/22/18 MRSA Screen - Final, Complete Assessment/Plan Assessment/Plan Assess & Plan/Chief Complaint Fractured fibula and femur. Anemia. Patient Jehovah witness. CAD. Hypertension. Anemia. Hyperlipidemia. . 05/25/18. Fractured fibula and femur. Anemia worse yesterday. Patient Jehovah witness. Patient refuses blood test again. CAD. Hypertension. Hyperlipidemia. Heparin stopped. . 05/26/18. Fractured fibula and femur. Anemia stabilized. Hemoglobin 5.7 hematocrit 19. No chest pain today. Hypertension. Hyperlipidemia. . 05/27/18. Fractured fibula and femur. Anemia improving slightly. No chest pain today. Patient feeling better. Hypertension. Hyperlipidemia.. . Lungs clear 12/09. Back his fibula and femur. Anemia improving. Chest pain history. Hypertension. Hyperlipidemia. Patient a work in progress. . 05/31/18. Fractured fibula and femur. Anemia. [place]. CAD. Hypertension. Hyperlipidemia. . 06/01/18. Fractured fibula and femur. Anemia improving 7.6 today. Patient Jehovah witness. CAD. Hypertension. Hyperlipidemia.. . 06/02/18. Fractured fibula and femur. Anemia. CAD. Hypertension. Hyperlipidemia. Patient be transferred to [facility] today Clinical Quality Measures DVT/VTE Risk/Contraindication: Risk Factor Score Per Nursin RFS Level Per Nursing on Admit: 4+=Very High Other: see interventions SHARATH COLON DO Jun 02, 2018 07:56
[2018-06-02] MEDS ORDERED: FERR325T24 PO (08:00)
[2018-06-02] MEDS: ASPIRIN E.C. 81 MG (ECOTRIN) TAB PO SCH (08:02)
[2018-06-02] MEDS: FUROSEMIDE 40 MG (LASIX) TAB PO SCH (08:02)
[2018-06-02] MEDS ORDERED: KCL 20 MEQ TAB (K-DUR) PO NR (08:02)
[2018-06-02] MEDS: CYANOCOBALAMIN 1,000 MCG (VITAMIN B-12) TABLET PO SCH (08:02)
[2018-06-02] MEDS: IRON SUCROSE 200 MG/10 ML (VENOFER) VIAL IV SCH (08:02)
[2018-06-02] MEDS: amLODIPine 10 MG (NORVASC) TAB PO SCH (08:02)
[2018-06-02] MEDS: PANTOPRAZOLE 40 MG (PROTONIX) TAB PO SCH (08:02)
[2018-06-02] MEDS: FOLIC ACID 1 MG TAB PO SCH (08:02)
--- NOTE | 2018-06-02 08:03 | Discharge Inst-Skilled Nursing ---
Discharge Inst-Skilled NF Patient Instructions Patient Problems: Fractures of leg. CAD. Anemia. Patient Instructions: PT and OT Consult/Follow Up/Orders Follow Up Appt.: To my office in one week. Make appointment with orthopedics Skilled NF Admit to: [facility] Certification (SNF) I certify that SNF services are required to be given on an inpatient basis because of the above named patient's need for group home care on a continuing basis for the conditions(s) for which he/she was receiving inpatient hospital services prior to his/her transfer to the SNF. Assisted Facility Order: [employer] Business Analyst-Evaluate & Treat, Physical Therapy-Evaluate & Treat Discharge Diet: No Restrictions New & Resume Previous Orders Frankie Colon Jun 02, 2018 08:01 FRANKIE COLON DO Jun 02, 2018 08:03
[2018-06-02] MEDS: POLYETHYLENE GLYCOL 17 GM (MIRALAX) PACK PO SCH (08:07)
[2018-06-02] MEDS: meTOprolol SUCCINATE 100 MG (TOPROL XL) TAB PO SCH (08:18)
--- NOTE | 2018-06-02 11:05 | NUR ---
Report given to MARJAN Marroqiun at [facility].
--- NOTE | 2018-06-02 11:30 | NUR ---
CM/SS. Patient discharged to new Medicare skilled placement with [facility] via their transport scheduled for 1230. CARE Assessment completed with patient, processed with [facility]. Discharge orders/instructions and CARE faxed to [facility], prepared continuum of care packet to accompany patient. Unit RN aware of all arrangements. Patient reasonable about going for therapy, desires to return home as soon as she is safe to do so. She stated her daughter resides with her but that she is gone a lot, and patient will need to be independent for self care before she can go home. Addendum: 06/02/18 at 1135 by JOLENE SANCHEZ Additional contacts: Daughter, Martha Simmons, [place] [phone]
[2018-06-02] MEDS: ACETAMINOPHEN 325 MG TABLET PO PRN (11:48)
--- NOTE | 2018-06-02 14:05 | Progress Note-Cardiology ---
Cardiology SOAP Progress Note Subjective: Gen malaise and weakness as before No cp or palp or syncope Objective: I&O/Vital Signs 06/02/18 06/02/18 06/02/18 06/02/18 02:50 07:03 07:40 08:02 Temp 97.6 Pulse 60 68 Resp 18 B/P (MAP) 163/71 (101) Pulse Ox 97 95 O2 Delivery Nasal Cannula Room Air Nasal Cannula O2 Flow Rate 3.00 3.00 06/02/18 06/02/18 11:41 12:25 B/P (MAP) Pulse Ox 95 O2 Delivery Nasal Cannula O2 Flow Rate 3.00 06/02/18 00:00 Intake Total 1810 ml Output Total 300 ml Balance 1510 ml Weight (Pounds): 213 Weight (Ounces): 6.2 Weight (Calculated Kilograms): 96.530136 Constitutional: AAO x 3 Respiratory: No accessory muscle use, No respiratory distress; chest expansion is symmetric, chest is bilaterally symmetric, lungs clear to auscultation Cardiovascular: regular rate-rhythm; No JVD Gastrointestional: No tender; soft, round, audible bowel sounds Extremities: other (mild to mod swelling of right leg) Neurologic/Psychiatric: grossly intact Skin: warm/dry, pallor; No ulcerations; other (Drsg to right hip D&I; Orthopedic boot in place to right LE) Results/Procedures: Labs Laboratory Tests 06/02/18 04:05: White Blood Count 4.4, Red Blood Count 2.53L, Hemoglobin 7.5L, Hematocrit 25L, Mean Corpuscular Volume 99, Mean Corpuscular Hemoglobin 30, Mean Corpuscular Hemoglobin Concent 30L, Red Cell Distribution Width 24.5H, Platelet Count 222, Mean Platelet Volume 9.8, Sodium Level 139, Potassium Level 3.3L, Chloride Level 107, Carbon Dioxide Level 21, Anion Gap 11, Blood Urea Nitrogen 13, Creatinine 0.96, Estimat Glomerular Filtration Rate 57, BUN/Creatinine Ratio 14 , Glucose Level 108H, Calcium Level 9.8 Microbiology 05/22/18 MRSA Screen - Final, Complete 06/01/18 Urine Culture - Preliminary, Resulted Gram Negative Bacillus 1 Laboratory Tests 06/01/18 05:55 06/02/18 04:05 A/P: Assessment: Chest pain, unstable angina, likely due to anemia exacerbating underlying coronary insufficiency. Angina currently stable Status post fall and femur fracture, status post surgical repair Anemia, severe, significant drop in H&H, patient is Sikhism and refuses transfusion HTN Coronary artery disease, history of bypass surgery using JALLOH to LAD in January 2005, had a stress test in October 2016 showing no ischemia or infarction with ejection fraction 84 percent, echocardiogram in January 2014 reporting as normal LV function with mild MR Hyperlipidemia, intolerant to statin with muscle ache and generalized weakness History of intermittent liver enzyme elevation of undetermined etiology. followed and managed by primary care physician H/o hypoxemia, likely related to hypoventilation syndrome and/or pulmonary disease History of peripheral arterial disease and a small abdominal aortic aneurysm, being followed at Dr Patterson's office Carotid arterial disease being followed at Dr Patterson's office Rheumatoid arthritis. History of laparoscopic cholecystectomy. Hypothyroidism being treated with thyroid replacement therapy. Degenerative joint disease. Elevated body mass index of 37 Bilateral leg swelling likely related to venous insufficiency and/or amlodipine therapy, stable and unchanged. 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 Intolerant to niacin therapy CKD stage 2, continue to monitor renal function Plan: Marvin Ronquillo discussed her CV issues with her ARMAND MELCHOR MD FACP FACC CCDS Jun 02, 2018 14:05
--- NOTE | 2018-06-03 07:51 | Discharge Summary ---
Diagnosis/Chief Complaint Date of Admission May 21, 2018 at 01:55 Date of Discharge Jun 02, 2018 at 12:30 Discharge Date: Jun 02, 2018 Discharge Time: 07:50 Discharge Diagnosis Fracture of lateral malleolus of right fibula. Displaced oblique fracture of shaft of right femur. Fall. Anemia. Coronary artery disease. Mild CAD. Hypertension. Quaker. Hyperlipidemia. Hypothyroid. Morbid obesity. Discharge Summary Procedures Orthopedic Consultations Cardiology. Orthopedic. Hematology. Pulmonology Discharge Physical Examination Allergies: Coded Allergies: Sulfa (Sulfonamide Antibiotics) (Verified Allergy, Unknown, 12/13/17) penicillin G (Verified Allergy, Unknown, 12/13/17) Vitals & I&Os Vital Signs Date Time Temp Pulse Resp B/P (MAP) Pulse Ox O2 Delivery O2 Flow Rate FiO2 06/02/18 12:25 06/02/18 11:41 95 Nasal Cannula 3.00 06/02/18 07:40 97.6 68 18 Hospital Course Patient transferred to via [facility] (last 24 hrs) Laboratory Tests 05/20/18 22:30: White Blood Count 5.4, Red Blood Count 4.02L, Hemoglobin 10.9L, Hematocrit 34L, Mean Corpuscular Volume 85, Mean Corpuscular Hemoglobin 27, Mean Corpuscular Hemoglobin Concent 32, Red Cell Distribution Width 12.9, Platelet Count 240, Mean Platelet Volume 10.3, Neutrophils (%) (Auto) 51, Lymphocytes (%) (Auto) 35 , Monocytes (%) (Auto) 12, Eosinophils (%) (Auto) 0, Basophils (%) (Auto) 1, Neutrophils # (Auto) 2.8, Lymphocytes # (Auto) 1.9, Monocytes # (Auto) 0.7, Eosinophils # (Auto) 0.0, Basophils # (Auto) 0.1, Prothrombin Time 12.7, INR Comment 1.0, Activated Partial Thromboplast Time 26, Sodium Level 141, Potassium Level 3.2L, Chloride Level 108H, Carbon Dioxide Level 18L, Anion Gap 15H, Blood Urea Nitrogen 17, Creatinine 1.20, Estimat Glomerular Filtration Rate 44, BUN/Creatinine Ratio 14, Glucose Level 175H, Calcium Level 10.4H, Corrected Calcium 10.2H, Total Bilirubin 0.3, Aspartate Amino Transf (AST/SGOT) 34, Alanine Aminotransferase (ALT/SGPT) 29, Alkaline Phosphatase 82, Total Protein 7.4, Albumin 4.3 05/20/18 22:50: Iron Level 27L 05/20/18 23:50: Urine Color YELLOW, Urine Clarity CLEAR, Urine pH 5, Urine Specific [place] 1.015L, Urine Protein NEGATIVE, Urine Glucose (UA) NEGATIVE, Urine Ketones NEGATIVE, Urine Nitrite NEGATIVE, Urine Bilirubin NEGATIVE, Urine Urobilinogen NORMAL, Urine Leukocyte Esterase NEGATIVE, Urine RBC (Auto) NEGATIVE, Urine RBC NONE, Urine WBC NONE, Urine Squamous Epithelial Cells RARE, Urine Crystals NONE , Urine Bacteria NEGATIVE, Urine Casts NONE, Urine Mucus SMALLH, Urine Culture Indicated NO 05/21/18 05:26: White Blood Count 9.0, Red Blood Count 3.47L, Hemoglobin 9.5L, Hematocrit 29L, Mean Corpuscular Volume 85, Mean Corpuscular Hemoglobin 27, Mean Corpuscular Hemoglobin Concent 32, Red Cell Distribution Width 13.1, Platelet Count 213, Mean Platelet Volume 9.8, Neutrophils (%) (Auto) 72, Lymphocytes (%) (Auto) 16, Monocytes (%) (Auto) 12, Eosinophils (%) (Auto) 0, Basophils (%) (Auto) 0, Neutrophils # (Auto) 6.4, Lymphocytes # (Auto) 1.4, Monocytes # (Auto) 1.0, Eosinophils # (Auto) 0.0, Basophils # (Auto) 0.0, Sodium Level 142, Potassium Level 3.6, Chloride Level 110H, Carbon Dioxide Level 19L, Anion Gap 13, Blood Urea Nitrogen 18, Creatinine 1.02, Estimat Glomerular Filtration Rate 53, BUN/ Creatinine Ratio 18, Glucose Level 102, Calcium Level 10.2H, Corrected Calcium 10.4H, Total Bilirubin 0.3, Aspartate Amino Transf (AST/SGOT) 28, Alanine Aminotransferase (ALT/SGPT) 24, Alkaline Phosphatase 73, Total Protein 6.5, Albumin 3.8 05/22/18 04:35: White Blood Count 6.8, Red Blood Count 3.55L, Hemoglobin 9.5L, Hematocrit 30L, Mean Corpuscular Volume 85, Mean Corpuscular Hemoglobin 27, Mean Corpuscular Hemoglobin Concent 31L, Red Cell Distribution Width 13.1, Platelet Count 205, Mean Platelet Volume 10.4, Neutrophils (%) (Auto) 59, Lymphocytes (%) (Auto) 26 , Monocytes (%) (Auto) 14H, Eosinophils (%) (Auto) 1, Basophils (%) (Auto) 1, Neutrophils # (Auto) 4.0, Lymphocytes # (Auto) 1.8, Monocytes # (Auto) 0.9, Eosinophils # (Auto) 0.1, Basophils # (Auto) 0.1, Sodium Level 138, Potassium Level 4.0, Chloride Level 109H, Carbon Dioxide Level 19L, Anion Gap 10, Blood Urea Nitrogen 14, Creatinine 1.01, Estimat Glomerular Filtration Rate 53, BUN/ Creatinine Ratio 14, Glucose Level 103, Calcium Level 9.9, Corrected Calcium 10.2H, Total Bilirubin 0.4, Aspartate Amino Transf (AST/SGOT) 18, Alanine Aminotransferase (ALT/SGPT) 19, Alkaline Phosphatase 65, Total Protein 6.1L, Albumin 3.6 05/23/18 04:20: White Blood Count 8.8, Red Blood Count 2.52L, Hemoglobin 7.0L, Hematocrit 22L, Mean Corpuscular Volume 86, Mean Corpuscular Hemoglobin 28, Mean Corpuscular Hemoglobin Concent 32, Red Cell Distribution Width 12.8, Platelet Count 201, Mean Platelet Volume 10.0, Sodium Level 137, Potassium Level 4.7, Chloride Level 109H, Carbon Dioxide Level 18L, Anion Gap 10, Blood Urea Nitrogen 14, Creatinine 0.99, Estimat Glomerular Filtration Rate 55, BUN/Creatinine Ratio 14 , Glucose Level 124H, Calcium Level 9.8, Corrected Calcium 10.4H, Total Bilirubin 0.3, Aspartate Amino Transf (AST/SGOT) 19, Alanine Aminotransferase ( ALT/SGPT) 15, Alkaline Phosphatase 63, Total Protein 5.5L, Albumin 3.2 05/24/18 05:22: White Blood Count 6.1, Red Blood Count 2.11L, Hemoglobin 5.7*L, Hematocrit 19*L , Mean Corpuscular Volume 88, Mean Corpuscular Hemoglobin 27, Mean Corpuscular Hemoglobin Concent 31L, Red Cell Distribution Width 12.9, Platelet Count 156, Mean Platelet Volume 10.3 05/25/18 08:31: White Blood Count 5.9, Red Blood Count 2.25L, Hemoglobin 6.1*L, Hematocrit 20*L , Mean Corpuscular Volume 89, Mean Corpuscular Hemoglobin 27, Mean Corpuscular Hemoglobin Concent 31L, Red Cell Distribution Width 13.5, Platelet Count 207, Mean Platelet Volume 10.0, Neutrophils (%) (Auto) 64, Lymphocytes (%) (Auto) 22 , Monocytes (%) (Auto) 13H, Eosinophils (%) (Auto) 1, Basophils (%) (Auto) 1, Neutrophils # (Auto) 3.8, Lymphocytes # (Auto) 1.3, Monocytes # (Auto) 0.8, Eosinophils # (Auto) 0.0, Basophils # (Auto) 0.1, Sodium Level 141, Potassium Level 3.8, Chloride Level 108H, Carbon Dioxide Level 23, Anion Gap 10, Blood Urea Nitrogen 12, Creatinine 0.97, Estimat Glomerular Filtration Rate 56, BUN/ Creatinine Ratio 12, Glucose Level 104, Calcium Level 10.6H, Corrected Calcium 11.2H, Total Bilirubin 0.4, Aspartate Amino Transf (AST/SGOT) 24, Alanine Aminotransferase (ALT/SGPT) 14, Alkaline Phosphatase 64, Total Protein 6.0L, Albumin 3.3, Myoglobin 191.5H, Troponin I < 0.028 05/26/18 03:40: White Blood Count 5.7, Red Blood Count 2.08L, Hemoglobin 5.7*L, Hematocrit 19*L , Mean Corpuscular Volume 91, Mean Corpuscular Hemoglobin 27, Mean Corpuscular Hemoglobin Concent 30L, Red Cell Distribution Width 14.0, Platelet Count 201, Mean Platelet Volume 10.6H, Sodium Level 141, Potassium Level 3.7, Chloride Level 108H, Carbon Dioxide Level 24, Anion Gap 9, Blood Urea Nitrogen 13, Creatinine 0.93, Estimat Glomerular Filtration Rate 59, BUN/Creatinine Ratio 14 , Glucose Level 107H, Calcium Level 10.6H, Corrected Calcium 11.4H, Phosphorus Level 3.0, Magnesium Level 2.1, Total Bilirubin 0.4, Aspartate Amino Transf (AST /SGOT) 23, Alanine Aminotransferase (ALT/SGPT) 13, Alkaline Phosphatase 68, Troponin I < 0.028, Total Protein 5.5L, Albumin 3.0L 05/27/18 05:35: White Blood Count 7.1, Red Blood Count 2.27L, Hemoglobin 6.4*L, Hematocrit 21L, Mean Corpuscular Volume 93, Mean Corpuscular Hemoglobin 28, Mean Corpuscular Hemoglobin Concent 30L, Red Cell Distribution Width 15.4H, Platelet Count 224, Mean Platelet Volume 10.2, Sodium Level 140, Potassium Level 4.0, Chloride Level 106, Carbon Dioxide Level 24, Anion Gap 10, Blood Urea Nitrogen 18, Creatinine 1.00, Estimat Glomerular Filtration Rate 54, BUN/Creatinine Ratio 18 , Glucose Level 116H, Calcium Level 11.1H, Phosphorus Level 3.3, Magnesium Level 2.0, Neutrophils (%) (Auto) 66, Lymphocytes (%) (Auto) 20, Monocytes (%) ( Auto) 12, Eosinophils (%) (Auto) 1, Basophils (%) (Auto) 1, Neutrophils # (Auto ) 4.6, Lymphocytes # (Auto) 1.4, Monocytes # (Auto) 0.9, Eosinophils # (Auto) 0.1, Basophils # (Auto) 0.1 05/28/18 05:01: Sodium Level 140, Potassium Level 3.5L, Chloride Level 104, Carbon Dioxide Level 25, Anion Gap 11, Blood Urea Nitrogen 21H, Creatinine 1.25, Estimat Glomerular Filtration Rate 42, BUN/Creatinine Ratio 17, Glucose Level 120H, Calcium Level 11.0H, Phosphorus Level 2.9, Magnesium Level 2.0 05/28/18 05:02: White Blood Count 8.0, Red Blood Count 2.34L, Hemoglobin 6.7*L, Hematocrit 22L, Mean Corpuscular Volume 94, Mean Corpuscular Hemoglobin 29, Mean Corpuscular Hemoglobin Concent 30L, Red Cell Distribution Width 17.7H, Platelet Count 241, Mean Platelet Volume 10.1, Neutrophils (%) (Auto) 68, Lymphocytes (%) (Auto) 20 , Monocytes (%) (Auto) 10, Eosinophils (%) (Auto) 1, Basophils (%) (Auto) 1, Neutrophils # (Auto) 5.5, Lymphocytes # (Auto) 1.6, Monocytes # (Auto) 0.8, Eosinophils # (Auto) 0.1, Basophils # (Auto) 0.1 05/29/18 05:11: White Blood Count 6.6, Red Blood Count 2.35L, Hemoglobin 6.6*L, Hematocrit 23L, Mean Corpuscular Volume 97, Mean Corpuscular Hemoglobin 28, Mean Corpuscular Hemoglobin Concent 29L, Red Cell Distribution Width 19.7H, Platelet Count 232, Mean Platelet Volume 10.1, Neutrophils (%) (Auto) 70, Lymphocytes (%) (Auto) 16 , Monocytes (%) (Auto) 12, Eosinophils (%) (Auto) 1, Basophils (%) (Auto) 1, Neutrophils # (Auto) 4.6, Lymphocytes # (Auto) 1.1, Monocytes # (Auto) 0.8, Eosinophils # (Auto) 0.1, Basophils # (Auto) 0.1, Sodium Level 141, Potassium Level 3.9, Chloride Level 105, Carbon Dioxide Level 24, Anion Gap 12, Blood Urea Nitrogen 19H, Creatinine 1.11, Estimat Glomerular Filtration Rate 48, BUN/ Creatinine Ratio 17, Glucose Level 106H, Calcium Level 10.7H, Corrected Calcium 11.3H, Total Bilirubin 0.7, Aspartate Amino Transf (AST/SGOT) 37H, Alanine Aminotransferase (ALT/SGPT) 14, Alkaline Phosphatase 82, Total Protein 5.7L, Albumin 3.3 05/30/18 05:45: White Blood Count 6.5, Red Blood Count 2.54L, Hemoglobin 7.4L, Hematocrit 25L, Mean Corpuscular Volume 99, Mean Corpuscular Hemoglobin 29, Mean Corpuscular Hemoglobin Concent 30L, Red Cell Distribution Width 21.9H, Platelet Count 236, Mean Platelet Volume 10.4, Neutrophils (%) (Auto) 65, Lymphocytes (%) (Auto) 22 , Monocytes (%) (Auto) 12, Eosinophils (%) (Auto) 1, Basophils (%) (Auto) 1, Neutrophils # (Auto) 4.2, Lymphocytes # (Auto) 1.4, Monocytes # (Auto) 0.8, Eosinophils # (Auto) 0.0, Basophils # (Auto) 0.1, Sodium Level 139, Potassium Level 3.6, Chloride Level 104, Carbon Dioxide Level 22, Anion Gap 13, Blood Urea Nitrogen 18, Creatinine 1.11, Estimat Glomerular Filtration Rate 48, BUN/ Creatinine Ratio 16, Glucose Level 104, Calcium Level 10.8H, Corrected Calcium 11.2H, Total Bilirubin 0.7, Aspartate Amino Transf (AST/SGOT) 41H, Alanine Aminotransferase (ALT/SGPT) 18, Alkaline Phosphatase 94, Total Protein 6.7, Albumin 3.5, Ionized Calcium (Measured) 1.44H, Ionized Calcium pH 7.43, Ionized Calcium (Corrected) 1.47H, Parathyroid Hormone (Intact) 96.1H, Calcium (PTH Intact) 10.6H 05/31/18 05:20: White Blood Count 5.3, Red Blood Count 2.39L, Hemoglobin 7.0L, Hematocrit 24L, Mean Corpuscular Volume 99, Mean Corpuscular Hemoglobin 29, Mean Corpuscular Hemoglobin Concent 30L, Red Cell Distribution Width 23.3H, Platelet Count 210, Mean Platelet Volume 10.2, Sodium Level 141, Potassium Level 3.8, Chloride Level 107, Carbon Dioxide Level 23, Anion Gap 11, Blood Urea Nitrogen 18, Creatinine 1.05, Estimat Glomerular Filtration Rate 51, BUN/Creatinine Ratio 17 , Glucose Level 101, Calcium Level 10.0 06/01/18 05:55: White Blood Count 5.4, Red Blood Count 2.59L, Hemoglobin 7.6L, Hematocrit 26L, Mean Corpuscular Volume 100H, Mean Corpuscular Hemoglobin 29, Mean Corpuscular Hemoglobin Concent 30L, Red Cell Distribution Width 24.0H, Platelet Count 220, Mean Platelet Volume 10.4 06/01/18 13:15: Urine Color YELLOW, Urine Clarity CLEAR, Urine pH 6.5, Urine Specific [place] 1.015L, Urine Protein NEGATIVE, Urine Glucose (UA) NEGATIVE, Urine Ketones NEGATIVE, Urine Nitrite NEGATIVE, Urine Bilirubin NEGATIVE, Urine Urobilinogen NORMAL, Urine Leukocyte Esterase 2+H, Urine RBC (Auto) 1+H, Urine RBC NONE, Urine WBC 25-50H, Urine Squamous Epithelial Cells 2-5, Urine Crystals NONE, Urine Bacteria FEWH, Urine Casts PRESENT, Urine Hyaline Casts 10-25H, Urine Mucus NEGATIVE, Urine Culture Indicated YES 06/02/18 04:05: White Blood Count 4.4, Red Blood Count 2.53L, Hemoglobin 7.5L, Hematocrit 25L, Mean Corpuscular Volume 99, Mean Corpuscular Hemoglobin 30, Mean Corpuscular Hemoglobin Concent 30L, Red Cell Distribution Width 24.5H, Platelet Count 222, Mean Platelet Volume 9.8, Sodium Level 139, Potassium Level 3.3L, Chloride Level 107, Carbon Dioxide Level 21, Anion Gap 11, Blood Urea Nitrogen 13, Creatinine 0.96, Estimat Glomerular Filtration Rate 57, BUN/Creatinine Ratio 14 , Glucose Level 108H, Calcium Level 9.8 Microbiology 05/22/18 MRSA Screen - Final, Complete 06/01/18 Urine Culture - Preliminary, Resulted Gram Negative Bacillus 1 Pending Labs Microbiology Date/Time Source Procedure Growth Status 05/22/18 08:00 Nasal MRSA Screen - Final Complete 06/01/18 13:15 Urine Clean Catch Urine Culture - Preliminary Gram Negative Bacillus 1 Resulted Laboratory Tests 05/20/18 22:30: White Blood Count 5.4, Red Blood Count 4.02, Hemoglobin 10.9, Hematocrit 34, Mean Corpuscular Volume 85, Mean Corpuscular Hemoglobin 27, Mean Corpuscular Hemoglobin Concent 32, Red Cell Distribution Width 12.9, Platelet Count 240, Mean Platelet Volume 10.3, Neutrophils (%) (Auto) 51, Lymphocytes (%) (Auto) 35 , Monocytes (%) (Auto) 12, Eosinophils (%) (Auto) 0, Basophils (%) (Auto) 1, Neutrophils # (Auto) 2.8, Lymphocytes # (Auto) 1.9, Monocytes # (Auto) 0.7, Eosinophils # (Auto) 0.0, Basophils # (Auto) 0.1, Prothrombin Time 12.7, INR Comment 1.0, Activated Partial Thromboplast Time 26, Sodium Level 141, Potassium Level 3.2, Chloride Level 108, Carbon Dioxide Level 18, Anion Gap 15, Blood Urea Nitrogen 17, Creatinine 1.20, Estimat Glomerular Filtration Rate 44, BUN/Creatinine Ratio 14, Glucose Level 175, Calcium Level 10.4, Corrected Calcium 10.2, Total Bilirubin 0.3, Aspartate Amino Transf (AST/SGOT) 34, Alanine Aminotransferase (ALT/SGPT) 29, Alkaline Phosphatase 82, Total Protein 7.4, Albumin 4.3 05/20/18 22:50: Iron Level 27 05/20/18 23:50: Urine Color YELLOW, Urine Clarity CLEAR, Urine pH 5, Urine Specific [place] 1.015, Urine Protein NEGATIVE, Urine Glucose (UA) NEGATIVE, Urine Ketones NEGATIVE, Urine Nitrite NEGATIVE, Urine Bilirubin NEGATIVE, Urine Urobilinogen NORMAL, Urine Leukocyte Esterase NEGATIVE, Urine RBC (Auto) NEGATIVE, Urine RBC NONE, Urine WBC NONE, Urine Squamous Epithelial Cells RARE, Urine Crystals NONE , Urine Bacteria NEGATIVE, Urine Casts NONE, Urine Mucus SMALL, Urine Culture Indicated NO 12/29/18 05:26: White Blood Count 9.0, Red Blood Count 3.47, Hemoglobin 9.5, Hematocrit 29, Mean Corpuscular Volume 85, Mean Corpuscular Hemoglobin 27, Mean Corpuscular Hemoglobin Concent 32, Red Cell Distribution Width 13.1, Platelet Count 213, Mean Platelet Volume 9.8, Neutrophils (%) (Auto) 72, Lymphocytes (%) (Auto) 16, Monocytes (%) (Auto) 12, Eosinophils (%) (Auto) 0, Basophils (%) (Auto) 0, Neutrophils # (Auto) 6.4, Lymphocytes # (Auto) 1.4, Monocytes # (Auto) 1.0, Eosinophils # (Auto) 0.0, Basophils # (Auto) 0.0, Sodium Level 142, Potassium Level 3.6, Chloride Level 110, Carbon Dioxide Level 19, Anion Gap 13, Blood Urea Nitrogen 18, Creatinine 1.02, Estimat Glomerular Filtration Rate 53, BUN/ Creatinine Ratio 18, Glucose Level 102, Calcium Level 10.2, Corrected Calcium 10.4, Total Bilirubin 0.3, Aspartate Amino Transf (AST/SGOT) 28, Alanine Aminotransferase (ALT/SGPT) 24, Alkaline Phosphatase 73, Total Protein 6.5, Albumin 3.8 05/22/18 04:35: White Blood Count 6.8, Red Blood Count 3.55, Hemoglobin 9.5, Hematocrit 30, Mean Corpuscular Volume 85, Mean Corpuscular Hemoglobin 27, Mean Corpuscular Hemoglobin Concent 31, Red Cell Distribution Width 13.1, Platelet Count 205, Mean Platelet Volume 10.4, Neutrophils (%) (Auto) 59, Lymphocytes (%) (Auto) 26 , Monocytes (%) (Auto) 14, Eosinophils (%) (Auto) 1, Basophils (%) (Auto) 1, Neutrophils # (Auto) 4.0, Lymphocytes # (Auto) 1.8, Monocytes # (Auto) 0.9, Eosinophils # (Auto) 0.1, Basophils # (Auto) 0.1, Sodium Level 138, Potassium Level 4.0, Chloride Level 109, Carbon Dioxide Level 19, Anion Gap 10, Blood Urea Nitrogen 14, Creatinine 1.01, Estimat Glomerular Filtration Rate 53, BUN/ Creatinine Ratio 14, Glucose Level 103, Calcium Level 9.9, Corrected Calcium 10.2, Total Bilirubin 0.4, Aspartate Amino Transf (AST/SGOT) 18, Alanine Aminotransferase (ALT/SGPT) 19, Alkaline Phosphatase 65, Total Protein 6.1, Albumin 3.6 05/23/18 04:20: White Blood Count 8.8, Red Blood Count 2.52, Hemoglobin 7.0, Hematocrit 22, Mean Corpuscular Volume 86, Mean Corpuscular Hemoglobin 28, Mean Corpuscular Hemoglobin Concent 32, Red Cell Distribution Width 12.8, Platelet Count 201, Mean Platelet Volume 10.0, Sodium Level 137, Potassium Level 4.7, Chloride Level 109, Carbon Dioxide Level 18, Anion Gap 10, Blood Urea Nitrogen 14, Creatinine 0.99, Estimat Glomerular Filtration Rate 55, BUN/Creatinine Ratio 14 , Glucose Level 124, Calcium Level 9.8, Corrected Calcium 10.4, Total Bilirubin 0.3, Aspartate Amino Transf (AST/SGOT) 19, Alanine Aminotransferase (ALT/SGPT) 15, Alkaline Phosphatase 63, Total Protein 5.5, Albumin 3.2 05/24/18 05:22: White Blood Count 6.1, Red Blood Count 2.11, Hemoglobin 5.7, Hematocrit 19, Mean Corpuscular Volume 88, Mean Corpuscular Hemoglobin 27, Mean Corpuscular Hemoglobin Concent 31, Red Cell Distribution Width 12.9, Platelet Count 156, Mean Platelet Volume 10.3 05/25/18 08:31: White Blood Count 5.9, Red Blood Count 2.25, Hemoglobin 6.1, Hematocrit 20, Mean Corpuscular Volume 89, Mean Corpuscular Hemoglobin 27, Mean Corpuscular Hemoglobin Concent 31, Red Cell Distribution Width 13.5, Platelet Count 207, Mean Platelet Volume 10.0, Neutrophils (%) (Auto) 64, Lymphocytes (%) (Auto) 22 , Monocytes (%) (Auto) 13, Eosinophils (%) (Auto) 1, Basophils (%) (Auto) 1, Neutrophils # (Auto) 3.8, Lymphocytes # (Auto) 1.3, Monocytes # (Auto) 0.8, Eosinophils # (Auto) 0.0, Basophils # (Auto) 0.1, Sodium Level 141, Potassium Level 3.8, Chloride Level 108, Carbon Dioxide Level 23, Anion Gap 10, Blood Urea Nitrogen 12, Creatinine 0.97, Estimat Glomerular Filtration Rate 56, BUN/ Creatinine Ratio 12, Glucose Level 104, Calcium Level 10.6, Corrected Calcium 11.2, Total Bilirubin 0.4, Aspartate Amino Transf (AST/SGOT) 24, Alanine Aminotransferase (ALT/SGPT) 14, Alkaline Phosphatase 64, Total Protein 6.0, Albumin 3.3, Myoglobin 191.5, Troponin I < 0.028 05/26/18 03:40: White Blood Count 5.7, Red Blood Count 2.08, Hemoglobin 5.7, Hematocrit 19, Mean Corpuscular Volume 91, Mean Corpuscular Hemoglobin 27, Mean Corpuscular Hemoglobin Concent 30, Red Cell Distribution Width 14.0, Platelet Count 201, Mean Platelet Volume 10.6, Sodium Level 141, Potassium Level 3.7, Chloride Level 108, Carbon Dioxide Level 24, Anion Gap 9, Blood Urea Nitrogen 13, Creatinine 0.93, Estimat Glomerular Filtration Rate 59, BUN/Creatinine Ratio 14 , Glucose Level 107, Calcium Level 10.6, Corrected Calcium 11.4, Phosphorus Level 3.0, Magnesium Level 2.1, Total Bilirubin 0.4, Aspartate Amino Transf (AST /SGOT) 23, Alanine Aminotransferase (ALT/SGPT) 13, Alkaline Phosphatase 68, Troponin I < 0.028, Total Protein 5.5, Albumin 3.0 05/27/18 05:35: White Blood Count 7.1, Red Blood Count 2.27, Hemoglobin 6.4, Hematocrit 21, Mean Corpuscular Volume 93, Mean Corpuscular Hemoglobin 28, Mean Corpuscular Hemoglobin Concent 30, Red Cell Distribution Width 15.4, Platelet Count 224, Mean Platelet Volume 10.2, Sodium Level 140, Potassium Level 4.0, Chloride Level 106, Carbon Dioxide Level 24, Anion Gap 10, Blood Urea Nitrogen 18, Creatinine 1.00, Estimat Glomerular Filtration Rate 54, BUN/Creatinine Ratio 18 , Glucose Level 116, Calcium Level 11.1, Phosphorus Level 3.3, Magnesium Level 2.0, Neutrophils (%) (Auto) 66, Lymphocytes (%) (Auto) 20, Monocytes (%) (Auto) 12, Eosinophils (%) (Auto) 1, Basophils (%) (Auto) 1, Neutrophils # (Auto) 4.6, Lymphocytes # (Auto) 1.4, Monocytes # (Auto) 0.9, Eosinophils # (Auto) 0.1, Basophils # (Auto) 0.1 05/28/18 05:01: Sodium Level 140, Potassium Level 3.5, Chloride Level 104, Carbon Dioxide Level 25, Anion Gap 11, Blood Urea Nitrogen 21, Creatinine 1.25, Estimat Glomerular Filtration Rate 42, BUN/Creatinine Ratio 17, Glucose Level 120, Calcium Level 11.0, Phosphorus Level 2.9, Magnesium Level 2.0 05/28/18 05:02: White Blood Count 8.0, Red Blood Count 2.34, Hemoglobin 6.7, Hematocrit 22, Mean Corpuscular Volume 94, Mean Corpuscular Hemoglobin 29, Mean Corpuscular Hemoglobin Concent 30, Red Cell Distribution Width 17.7, Platelet Count 241, Mean Platelet Volume 10.1, Neutrophils (%) (Auto) 68, Lymphocytes (%) (Auto) 20 , Monocytes (%) (Auto) 10, Eosinophils (%) (Auto) 1, Basophils (%) (Auto) 1, Neutrophils # (Auto) 5.5, Lymphocytes # (Auto) 1.6, Monocytes # (Auto) 0.8, Eosinophils # (Auto) 0.1, Basophils # (Auto) 0.1 05/29/18 05:11: White Blood Count 6.6, Red Blood Count 2.35, Hemoglobin 6.6, Hematocrit 23, Mean Corpuscular Volume 97, Mean Corpuscular Hemoglobin 28, Mean Corpuscular Hemoglobin Concent 29, Red Cell Distribution Width 19.7, Platelet Count 232, Mean Platelet Volume 10.1, Neutrophils (%) (Auto) 70, Lymphocytes (%) (Auto) 16 , Monocytes (%) (Auto) 12, Eosinophils (%) (Auto) 1, Basophils (%) (Auto) 1, Neutrophils # (Auto) 4.6, Lymphocytes # (Auto) 1.1, Monocytes # (Auto) 0.8, Eosinophils # (Auto) 0.1, Basophils # (Auto) 0.1, Sodium Level 141, Potassium Level 3.9, Chloride Level 105, Carbon Dioxide Level 24, Anion Gap 12, Blood Urea Nitrogen 19, Creatinine 1.11, Estimat Glomerular Filtration Rate 48, BUN/ Creatinine Ratio 17, Glucose Level 106, Calcium Level 10.7, Corrected Calcium 11.3, Total Bilirubin 0.7, Aspartate Amino Transf (AST/SGOT) 37, Alanine Aminotransferase (ALT/SGPT) 14, Alkaline Phosphatase 82, Total Protein 5.7, Albumin 3.3 05/30/18 05:45: White Blood Count 6.5, Red Blood Count 2.54, Hemoglobin 7.4, Hematocrit 25, Mean Corpuscular Volume 99, Mean Corpuscular Hemoglobin 29, Mean Corpuscular Hemoglobin Concent 30, Red Cell Distribution Width 21.9, Platelet Count 236, Mean Platelet Volume 10.4, Neutrophils (%) (Auto) 65, Lymphocytes (%) (Auto) 22 , Monocytes (%) (Auto) 12, Eosinophils (%) (Auto) 1, Basophils (%) (Auto) 1, Neutrophils # (Auto) 4.2, Lymphocytes # (Auto) 1.4, Monocytes # (Auto) 0.8, Eosinophils # (Auto) 0.0, Basophils # (Auto) 0.1, Sodium Level 139, Potassium Level 3.6, Chloride Level 104, Carbon Dioxide Level 22, Anion Gap 13, Blood Urea Nitrogen 18, Creatinine 1.11, Estimat Glomerular Filtration Rate 48, BUN/ Creatinine Ratio 16, Glucose Level 104, Calcium Level 10.8, Corrected Calcium 11.2, Total Bilirubin 0.7, Aspartate Amino Transf (AST/SGOT) 41, Alanine Aminotransferase (ALT/SGPT) 18, Alkaline Phosphatase 94, Total Protein 6.7, Albumin 3.5, Ionized Calcium (Measured) 1.44, Ionized Calcium pH 7.43, Ionized Calcium (Corrected) 1.47, Parathyroid Hormone (Intact) 96.1, Calcium (PTH Intact ) 10.6 05/31/18 05:20: White Blood Count 5.3, Red Blood Count 2.39, Hemoglobin 7.0, Hematocrit 24, Mean Corpuscular Volume 99, Mean Corpuscular Hemoglobin 29, Mean Corpuscular Hemoglobin Concent 30, Red Cell Distribution Width 23.3, Platelet Count 210, Mean Platelet Volume 10.2, Sodium Level 141, Potassium Level 3.8, Chloride Level 107, Carbon Dioxide Level 23, Anion Gap 11, Blood Urea Nitrogen 18, Creatinine 1.05, Estimat Glomerular Filtration Rate 51, BUN/Creatinine Ratio 17 , Glucose Level 101, Calcium Level 10.0 06/01/18 05:55: White Blood Count 5.4, Red Blood Count 2.59, Hemoglobin 7.6, Hematocrit 26, Mean Corpuscular Volume 100, Mean Corpuscular Hemoglobin 29, Mean Corpuscular Hemoglobin Concent 30, Red Cell Distribution Width 24.0, Platelet Count 220, Mean Platelet Volume 10.4 06/01/18 13:15: Urine Color YELLOW, Urine Clarity CLEAR, Urine pH 6.5, Urine Specific [place] 1.015, Urine Protein NEGATIVE, Urine Glucose (UA) NEGATIVE, Urine Ketones NEGATIVE, Urine Nitrite NEGATIVE, Urine Bilirubin NEGATIVE, Urine Urobilinogen NORMAL, Urine Leukocyte Esterase 2+, Urine RBC (Auto) 1+, Urine RBC NONE, Urine WBC 25-50, Urine Squamous Epithelial Cells 2-5, Urine Crystals NONE, Urine Bacteria FEW, Urine Casts PRESENT, Urine Hyaline Casts 10-25, Urine Mucus NEGATIVE, Urine Culture Indicated YES 06/02/18 04:05: White Blood Count 4.4, Red Blood Count 2.53, Hemoglobin 7.5, Hematocrit 25, Mean Corpuscular Volume 99, Mean Corpuscular Hemoglobin 30, Mean Corpuscular Hemoglobin Concent 30, Red Cell Distribution Width 24.5, Platelet Count 222, Mean Platelet Volume 9.8, Sodium Level 139, Potassium Level 3.3, Chloride Level 107, Carbon Dioxide Level 21, Anion Gap 11, Blood Urea Nitrogen 13, Creatinine 0.96, Estimat Glomerular Filtration Rate 57, BUN/Creatinine Ratio 14, Glucose Level 108, Calcium Level 9.8 Laboratory Tests 05/20/18 22:30 05/21/18 05:26 05/22/18 04:35 05/23/18 04:20 05/24/18 05:22 05/25/18 08:31 05/26/18 03:40 05/27/18 05:35 05/28/18 05:01 05/28/18 05:02 05/29/18 05:11 05/30/18 05:45 05/31/18 05:20 06/01/18 05:55 06/02/18 04:05 Discussion & Recommendations Patient severely anemic. Patient Jehovah witness and won't accept blood Discharge Home Medications: Active Scripts Active Ferosul (Ferrous Sulfate) 325 Mg Tablet 325 Mg PO BIDPC 30 Days Reported Fish Oil 1,000 mg Capsule ([place] 3 Polyunsat Fatty Acids) 1,000 Mg Cap 1,000 Mg PO BID Lysine 500 Mg Tablet 500 Mg PO DAILY Fenofibrate (Fenofibrate Nanocrystallized) 145 Mg Tablet 145 Mg PO DAILY Potassium Chloride 20 Meq Tablet.er 20 Meq PO DAILY Lasix (Furosemide) 80 Mg Tablet 80 Mg PO DAILY Levothyroxine Sodium 50 Mcg Tablet 50 Mcg PO DAILY Omeprazole 40 Mg Capsule.dr 40 Mg PO DAILY Toprol Xl (Metoprolol Succinate) 50 Mg Tab.er.24h 50 Mg PO DAILY Amlodipine Besylate 10 Mg Tablet 10 Mg PO DAILY Instructions to patient/family Please see electronic discharge instructions given to patient. Clinical Quality Measures DVT/VTE Risk/Contraindication: Risk Factor Score Per Nursin RFS Level Per Nursing on Admit: 4+=Very High Other: see interventions SHARATH COLON DO Jun 03, 2018 07:51
== END 2018-06-02 12:30 | DRG 481 ==
LOC: EDUNIT# 22:42 → ER 22:43 → 4TH 05-21 01:55 → ICU 05-25 10:15 → 4TH 05-26 15:00
PROVIDERS: ADMIT Internal Medicine; ATTEND Internal Medicine
PROC: 0QS804Z Reposition Right Femoral Shaft with Internal Fixation Device, Open Approach (ICD-10-PCS; principal; 2018-05-23)
DX: S72.331A Displaced oblique fracture of shaft of right femur, initial encounter for closed fracture (principal); S82.61XA Displaced fracture of lateral malleolus of right fibula, initial encounter for closed fracture; I25.110 Atherosclerotic heart disease of native coronary artery with unstable angina pectoris; D62 Acute posthemorrhagic anemia; J98.11 Atelectasis; E66.2 Morbid (severe) obesity with alveolar hypoventilation; Z68.36 Body mass index [BMI] 36.0-36.9, adult; D47.09 Other mast cell neoplasms of uncertain behavior; I12.9 Hypertensive chronic kidney disease with stage 1 through stage 4 chronic kidney disease, or unspecified chronic kidney disease; N18.2 Chronic kidney disease, stage 2 (mild); D50.9 Iron deficiency anemia, unspecified; I34.0 Nonrheumatic mitral (valve) insufficiency; E78.00 Pure hypercholesterolemia, unspecified; E11.51 Type 2 diabetes mellitus with diabetic peripheral angiopathy without gangrene; M06.9 Rheumatoid arthritis, unspecified; E03.9 Hypothyroidism, unspecified; I87.2 Venous insufficiency (chronic) (peripheral); K21.9 Gastro-esophageal reflux disease without esophagitis; J30.2 Other seasonal allergic rhinitis; N31.9 Neuromuscular dysfunction of bladder, unspecified; M19.91 Primary osteoarthritis, unspecified site; R60.0 Localized edema; T46.5X5A Adverse effect of other antihypertensive drugs, initial encounter; K59.00 Constipation, unspecified; W01.0XXA Fall on same level from slipping, tripping and stumbling without subsequent striking against object, initial encounter; Z95.1 Presence of aortocoronary bypass graft; Z79.02 Long term (current) use of antithrombotics/antiplatelets; Z96.641 Presence of right artificial hip joint; Z65.8 Other specified problems related to psychosocial circumstances
CPT/HCPCS: 36415; 51702; 70450; 71045; 72125; 73502; 73552; 73562; 73610; 73700; 80048; 80053; 81000; 82330; 83540; 83735; 83874; 83970; 84100; 84484; 85025; 85027; 85610; 85730; 87077; 87081; 87088; 87186; 93005; 93306; 94640; 94664; 94760; 96374; 96376

== ENCOUNTER 2020-02-11 10:51 | Inpatient (IN) | payer MEDICARE, OTHER ==
[~2020-02-11] VITALS: Ht 164 cm; Wt 95.3 kg
[2020-02-11] VITALS (16 sets, daily range): BP systolic 92–153; BP diastolic 47–73
[~2020-02-11 10:51] MED LIST changes: -AMLO10TA6 PO; +AMLO10TA7 PO; +FENO145T26 PO; -FENO145T37 PO; +FERR325T24 PO; +OMEP40CA27 PO; -OMEP40CA36 PO; +OMG1KC PO
[2020-02-11] MEDS ORDERED: ROCURONIUM 10 MG/ML 5 ML SYRINGE IV ONE (10:53)
[2020-02-11] MEDS ORDERED: ETOMIDATE IV SOLN 20 MG/10 ML VIAL IV ONE (10:53)
[2020-02-11] MEDS ORDERED: fentaNYL INJECTION 100 MCG/2 ML AMP IV ONE (10:53)
[2020-02-11] MEDS ORDERED: RT-ALBUTEROL INHALER HFA (VENTOLIN HFA) 18 GM IH ONE (11:18)
[2020-02-11 11:22] LABS: BASOPHILS % (AUTO) 0 % (0-10); EOSINOPHILS % (AUTO) 0 % (0-10); HEMATOCRIT 38 % (35-52); HEMOGLOBIN 12.7 G/DL (11.5-16.0); LYMPHOCYTES # (AUTO) 0.6 X 10^3 (1.0-4.0); LYMPHOCYTES % (AUTO) 14 % (12-44); MEAN CORPUSCULAR HEMOGLOBIN 26 PG (25-34); MEAN CORPUSCULAR HGB CONC 33 G/DL (32-36); MEAN CORPUSCULAR VOLUME 79 FL (80-99); MONOCYTES # (AUTO) 0.3 X 10^3 (0.0-1.0); MONOCYTES % (AUTO) 7 % (0-12); NEUTROPHILS # (AUTO) 3.5 X 10^3 (1.8-7.8); NEUTROPHILS % (AUTO) 78 % (42-75); PLATELET COUNT 286 10^3/uL (130-400); WHITE BLOOD COUNT 4.5 10^3/uL (4.3-11.0)
[2020-02-11 11:36] LABS: ABG BASE EXCESS -5.9 MMOL/L (-2.5-2.5); ABG OXYGEN SATURATION 95 % (94-100); ABG PCO2 30 MMHG (35-45); ABG PO2 91 MMHG (79-93); ABG TCO2 18.5 MMOL/L (21.0-31.0)
[2020-02-11 11:37] LABS: ALLENS TEST YES-POS; INSPIRED O2 100%; PATIENT TEMP 38.4; VENTILATOR YES
[2020-02-11] MEDS ORDERED: NS IV 1000 ML 1,000 ML ONE ×2 (11:37→12:56)
[2020-02-11 11:39] LABS: PROTHROMBIN TIME PATIENT 13.3 SEC (12.2-14.7)
[2020-02-11 11:47] LABS: BILIRUBIN,URINE NEGATIVE (NEGATIVE); CLARITY,URINE CLEAR; COLOR,URINE YELLOW; GLUCOSE, URINE (UA) NEGATIVE (NEGATIVE); KETONES,URINE NEGATIVE (NEGATIVE); LEUKOCYTE ESTERASE ,URINE NEGATIVE (NEGATIVE); NITRITE,URINE NEGATIVE (NEGATIVE); PH,URINE 5.5 (5-9); PROTEIN,URINE NEGATIVE (NEGATIVE)
--- NOTE | 2020-02-11 11:50 | NUR ---
DR. JEWELL DETERMINES PT NEEDS TO BE INTUBATED, STAFF IN THE ROOM ARE , RT SARI ARANDA,RN, [facility], CAN INTAKE WORKER MARJAN RODRÍGUEZ 1151 20 MG ETOMIDATE 1152 50 MCG FENTANYL 1152 50 MG ROCURONIUM 1153 7.5 TUBE, 22.5 AT THE TEETH WITH POSITIVE COLOR CHANGE 1154 99%, PULSE 73, 163/56 1155 O2 DROPPING, NO BREATH SOUNDS, DISCONNECTED FROM THE VENT, BAGGING PT WITH SUCCESS 1159 SATS 91% 1200 RAD CONFIRMED TUBE PLACEMENT 1235 PT MOVING, ORDER FOR MEDICATION 1236 50 MG ROCURONIUM 1237 20 MG ETOMIDATE
[2020-02-11 11:55] LABS: AMORPHOUS SEDIMENT,UR RARE AMOR URATES /LPF; BACTERIA,URINE TRACE /HPF
[2020-02-11 12:10] LABS: ALBUMIN 3.9 GM/DL (3.2-4.5)
[2020-02-11 12:13] LABS: TOTAL PROTEIN 7.6 GM/DL (6.4-8.2)
[2020-02-11 12:15] LABS: BILIRUBIN,TOTAL 0.3 MG/DL (0.1-1.0)
[2020-02-11 12:17] LABS: CREATININE SERUM 2.4 MG/DL (0.60-1.30)
--- NOTE | 2020-02-11 12:40 | Diagnostic Imaging Report ---
Indication: Sepsis, ET tube placement. Findings: ET tube tip projects over the mid thoracic trachea in good alignment. Bilateral infiltrates have developed in the interim involving all 5 lobes, but greatest in the right lower lung. Sternal wires appeared intact. Heart size stable. Impression: New patchy 5 lobe infiltrates with an ET tube in good position. Dictated by: Dictated on workstation # [id number]
--- NOTE | 2020-02-11 12:50 | ED General ---
General Chief Complaint: Respiratory Problems Stated Complaint: RESP FAILURE Nursing Triage Note: PT TO RM 7 BY [facility] WITH CC OF DIFFICULTY BREEATHING AND LOW O2 SATS ON 15 LITERS NON REBREATHER. Nursing Sepsis Screen: Possible Severe Sepsis Risk Source of Information: EMS, Family Exam Limitations: Physical Impairments History of Present Illness Date Seen by Provider: Feb 11, 2020 Time Seen by Provider: 10:52 Initial Comments This 79-year-old woman presents to the emergency room via EMS in respiratory distress. Symptoms started about a week ago with an earache. Symptoms have progressed to include weakness, poor oral intake, lethargy, fever, respiratory distress, and hypoxia. EMS reported saturations were in the 60s and 70s on room air. After application of a high flow nonrebreather oxygen saturations were in the mid 80s. She is lethargic and not able to meaningfully communicate with us at this time. Allergies and Home Medications Allergies Coded Allergies: penicillin G (Verified Allergy, Severe, Anaphylaxis, 02/11/20) Sulfa (Sulfonamide Antibiotics) (Verified Allergy, Unknown, 12/13/17) Home Medications Amlodipine Besylate 10 Mg Tablet, 10 MG PO DAILY, (Reported) Fenofibrate Nanocrystallized 145 Mg Tablet, 145 MG PO DAILY, (Reported) Ferrous Sulfate 325 Mg Tablet, 325 MG PO BIDPC Prescribed by: SHARATH COLON on 06/02/18 0800 Furosemide 80 Mg Tablet, 80 MG PO DAILY, (Reported) Levothyroxine Sodium 50 Mcg Tablet, 50 MCG PO DAILY, (Reported) Lysine 500 Mg Tablet, 500 MG PO DAILY, (Reported) Metoprolol Succinate 50 Mg Tab.er.24h, 50 MG PO DAILY, (Reported) [place] 3 Polyunsat Fatty Acids 1,000 Mg Cap, 1,000 MG PO BID, (Reported) Omeprazole 40 Mg Capsule.dr, 40 MG PO DAILY, (Reported) Potassium Chloride 20 Meq Tablet.er, 20 MEQ PO DAILY, (Reported) Patient Home Medication List Home Medication List Reviewed: Yes Review of Systems Review of Systems Constitutional: see HPI EENTM: no symptoms reported Respiratory: see HPI Cardiovascular: no symptoms reported Gastrointestinal: see HPI Genitourinary: no symptoms reported : No Musculoskeletal: no symptoms reported Skin: no symptoms reported Psychiatric/Neurological: See HPI Hematologic/Lymphatic: No Symptoms Reported Past Ckahyeb-Sczkpf-[employer]biv Hx Past Med/Social Hx: Reviewed Nursing Past Med/Soc Hx Patient Social History Alcohol Use: Denies Use Recreational Drug Use: No Smoking Status: Unknown if Ever Smoked Former Smoker, Quit: Dec 13, 1993 Recent Foreign Travel: No Contact w/Someone Who Travel: No Recent Infectious Disease Expo: No Recent Hopitalizations: No Immunizations Up To Date Date of Pneumonia Vaccine: May 21, 2016 Date of Influenza Vaccine: Mar 08, 2018 Seasonal Allergies Seasonal Allergies: Yes (MILD) Past Medical History Surgeries: Yes (CABG) CABG, Gallbladder, Hysterectomy, Tonsillectomy Respiratory: No Cardiac: Yes Coronary Artery Disease, High Cholesterol, Hypertension Neurological: No 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, 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 Sexually Transmitted Disease: No HIV/AIDS: No Genitourinary: Yes Neurogenic Bladder Gastrointestinal: Yes Gastroesophageal Reflux, Chronic Constipation, Chronic Diarrhea Musculoskeletal: Yes Arthritis, Rheumatoid Arthritis Endocrine: Yes HEENT: No Loss of Vision: Bilateral Hearing Impairment: Denies Cancer: No Psychosocial: No Integumentary: No Blood Disorders: Yes (IRON DEF ANEMIA) Adverse Reaction/Blood Tranf: No Physical Exam-Suspected Sepsis Physical Exam Vital Signs Vital Signs - First Documented 02/11/20 02/11/20 02/11/20 11:40 11:50 12:18 Temp 38.4 Pulse 77 Resp 22 B/P (MAP) 135/111 (119) Pulse Ox 90 O2 Delivery Non Rebreather O2 Flow Rate 15.00 FiO2 100 Capillary Refill : Less Than 3 Seconds Blood Pressure Mean: 119 Height, Weight, BMI Height: 5'4.00" Weight: 213lbs. 6.2oz. 96.017675tr; 33.00 BMI Method:Stated General Appearance: WD/WN, Moderate Distress HEENT: PERRL/EOMI, Normal ENT Inspection, Other (mucous membranes dry) Neck: Normal Inspection Respiratory: Lungs Clear, Accessory Muscle Use, Decreased Breath Sounds, Respiratory Distress, Other (grunting) Cardiovascular: No Edema, No Murmur, Normal Peripheral Pulses, Irregularly Irregular (sinus rhythm with frequent PVCs or PACs), Tachycardia Gastrointestinal: Normal Bowel Sounds, Non Tender, Soft Extremity: Non Tender, Pedal Edema (mild) Neurologic/Psychiatric: Other (to lethargic for a reliable neurologic assessment) Skin: warm/dry, pallor Focused Exam Lactate Level 02/11/20 11:04: Lactic Acid Level 1.94 Lactic Acid Level Procedures/Interventions Date of ETT Placement: Feb 11, 2020 Time of ETT Placement: 1218 Tube Size: 7.50 Medications: Etomidate (20 mg), Fentanyl (50 mcg), Rocuronium (2 mg) Positive End Tide CO2: Yes Breath Sounds after Intubation: bilateral-equal Intubation Complications: O2 saturation decreased, other (Mechanical difficulties with vent machine) Post Intubation Xray: Yes ET tube in good position Patient had good response to intubation. she required further sedation. Another rocuronium 50 mg dose was given along with another etomidate 20 mg dose. This was followed by a propofol drip. Progress/Results/Core Measures Suspected Sepsis Recent Fever Within 48 Hours: Yes Infection Criteria Present: Suspected New Infection New/Unexplained Altered Menta: Yes Sepsis Screen: Possible Severe Sepsis Risk SIRS Temperature: Pulse: 101 Respiratory Rate: 26 Laboratory Tests 02/11/20 11:04: White Blood Count 4.5 Blood Pressure 135 /111 Mean: 119 02/11/20 11:04: Lactic Acid Level 1.94 Laboratory Tests 02/11/20 11:04: INR Comment 1.0, Platelet Count 286 02/11/20 11:40: Creatinine 2.40H, Total Bilirubin 0.3 Results/Orders Lab Results Laboratory Tests Test 02/11/20 11:04 02/11/20 11:15 02/11/20 11:25 02/11/20 11:40 Range/Units White Blood Count 4.5 4.3-11.0 10^3/uL Red Blood Count 4.82 4.35-5.85 10^6/uL Hemoglobin 12.7 11.5-16.0 G/DL Hematocrit 38 35-52 % Mean Corpuscular Volume 79 L 80-99 FL Mean Corpuscular Hemoglobin 26 25-34 PG Mean Corpuscular Hemoglobin Concent 33 32-36 G/DL Red Cell Distribution Width 15.0 H 10.0-14.5 % Platelet Count 286 130-400 10^3/uL Mean Platelet Volume 7.4-10.4 FL Neutrophils (%) (Auto) 78 H 42-75 % Lymphocytes (%) (Auto) 14 12-44 % Monocytes (%) (Auto) 7 0-12 % Eosinophils (%) (Auto) 0 0-10 % Basophils (%) (Auto) 0 0-10 % Neutrophils # (Auto) 3.5 1.8-7.8 X 10^3 Lymphocytes # (Auto) 0.6 L 1.0-4.0 X 10^3 Monocytes # (Auto) 0.3 0.0-1.0 X 10^3 Eosinophils # (Auto) 0.0 0.0-0.3 10^3/uL Basophils # (Auto) 0.0 0.0-0.1 10^3/uL Prothrombin Time 13.3 12.2-14.7 SEC INR Comment 1.0 0.8-1.4 Activated Partial Thromboplast Time 30 24-35 SEC Lactic Acid Level 1.94 0.50-2.00 MMOL/L C-Reactive Protein High Sensitivity 19.08 H 0.00-0.50 MG/DL Triglycerides Level 424 H <150 MG/DL Procalcitonin 1.61 H <0.10 NG/ML Coronavirus 2019 (MARK) Positive H Negative Blood Gas Puncture Site RT RAD Blood Gas Patient Temperature 38.4 Arterial Blood pH 7.40 7.37-7.43 Arterial Blood Partial Pressure CO2 30 L 35-45 MMHG Arterial Blood Partial Pressure O2 91 79-93 MMHG Arterial Blood HCO3 18 L 23-27 MMOL/L Arterial Blood Total CO2 18.5 L 21.0-31.0 MMOL/L Arterial Blood Oxygen Saturation 95 94-100 % Arterial Blood Base Excess -5.9 L -2.5-2.5 MMOL/L Ed Test YES-POS Blood Gas Ventilator Setting YES Blood Gas Inspired Oxygen 100% Urine Color YELLOW Urine Clarity CLEAR Urine pH 5.5 5-9 Urine Specific [place] 1.015 L 1.016-1.022 Urine Protein NEGATIVE NEGATIVE Urine Glucose (UA) NEGATIVE NEGATIVE Urine Ketones NEGATIVE NEGATIVE Urine Nitrite NEGATIVE NEGATIVE Urine Bilirubin NEGATIVE NEGATIVE Urine Urobilinogen 0.2 < = 1.0 MG/DL Urine Leukocyte Esterase NEGATIVE NEGATIVE Urine RBC (Auto) NEGATIVE NEGATIVE Urine RBC NONE /HPF Urine WBC NONE /HPF Urine Crystals NONE /LPF Urine Amorphous Sediment RARE URIEL URATES H /LPF Urine Bacteria TRACE /HPF Urine Casts NONE /LPF Urine Mucus NEGATIVE /LPF Urine Culture Indicated NO Sodium Level 139 135-145 MMOL/L Potassium Level 4.0 3.6-5.0 MMOL/L Chloride Level 106 98-107 MMOL/L Carbon Dioxide Level 16 L 21-32 MMOL/L Anion Gap 17 H 5-14 MMOL/L Blood Urea Nitrogen 42 H 7-18 MG/DL Creatinine 2.40 H 0.60-1.30 MG/DL Estimat Glomerular Filtration Rate 20 BUN/Creatinine Ratio 18 Glucose Level 105 70-105 MG/DL Calcium Level 10.0 8.5-10.1 MG/DL Corrected Calcium 10.1 8.5-10.1 MG/DL Total Bilirubin 0.3 0.1-1.0 MG/DL Aspartate Amino Transf (AST/SGOT) 100 H 5-34 U/L Alanine Aminotransferase (ALT/SGPT) 23 0-55 U/L Alkaline Phosphatase 58 40-136 U/L Total Protein 7.6 6.4-8.2 GM/DL Albumin 3.9 3.2-4.5 GM/DL Test 02/11/20 12:25 Range/Units D-Dimer 2.36 H 0.00-0.49 UG/ML Micro Results Microbiology 02/11/20 Influenza Types A,B Antigen (MONALISA) - Final, Complete My Orders Orders - GEMMA JEWELL MD Influenza A And B Antigens (02/11/20 11:10) Cbc With Automated Diff (02/11/20 11:10) Blood Culture (02/11/20 11:10) Sputum Culture (02/11/20 11:10) Urinalysis (02/11/20 11:10) Urine Culture (02/11/20 11:10) Protime With Inr (02/11/20 11:10) Partial Thromboplastin Time (02/11/20 11:10) Chest 1 View, Ap/Pa Only (02/11/20 11:10) Ed Iv/Invasive Line Start (02/11/20 11:10) Ed Iv/Invasive Line Start (02/11/20 11:10) Vital Signs Adult Sepsis Patie Q15M (02/11/20 11:10) O2 (02/11/20 11:10) Remove Rings In Anticipation O (02/11/20 11:10) Lactic Acid Analyzer (02/11/20 11:10) Albuterol Inhaler (Ventolin Hfa) (02/11/20 11:18) Arterial Blood Gas (02/11/20 11:27) Comprehensive Metabolic Panel (02/11/20 11:41) Ns Iv 1000 Ml (Sodium Chloride 0.9%) (02/11/20 11:37) Dexamethasone Injection (Decadron Inje (02/11/20 12:04) Hs C Reactive Protein (02/11/20 12:20) Fibrin Degradation Products (02/11/20 12:20) Procalcitonin (Pct) (02/11/20 12:20) Dexamethasone Injection (Decadron Inje (02/11/20 12:30) Etomidate Injection (Amidate Injection) (02/11/20 10:53) Fentanyl Injection (Sublimaze Injection (02/11/20 10:53) Rocuronium 5 Ml Syringe (Rocuronium 5 Ml (02/11/20 10:53) Meropenem (Merrem 500 Mg) (02/11/20 13:00) Triglycerides (02/11/20 12:51) Ns Iv 1000 Ml (Sodium Chloride 0.9%) (02/11/20 13:00) Ns Iv 1000 Ml (Sodium Chloride 0.9%) (02/11/20 12:56) Medications Given in ED Current Medications Medications Dose Ordered Sig/Bety Route Start Time Stop Time Status Last Admin Dose Admin Dexamethasone Sodium Phosphate 6 mg ONCE ONCE IV 02/11/20 12:30 02/11/20 12:31 DC 02/11/20 12:06 6 MG Sodium Chloride 1,000 ml @ STK-MED ONCE .ROUTE 02/11/20 11:37 02/11/20 11:42 DC 02/11/20 11:47 1,000 MLS/HR Vital Signs/I&O 02/11/20 02/11/20 02/11/20 02/11/20 11:40 11:50 12:18 13:30 Temp 38.4 Pulse 77 101 73 Resp 22 26 22 B/P (MAP) 135/111 (119) 153/61 (91) Pulse Ox 90 90 96 94 O2 Delivery Non Rebreather Non Rebreather Mechanical Ventilator O2 Flow Rate 15.00 15.00 100.00 FiO2 100 02/11/20 02/11/20 02/11/20 02/11/20 13:33 13:59 14:00 14:05 Temp 38.4 Pulse 65 69 69 69 Resp 18 22 B/P (MAP) 139/59 (119) 118/58 (78) 118/58 Pulse Ox 94 100 100 O2 Delivery Mechanical Ventilator Mechanical Ventilator O2 Flow Rate 100.00 FiO2 100 02/11/20 02/11/20 02/11/20 02/11/20 14:13 14:32 14:57 15:00 Temp 36.6 Pulse 73 63 Resp 22 22 B/P (MAP) 118/58 (78) 96/47 (63) Pulse Ox 98 98 97 O2 Delivery Mechanical Ventilator Mechanical Ventilator Mechanical Ventilator Mechanical Ventilator O2 Flow Rate 45.00 40.00 40.00 FiO2 45 02/11/20 02/11/20 02/11/20 02/11/20 15:28 15:38 16:00 17:00 Pulse 60 60 61 Resp 22 22 B/P (MAP) 86/45 94/50 (65) 92/69 (77) Pulse Ox 98 98 99 O2 Delivery Mechanical Ventilator Mechanical Ventilator Mechanical Ventilator O2 Flow Rate 45.00 45.00 FiO2 45 02/11/20 02/11/20 18:00 18:31 Pulse 61 58 Resp 22 12 B/P (MAP) 103/49 (67) Pulse Ox 99 98 O2 Delivery Mechanical Ventilator O2 Flow Rate 45.00 FiO2 45 Capillary Refill : Less Than 3 Seconds Blood Pressure Mean: 119 Diagnostic Imaging Diagonstic Imaging: Xray Plain Films/CT/US/NM/MRI: chest Comments NAME: JESSICA OVIEDO [facility] REC#: [id number] PT STATUS: REG ER : 1940 PHYSICIAN: GEMMA JEWELL MD ADMIT DATE: 02/11/20/ER Signed Date of Exam:02/11/20 CHEST 1 VIEW, AP/PA ONLY Indication: Sepsis, ET tube placement. Findings: ET tube tip projects over the mid thoracic trachea in good alignment. Bilateral infiltrates have developed in the interim involving all 5 lobes, but greatest in the right lower lung. Sternal wires appeared intact. Heart size stable. Impression: New patchy 5 lobe infiltrates with an ET tube in good position. Dictated by: Dictated on workstation # [id number] Dict: 02/11/20 1220 Trans: 02/11/20 1247 CV [id number] Interpreted by: PEREZ CRAIN Electronically signed by: PEREZ CRAIN 02/11/20 1247 Critical Care Note Critical Care Start Time: 10:52 Stop Time: 12:35 Total Time (minutes) 103 min Progress Patient was found to be hypoxic, lethargic, and in respiratory distress on arrival. BiPAP was applied with some improvement in her respiratory status. Oxygen saturations improved to the upper 90s but she continued to be in distress with grunting and increased work of breathing. Lethargy did not improve much. The decision was made to intubate. This was performed without complication. There was a brief period of mild desaturation due to mechanical difficulties. Patient was briefly oxygenated by mask until ventilator could be properly applied. Albuterol 4 puffs had been administered in-line while on BiPAP. Patient was given 6 mg of dexamethasone. After reviewing chest x-ray with Dr. Crowley, IV antibiotics were also initiated. Rapid COVID 19 swab returned positive. Family was updated and was advised of quarantine requirements. Patient's daughter Katiana can be contacted at [phone] (H) [phone] (M). patient received a liter of IV fluid. She then had some hypotensive measurements and a second liter of IV fluid was administered. Antibiotic therapy was started with meropenem due to penicillin allergy. Departure Communication (Admissions) Time/Spoke to Admitting Phy: 12:35 Dr. Crowley Impression Primary Impression: Respiratory failure Qualified Codes: J96.01 - Acute respiratory failure with hypoxia Additional Impressions: COVID-19 Acute kidney injury Disposition: ADMITTED INPATIENT Condition: Critical Admissions Decision to Admit Reason: Admit from ER (General) Decision to Admit/Date: Feb 11, 2020 Time/Decision to Admit Time: 11:00 Departure-Patient Inst. Decision time for Depature: 11:00 Referrals: SHARATH COLON DO (PCP/Family) Primary Care Physician Copy Copies To 1: SHARATH CLOON JOSHUA T MD Feb 11, 2020 12:49
[2020-02-11] MEDS ORDERED: MEROPENEM 500 MG in WATER (STERILE) FOR INJECTION 10 ML IV ONE (13:00)
[2020-02-11] MEDS ORDERED: PROPOFOL DRIP (ICU) 100 ML IV SCH ×2 (13:00→14:30)
[2020-02-11] MEDS ORDERED: NS IV 1000 ML 1,000 ML IV SCH (13:00)
[2020-02-11] MEDS ORDERED: DOPamine DRIP 250 ML IV ONE (13:48)
[2020-02-11] MEDS: NS IV 1000 ML 1,000 ML IV SCH ×2 (13:57→23:14)
[2020-02-11] MEDS ORDERED: AZITHROMYCIN 500 MG/NS 250 ML IVPB IV NR ×2 (14:00)
--- NOTE | 2020-02-11 14:03 | History & Physical-Hospitalist ---
History of Present Illness Source: family Exam Limitations: clinical condition Date Seen 02/11/20 Time Seen by a Provider: 13:30 Attending Physician Uma Garrett MD PCP Frankie Casas DO Referring Physician Date of Admission Feb 11, 2020 at 12:35 Home Medications & Allergies Home Medications Reviewed patient Home Medication Reconciliation performed by pharmacy medication reconciliations neon technician and/or nursing. Patients Allergies have been reviewed. Allergies Allergies Coded Allergies Sulfa (Sulfonamide Antibiotics) (Verified Allergy, Unknown, 12/13/17) penicillin G (Verified Allergy, Unknown, 12/13/17) Past Zhzrvdc-Vjettj-Ixnfdv Hx Past Med/Social Hx: Reviewed Nursing Past Med/Soc Hx Patient Social History Alcohol Use: Denies Use Recreational Drug Use: No Smoking Status: Unknown if Ever Smoked Former Smoker, Quit: Dec 13, 1993 Recent Foreign Travel: No Contact w/other who traveled: No Recent Hopitalizations: No Recent Infectious Disease Expo: No Immunizations Up To Date Date of Pneumonia Vaccine: May 21, 2016 Date of Influenza Vaccine: Mar 08, 2018 Seasonal Allergies Seasonal Allergies: Yes (MILD) Past Medical History Surgeries: CABG, Gallbladder, Hysterectomy, Tonsillectomy Cardiac: Coronary Artery Disease, High Cholesterol, Hypertension Reproductive: No Sexually Transmitted Disease: No HIV/AIDS: No Hysterectomy, Menopausal Genitourinary: Neurogenic Bladder Gastrointestinal: Gastroesophageal Reflux, Chronic Constipation, Chronic Diarrhea Musculoskeletal: Arthritis, Rheumatoid Arthritis Loss of Vision: Bilateral Hearing Impairment: Denies History of Blood Disorders: Yes (IRON DEF ANEMIA) Adverse Reaction to Blood Dobson: No Review of Systems ROS-Unable to Obtain: Intubated and sedated Constitutional: see HPI EENTM: ear pain Respiratory: cough Cardiovascular: no symptoms reported Gastrointestinal: no symptoms reported Genitourinary: no symptoms reported Musculoskeletal: muscle pain Skin: no symptoms reported Psychiatric/Neurological: No Symptoms Reported Physical Exam Physical Exam Vital Signs Vital Signs - First Documented 02/11/20 02/11/20 02/11/20 11:40 11:50 12:18 Temp 38.4 Pulse 77 Resp 22 B/P (MAP) 135/111 (119) Pulse Ox 90 O2 Delivery Non Rebreather O2 Flow Rate 15.00 FiO2 100 Capillary Refill : Less Than 3 Seconds Height, Weight, BMI Height: 5'4.00" Weight: 213lbs. 6.2oz. 96.948743ca; 33.00 BMI Method:Stated General Appearance: No Apparent Distress, Obese, Other (intubated and sedated) HEENT: Other (ET and OG tubes in place) Respiratory: Lungs Clear, No Respiratory Distress, Other (intubated and mechanically ventilated) Cardiovascular: Regular Rate, Rhythm, No Edema, No Murmur Gastrointestinal: Normal Bowel Sounds, Soft Extremity: Normal Inspection, No Pedal Edema Neurologic/Psychiatric: Other (sedated) Skin: Normal Color, Warm/Dry Results Results/Procedures Labs Laboratory Tests 02/11/20 11:04 02/11/20 11:40 Patient resulted labs reviewed. Imaging: Reviewed Imaging Report Assessment/Plan Admission Diagnosis Acute respiratory failure due to COVID-19 Admission Status: Inpatient Order (span 2 midnights) Reason for Inpatient Admission: Respiratory failure requiring mechanical ventilation Diagnosis/Problems Diagnosis/Problems (1) Acute respiratory failure due to COVID-19 Status: Acute (2) Pneumonia Status: Acute (3) SOL (acute kidney injury) Status: Acute (4) Patient is Quaker Status: Chronic (5) Advanced age Status: Chronic (6) DNR (do not resuscitate) Status: Chronic UMA GARRETT MD Feb 11, 2020 14:03
[2020-02-11] MEDS: PROPOFOL DRIP (ICU) 100 ML IV SCH ×2 (14:05→20:51)
[2020-02-11] MEDS: fentaNYL INJECTION 1,250 MCG in NS (IVPB) 250 ML IV SCH (14:46)
[2020-02-11] MEDS: MEROPENEM 500 MG/SWFI 10 ML IV PUSH IV SCH ×2 (20:50)
[2020-02-12] VITALS (30 sets, daily range): BP systolic 81–142; BP diastolic 46–75
[2020-02-12] MEDS: PROPOFOL DRIP (ICU) 100 ML IV SCH ×5 (01:11→22:48)
[2020-02-12] MEDS: fentaNYL INJECTION 1,250 MCG in NS (IVPB) 250 ML IV SCH ×2 (03:45→21:22)
[2020-02-12 03:52] LABS: BASOPHILS % (AUTO) 0 % (0-10); EOSINOPHILS % (AUTO) 0 % (0-10); HEMATOCRIT 31 % (35-52); HEMOGLOBIN 10.1 G/DL (11.5-16.0); LYMPHOCYTES # (AUTO) 0.5 X 10^3 (1.0-4.0); LYMPHOCYTES % (AUTO) 21 % (12-44); MEAN CORPUSCULAR HEMOGLOBIN 26 PG (25-34); MEAN CORPUSCULAR HGB CONC 33 G/DL (32-36); MEAN CORPUSCULAR VOLUME 81 FL (80-99); MEAN PLATELET VOLUME 11.2 FL (7.4-10.4); MONOCYTES # (AUTO) 0.3 X 10^3 (0.0-1.0); MONOCYTES % (AUTO) 12 % (0-12); NEUTROPHILS # (AUTO) 1.6 X 10^3 (1.8-7.8); NEUTROPHILS % (AUTO) 66 % (42-75); PLATELET COUNT 148 10^3/uL (130-400); WHITE BLOOD COUNT 2.5 10^3/uL (4.3-11.0)
[2020-02-12 04:03] LABS: POTASSIUM 3.1 MMOL/L (3.6-5.0)
[2020-02-12 04:04] LABS: CALCIUM 8.8 MG/DL (8.5-10.1)
[2020-02-12 04:08] LABS: PHOSPHORUS 2.7 MG/DL (2.3-4.7)
[2020-02-12 04:09] LABS: CREATININE SERUM 1.65 MG/DL (0.60-1.30)
[2020-02-12 04:11] LABS: MAGNESIUM 1.7 MG/DL (1.6-2.4)
[2020-02-12 04:25] LABS: ABG BASE EXCESS -8.7 MMOL/L (-2.5-2.5); ABG OXYGEN SATURATION 94 % (94-100); ABG PCO2 22 MMHG (35-45); ABG PH 7.44 (7.37-7.43); ABG PO2 79 MMHG (79-93); ABG TCO2 15.5 MMOL/L (21.0-31.0)
[2020-02-12 04:27] LABS: ALLENS TEST YES-POS; INSPIRED O2 36%; PATIENT TEMP 36.1; VENTILATOR YES
[2020-02-12] MEDS: MEROPENEM 500 MG/SWFI 10 ML IV PUSH IV SCH ×6 (05:14→20:46)
--- NOTE | 2020-02-12 05:30 | Pulmonary Consultation ---
History of Present Illness History of Present Illness Date Seen by Provider: Feb 12, 2020 Time Seen by Provider: 05:25 Date of Admission Allergies and Home Medications Allergies Coded Allergies: penicillin G (Verified Allergy, Severe, Anaphylaxis, 02/11/20) Sulfa (Sulfonamide Antibiotics) (Verified Allergy, Unknown, 12/13/17) Home Medications Amlodipine Besylate 10 Mg Tablet, 10 MG PO DAILY, (Reported) Fenofibrate Nanocrystallized 145 Mg Tablet, 145 MG PO DAILY, (Reported) Ferrous Sulfate 325 Mg Tablet, 325 MG PO BIDPC Prescribed by: SHARATH COLON on 06/02/18 0800 Furosemide 80 Mg Tablet, 80 MG PO DAILY, (Reported) Levothyroxine Sodium 50 Mcg Tablet, 50 MCG PO DAILY, (Reported) Lysine 500 Mg Tablet, 500 MG PO DAILY, (Reported) Metoprolol Succinate 50 Mg Tab.er.24h, 50 MG PO DAILY, (Reported) [place] 3 Polyunsat Fatty Acids 1,000 Mg Cap, 1,000 MG PO BID, (Reported) Omeprazole 40 Mg Capsule.dr, 40 MG PO DAILY, (Reported) Potassium Chloride 20 Meq Tablet.er, 20 MEQ PO DAILY, (Reported) Past Jhisojh-Qdsbfw-Znystq Hx Past Med/Social Hx: Reviewed Nursing Past Med/Soc Hx Patient Social History Alcohol Use: Denies Use Recreational Drug Use: No Smoking Status: Unknown if Ever Smoked Former Smoker, Quit: Dec 13, 1993 Recent Foreign Travel: No Contact w/Someone Who Travel: No Recent Infectious Disease Expo: No Recent Hopitalizations: No Physical Abuse: No Sexual Abuse: No Mistreated: No Fear: No Immunizations Up To Date Date of Pneumonia Vaccine: May 21, 2016 Date of Influenza Vaccine: Mar 08, 2018 Seasonal Allergies Seasonal Allergies: Yes (MILD) Past Medical History Surgeries: Yes (CABG) CABG, Gallbladder, Hysterectomy, Tonsillectomy Respiratory: No Cardiac: Yes Coronary Artery Disease, High Cholesterol, Hypertension Neurological: No : No Reproductive Disorders: No 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 6.2oz. 96.001868oz; 33.00 BMI Method:Stated Exam Exam Vital Signs Date Time Temp Pulse Resp B/P (MAP) Pulse Ox O2 Delivery O2 Flow Rate FiO2 02/12/20 05:00 40 20 96 Mechanical Ventilator 36.00 02/12/20 04:13 36.1 02/12/20 04:00 47 22 107/60 (76) 96 Mechanical Ventilator 36.00 02/12/20 03:55 Mechanical Ventilator 36 02/12/20 03:00 49 21 102/53 (69) 96 Mechanical Ventilator 36.00 02/12/20 02:54 49 22 96 36 02/12/20 02:00 51 22 104/53 (70) 96 Mechanical Ventilator 36.00 02/12/20 01:11 55 108/52 02/12/20 01:00 51 22 101/51 (68) 96 Mechanical Ventilator 36.00 02/12/20 01:00 51 02/12/20 00:00 54 22 108/54 (72) 96 Mechanical Ventilator 36.00 02/11/20 23:16 Mechanical Ventilator 36 02/11/20 23:10 36.3 02/11/20 23:00 55 21 108/52 (70) 95 Mechanical Ventilator 36.00 02/11/20 22:28 55 21 100 Mechanical Ventilator 36.00 02/11/20 22:24 55 22 97 40 02/11/20 22:00 55 21 101/49 (66) 97 Mechanical Ventilator 40.00 02/11/20 21:00 59 21 106/50 (68) 98 Mechanical Ventilator 40.00 02/11/20 20:52 36.8 61 22 125/73 (90) 97 Mechanical Ventilator 40.00 02/11/20 20:51 64 125/73 02/11/20 20:30 Mechanical Ventilator 40 02/11/20 20:00 57 22 106/52 (70) 98 Mechanical Ventilator 45.00 02/11/20 19:00 57 22 98/48 (65) 96 Mechanical Ventilator 45.00 02/11/20 19:00 57 02/11/20 18:31 58 22 98 45 02/11/20 18:00 61 22 103/49 (67) 99 Mechanical Ventilator 45.00 02/11/20 17:00 61 22 92/69 (77) 99 Mechanical Ventilator 45.00 02/11/20 16:00 60 22 94/50 (65) 98 Mechanical Ventilator 45.00 02/11/20 15:38 98 Mechanical Ventilator 45 02/11/20 15:28 60 86/45 02/11/20 15:00 63 22 96/47 (63) 97 Mechanical Ventilator 40.00 02/11/20 14:57 98 Mechanical Ventilator 45 02/11/20 14:32 Mechanical Ventilator 40.00 02/11/20 14:13 36.6 73 22 118/58 (78) 98 Mechanical Ventilator 45.00 02/11/20 14:05 69 118/58 02/11/20 14:00 69 118/58 (78) 100 Mechanical Ventilator 100.00 02/11/20 13:59 69 22 100 100 02/11/20 13:33 38.4 65 18 139/59 (119) 94 Mechanical Ventilator 02/11/20 13:30 73 22 153/61 (91) 94 Mechanical Ventilator 100.00 02/11/20 12:18 101 26 96 100 02/11/20 11:50 38.4 77 22 135/111 (119) 90 Non Rebreather 15.00 02/11/20 11:40 90 Non Rebreather 15.00 I & O 02/12/20 07:00 Intake Total 250 ml Output Total 915 ml Balance -665 ml Height & Weight Height: 5'4.00" Weight: 213lbs. 6.2oz. 96.430013yv; 33.00 BMI Method:Stated General Appearance: WD/WN, Moderate Distress HEENT: PERRL/EOMI, Normal ENT Inspection, Other (mucous membranes dry) Neck: Normal Inspection Respiratory: Lungs Clear, Accessory Muscle Use, Decreased Breath Sounds, Respiratory Distress, Other (grunting) Cardiovascular: No Edema, No Murmur, Normal Peripheral Pulses, Irregularly Irregular (sinus rhythm with frequent PVCs or PACs), Tachycardia Capillary Refill: Less Than 3 Seconds Extremity: Non Tender, Pedal Edema (mild) Neurologic/Psychiatric: Other (to lethargic for a reliable neurologic assessment) Skin: Normal Color, Warm/Dry Results Lab Laboratory Tests 02/11/20 11:04 02/11/20 11:40 02/12/20 03:41 Assessment/Plan Assessment/Plan Acute respiratory failure secondary to COVID-19 -Continue mechanical ventilator -Check Ferritin and repeat DDimer and PCT -Family is refusing Remdesivir -Pt is Jehovah witness. -Proning Secondary bacterial pneumonia -Continue Merrem and azithromycin -Schultz cultures pending Acute renal failure with metabolic acidosis -IVF - Change IVF to LR -Monitor Hypokalemia -replace GI/DVT ppx -Start Lovenox -Continue protonix UGO JEAN DO Feb 12, 2020 05:30
[2020-02-12] MEDS: POTASSIUM CL 10MEQ/50ML IVPB 50 ML IV SCH ×5 (06:10→09:28)
[2020-02-12] MEDS: D5 LR IV SOLUTION 1,000 ML IV SCH ×2 (06:10→12:37)
[2020-02-12] MEDS: MAGNESIUM 1 GM/100 ML IVPB 100 ML IV SCH ×2 (06:10→06:22)
[2020-02-12] MEDS ORDERED: REMDESIVIR INJ (NON-FORMULARY) 200 MG in NS (IVPB) 210 ML IV NR (08:00)
[2020-02-12] MEDS: PANTOPRAZOLE 40 MG (PROTONIX) VIAL IV SCH (08:03)
--- NOTE | 2020-02-12 08:17 | Physical Therapy Progress Note ---
Therapy Progress Note Patient is currently sedated and intubated. PT will continue to monitor patient status and initiate treatment when medically stable and able to actively participate with skilled therapy. RASHID FLOWER PT Feb 12, 2020 08:17
[2020-02-12 08:35] LABS: ABG BASE EXCESS -8.6 MMOL/L (-2.5-2.5); ABG OXYGEN SATURATION 91 % (94-100); ABG PCO2 27 MMHG (35-45); ABG PH 7.37 (7.37-7.43); ABG PO2 63 MMHG (79-93); ABG TCO2 16.9 MMOL/L (21.0-31.0)
[2020-02-12 08:41] LABS: ALLENS TEST YES-POS; INSPIRED O2 60%; PATIENT TEMP 35.2; VENTILATOR YES
--- NOTE | 2020-02-12 08:44 | NUR ---
this rn spoke to pt's son, Demian regarding Remdesivir tx, family refused medication. Confirmed w/ Guadalupe conklin. dr mcdonald informed.
[2020-02-12] MEDS ORDERED: ENOXAPARIN 40 MG/0.4 ML (LOVENOX) SYR SC SCH (09:00)
--- NOTE | 2020-02-12 09:11 | Occ Therapy Progress Note ---
Therapy Progress Note OT order received, chart reviewed. Pt. continues on mechanical ventilator support. Will continue to assess pt. and will evaluate/tx when medically ready. 0911 ECHO FLOYD OT Feb 12, 2020 09:11
[2020-02-12] MEDS ORDERED: SODIUM BICARB 8.4% 50 MEQ/50 ML VIAL IV ONE (09:15)
--- NOTE | 2020-02-12 09:30 | NUR ---
o2 sats 87-88% while on 60%fio2 and peep of 12. pt deep suctioned along w/ oral suctioned all while on 100%fio2-no improvement in o2 sats after suctioning. dr mcdonald notified, new orders received for stat cxr and increase peep to 14. rt informed.
--- NOTE | 2020-02-12 10:44 | Diagnostic Imaging Report ---
INDICATION: Hypoxia. COMPARISON: 02/11/2020 FINDINGS: Single frontal radiographic view of the chest was obtained and demonstrates indwelling endotracheal tube with tip just below the clavicular heads. Gastric tube extends inferiorly beyond the vgprv-ud-racu. Sternotomy wires are again noted. Lungs show overall improved aeration, although there are persistent patchy infiltrates bilaterally, left greater than right. There is no large effusion or pneumothorax. Cardiac silhouette and pulmonary vasculature within normal limits. Osseous structures show no new acute abnormalities. IMPRESSION: 1. Interval improved aeration, but with persistent scattered patchy infiltrates. Continued follow-up to resolution is advised. 2. Lines and tubes as above. Dictated by: Dictated on workstation # [id number]
--- NOTE | 2020-02-12 11:25 | NUR ---
PT'S BP LOW 80S/40S, O2 SATS IN LOW 90'S ON 90% FIO2 AND PEEP OF 14. DR JEAN INFORMED. NEW ORDERS RECEIVED FOR LR BOLUS, LOVENOX THER. DOSING PER PHARMACY, AND PICC LINE PLACEMENT. THIS RN SPOKE TO PT'S DAUGHTER, DUNIA AND UPDATED HER ON PT'S CONDITION.
[2020-02-12] MEDS ORDERED: ENOXAPARIN 100 MG/1 ML (LOVENOX) SYR SC SCH (11:30)
[2020-02-12] MEDS ORDERED: LACTATED RINGERS 1,000 ML IV NR (11:30)
--- NOTE | 2020-02-12 12:00 | NUR ---
PT'S BRADYCARDIC IN LOW-MID 40'S. DR JEAN INFORMED. NEW ORDERS RECEIVED.
--- NOTE | 2020-02-12 12:15 | NUR ---
DR BARRERA NOTIFIED OF NEW CONSULT.
[2020-02-12] MEDS ORDERED: LORazepam INJ 2 MG/ML (ATIVAN) VIAL ONE (12:17)
[2020-02-12] MEDS: LORazepam INJ 2 MG/ML (ATIVAN) VIAL IVP PRN (12:37)
[2020-02-12] MEDS ORDERED: AZITHROMYCIN 250 MG/NS 250 ML IVPB IV SCH ×2 (14:00)
--- NOTE | 2020-02-12 14:14 | NUR ---
PT DUE TO BE PLACED IN PRONE POSITION AT 1300, HOWEVER PT TO RECEIVE PICC LINE PLACEMENT FIRST.
[2020-02-12] MEDS ORDERED: ATROPINE INJECTION 1 MG/10 ML SYR (ABBOTT) ONE (14:42)
--- NOTE | 2020-02-12 14:59 | NUR ---
"RD ASSESSMENT Est kcal needs: 1400 kcal | 15 kcal/kg Est Pro needs: 56 g Pro | 0.6 g Pro/kg Note pt is currently intubated/sedated. If pt is to remain NPO for more than 3days, would recommend initiation of the following TF: Pulmocare 1.5 kcal at goal rate of 40ml/hr. Begin at 10ml/hr and increase by 10ml q6h as medically able and as tolerated. Monitor gastric residuals for tolerance. At goal rate, provides 1440 kcal (15 kcal/kg); 60 g Pro (0.6 g Pro/kg); and 754ml free water. Flush with 75ml water q4h for hydration status. With flushes, provides 1204ml free water. Will continue to follow and reassess as pt needs, intake, and status change. Vladimir Valencia, MS, RD, LD"
--- NOTE | 2020-02-12 15:00 | NUR ---
PT PLACED IN PRONE POSITION AT THIS TIME, TOLERATED WELL.
[2020-02-12] MEDS ORDERED: LEVO150T6 PO (15:56)
[2020-02-12] MEDS ORDERED: OMEP20CA18 PO (15:56)
[2020-02-12] MEDS ORDERED: LYSI500T10 PO (15:56)
[2020-02-12] MEDS ORDERED: CLOP75TA28 PO (15:56)
[2020-02-12] MEDS ORDERED: TRAM1TAB56 PO (15:57)
[2020-02-12] MEDS ORDERED: ROPI0.253 PO (15:58)
[2020-02-12] MEDS ORDERED: DOXE25CA46 PO (15:58)
[2020-02-12] MEDS ORDERED: FENO160T6 PO (15:59)
--- NOTE | 2020-02-12 15:59 | NUR ---
SPOKE WITH THE PT SON AND CALLED [facility] (MAIL ORDER) TO COMPLETE THE MED REC THE FOLLOWING ARE FILL DATES FROM [facility]: 12-22-2019 DOXEPIN 25MG #90/90DS 12-22-2019 LEVOTHYROXINE 150MCG #90/90DS 12-22-2019 FUROSEMIDE 80MG #90/90DS 12-29-2019 AMLODIPINE 10MG #90/90DS 12-29-2019 CLOPIDOGREL 75MG #90/90DS 01-02-2020 OMEPRAZOLE 20MG #180/90DS 01-02-2020 FENOFIBRATE 160MG #90/90DS [facility] HAS FILLED THE FOLLOWIN11-02-2019 ROPINIROLE 0.25MG #90/90DS 02-05-2020 ULTRACET #180/PRN OTC MEDS: OME[place] 3 LYSINE WHEN I FIRST SPOKE WITH [place] HE MENTIONED METOPROLOL AND K-TABS BEING FILLED HOWEVER I COULD NOT FIND CURRENT PRESCRIPTIONS FOR THESE MEDICATIONS. I CALLED HIM BACK TO VERIFY THE INFORMATION AND WAS TOLD THE PT IS NO LONGER TAKING THOSE MEDS WHEN I AM ABLE TO SPEAK WITH THE PT I WILL UPDATE THE NOTES/MED REC IF NEEDED
--- NOTE | 2020-02-12 17:35 | Consultation-Cardiology ---
HPI-Cardiology Cardiology Consultation: Date of Consultation 02/12/20 Date of Admission Attending Physician Uma Crowley MD Admitting Physician Frankie Casas DO Consulting Physician Lucero ARROYO MD HPI: Time Seen by a Provider: 17:34 Review of Systems-Cardiology Review of Systems : No WJL-Yddfgw-Isrvgo Hx Patient Social History Alcohol Use: Denies Use Recreational Drug Use: No Smoking Status: Unknown if Ever Smoked Recent Foreign Travel: No Recent Infectious Disease Expo: No Immunizations Up To Date Date of Pneumonia Vaccine: May 21, 2016 Date of Influenza Vaccine: Mar 08, 2018 Past Medical History PMH As described under Assessment. Allergies and Home Medications Allergies Coded Allergies: penicillin G (Verified Allergy, Severe, Anaphylaxis, 02/11/20) Sulfa (Sulfonamide Antibiotics) (Verified Allergy, Unknown, 12/13/17) Home Medications Amlodipine Besylate 10 Mg Tablet, 10 MG PO DAILY, (Reported) Clopidogrel Bisulfate 75 Mg Tablet, 75 MG PO DAILY, (Reported) Doxepin HCl 25 Mg Capsule, 25 MG PO DAILY, (Reported) Fenofibrate Nanocrystallized 160 Mg Tablet, 160 MG PO DAILY, (Reported) Furosemide 80 Mg Tablet, 80 MG PO DAILY, (Reported) Levothyroxine Sodium 150 Mcg Tablet, 150 MCG PO DAILY, (Reported) Lysine 500 Mg Tablet, 500 MG PO DAILY, (Reported) [place] 3 Polyunsat Fatty Acids 1,000 Mg Cap, 1,000 MG PO BID, (Reported) Omeprazole 20 Mg Capsule.dr, 40 MG PO DAILY, (Reported) Ropinirole HCl 0.25 Mg Tablet, 0.25 MG PO HS, (Reported) Tramadol HCl/Acetaminophen 1 Each Tablet, 1-2 EACH PO TID PRN for PAIN-MODERATE (5-7), (Reported) Physical Exam-Cardiology Physical Exam Vital Signs/I&O 02/12/20 02/12/20 02/12/20 02/12/20 06:05 06:15 06:19 06:30 Pulse 45 45 45 44 Resp B/P (MAP) 95/49 (64) 106/51 (69) 104/52 (69) Pulse Ox 92 93 93 O2 Delivery Mechanical Ventilator Mechanical Ventilator Mechanical Ventilator O2 Flow Rate 55.00 55.00 65.00 02/12/20 02/12/20 02/12/20 02/12/20 07:00 07:00 07:09 07:36 Pulse 44 45 50 Resp 21 22 B/P (MAP) 111/55 (73) Pulse Ox 93 94 O2 Delivery Mechanical Ventilator Mechanical Ventilator O2 Flow Rate 65.00 60.00 FiO2 65 02/12/20 02/12/20 02/12/20 02/12/20 08:00 08:00 08:00 09:00 Temp 35.2 Pulse 54 53 Resp 22 21 B/P (MAP) 117/50 (72) 109/50 (69) Pulse Ox 93 91 O2 Delivery Mechanical Ventilator Mechanical Ventilator Mechanical Ventilator O2 Flow Rate 60.00 60.00 FiO2 60 02/12/20 02/12/20 02/12/20 02/12/20 09:36 09:55 10:00 10:41 Pulse 58 58 Resp 30 22 B/P (MAP) 122/51 (74) Pulse Ox 93 90 O2 Delivery Mechanical Ventilator Mechanical Ventilator Mechanical Ventilator O2 Flow Rate 90.00 60.00 60.00 FiO2 60 02/12/20 02/12/20 02/12/20 02/12/20 10:42 10:59 11:00 11:51 Temp 35.4 Pulse 54 50 Resp 38 B/P (MAP) 118/64 92/47 (62) Pulse Ox 94 O2 Delivery Mechanical Ventilator Mechanical Ventilator O2 Flow Rate 90.00 90.00 02/12/20 02/12/20 02/12/20 02/12/20 12:00 12:00 13:00 15:13 Pulse 45 42 Resp 22 B/P (MAP) 92/46 (61) Pulse Ox 92 O2 Delivery Mechanical Ventilator Mechanical Ventilator Mechanical Ventilator O2 Flow Rate 90.00 80.00 FiO2 90 02/12/20 02/12/20 02/12/20 16:00 16:36 16:39 Temp 35.8 Pulse 61 B/P (MAP) 117/70 O2 Delivery Mechanical Ventilator FiO2 80 02/12/20 00:00 Intake Total 350 ml Output Total 575 ml Balance -225 ml Capillary Refill : Less Than 3 Seconds Skin: warm/dry, pallor Data Review Labs Laboratory Tests 02/12/20 03:41: White Blood Count 2.5L, Red Blood Count 3.82L, Hemoglobin 10.1#L, Hematocrit 31L , Mean Corpuscular Volume 81, Mean Corpuscular Hemoglobin 26, Mean Corpuscular Hemoglobin Concent 33, Red Cell Distribution Width 14.4, Platelet Count 148, Mean Platelet Volume 11.2H, Neutrophils (%) (Auto) 66, Lymphocytes (%) (Auto) 21, Monocytes (%) (Auto) 12, Eosinophils (%) (Auto) 0, Basophils (%) (Auto) 0, Neutrophils # (Auto) 1.6L, Lymphocytes # (Auto) 0.5L, Monocytes # (Auto) 0.3, Eosinophils # (Auto) 0.0, Basophils # (Auto) 0.0, D-Dimer 3.90H, Sodium Level 141, Potassium Level 3.1L, Chloride Level 114H, Carbon Dioxide Level 14L, Anion Gap 13, Blood Urea Nitrogen 36H, Creatinine 1.65H, Estimat Glomerular Filtration Rate 30, BUN/Creatinine Ratio 22, Glucose Level 135H, Calcium Level 8.8, Phosphorus Level 2.7, Magnesium Level 1.7 02/12/20 04:10: Blood Gas Puncture Site LEFT RADIAL, Blood Gas Patient Temperature 36.1, Arterial Blood pH 7.44H, Arterial Blood Partial Pressure CO2 22L, Arterial Blood Partial Pressure O2 79, Arterial Blood HCO3 15*L, Arterial Blood Total CO2 15.5L , Arterial Blood Oxygen Saturation 94, Arterial Blood Base Excess -8.7L, Ed Test YES-POS, Blood Gas Ventilator Setting YES, Blood Gas Inspired Oxygen 36% 02/12/20 05:58: Lactic Acid Level 1.35 02/12/20 08:15: Blood Gas Puncture Site RT RADIAL, Blood Gas Patient Temperature 35.2, Arterial Blood pH 7.37, Arterial Blood Partial Pressure CO2 27L, Arterial Blood Partial Pressure O2 63L, Arterial Blood HCO3 16*L, Arterial Blood Total CO2 16.9L, Arterial Blood Oxygen Saturation 91L, Arterial Blood Base Excess -8.6L, Ed Test YES-POS, Blood Gas Ventilator Setting YES, Blood Gas Inspired Oxygen 60% 02/12/20 11:45: Glucometer 160H Microbiology 02/12/20 Gram Stain - Final, Resulted 02/12/20 Sputum Culture, Resulted Pending 02/11/20 Urine Culture - Final, Complete NO GROWTH 02/11/20 Blood Culture - Preliminary, Resulted No growth A/P-Cardiology Plan Thank you for your consultation. Please call me if you have any questions. Kodak Arroyo MD, FACP, FACC, FSCAI, FHRS, CCDS Interventional Cardiology Cardiac Electrophysiology Vascular Medicine and Endovascular Interventions Lucero ARROYO MD Feb 12, 2020 17:34
[2020-02-12] MEDS: DOPamine DRIP 250 ML IV SCH (18:15)
[2020-02-12] MEDS: ENOXAPARIN 100 MG/1 ML (LOVENOX) SYR SC SCH (20:47)
[2020-02-13] VITALS (18 sets, daily range): BP systolic 107–146; BP diastolic 47–82
[2020-02-13] MEDS: D5 LR IV SOLUTION 1,000 ML IV SCH ×2 (00:53→08:53)
[2020-02-13 02:35] LABS: ABG OXYGEN SATURATION 92 % (94-100); ABG PCO2 29 MMHG (35-45); ABG PH 7.46 (7.37-7.43); ABG PO2 66 MMHG (79-93); ABG TCO2 21.6 MMOL/L (21.0-31.0)
[2020-02-13 02:36] LABS: BASOPHILS % (AUTO) 0 % (0-10); EOSINOPHILS % (AUTO) 0 % (0-10); HEMATOCRIT 29 % (35-52); HEMOGLOBIN 9.4 G/DL (11.5-16.0); LYMPHOCYTES # (AUTO) 0.4 X 10^3 (1.0-4.0); LYMPHOCYTES % (AUTO) 8 % (12-44); MEAN CORPUSCULAR HEMOGLOBIN 26 PG (25-34); MEAN CORPUSCULAR HGB CONC 32 G/DL (32-36); MEAN CORPUSCULAR VOLUME 82 FL (80-99); MEAN PLATELET VOLUME 11.6 FL (7.4-10.4); MONOCYTES # (AUTO) 0.4 X 10^3 (0.0-1.0); MONOCYTES % (AUTO) 7 % (0-12); NEUTROPHILS # (AUTO) 4.3 X 10^3 (1.8-7.8); NEUTROPHILS % (AUTO) 84 % (42-75); PLATELET COUNT 150 10^3/uL (130-400); WHITE BLOOD COUNT 5.1 10^3/uL (4.3-11.0)
[2020-02-13 02:36] LABS: ALLENS TEST YES-POS; INSPIRED O2 80%; VENTILATOR YES
[2020-02-13 02:48] LABS: POTASSIUM 3.6 MMOL/L (3.6-5.0)
[2020-02-13 02:50] LABS: CALCIUM 8.5 MG/DL (8.5-10.1)
[2020-02-13 02:54] LABS: CREATININE SERUM 1.16 MG/DL (0.60-1.30)
[2020-02-13 02:56] LABS: MAGNESIUM 1.9 MG/DL (1.6-2.4)
[2020-02-13] MEDS ORDERED: POTASSIUM CL 10MEQ/50ML IVPB 100 ML IV ONE (04:14)
[2020-02-13] MEDS: MEROPENEM 500 MG/SWFI 10 ML IV PUSH IV SCH ×4 (04:39→12:04)
[2020-02-13] MEDS: PROPOFOL DRIP (ICU) 100 ML IV SCH ×3 (04:42→12:08)
[2020-02-13] MEDS: POTASSIUM CL 10MEQ/50ML IVPB 50 ML IV SCH ×2 (04:43→06:03)
--- NOTE | 2020-02-13 05:12 | Pulmonary Progress Note ---
Subjective Time Seen by a Provider: 05:07 Subjective/Events-last exam PT is sedated on vent. Sepsis Event Evaluation Height, Weight, BMI Height: 5'4.00" Weight: 213lbs. 6.2oz. 96.785396oe; 33.00 BMI Method:Stated Focused Exam Lactate Level 02/11/20 11:04: Lactic Acid Level 1.94 02/12/20 05:58: Lactic Acid Level 1.35 Exam Exam Vital Signs Date Time Temp Pulse Resp B/P (MAP) Pulse Ox O2 Delivery O2 Flow Rate FiO2 02/13/20 04:42 72 159/94 02/13/20 04:00 50 22 118/57 (77) 91 Mechanical Ventilator 80.00 02/13/20 04:00 Mechanical Ventilator 80 02/13/20 03:00 52 21 120/58 (78) 91 Mechanical Ventilator 80.00 02/13/20 02:41 52 22 91 80 02/13/20 02:00 53 22 110/52 (71) 91 Mechanical Ventilator 80.00 02/13/20 01:00 60 02/13/20 01:00 60 24 125/60 (81) 93 Mechanical Ventilator 80.00 02/13/20 00:00 Mechanical Ventilator 80 02/13/20 00:00 67 23 140/73 (95) 95 Mechanical Ventilator 80.00 02/12/20 23:59 35.0 02/12/20 23:30 71 24 142/75 (97) 95 Mechanical Ventilator 80.00 02/12/20 22:48 67 133/70 02/12/20 22:13 55 22 91 80 02/12/20 22:00 52 22 125/62 (83) 93 Mechanical Ventilator 80.00 02/12/20 21:00 51 22 118/55 (76) 93 Mechanical Ventilator 80.00 02/12/20 20:00 Mechanical Ventilator 80 02/12/20 20:00 53 22 118/56 (76) 94 Mechanical Ventilator 80.00 02/12/20 19:19 54 22 94 80 02/12/20 19:00 55 21 118/56 (76) 95 Mechanical Ventilator 80.00 02/12/20 19:00 35.0 02/12/20 19:00 55 02/12/20 18:00 55 22 119/56 (77) 95 Mechanical Ventilator 80.00 02/12/20 17:00 57 21 117/55 (75) 95 Mechanical Ventilator 80.00 02/12/20 16:39 61 117/70 02/12/20 16:36 35.8 02/12/20 16:00 Mechanical Ventilator 80 02/12/20 16:00 58 21 125/63 (83) 95 Mechanical Ventilator 80.00 02/12/20 15:13 Mechanical Ventilator 80.00 02/12/20 15:00 42 28 112/59 (76) 92 Mechanical Ventilator 90.00 02/12/20 14:00 42 21 100/58 (72) 94 Mechanical Ventilator 90.00 02/12/20 13:00 43 21 81/50 (60) 92 Mechanical Ventilator 90.00 02/12/20 13:00 42 02/12/20 12:00 45 22 92/46 (61) 92 Mechanical Ventilator 90.00 02/12/20 12:00 Mechanical Ventilator 90 02/12/20 11:51 35.4 02/12/20 11:00 50 38 92/47 (62) 94 Mechanical Ventilator 90.00 02/12/20 10:59 Mechanical Ventilator 90.00 02/12/20 10:42 54 118/64 02/12/20 10:41 58 22 90 60 02/12/20 10:00 58 30 122/51 (74) 93 Mechanical Ventilator 60.00 02/12/20 09:55 Mechanical Ventilator 60.00 02/12/20 09:36 Mechanical Ventilator 90.00 02/12/20 09:00 53 21 109/50 (69) 91 Mechanical Ventilator 60.00 02/12/20 08:00 Mechanical Ventilator 60 02/12/20 08:00 54 22 117/50 (72) 93 Mechanical Ventilator 60.00 02/12/20 08:00 35.2 02/12/20 07:36 Mechanical Ventilator 60.00 02/12/20 07:09 50 22 94 65 02/12/20 07:00 45 02/12/20 07:00 44 21 111/55 (73) 93 Mechanical Ventilator 65.00 02/12/20 06:30 44 22 104/52 (69) 93 Mechanical Ventilator 65.00 02/12/20 06:19 45 02/12/20 06:15 45 21 106/51 (69) 93 Mechanical Ventilator 55.00 02/12/20 06:05 45 22 95/49 (64) 92 Mechanical Ventilator 55.00 02/12/20 05:31 Mechanical Ventilator 50.00 02/12/20 05:27 55 22 I & O 02/13/20 06:59 Intake Total 3945 ml Output Total 1475 ml Balance 2470 ml Height & Weight Height: 5'4.00" Weight: 213lbs. 6.2oz. 96.303922fq; 33.00 BMI Method:Stated General Appearance: WD/WN, Moderate Distress HEENT: PERRL/EOMI, Normal ENT Inspection, Other Neck: Normal Inspection Respiratory: Lungs Clear, Accessory Muscle Use, Decreased Breath Sounds, Respiratory Distress, Other Cardiovascular: No Edema, No Murmur, Normal Peripheral Pulses, Irregularly Irregular, Tachycardia Capillary Refill: Less Than 3 Seconds Extremity: Non Tender, Pedal Edema Neurologic/Psychiatric: Other Skin: Normal Color, Warm/Dry Results Lab Laboratory Tests 02/11/20 11:04 02/11/20 11:40 02/12/20 03:41 02/13/20 02:10 Assessment/Plan Assessment/Plan Acute respiratory failure secondary to COVID-19 -Continue mechanical ventilator -Decrease VT to 420 and repeat ABG 1hr after change. -Daily sedation vacation when pt is supine. -Check Ferritin and repeat DDimer and PCT -Family is refusing Remdesivir -Pt is Jehovah witness. -Prone pt for 16hrs per day -Increase Decadron to 20mg daily -Repeat PCT, BNP -Give 20mg of Lasix -Decrease IVF to 50cc/hr -Start TF with Pulmicare at 10cc/hr. -Please do not titrate up yet. Secondary bacterial pneumonia -Continue Merrem and azithromycin -Schultz cultures pending Acute renal failure with metabolic acidosis -IVF - Change IVF to LR -Monitor Anemia -Monitor -Continue Protonix Hypokalemia, hypophos -replace GI/DVT ppx -Start Lovenox -Continue protonix UGO JEAN DO Feb 13, 2020 05:12
[2020-02-13] MEDS ORDERED: POTASSIUM PHOSPHATE INJ 30 MM in NS (IVPB) 250 ML IV ONE (05:30)
[2020-02-13] MEDS ORDERED: FUROSEMIDE 40 MG/4 ML INJ (LASIX) IVP ONE (05:30)
[2020-02-13] MEDS ORDERED: KCL 20 MEQ TAB (K-DUR) PO SCH (06:00)
[2020-02-13] MEDS ORDERED: MAGNESIUM 1 GM/100 ML IVPB 100 ML IV SCH (06:00)
[2020-02-13] MEDS ORDERED: POTASSIUM CL 10MEQ/50ML IVPB 50 ML IV SCH (06:00)
--- NOTE | 2020-02-13 07:15 | NUR ---
PT TURNED TO SUPINE POSITION.
--- NOTE | 2020-02-13 07:20 | NUR ---
PULMOCARE TF STARTED AT 10ML/HR PER DR JEAN.
[2020-02-13] MEDS ORDERED: REMDESIVIR INJ (NON-FORMULARY) 100 MG in NS (IVPB) 230 ML IV SCH (08:00)
--- NOTE | 2020-02-13 08:11 | Physical Therapy Progress Note ---
Therapy Progress Note Patient remains sedated and intubated. PT will continue to follow. RASHID FLOWER PT Feb 13, 2020 08:11
[2020-02-13] MEDS: LORazepam INJ 2 MG/ML (ATIVAN) VIAL IVP PRN ×2 (08:51→14:16)
[2020-02-13] MEDS: ENOXAPARIN 100 MG/1 ML (LOVENOX) SYR SC SCH (08:52)
[2020-02-13] MEDS: PANTOPRAZOLE 40 MG (PROTONIX) VIAL IV SCH (08:53)
--- NOTE | 2020-02-13 09:27 | Diagnostic Imaging Report ---
Clinical indication: Patient with dyspnea and COVID. Exam: Portable chest x-ray semierect upright view. Comparisons: Portable chest x-ray dated 02/12/2020. Findings: There is interval improved aeration of the right lung with residual mild infiltrate involving the right inferior perihilar/right lung base. There is slight progression of patchy consolidation involving the left midlung field and left upper lobe/superior perihilar region. There is otherwise stable airspace infiltrates in the left lower lobe region. There is no pleural effusion or pneumothorax. Pulmonary vasculature and cardiac silhouettes within normal limits. Interval placement of the right PICC line with tip in the cavoatrial junction region. ET tube and feeding tube seen in stable good position. Sternotomy wires are again seen. IMPRESSION: 1.: There is interval progression of airspace infiltrates/consolidation involving the left upper lobe and left midlung field region. There is stable airspace infiltrates in left lower lobe region. 2: There is improved aeration of the right lung with residual right lung base and inferior right perihilar infiltrates. 3: Interval placement of the right PICC line with tip in the cavoatrial junction. 4: Stable ET tube and feeding tube in good position. Dictated by: Dictated on workstation # [id number]
--- NOTE | 2020-02-13 09:44 | Occ Therapy Progress Note ---
Therapy Progress Note Continuing to monitor pt. Pt. on sedation and ventilator support. Will assess pt. when medically ready. 0944 ECHO LFOYD OT Feb 13, 2020 09:44
[2020-02-13 10:01] LABS: ABG BASE EXCESS -2.1 MMOL/L (-2.5-2.5); ABG PCO2 41 MMHG (35-45); ABG PH 7.36 (7.37-7.43); ABG TCO2 23.9 MMOL/L (21.0-31.0)
[2020-02-13 10:05] LABS: ALLENS TEST YES-POS; INSPIRED O2 100%; PATIENT TEMP 36.8; VENTILATOR YES
[2020-02-13 10:06] LABS: ABG PO2 35 MMHG (79-93)
[2020-02-13 10:08] LABS: ABG OXYGEN SATURATION 45 % (94-100)
[2020-02-13] MEDS: fentaNYL INJECTION 1,250 MCG in NS (IVPB) 250 ML IV SCH (10:18)
[2020-02-13] MEDS ORDERED: NS IV 1000 ML 1,000 ML ONE (10:20)
[2020-02-13 11:00] LABS: ABG BASE EXCESS -2.9 MMOL/L (-2.5-2.5); ABG OXYGEN SATURATION 87 % (94-100); ABG PCO2 31 MMHG (35-45); ABG PH 7.44 (7.37-7.43); ABG PO2 52 MMHG (79-93); ABG TCO2 21.9 MMOL/L (21.0-31.0)
[2020-02-13 11:01] LABS: ALLENS TEST ART LINE; INSPIRED O2 100%; PATIENT TEMP 96.9; VENTILATOR YES
[2020-02-13] MEDS ORDERED: FUROSEMIDE 40 MG/4 ML INJ (LASIX) IVP NR (11:30)
--- NOTE | 2020-02-13 11:43 | Anesthesia-Procedure Note ---
Procedures/Interventions Procedure Start/Stop/Diagnosis Date of Procedure: Feb 13, 2020 Start Time: 10:35 Preprocedural Diagnosis: Resp Failure Stop Time: 10:50 Arterial Line Arterial Line Catheter: 20G Type: Radial Location: Left Procedure: prepped, draped in sterile fashion, good wave-form was obtained, patient tolerated procedure well, no immediate complications, post procedure area cleaned, post procedure dressing applied LISA WITT CRNA Feb 13, 2020 11:43
--- NOTE | 2020-02-13 11:59 | NUR ---
PROPOFOL AND FENTANYL TURNED OFF FOR SEDATION VACATION. AFTER 10 MINS, PT'S RR DURING THIS TIME INCREASED TO 47 BREATHS PER MIN, BEGAN COUGHING AND CHOCKING ON ETT. DR JEAN ON FLOOR AND NOTIFIED. ADVISED TO TURN SEDATION BACK ON. PT'S BREAST AND CHEST AREA NOTED TO BE STARTING TO HAVE A MOTTLED APPEARANCE. DR JEAN INFORMED AND TO ENTER NEW ORDERS.
[2020-02-13] MEDS ORDERED: dexAMETHasone INJECTION 20 MG in NS (IVPB) 50 ML IV SCH (12:00)
--- NOTE | 2020-02-13 12:05 | NUR ---
THIS RN CALLED RT INTO ROOM, O2 SATS IN MID 80'S ON VENT AT 100%FIO2. RT BEGAN BAGGING PT, SATS INCREASED TO 90'S. DR JEAN PRESENT.
[2020-02-13] MEDS ORDERED: NOREPINEPHRINE 4 MG/250 ML 250 ML IV ONE (12:14)
[2020-02-13] MEDS ORDERED: CISATRACURIUM 2MG/ML (NIMBEX) 10ML VIAL IV ONE (12:15)
--- NOTE | 2020-02-13 12:20 | NUR ---
TIMELINE NOTE- 1220- DR JEAN PRESENT. 50MG ROCURONIUM GIVEN IVP AND LEVOPHED STARTED 1225- DOPAMINE STARTED 1230- PEEP DECREASED TO 12, TV INCREASED TO 500 1237- LABS AND CXR ORDERED 1241 BP 164/50 O2 77% HR [address] JEAN SPOKE W/ PT'S FAMILY (DUNIA) AND DECISION WAS MADE TO MAKE PT COMFORT CARE 1255- LEVOPHED AND DOPAMINE TURNED OFF
[2020-02-13] MEDS: DOPamine DRIP 250 ML IV SCH (12:27)
[2020-02-13] MEDS ORDERED: PROPOFOL DRIP (ICU) 100 ML IV SCH (12:30)
[2020-02-13] MEDS ORDERED: CISATRACURIUM INJECTION 100 MG in NS (IVPB) 200 ML IV SCH (12:30)
--- NOTE | 2020-02-13 12:46 | NUR ---
PALLIATIVE CARE RN: This RN went up to ICU to see if I could help with ICU6 who is apparently not doing well on the VENT. Rapid response team appears to have been assembled and Dr. Bautista is coming out to call family. Assisted in this phone call. We spoke with patient's eldest daughter Katiana Mcmillan. She is going to call her siblings and update them on the grave situation. They will call the ICU desk and let us know if we are to proceed with aggressive measure or change focus to Comfort Care only. Palliative Care will continue to follow.
--- NOTE | 2020-02-13 12:52 | NUR ---
[id number] received call from family regarding comfort measures for pt. pt family stated that pt would not want to live on the vent. Dr Bautista spoke with family and explained everything with comfort measures, family stated that they understood. Pt family stated that they wanted to continue with comfort measures due to pt prognosis and current state
[2020-02-13 12:59] LABS: ALBUMIN 2.9 GM/DL (3.2-4.5); BASOPHILS % (AUTO) 0 % (0-10); EOSINOPHILS % (AUTO) 0 % (0-10); HEMATOCRIT 33 % (35-52); HEMOGLOBIN 11.1 g/dL (11.5-16.0); LYMPHOCYTES # (AUTO) 1.3 10^3/uL (1.0-4.0); LYMPHOCYTES % (AUTO) 13 % (12-44); MEAN CORPUSCULAR HEMOGLOBIN 28 pg (25-34); MEAN CORPUSCULAR HGB CONC 33 g/dL (32-36); MEAN CORPUSCULAR VOLUME 84 fL (80-99); MEAN PLATELET VOLUME 12.1 fL (9.0-12.2); MONOCYTES # (AUTO) 0.5 10^3/uL (0.0-1.0); MONOCYTES % (AUTO) 5 % (0-12); NEUTROPHILS # (AUTO) 8.7 10^3/uL (1.8-7.8); NEUTROPHILS % (AUTO) 81 % (42-75); PLATELET COUNT 233 10^3/uL (130-400); POTASSIUM 4.4 MMOL/L (3.6-5.0); WHITE BLOOD COUNT 10.7 10^3/uL (4.3-11.0)
[2020-02-13 13:00] LABS: CALCIUM 8.3 MG/DL (8.5-10.1)
[2020-02-13 13:01] LABS: TOTAL PROTEIN 6.6 GM/DL (6.4-8.2)
[2020-02-13 13:03] LABS: BILIRUBIN,TOTAL 0.3 MG/DL (0.1-1.0)
[2020-02-13 13:05] LABS: CREATININE SERUM 1.02 MG/DL (0.60-1.30)
--- NOTE | 2020-02-13 13:09 | Pulmonary Progress Note ---
Standard Progress Note Progress Notes Date Seen by Provider: Feb 13, 2020 Time Seen by Provider: 11:30 Called to bedside by RN secondary to pt becoming hypotensive and hypoxic while on vent. RT called to bedside and was using ambu bag to try to get saturations up. Pt not responding. Levophed and Dopamine started secondary to hypotension. I discussed with patient's family over the phone with RN present. After discussing all options with family they called back with their decision for comfort care only. They know by making pt comfort care only and taking her off vent she will . They state she would not want all of this. Rn was present for entire conversation. Assessment & Plan Acute respiratory failure secondary to COVID-19 -Continue mechanical ventilator -Decrease VT to 420 and repeat ABG 1hr after change. -Daily sedation vacation when pt is supine. -Check Ferritin and repeat DDimer and PCT -Family is refusing Remdesivir -Pt is Jehovah witness. -Prone pt for 16hrs per day -Increase Decadron to 20mg daily -Repeat PCT, BNP -Give 20mg of Lasix -Decrease IVF to 50cc/hr -Start TF with [facility] at 10cc/hr. -Please do not titrate up yet. Secondary bacterial pneumonia -Continue Merrem and azithromycin -Schultz cultures pending Acute renal failure with metabolic acidosis -IVF - Change IVF to LR -Monitor Anemia -Monitor -Continue Protonix Hypokalemia, hypophos -replace GI/DVT ppx -Start Lovenox -Continue protonix Critical Care: Critically Ill Patient Time spent with patient (mins): 120 Focused Exam Lactate Level 02/11/20 11:04: Lactic Acid Level 1.94 02/12/20 05:58: Lactic Acid Level 1.35 02/13/20 12:32: Lactic Acid Level Laboratory Tests Test 02/13/20 12:32 UGO JEAN DO Feb 13, 2020 13:09
[2020-02-13] MEDS ORDERED: morphine INJ 4 MG/ML 1 ML (VIAL/SYRINGE) IVP PRN (13:15)
[2020-02-13] MEDS ORDERED: ROCURONIUM 10 MG/ML 5 ML SYRINGE IV ONE (13:33)
--- NOTE | 2020-02-13 13:45 | NUR ---
TRAIN OF 4 PERFORMED, PT NO LONGER PARALYZED.
--- NOTE | 2020-02-13 13:45 | NUR ---
SEDATION MEDS TURNED OFF.
[2020-02-13 13:46] LABS: FIBRIN DEGRADATION PRODUCTS 3.42 UG/ML (0.00-0.49); INR 1.1 (0.8-1.4); PROTHROMBIN TIME PATIENT 14.6 SEC (12.2-14.7)
[2020-02-13] MEDS ORDERED: NOREPINEPHRINE 4 MG/250 ML 250 ML IV SCH (14:15)
--- NOTE | 2020-02-13 14:53 | NUR ---
timeline note- 1420- pt terminally extubated, on comfort care per family wishes 1437- respirations ceased, no perceptible heart beat. confirmed w/ elsy rn 1445- pt's daughter jayme notified by phone, jayme to call and informed the rest of family 1446- dr mcdonald notified of time of
--- NOTE | 2020-02-13 14:58 | NUR ---
THIS RN asked to come to ICU to assist prior to patient passing. She is extubated and declining rapidly. RN asked this me to call family and update them. I spoke with Katiana Mcmillan, daughter. Inquired about Home of choice , they will call ICU back with name.
--- NOTE | 2020-02-13 15:04 | NUR ---
[employer] Work[employer] informed of Patient . Contacted friend, Gris, listed on [employer]. She shared that she and the patient met through work and became close friends. She was attempting to contact a friend in [place], [place] to notify her of the patient's . Assisted with locating her contact and offered condolences.
--- NOTE | 2020-02-13 15:20 | NUR ---
post mortem care done.
[2020-02-13] MEDS ORDERED: ARTIFICIAL TEARS OINT (LACRI-LUBE) 3.5 GM TUBE OU SCH (16:00)
--- NOTE | 2020-02-13 17:57 | Cardiology Progress Note ---
Cardiology SO Progress Note Objective: I&O/Vital Signs 02/13/20 02/13/20 02/13/20 02/13/20 06:00 06:44 07:00 07:07 Pulse 54 55 56 66 Resp 22 22 30 B/P (MAP) 109/55 (73) 129/64 (85) Pulse Ox 88 90 94 O2 Delivery Mechanical Ventilator Mechanical Ventilator O2 Flow Rate 80.00 80.00 FiO2 80 02/13/20 02/13/20 02/13/20 02/13/20 07:56 08:00 08:00 08:02 Temp 36.0 Pulse 59 Resp 30 B/P (MAP) 107/66 (80) Pulse Ox 87 92 O2 Delivery Mechanical Ventilator Mechanical Ventilator O2 Flow Rate 80.00 FiO2 100 100 02/13/20 02/13/20 02/13/20 02/13/20 08:17 08:53 09:00 10:00 Pulse 61 59 Resp 22 36 B/P (MAP) 125/47 115/73 (87) 110/65 (80) Pulse Ox 92 93 O2 Delivery Mechanical Ventilator Mechanical Ventilator Mechanical Ventilator O2 Flow Rate 100.00 100.00 100.00 02/13/20 02/13/20 02/13/20 02/13/20 10:12 11:00 11:51 12:00 Temp 36.0 Pulse 56 59 Resp 31 51 B/P (MAP) 141/50 (80) Pulse Ox 91 91 O2 Delivery Mechanical Ventilator Mechanical Ventilator O2 Flow Rate 100.00 FiO2 100 100 02/13/20 02/13/20 02/13/20 02/13/20 12:00 12:08 12:27 12:30 Pulse 62 64 64 45 Resp 40 B/P (MAP) 144/50 (81) 150/47 150/47 85/40 Pulse Ox 93 O2 Delivery Mechanical Ventilator O2 Flow Rate 100.00 02/13/20 02/13/20 02/13/20 02/13/20 12:35 12:43 13:00 14:00 Pulse 64 72 66 68 Resp 31 28 B/P (MAP) 150/47 144/50 (81) 131/47 (75) Pulse Ox 54 56 O2 Delivery Mechanical Ventilator Mechanical Ventilator O2 Flow Rate 100.00 100.00 02/13/20 00:00 Intake Total 2245 ml Output Total 875 ml Balance 1370 ml Weight (Pounds): 213 Weight (Ounces): 6.2 Weight (Calculated Kilograms): 96.389632 Skin: warm/dry, pallor Results/Procedures: Labs Laboratory Tests 02/12/20 18:13: Glucometer 163H 02/13/20 02:09: Glucometer 141H 02/13/20 02:10: White Blood Count 5.1, Red Blood Count 3.56L, Hemoglobin 9.4L, Hematocrit 29L, Mean Corpuscular Volume 82, Mean Corpuscular Hemoglobin 26, Mean Corpuscular Hemoglobin Concent 32, Red Cell Distribution Width 14.5, Platelet Count 150, Mean Platelet Volume 11.6H, Neutrophils (%) (Auto) 84H, Lymphocytes (%) (Auto) 8L, Monocytes (%) (Auto) 7, Eosinophils (%) (Auto) 0, Basophils (%) (Auto) 0, Neutrophils # (Auto) 4.3, Lymphocytes # (Auto) 0.4L, Monocytes # (Auto) 0.4, Eosinophils # (Auto) 0.0, Basophils # (Auto) 0.0, Sodium Level 145, Potassium Level 3.6, Chloride Level 115H, Carbon Dioxide Level 18L, Anion Gap 12, Blood Urea Nitrogen 26H, Creatinine 1.16, Estimat Glomerular Filtration Rate 45, BUN/Creatinine Ratio 22, Glucose Level 146H, Calcium Level 8.5, Phosphorus Level 2.0L, Magnesium Level 1.9, Triglycerides Level 376H 02/13/20 02:22: Blood Gas Puncture Site LEFT RADIAL, Blood Gas Patient Temperature 35.0, Arterial Blood pH 7.46H, Arterial Blood Partial Pressure CO2 29L, Arterial Blood Partial Pressure O2 66L, Arterial Blood HCO3 21L, Arterial Blood Total CO2 21.6, Arterial Blood Oxygen Saturation 92L, Arterial Blood Base Excess -3.0L, Ed Test YES-POS, Blood Gas Ventilator Setting YES, Blood Gas Inspired Oxygen 80% 02/13/20 05:24: B-Type Natriuretic Peptide 158.8H, Procalcitonin 1.33H 02/13/20 09:05: Blood Gas Puncture Site LR, Blood Gas Patient Temperature 36.8, Arterial Blood pH 7.36L, Arterial Blood Partial Pressure CO2 41, Arterial Blood Partial Pressure O2 35*L, Arterial Blood HCO3 23, Arterial Blood Total CO2 23.9, Ar terial Blood Oxygen Saturation 45L, Arterial Blood Base Excess -2.1, Ed Test YES-POS, Blood Gas Ventilator Setting YES, Blood Gas Inspired Oxygen 100% 02/13/20 10:52: Blood Gas Puncture Site ART LINE, Blood Gas Patient Temperature 96.9, Arterial Blood pH 7.44H, Arterial Blood Partial Pressure CO2 31L, Arterial Blood Partial Pressure O2 52L, Arterial Blood HCO3 21L, Arterial Blood Total CO2 21.9, Arterial Blood Oxygen Saturation 87L, Arterial Blood Base Excess -2.9L, Ed Test ART LINE, Blood Gas Ventilator Setting YES, Blood Gas Inspired Oxygen 100% 02/13/20 11:53: Glucometer 121H 02/13/20 12:32: White Blood Count 10.7, Red Blood Count 3.99, Hemoglobin 11.1L, Hematocrit 33L, Mean Corpuscular Volume 84, Mean Corpuscular Hemoglobin 28, Mean Corpuscular Hemoglobin Concent 33, Red Cell Distribution Width 14.2, Platelet Count 233, Mean Platelet Volume 12.1, Immature Granulocyte % (Auto) 1, Neutrophils (%) (Aut o) 81H, Lymphocytes (%) (Auto) 13, Monocytes (%) (Auto) 5, Eosinophils (%) (Auto) 0, Basophils (%) (Auto) 0, Neutrophils # (Auto) 8.7H, Lymphocytes # (Auto) 1.3, Monocytes # (Auto) 0.5, Eosinophils # (Auto) 0.0, Basophils # (Auto) 0.0, Immature Granulocyte # (Auto) 0.1, Prothrombin Time 14.6, INR Comment 1.1, Activated Partial Thromboplast Time 34, Fibrinogen 557H, D-Dimer 3.42H, Sodium Level 139, Potassium Level 4.4, Chloride Level 109H, Carbon Dioxide Level 20L, Anion Gap 10, Blood Urea Nitrogen 23H, Creatinine 1.02, Estimat Glomerular Filtration Rate 53, BUN/Creatinine Ratio 23, Glucose Level 130H, Lactic Acid Level 2.78*H, Calcium Level 8.3L, Corrected Calcium 9.2, Total Bilirubin 0.3, Aspartate Amino Transf (AST/SGOT) 60H, Alanine Aminotransferase (ALT/SGPT) 14, Alkaline Phosphatase 56, Total Protein 6.6, Albumin 2.9L Microbiology 02/12/20 Gram Stain - Final, Resulted 02/12/20 Sputum Culture - Preliminary, Resulted No growth 02/11/20 Urine Culture - Final, Complete NO GROWTH 02/11/20 Blood Culture - Preliminary, Resulted No growth A/P: Thank you for your consultation. Please call me if you have any questions. Kodak Arroyo MD, FACP, FACC, FSCAI, FHRS, CCDS Interventional Cardiology Cardiac Electrophysiology Vascular Medicine and Endovascular Interventions Focused Exam Lactate Level 02/11/20 11:04: Lactic Acid Level 1.94 02/12/20 05:58: Lactic Acid Level 1.35 02/13/20 12:32: Lactic Acid Level 2.78*H Clinical Quality Measures Type of Care: Type of Care: Comfort Measures Lucero ARROYO MD Feb 13, 2020 17:57
--- NOTE | 2020-02-13 18:31 | NUR ---
200ML FENTANYL WASTED W/ [facility]. BODY LEFT W/ [facility].
== END 2020-02-13 14:37 | disposition expired | DRG 208 ==
LOC: EDUNIT# 10:51 → ER 10:52 → ICU 12:35
PROVIDERS: ADMIT Internal Medicine; ATTEND Internal Medicine
PROC: 5A1945Z Respiratory Ventilation, 24-96 Consecutive Hours (ICD-10-PCS; principal; 2020-02-11)
PROC: 0BH17EZ Insertion of Endotracheal Airway into Trachea, Via Natural or Artificial Opening (ICD-10-PCS; 2020-02-11)
DX: U07.1 COVID-19 (principal); J15.9 Unspecified bacterial pneumonia; J96.01 Acute respiratory failure with hypoxia; N17.9 Acute kidney failure, unspecified; E87.2 Acidosis; E87.6 Hypokalemia; I95.9 Hypotension, unspecified; Z66 Do not resuscitate; Z51.5 Encounter for palliative care; E66.9 Obesity, unspecified; R54 Age-related physical debility; I25.10 Atherosclerotic heart disease of native coronary artery without angina pectoris; I10 Essential (primary) hypertension; E78.00 Pure hypercholesterolemia, unspecified; J30.2 Other seasonal allergic rhinitis; N31.9 Neuromuscular dysfunction of bladder, unspecified; K21.9 Gastro-esophageal reflux disease without esophagitis; K59.09 Other constipation; K52.9 Noninfective gastroenteritis and colitis, unspecified; M06.9 Rheumatoid arthritis, unspecified; M19.91 Primary osteoarthritis, unspecified site; D50.9 Iron deficiency anemia, unspecified; I49.3 Ventricular premature depolarization; E83.39 Other disorders of phosphorus metabolism; I49.1 Atrial premature depolarization; Z95.1 Presence of aortocoronary bypass graft; Z68.34 Body mass index [BMI] 34.0-34.9, adult; Z87.891 Personal history of nicotine dependence
CPT/HCPCS: 31500; 36415; 36569; 51702; 71045; 76937; 80048; 80053; 81000; 82728; 82805; 82962; 83605; 83735; 83880; 84100; 84145; 84478; 85025; 85379; 85384; 85610; 85730; 86141; 87040; 87070; 87081; 87088; 87205; 87635; 87804; 93005; 94002; 94003; 94640; 94799; 99291; 99292